=== PATIENT | female | born 1935 ===

== ENCOUNTER 2016-03-03 15:24 | Inpatient (IN) | payer MEDICARE, OTHER, MEDICAID ==
[~2016-03-03] VITALS: Ht 137.2 cm; Wt 73.1 kg
[~2016-03-03 15:24] MED LIST: ALEN35TA31 PO; AMLO10TA3 PO; ATOR80TA PO; CIPR-231 PO; FURO-128 PO; INSU100I18 SUBQ; INSU100V7 SUBQ; LEVO200T6 PO; LISI-567 PO; LORA10CA PO; OMEP20CA11 PO; ROPI3TAB PO; SULF1TAB7 PO
[2016-03-03 15:32] VITALS: BP 119/61; PULSE 68; RESP 18; O2SAT 97
--- NOTE | 2016-03-03 17:20 | DRSVH ---
PROCEDURE: X-RAY CHEST ONE VIEW, PORTABLE ([id number]) INDICATIONS: chf TECHNIQUE: One view of the chest was acquired. COMPARISON: [facility], CR, XR CHEST 2VW, 02/22/2015, 8:25. FINDINGS: Surgical changes and devices: None. Lungs and pleura: No pleural effusions or pneumothorax. Lungs are clear. Lung volumes are very low . There is scattered atelectasis Mediastinum: Mediastinal contours appear normal. Heart size is normal. Bones and chest wall: No suspicious bony lesions. Overlying soft tissues appear unremarkable. IMPRESSION: Low lung volumes with scattered atelectasis. No acute disease Dictated by: Francisco Wiggins M.D. on 03/03/2016 at 17:18 Approved by: Francisco Wiggins M.D. on 03/03/2016 at 17:18
[2016-03-03 17:30] LABS: EOSINOPHILS % (AUTO) 1.3 % (0-5); Mean Corpuscular Hemoglobin 26.9 pg (27.0-35.0); Mean Corpuscular Volume 81.1 fL (81-100); NEUTROPHILS % (AUTO) 71.3 % (40-74); Platelet Count 453 bil/L (150-400)
--- NOTE | 2016-03-03 18:00 | ED.REPORT ---
HPI-General Illness Date of Service Mar 03, 2016 ED Provider: Dr. Ki Vasquez MD A 80 year old female with history of insulin-dependent diabetes mellitus, hypertension and hypothyroidism presents to the ED via EMS with generalized weakness onset unknown. [place] denies any abdominal pain, headache or any other pains. Patient denies any previous strokes. Patient is a poor historian. Nursing Notes Stated Complaint: WEAKNESS Chief Complaint: General Complaint Nursing Notes Reviewed: Yes Allergies: Coded Allergies: Penicillins (Verified Allergy, Unknown, 03/03/16) Scheduled Alendronate (Alendronate) 35 Mg Tablet 70 MG PO WEEKLY Amlodipine (Amlodipine) 10 Mg Tablet 10 MG PO DAILY Atorvastatin (Lipitor) 80 Mg Tablet 80 MG PO DAILY Ciprofloxacin (Cipro) 500 Mg Tablet 500 MG PO BID Furosemide (Lasix) 40 Mg Tablet 40 MG PO [id number] Insulin Glargine (Lantus U100 Insulin Vial) 100 Unit/Ml Vial 40 UNIT SUBQ MORNING Insulin Lispro (HumaLOG U100 Insulin Pen) 100 Unit/1 Ml Insuln.pen Unknown Dose SUBQ ACHS Blood Sugar Lispro Correction <151 0 units 151-175 1 unit 176-200 2 units 201-225 3 units 226-250 4 units 251-275 5 units 276-300 6 units 301-325 7 units 326-350 8 units 351-375 9 units 376-400 10 units >400 12 units Check blood sugars before meals and at bedtime. Use correction factor only before meals. Levothyroxine (Levothyroxine) 200 Mcg Tablet 200 MCG PO DAILY Lisinopril (Lisinopril) 20 Mg Tablet 20 MG PO DAILY Loratadine (Claritin) 10 Mg Capsule 10 MG PO DAILY Omeprazole (Omeprazole) 20 Mg Capsule.dr 20 MG PO DAILY Ropinirole (Ropinirole) 3 Mg Tablet 6 MG PO BID Sulfamethoxazole/Trimeth 800-160 mg (Bactrim DS) 1 Each Tablet 1 TABLET PO BID General Time Seen by MD: 18:00 Chief Complaint Weakness Hx Obtained From: Patient Unable to Obtain Hx: Patient condition (Limited History ) Arrived By: Ambulance Sudden in Onset?: No Onset Occurred: Onset unknown Symptom Duration: Duration unknown Location: No: Abdomen, Head Associated with: Reports: Weakness, Denies: Abdominal pain, Headache Pertinent Negative: Pt denies other symptoms Recent Healthcare: No recent doctor visit, No recent hospitalization Past Medical History Past Medical History Insulin-dependent diabetes mellitus Hypertension Hypothyroidism Hyperlipidemia Osteoporosis Lower extremity edema GERD Reports: Diabetes mellitus, Hyperlipidemia, Hypertension, Denies: Stroke, Transient ischemic attack Past Surgical History Total hysterectomy Cholecystectomy Bilateral cataract Smoking History Former Smoker Social History Alcohol Use: Denies alcohol use Drug Use: Denies drug use Other Social History: Local resident Ambulatory Status Walker Review of Systems Unable to Obtain ROS Patient condition (ROS Limited ) Full Review of Systems Cardiovascular: Denies: Chest pain GI: Denies: Abdominal pain Neurologic: Reports: Weakness, Denies: Headache Complete sys rev & neg: except as marked. Physical Exam Vital Signs Vital Signs Date Time Temp Pulse Resp B/P Pulse Ox O2 Delivery O2 Flow Rate FiO2 03/03/16 18:15 64 18 109/51 95 Room Air 03/03/16 15:32 36.3 68 18 119/61 97 Room Air Initial VS: Reviewed Skin: Warm, Dry, No cyanosis Psychiatric: Mood/affect normal, Behavior normal, Normal thought content General/Constitutional: Awake Alertness: Positive: Responds to verb stimuli Head / Eyes: Atraumatic, Normocephalic HEAD/EYES: Right eye opens greater than left Respiratory / Chest: Atraumatic, Breath sounds = bilat RESPIRATORY: Decreased breath sounds bilaterally Cardiovascular: Heart rate NL, Regular rhythm, Heart sounds NL CARDIO: Non-pitting edema in in both feet Abdomen: Atraumatic, Soft, Non-tender Upper Extremities Upper Extremity / MS: Atraumatic, Vascular intact UPPER EXTREMITIES: No lateralizing deficits Equivalent strength in all four extremities; generally weak Lower Extremity / Pelvis / MS: Atraumatic, Vascular intact LOWER EXTREMITIES: No lateralizing deficits Equivalent strength in all four extremities; generally weak Neurologic: Oriented X3, Reflexes equal bilat NERUO: Patient is oriented to place but is unsure why she was brought here Able to follow prompts and answer questions Interpretation & Diagnostics Lab Results Interpretation Result Diagram: 03/03/16 1720 03/03/16 1720 Test 03/03/16 17:20 03/03/16 19:35 03/03/16 20:00 White Blood Count 6.0th/mm3 (3.8-10.1) Red Blood Count 3.60mil/mm3 (3.90-5.20) Hemoglobin 9.7g/dL (12.0-15.6) Hematocrit 29.2% (35.0-46.0) Mean Corpuscular Volume 81.1fL (81-100) Mean Corpuscular Hemoglobin 26.9pg (27.0-35.0) Mean Corpuscular Hemoglobin Concent 33.2% (32.0-37.0) Red Cell Distribution Width 14.4% (12.3-15.4) Platelet Count 453bil/L (150-400) Neutrophils (%) (Auto) 71.3% (40-74) Lymphocytes (%) (Auto) 21.2% (14-46) Monocytes (%) (Auto) 5.0% (4-12) Eosinophils (%) (Auto) 1.3% (0-5) Basophils (%) (Auto) 1.0% (0-3) Sodium Level 133mEq/L (134-144) Potassium Level 4.4mEq/L (3.5-5.2) Chloride Level 97mEq/L (97-108) Carbon Dioxide Level 21mmol/L (18-29) Blood Urea Nitrogen 45mg/dL (8-27) Creatinine 2.21mg/dL (0.57-1.00) Estimat Glomerular Filtration Rate 31mL/min (>59) Glucose Level 49mg/dL (60-99) Calcium Level 8.2mg/dL (8.5-10.1) Total Bilirubin 0.3mg/dL (0.0-1.2) Aspartate Amino Transf (AST/SGOT) 190U/L (0-50) Alanine Aminotransferase (ALT/SGPT) 204U/L (0-32) Alkaline Phosphatase 123U/L (25-165) Pro-B-Type Natriuretic Peptide 264.2pg/mL (0-738) Total Protein 6.4g/dL (6.4-8.4) Albumin 3.1g/dL (3.4-5.0) Thyroid Stimulating Hormone (TSH) 154.600uIU/mL (0.450-4.500) Free Thyroxine < 0.10ng/dL (0.82-1.77) Hold [place] Top Tube Received (Received) Urine Color Straw (YELLOW) Urine Appearance Cloudy (CLEAR,HAZY) Urine pH 5.5 (5.0-8.0) Urine Specific [place] 1.020 (1.003-1.035) Urine Protein 100mg/dL (NEG,TRACE) Urine Glucose (UA) Negativemg/dL (NEGATIVE) Urine Ketones Negativemg/dL (NEGATIVE) Urine Occult Blood Trace (NEGATIVE) Urine Nitrite Negative (NEGATIVE) Urine Bilirubin Negative (NEGATIVE) Urine Urobilinogen Normalmg/dL (NORMAL) Urine Leukocyte Esterase Moderate (NEGATIVE) Urine RBC 0-2/hpf (0-2) Urine WBC >50/hpf (0-5) Urine Epithelial Cells Moderate/hpf (NONE-MOD) Urine Crystals Amorphous urates (NONE Urine Bacteria Few/hpf (NONE-FEW) Urine Hyaline Casts None/lpf (NONE) Urine Granular Casts None seen (NONE SEEN) Urine Waxy Casts None seen (NONE SEEN) Urine Red Blood Cell Casts None seen (NONE SEEN) Urine White Blood Cell Casts None seen (NONE SEEN) Urine Mucus None seen (None Seen) Urine Trichomonas None seen (NONE SEEN) Urine Yeast None (NONE SEEN) Urinalysis Comment None Urine Culture Reflexed Indicated Lab Results Interpretation: INFLUENZA: Negative X-Ray Chest Interpretation Chest Xray Interpretation: IMPRESSION: Low lung volumes with scattered atelectasis. No acute disease Dictated by: Francisco Wiggins M.D. on 03/03/2016 at 17:18 Interpretation / Wet Read by: Interpret - Radiologist CT Head Interpretation IMPRESSION: No acute intracranial process. Dictated by: Francisco Wiggins M.D. on 03/03/2016 at 18:55 Study: Head CT no contrast Interpretation / Wet Read by: Interpret - ED physician Re-Eval/Medical Decision Med Decision/Clinical Course 80-year-old female with multiple medical comorbidities presents with a gradual onset decreased mentation. She is found to be somnolent but arousable. She is grossly weak without lateralizing deficits. She does have nonpitting edema about the face and limbs. She has a relative bradycardia and she is relatively hypotensive. Beyond that should very benign physical examination. No evidence of infection found on physical exam. Laboratory work was highly concerning for myxedema coma. I say this because she is hypoglycemic, hyponatremic and she has a markedly elevated TSH with a very low T4. She also has acute renal insufficiency. Her troponin is also elevated however her ST segments appeared to be isoelectric without evidence of an NV on her EKG. We began immediate fluid resuscitation. IV dextrose was infused A random cortisol and free T4 level were drawn. IV hydrocortisone was administered. 200 g of levothyroxine was administered. After the above therapeutic she looked better. She was definitely more alert. Her blood sugar stabilized. Her vitals were stable. I do not feel that she will need to be intubated and she is protecting her airway well and she seems to be oxygenating and ventilating well. I consulted with the on-call international trade compliance manager at the [facility]. His name escapes me at this time. He agrees with the plan. He recommends IV hydrocortisone every 8 hours and to initiate the levothyroxin as described above. He recommends that she starts her oral levothyroxin in the morning. Due to the high morbidity and mortality associated with myxedema coma we will admit her to the intensive care unit. Case discussed with our hospitalist was accepted her for admission. Time of Eval: 19:43 Patient Status: Condition improved Re-Evaluation/Progress Note: Patient is rechecked. She is informed of her lab results and diagnoses. All of the patient's questions are addressed. She understands and agrees with the treatment plan to admit. Consultation #1: Referral / Consult Name: Daniel Díaz MD Consulted With: Hospitalist Call Returned at: 22:42 House Registry Rn: Will see patient, Agrees with eval, Agrees with plan, Accepts admit Consultation #2: Call Returned at: 20:37 House Registry Rn: Agrees with eval, Agrees with plan Note: Endocrinology [facility] Recommends Levothyroxine. Counseled Regarding: Diagnosis, Lab results, Need for admission Discharge & Departure Primary Impression: Myxedema Additional Impressions: Renal insufficiency Hypoglycemia associated with diabetes ARF (acute renal failure) Acute renal failure type: unspecified Qualified Code: N17.9 - Acute kidney failure, unspecified Disposition: ADMITTED TO HOSPITAL Discharge Condition All VS Reviewed: Yes Condition: Stable Referrals: Praveena Saini MD (PCP) Crit Care Except Billable Proc Time Spent: 75-104 minutes Services Performed: Patient management by me, Time spent at bedside, Reviewing test results, Reviewing imaging, Discussing patient care, Documentation in record, Time with fam/surrogate Scribe Attestation Portions of this note were transcribed by Kevin Herrera. I, Dr. Vasquez personally performed the history, physical exam and medical decision-making; I reviewed and confirmed the accuracy of the information in the transcribed note. Signed by: Darrell Luo 03/03/16 2255. copies to: Praveena Saini MD, Todd P DO Mar 03, 2016 18:00 KEVIN HERRERA Mar 03, 2016 18:11
[2016-03-03 18:09] LABS: TROPONIN T 0.104 ug/L (0.0-0.011)
[2016-03-03 18:15] VITALS: BP 109/51; PULSE 64; RESP 18; O2SAT 95
[2016-03-03] MEDS ORDERED: Dextrose 5% 0.9% NaCl 1,000 ML IV SCH (18:40)
--- NOTE | 2016-03-03 19:00 | DRSVH ---
PROCEDURE: CT BRAIN WITHOUT CONTRAST ([id number]) INDICATIONS: confused, left facial droop TECHNIQUE: Noncontrast 4.5 mm thick angled axial sections acquired from the foramen magnum to the vertex, with c oronal reformats. COMPARISON: [facility], CT, BRAIN W/O CONTRAST, 01/21/2013, 17:31. FINDINGS: Image quality: Excellent. CSF spaces: Basal cisterns are patent. No extra-axial fluid collections. The ventricles are symmet sheri in size and shape. Brain: No intracranial bleeds or masses. There is cerebral volume loss for age, with resultant vent ricular and sulcal prominence. There are periventricular and deep white matter chronic small vessel ischemic changes. There is intracranial internal carotid artery atherosclerosis. Skull and face: Calvarium and visualized facial bones appear intact, without suspicious lesions. Sinuses: Visualized sinuses and mastoids are clear. IMPRESSION: No acute intracranial process. Dictated by: Francisco Wiggins M.D. on 03/03/2016 at 18:55 Approved by: Francisco Wiggins M.D. on 03/03/2016 at 18:58
[2016-03-03] MEDS ORDERED: Hydrocortisone 50 mg/mL 2 mL Inj IVPUSH ONE (19:45)
[2016-03-03 20:16] LABS: APPEARANCE,URINE CLOUDY (CLEAR,HAZY); COLOR,URINE STRAW (YELLOW); OCCULT BLOOD,URINE TRACE (NEGATIVE); PH,URINE 5.5 (5.0-8.0); UROBILINOGEN,URINE NORMAL (NORMAL)
[2016-03-03] MEDS ORDERED: Levothyroxine 100 mCg/5 mL Inj IV SCH (20:30)
[2016-03-03] MEDS ORDERED: SODIUM CHLORIDE 0.9% IV ONE (21:00)
[2016-03-03] MEDS ORDERED: LEVOTHYROXINE IV ONE (21:00)
[2016-03-03] MEDS ORDERED: Ondansetron 2 mg/mL 2 mL Inj IVPUSH PRN (21:15)
[2016-03-03] MEDS ORDERED: Alum-Mag Hydrox-Simeth 30 mL Suspension PO PRN (21:15)
[2016-03-03] MEDS ORDERED: Polyethylene Glycol (PEG) 17 Gm Powder PO PRN (21:15)
[2016-03-03 21:41] VITALS: BP 145/71; PULSE 70; RESP 19; O2SAT 100
[2016-03-03 21:42] VITALS: BP 145/71; PULSE 70; RESP 20; O2SAT 99
[2016-03-03 22:45] VITALS: BP 135/68; PULSE 70; RESP 20; O2SAT 100
[2016-03-03] MEDS ORDERED: Glucose 40% Oral Gel 15 Gm Tube PO PRN (22:55)
[2016-03-03] MEDS: Dextrose 5% 0.9% NaCl 1,000 ML IV SCH (23:00)
--- NOTE | 2016-03-03 23:20 | PCM.HPMED ---
Subjective Date of Service Mar 03, 2016 Primary Provider: Admitting Physician: Daniel Díaz MD Primary Care Physician: Praveena Saini MD Attending Physician: Daniel Díaz MD Chief Complaint: Increased generalized weakness History of Present Illness: Patient is a 80 year old female with a history of hypothyroidism, DM2, HTN, HLP , and GERD. She presented to [facility] on 03/03/16 via EMS. She reports increased weakness/fatigue beyond her baseline. She feels it got worse suddenly but cannot pinpoint exactly when it got worse. It was bad enough that she felt she could not get up or move. She states that she had a mild sore throat, headache , nausea with dry heaves, and decreased appetite. She also felt cold but she reports always feeling cold. She has noticed increased swelling all over her body over the last week or so and she believes that has led to weight gain. The areas most swollen in her opinion are her hands and legs. In the ED the patient was afebrile with a heart rate of 68, respiratory rate 18 , blood pressure 119/61, and O2 saturation of 97% on room air. Labs were remarkable for Hgb 9, sodium 133, creatinine 2.21, glucose 49, troponin 0.104, and TSH 154.6. Dr. Vasquez talked to endocrinology at . They recommended hydrocortisone 100 mg Q8 and IV levothyroxine 200 mcg tonight. Patient to be admitted to CCU for close monitoring. Review of Systems: A comprehensive review of systems was conducted with the patient and found to be negative except as above in the history of present illness. Allergies Coded Allergies: Penicillins (Verified Allergy, Unknown, 03/03/16) Home Medications Unable to verify with patient currently as she reports uncertainty about her med list: Alendronate 70 mg PO weekly Amlodipine 10 Mg daily Atorvastatin 80 Mg daily Ciprofloxacin 500 Mg BID Furosemide 40 Mg AM and 1400 Lantus 40 UNIT QAM Humalog SQ ACHS: Blood Sugar Lispro Correction <151 0 units 151-175 1 unit 176 -200 2 units 201-225 3 units 226-250 4 units 251-275 5 units 276-300 6 units 301-325 7 units 326-350 8 units 351-375 9 units 376-400 10 units > 400 12 units Check blood sugars before meals and at bedtime. Use correction factor only before meals. Levothyroxine 200 Mcg daily Lisinopril 20 Mg daily Loratadine 10 Mg daily Omeprazole 20 Mg daily Ropinirole 6 Mg BID Sulfamethoxazole/Trimeth 800-160 mg (Bactrim DS) 1 tablet BID PMH Hypothyroidism Type 2 Diabetes mellitus Hypertension Hyperlipidemia Osteoporosis GERD Environmental/seasonal allergies Surgical History Total hysterectomy Cholecystectomy Bilateral cataract extraction Family History No known family history of thyroid problems No known family history of diabetes Social History Hx Alcohol Use: No Hx Substance Use: No Hx Tobacco Use: Yes Smoking Status: Former Smoker (quit in her 20s) Living Arrangement: Other (Has neurology epilepsy physician, Cora) Exam Vital Signs Vital Sign - Last Date Time Temp Pulse Resp B/P Pulse Ox O2 Delivery O2 Flow Rate FiO2 03/03/16 18:15 64 18 109/51 95 Room Air 03/03/16 15:32 36.3 Exam Alert and oriented x3, no acute distress, appears exhausted Head atraumatic, normocephalic PERRLA (constricted, about 3 mm in size), EOMI, sclera anicteric Mucus membranes moist, no oral thrush observed No cervical lymphadenopathy, neck supple, nontender No JVD noted Cardiac tones regular rate and rhythm with no murmur appreciated Lungs clear to auscultation bilaterally with adequate respiratory effort No abdominal tenderness, non-distended, normoactive bowel tones, soft Abraham absent Radial pulses normal and equivalent bilaterally, dorsalis pedis pulses difficult to appreciate bilaterally No cyanosis, clubbing; edema in the lower extremities up to the thigh, feels doughy; hands also appear edematous No ulcerations/open wounds Cranial nerves appear to be fully intact, normal speech, patient can move upper and lower limbs grossly Lab and Diagnostics Result Diagram: 03/03/16 1720 03/03/16 1720 X-Rays, CTs and MRIs Chest x-ray: IMPRESSION: Low lung volumes with scattered atelectasis. No acute disease Dictated by: Francisco Wiggins M.D. on 03/03/2016 at 17:18 CT head: IMPRESSION: No acute intracranial process. Dictated by: Francisco Wiggins M.D. on 03/03/2016 at 18:55 12-lead ECG Rate 67 QTc 436 Sinus rhythm, low voltage, no acute ischemic changes Assessment & Plan Patient is a 80 year old female with a history of hypothyroidism, DM2, HTN, HLP , and GERD. She presented to [facility] on 03/03/16 with increased weakness. Found to have TSH 154.6. Given hydrocortisone and levothyroxine IV in the ED. Admitted for close monitoring and management of myxedema. 1. Myxedema, acute, present on admission. - TSH 154.6, T4 <0.10. - Hydrocortisone 100 mg given in ED. Plan to continue 100 mg IV Q8. - Levothyroxine 200 mcg given IV in the ED. Patient's home dose is reportedly 200 mcg, uncertain about compliance at this time. Will defer to day team to start PO dose in AM after speaking with endocrine. - Endocrinology at contact this evening for recommendations. In AM please contact [facility] endocrinology for further recommendations. 2. Hypoglycemia, acute, present on admission. - Secondary to myxedema. - D5 NS given in ED with improvement of blood glucose level. - Will continue D5 NS at 100 ml/hr x 1 bag. Re-evaluate need for this tomorrow AM. - Holding home insulin regimen as below in #5. 3. Elevated transaminases, acute, present on admission. - Possibly secondary to statin use. Could be secondary to myxedema. - Will hold home dose atorvastatin at this time. - Continue to monitor CMP. 4. Hypertension, chronic. - Patient appeared more hypotensive initially. - Will hold home antihypertensives tonight. Defer to day team about re-starting : lisinopril 20 mg daily, furosemide 40 mg QAM and 1400, and amlodipine 10 mg daily. 5. Diabetes mellitus, type 2, presume uncontrolled. - Last A1c found was 02/21/15 - 10.5. - Will repeat A1c. - Patient hypoglycemic at time of admission. Will hold home Lantus 40 units QAM at this time. - Medium dose correction scale to be available at this time. Will likely need to be adjusted up over course of admission. - Home humalog dosing ACHS: Correction <151 0 units, 151-175 1 unit, 176-200 2 units, 201-225 3 units, 226-250 4 units, 251-275 5 units, 276-300 6 units , 301-325 7 units, 326-350 8 units, 351-375 9 units, 376-400 10 units, > 400 12 units. Check blood sugars before meals and at bedtime. Use correction factor only before meals. - Diabetic diet ordered with 45 g carbs per meal. 6. Hyperlipidemia, chronic, presume stable. - Holding atorvastatin 80 mg daily as above in #3. 7. GERD, chronic, presume stable. - Continue PPI during admission. Replace omeprazole 20 mg daily with protonix 40 mg daily. 8. Osteoporosis, chronic, presume stable. - Patient takes alendronate 70 mg weekly. Will not plan to give this during admission unless it becomes prolonged. 9. Environmental/seasonal allergies, chronic, presume stable. - Loratidine 10 mg available daily PRN. 10. Medication reconciliation; - Patient could not confirm all medications and doses at the time of this H&P. - Please verify these tomorrow AM either with the patient or call her pharmacy. - Of special notice should be ropinirole 6 mg BID. Could not locate diagnosis of Parkinsons disease or RLS so uncertain about the reason for this medication and patient cannot say. - Antiemetic available PRN. - Bowel regimen available PRN. - Antacid available PRN. - Tylenol available PRN mild pain, fever. Patient admitted under inpatient status with expected length of stay greater than 2 midnights for severity of present symptoms, complexities of treatment plan and risk for adverse events. PCP Dr. Nix at [facility] GI Prophylaxis: Proton Pump Inhibitor VTE Prophylaxis: Sub-Q Heparin (Unfractionated), SCDs Resuscitation Status: CPR: Attempt Resuscitation Time spent 50 minutes critical care time Attending Statement The patient was seen and examined together with Dr. Walters on 03/03 and I agree with the history, exam and plan as outlined in the note above. Kirsten Walters DO Mar 03, 2016 21:41 Daniel Díaz MD Mar 03, 2016 23:38
[2016-03-04] VITALS (7 sets, daily range): BP systolic 113–156; BP diastolic 56–74; PULSE 64–86; RESP 15–20; O2SAT 95–100
[2016-03-04] MEDS: Hydrocortisone 50 mg/mL 2 mL Inj IVPUSH SCH ×3 (02:11→16:44)
[2016-03-04] MEDS: Heparin 5,000 Unit/mL Inj SUBQ SCH ×3 (02:11→16:44)
--- NOTE | 2016-03-04 04:08 | NUR ---
Admit note Vs as noted. Admitted to CCU 2016 from er at 2220. PT weak but alert and oriented. Transferred from [facility] to bed with maximum assist. Sats on room air high 90s. Denies pain or discomforts. Tele sinus rhythm with hr 60s. IVF D5NS at 100ml/h. Taking liquids without difficulties. Blood glucose 100,150 and 166.
[2016-03-04] MEDS: Dextrose 5% 0.9% NaCl 1,000 ML IV SCH (05:03)
[2016-03-04 06:00] LABS: BASOPHILS % (AUTO) 0.2 % (0-3); EOSINOPHILS % (AUTO) 0 % (0-5); MONOCYTES % (AUTO) 1.9 % (4-12); Mean Corpuscular Hemoglobin 26.6 pg (27.0-35.0); Mean Corpuscular Volume 81.1 fL (81-100); NEUTROPHILS % (AUTO) 78.9 % (40-74); Platelet Count 395 bil/L (150-400)
[2016-03-04 06:35] LABS: Magnesium 1.8 mg/dL (1.6-2.6); Phosphorus 4.9 mg/dL (2.5-4.9)
[2016-03-04 06:52] LABS: TROPONIN T 0.061 ug/L (0.0-0.011)
[2016-03-04] MEDS: Pantoprazole 40 mg ER24 Tablet PO SCH (07:47)
[2016-03-04] MEDS: Insulin LISPRO 300 Unit/3 mL Inj SUBQ SCH ×5 (07:50→22:00)
[2016-03-04] MEDS ORDERED: Influenza (Adult) Vaccine 0.5 mL Syringe IM ONE (08:30)
--- NOTE | 2016-03-04 12:51 | PCM.PNMED ---
Subjective Date of Service Mar 04, 2016 Subjective Patient somnolent without complaints of chest pain, dyspnea, nausea vomiting Exam Vital Signs Vital Sign - Last Date Time Temp Pulse Resp B/P Pulse Ox O2 Delivery O2 Flow Rate FiO2 03/04/16 08:00 36.4 75 17 131/61 98 Room Air Intake and Output 03/03/16 03/03/16 03/04/16 Cumulative From/Thru 15:00 23:00 07:00 03/03/16 15:32 - 03/04/16 06:23 Intake Total 1240 ml 1240 ml Output Total 0 ml 0 ml Balance 1240 ml 1240 ml Intake Oral 240 ml 240 ml IV Total 1000 ml 1000 ml Output Urine Total 0 ml 0 ml Exam Gen.-Somnolent female wakes up oriented 2 perhaps, no apparent distress. Eyes- open conjunctiva clear, pupils equal nonicteric, periorbital edema Mouth- oral mucosa moist, no exudate ENT- ears normal, nose normal Neck- supple/trach midline CVS- RRR no murmur or gallop, 1-2+ pedal edema Lungs CTA, breath sounds shallow GI- NABS/NT soft, nontender Musc- moving 4 no obvious deformity Neuro- cranial nerves II through XII intact to gross examination, nonfocal Skin- warm and dry, no rashes/lesions/wounds noted Psych- pleasant and appropriate, drowsy Lab and Diagnostics Result Diagram: 03/04/16 0535 03/04/16 0535 X-Rays, CTs and MRIs Chest x-ray: IMPRESSION: Low lung volumes with scattered atelectasis. No acute disease Dictated by: Francisco Wiggins M.D. on 03/03/2016 at 17:18 CT head: IMPRESSION: No acute intracranial process. Dictated by: Francisco Wiggins M.D. on 03/03/2016 at 18:55 12-lead ECG Rate 67 QTc 436 Sinus rhythm, low voltage, no acute ischemic changes Assessment & Plan Patient is a 80 year old female with a history of hypothyroidism, DM2, HTN, HLP , and GERD. She presented to [facility] on 03/03/16 with increased weakness. Found to have TSH 154.6. Given hydrocortisone and levothyroxine IV in the ED. Admitted for close monitoring and management of myxedema. 1. Myxedema, acute, present on admission.- TSH 154.6, T4 <0.10. Thank you Dr. Newberry endocrine consult - Hydrocortisone 100 mg given in ED. Plan to continue 100 mg IV Q8. Discontinue cortisol was normal 03/04 - Levothyroxine 200 mcg given IV in the ED. Patient's home dose is reportedly 200 mcg, uncertain about compliance at this time. Changing patient to home dose 150 g daily twice a day. Expected time course to recovery is to be measured in weeks given her undetectable T4. 2. Hypoglycemia, acute, present on admission. - Secondary to myxedema. This is resolved blood sugar has steadily elevated we will discontinue D5 - D5 NS given in ED with improvement of blood glucose level. - Holding home insulin regimen as below in #5. 3. Elevated transaminases, acute, present on admission. - Possibly secondary to statin use. Could be secondary to myxedema. - Will hold home dose atorvastatin at this time. - Continue to monitor CMP. 4. Hypertension, chronic. - Patient appeared more hypotensive initially. - Will hold home antihypertensives tonight. Defer to day team about re-starting : lisinopril 20 mg daily, furosemide 40 mg QAM and 1400, and amlodipine 10 mg daily. 5. Diabetes mellitus, type 2, presume uncontrolled. - Last A1c found was 02/21/15 - 10.5. - Will repeat A1c. - Patient hypoglycemic at time of admission. Will hold home Lantus 40 units QAM at this time. Low-dose sliding scale stopping hydrocortisone and D5 water will not continue to monitor blood sugars 6. Hyperlipidemia, chronic, presume stable. - Holding atorvastatin 80 mg daily as above in #3. 7. GERD, chronic, presume stable. - Continue PPI during admission. Replace omeprazole 20 mg daily with protonix 40 mg daily. 8. Osteoporosis, chronic, presume stable. - Patient takes alendronate 70 mg weekly. Will not plan to give this during admission unless it becomes prolonged. 9. Environmental/seasonal allergies, chronic, presume stable.- Loratidine 10 mg available daily PRN. Medically complex patient at high risk for complications will change his regimen including stopping either cortisone, starting an insulin sliding scale and Levoxyl 150 mics twice a day. Follow-up labs in a.m. begin to mobilize patient for potential discharge in the next few days GI Prophylaxis: Proton Pump Inhibitor VTE Prophylaxis: Sub-Q Heparin (Unfractionated), SCDs Resuscitation Status: CPR: Attempt Resuscitation Mateo Fleming MD Mar 04, 2016 12:51 of Parkinsons disease or RLS so uncertain about the reason for this medication and patient cannot say. - Antiemetic available PRN. - Bowel regimen available PRN. - Antacid available PRN. - Tylenol available PRN mild pain, fever. Patient admitted under inpatient status with expected length of stay greater than 2 midnights for severity of present symptoms, complexities of treatment plan and risk for adverse events. PCP Dr. Nix at [facility] GI Prophylaxis: Proton Pump Inhibitor VTE Prophylaxis: Sub-Q Heparin (Unfractionated), SCDs Resuscitation Status: CPR: Attempt Resuscitation Mateo Fleming MD Mar 04, 2016 12:51
--- NOTE | 2016-03-04 13:25 | NUR ---
Social Work: Initial Assessment D: Per EMR review, pt is a 80 year old female admitted for myxedema, altered mental status, renal insufficiency. Pt is Medicare with [employer] supplement. PCP is Praveena Saini MD. NOK/DPOA is Shanda Peres, niece, and Joseph Avitia, sister/Td MOLINA, . Pt has completed advanced directives- PROFESSOR OF COUNSELING requested these from family. Readmit score is not entered at this time. PROFESSOR OF COUNSELING met with pt and sister at bedside to discuss initial assessment. Sw role explained. Pt lives at home in [facility] with her niece and nephew. Pt uses a walker and cane at baseline and relies on others for meal prep, medications and some mobility OOB. Pt is currently open with Noemi PLATT for RN/PT. Pt has no stairs to enter her single story home. Pt's sister believes that the pt will likely require additional care prior to return home. PROFESSOR OF COUNSELING reviewed different discharge options including skilled rehab, assisted living, respite stay etc. At this time, pt's needs are not clearly identified and will need to be assessed as her clinical course unfolds. Family is in agreement with this. A: Pt who previously lived at home with her niece. P: Evolving; PROFESSOR OF COUNSELING to continue to follow pt's care and clinical course and assess for discharge needs; IDALIA Hood Addendum: 03/04/16 at 1334 by SHANE SANCHES SS Amended: Links added.
--- NOTE | 2016-03-04 13:55 | DRSVH ---
[facility] [address] [place] [address] Echocardiogram Report Name: CLAY RO te: 03/04/2016 Height: 54 in Hospital Exam Location: [facility] Weight: 164 lb Gender: Female BSA: 1.6 m2 : 1935 Age: 80 yrs BP: 122/69 mmHg Reason For Study: ELEVATED TROPONIN, ABN EKG Ordering Physician: HOSPITALIST [facility] Performed By: Favio Kirby Referring Physician: Diane BANGURA Interpretation Summary The left ventricle is normal in size. Left ventricular wall thickness is mildly increased. The ejection fraction is estimated to be 60-65%. There are no focal wall motion abnormalities. The right ventricle is normal in size and function. Pulmonary artery pressures cannot be estimated because of the lack of a measurable TR jet velocity. The left atrium is mildly dilated. Right atrial size is normal. There is no significant valvular heart disease. The ascending aorta is mild-moderately enlarged. There is a small pericardial effusion noted. There are no echocardiographic indications of cardiac tamponade. Compared to the prior echo report on 02/14/2014, there is no significant change. Procedure: A two-dimensional transthoracic echocardiogram with color flow and Doppler was performed. The study quality was technically difficult. Comparison is made with the echocardiogram of 02/14/14. The patient was in normal sinus rhythm during the exam. Left Ventricle: The left ventricle is normal in size. Left ventricular wall thickness is mildly increased. The ejection fraction is estimated to be 60- 65%. There are no focal wall motion abnormalities. There is left ventricular diastolic dysfunction. Right Ventricle: The right ventricle is normal in size and function. Atria: The left atrium is mildly dilated. Right atrial size is normal. The interatrial septum is intact with no evidence for an atrial septal defect. Mitral Valve: There is mild mitral annular calcification. There is no mitral regurgitation noted. Aortic Valve: The aortic valve is trileaflet. The aortic valve is mildly calcified. Leaflet mobility is minimally reduced. There is no aortic valve stenosis. No aortic regurgitation is present. Tricuspid Valve: The tricuspid valve is normal in structure and function. No tricuspid regurgitation. Pulmonary artery pressures cannot be estimated because of the lack of a measurable TR jet velocity. Pulmonic Valve: The pulmonic valve is not well visualized. There is trace pulmonic regurgitation. There is no significant valvular heart disease. Great Vessels: The aortic root is normal size. The ascending aorta is mild- moderately enlarged. The aortic arch is mildly enlarged. The pulmonary artery is normal size. The IVC is of normal diameter and collapses greater than 50% with a sniff. This suggests a low right atrial pressure of 3 mm Hg. Pericardium/ Pleura There is a small pericardial effusion noted. There are no echocardiographic indications of cardiac tamponade. There is no pleural effusion. MMode/2D Measurements & Calculations LVIDd: 4.1 cm LA dimension: 4.0 cm RA long axis LVOT diam: 2.2 cm LVIDs: 2.5 cm AoV Opening FS: 39.2 % LA A2 area: 19.0 cm RA area EPSS: 0.47 cm LA A4 area: 25.4 cm Ao root diam IVSd: 1.3 cm LA length (vol) : 13.0 cm LVPWd: 1.2 cm RA vol Aortic Jxn: 2.8 cm LA vol: 59.0 ml : 31.8 ml asc Aorta Diam LA vol index RA : 20.0 mm2 Ao Arch Diam (Prox Trans): 3.2 cm IVC diam: 1.8 cm LV lozano. diameter/BSA LV sys. diameter/BSA (cm/m^2): 2.6 (cm/m^2): 1.6 Doppler Measurements & Calculations Ao V2 max MV E max bridger MV E/A: 0.88 PA V2 max : 171.8 cm/sec : 86.4 cm/sec Med Peak E' Bridger : 86.5 cm/sec Ao max P.8 mmHg MV A max bridger PA mean PG Ao mean P.8 mmHg : 98.1 cm/sec E/E' med: 18.6 LVOT Max Bridger Pulm A Revs Dur PA Accel Time : 99.5 cm/sec : 0.13 sec MV A dur AMISH(I,D): 2.4 cm : 0.13 sec sev ratio: 0.65 MV dec time: 0.24 secAo V2 mean LV V1 max PG PA V2 mean : 124.8 cm/sec : 62.8 cm/sec Ao V2 VTI: 36.9 cm LV V1 VTI PA pr(Accel) AMISH(V,D): 2.1 cm2 : 23.9 cm : 21.6 mmHg AMISH indexed to BSA Pulm A Revs Dur - MV A (cm^2/m^2): 1.5 Dur: -0.01 msec Reading Physician:RENETTA
[2016-03-04] MEDS ORDERED: FERR324T2 PO (14:34)
[2016-03-04] MEDS ORDERED: FUR20 PO ×2 (14:34)
[2016-03-04] MEDS ORDERED: LISI40TA PO (14:40)
[2016-03-04] MEDS ORDERED: CHOL10008 PO (14:40)
[2016-03-04] MEDS ORDERED: LEVO150T5 PO (14:40)
[2016-03-04] MEDS ORDERED: DONE5TAB30 PO (14:40)
[2016-03-04] MEDS ORDERED: LORA10CA PO (14:40)
[2016-03-04] MEDS ORDERED: INSU100V7 SUBQ (14:49)
--- NOTE | 2016-03-04 14:53 | PCM.PNMED ---
Subjective Date of Service Mar 04, 2016 Subjective 2cnd note for day, can't delete. Pls disregard Exam Vital Signs Vital Sign - Last Date Time Temp Pulse Resp B/P Pulse Ox O2 Delivery O2 Flow Rate FiO2 03/04/16 12:00 36.0 77 18 125/56 95 Room Air Intake and Output 03/03/16 03/03/16 03/04/16 Cumulative From/Thru 15:00 23:00 07:00 03/03/16 15:32 - 03/04/16 06:23 Intake Total 1240 ml 1240 ml Output Total 0 ml 0 ml Balance 1240 ml 1240 ml Intake Oral 240 ml 240 ml IV Total 1000 ml 1000 ml Output Urine Total 0 ml 0 ml Lab and Diagnostics Result Diagram: 03/04/16 0535 03/04/16 0535 X-Rays, CTs and MRIs Chest x-ray: IMPRESSION: Low lung volumes with scattered atelectasis. No acute disease Dictated by: Francisco Wiggins M.D. on 03/03/2016 at 17:18 CT head: IMPRESSION: No acute intracranial process. Dictated by: Francisco Wiggins M.D. on 03/03/2016 at 18:55 12-lead ECG Rate 67 QTc 436 Sinus rhythm, low voltage, no acute ischemic changes Assessment & Plan 2cnd note for day, can't delete. Pls disregard GI Prophylaxis: Proton Pump Inhibitor VTE Prophylaxis: Sub-Q Heparin (Unfractionated), SCDs Resuscitation Status: CPR: Attempt Resuscitation Mateo Fleming MD Mar 04, 2016 14:53 200 mcg, uncertain about compliance at this time. Will defer to day team to start PO dose in AM after speaking with endocrine. - Endocrinology at contact this evening for recommendations. In AM please contact [facility] endocrinology for further recommendations. 2. Hypoglycemia, acute, present on admission. - Secondary to myxedema. - D5 NS given in ED with improvement of blood glucose level. - Will continue D5 NS at 100 ml/hr x 1 bag. Re-evaluate need for this tomorrow AM. - Holding home insulin regimen as below in #5. 3. Elevated transaminases, acute, present on admission. - Possibly secondary to statin use. Could be secondary to myxedema. - Will hold home dose atorvastatin at this time. - Continue to monitor CMP. 4. Hypertension, chronic. - Patient appeared more hypotensive initially. - Will hold home antihypertensives tonight. Defer to day team about re-starting : lisinopril 20 mg daily, furosemide 40 mg QAM and 1400, and amlodipine 10 mg daily. 5. Diabetes mellitus, type 2, presume uncontrolled. - Last A1c found was 02/21/15 - 10.5. - Will repeat A1c. - Patient hypoglycemic at time of admission. Will hold home Lantus 40 units QAM at this time. - Medium dose correction scale to be available at this time. Will likely need to be adjusted up over course of admission. - Home humalog dosing ACHS: Correction <151 0 units, 151-175 1 unit, 176-200 2 units, 201-225 3 units, 226-250 4 units, 251-275 5 units, 276-300 6 units , 301-325 7 units, 326-350 8 units, 351-375 9 units, 376-400 10 units, > 400 12 units. Check blood sugars before meals and at bedtime. Use correction factor only before meals. - Diabetic diet ordered with 45 g carbs per meal. 6. Hyperlipidemia, chronic, presume stable. - Holding atorvastatin 80 mg daily as above in #3. 7. GERD, chronic, presume stable. - Continue PPI during admission. Replace omeprazole 20 mg daily with protonix 40 mg daily. 8. Osteoporosis, chronic, presume stable. - Patient takes alendronate 70 mg weekly. Will not plan to give this during admission unless it becomes prolonged. 9. Environmental/seasonal allergies, chronic, presume stable. - Loratidine 10 mg available daily PRN. 10. Medication reconciliation; - Patient could not confirm all medications and doses at the time of this H&P. - Please verify these tomorrow AM either with the patient or call her pharmacy. - Of special notice should be ropinirole 6 mg BID. Could not locate diagnosis of Parkinsons disease or RLS so uncertain about the reason for this medication and patient cannot say. - Antiemetic available PRN. - Bowel regimen available PRN. - Antacid available PRN. - Tylenol available PRN mild pain, fever. Patient admitted under inpatient status with expected length of stay greater than 2 midnights for severity of present symptoms, complexities of treatment plan and risk for adverse events. PCP Dr. Nix at [facility] GI Prophylaxis: Proton Pump Inhibitor VTE Prophylaxis: Sub-Q Heparin (Unfractionated), SCDs Resuscitation Status: CPR: Attempt Resuscitation Mateo Fleming MD Mar 04, 2016 14:53
--- NOTE | 2016-03-04 15:10 | PCM.CHPMED ---
Subjective Date of Service: Mar 04, 2016 Primary Physician: Admitting Physician: Daniel Díaz MD Primary Care Physician: Praveena Saini MD Attending Physician: Daniel Díaz MD Chief Complaint: Chief Complaint: Asked by Dr. Fleming to see this 80-year-old woman regarding the chief complaint of weakness, fatigue and hypothyroidism History of Present Illness: The patient has baseline dementia. She lives in a private home with the assistance of grandchildren and nephew. She is ordinarily alert and able to ambulate, but does not recall facts or initiate activities independently. The patient is unable to provide history or ROS. Family at bedside report that she has had 3 days of severe weakness and fatigue, resulting her taking to bed. Details are vague but there are also complaints of worsened back pain, feeling cold, increased pedal edema, reduced food intake for 3 days, nausea and headache. These symptoms are primarily reported in the 3 days prior to admission. There have been no exacerbating or palliating factors. Her reduced energy and mental status have been present episodically before but are usually self-limited. Family states that this is much worse episode than usual. She presented to the emergency department with weakness fatigue and reduced mental status. She was found to have essentially undetectable free T4 with TSH of 154.6. Additional findings on presentation include hypoglycemia with blood glucose 38-49. Admitting body temperature was 36.3, heart rate was 68, blood pressure 119/61. The patient has a long-standing history of hypothyroidism with thyroid hormone replacement. She is cared for at [facility]. He takes her medicines daily when they are dispensed by family members from a prepackaged multi-pill blister pack. The nephew who is usually responsible for medications indicates that she has taken meds regularly recently. He endorses there have been episodes and he left this duty to his cousins for several days or week, but feels that her overall medication compliance has been good. Her dose of thyroid hormone is not known to have changed recently. Family does not know of her recent thyroid blood test results. Review of Systems: The patient was unable to comply with ROS. PMH Past Medical History #. Hypothyroidism - medication list reports 200 g per day. List at home indicates 150 g per day. #. Type II diabetes mellitus and Lantus 40 units every morning, Humalog correctional; poorly controlled hemoglobin A1c recently 10.5% #. Hypertension and lisinopril, amlodipine #. Pedal edema on chronic Lasix #. GERD on omeprazole #. Osteoporosis on weekly alendronate. #. Obesity class III Hx Any Other Health Problems?: YesHx Diabetes: YesBedside Blood Glucose: 205 Home Medications As per medication list. Reportedly amlodipine, lisinopril, atorvastatin, furosemide, omeprazole, loratadine, ciprofloxacin, TMP/SMX, alendronate. Thyroid dose noted above. Allergies: Coded Allergies: Penicillins (Verified Allergy, Unknown, 03/03/16) Family History Family History Positive for hypothyroidism. Social History Hx Alcohol Use: NoHx Substance Use: NoHx Tobacco Use: Yes Smoking Status: Former Smoker (quit in her 20s) Living Arrangement: with Family (as noted in history of present illness) Other (Has experimental display builder, Cora) Exam Vital Signs Vital Sign - Last Date Time Temp Pulse Resp B/P Pulse Ox O2 Delivery O2 Flow Rate FiO2 03/04/16 12:00 36.0 77 18 125/56 95 Room Air Intake and Output 03/03/16 03/03/16 03/04/16 Cumulative From/Thru 15:00 23:00 07:00 03/03/16 15:32 - 03/04/16 06:23 Intake Total 1240 ml 1240 ml Output Total 0 ml 0 ml Balance 1240 ml 1240 ml Intake Oral 240 ml 240 ml IV Total 1000 ml 1000 ml Output Urine Total 0 ml 0 ml General: Other (sleepy but arouses and open eyes to voice. Minimalist response to question with little content. A&O 1. Denies pain) Head: Facial Expression & Appearance (Marked periorbital edema broad feces. ) Mouth: Other (tongue thick with overall congested soft tissues.) Neck: Supple, Other (unable to sit up for proper exam no apparent goiter with suboptimal exam.) Chest & Lungs: Auscultation (clear) Cardiovascular: Normal S1, Normal S2, No Murmurs/Rubs/Gallops Pulses: Dorsalis Pedis (normal 2+) Abdomen: Non-tender, Non-distended, Normoactive bowel tones Musculoskeletal: Other (short extremities no acute inflammation or swelling.) Extremities: Other Neurological: Other (4 compliance with exam. Cranial nerves appear symmetric. Reflexes diffusely absent. Unable to test relaxation phase.) Lab and Diagnostics Labs Free T4 less than 0.1; TSH 154.6 Random cortisol 25.9 UA was significant pyuria but few bacteria. Troponin T 0.08, 0.06 . Result Diagram: 03/04/1635 03/04/1635 Assessment & Plan Assessment 80-year-old woman with history of chronic hypothyroidism presents with progressive weakness and encephalopathy and found to be severely hypothyroid. She has acute on chronic encephalopathy. Confounding factors include elevated serum creatinine, elevated serum troponins, hypoglycemia. Her last body temperature as been 36.0, her lowest heart rate is 64. Hypoglycemia may be attributable to insulin therapy and poor by mouth intake, possibly exacerbated by myxedema. Her encephalopathy may improve somewhat with treatment of concomitant renal failure, hypoglycemia, possible UTI and rehydration. Thyroid hormone replacement will be gradual and I have counseled the family to expect 2- 3 weeks before her energy level is back to baseline. She has a history of hypothyroidism, but no adrenal disease. Concomitant treatment of myxedema with glucocorticoids is primarily indicated for new onset hypothyroidism where polyglandular autoimmune endocrinopathy is a diagnostic possibility. Her presentation shows no signs of hyperkalemia, acidosis or hypotension. Random cortisol level is normal. The pace of replacement of thyroid hormone in myxedema is a balance of cardiovascular risk versus the urgency of recovery. In this case, the patient is not experiencing cardiorespiratory failure, myxedematous effusions, ileus, hypothermia or severe coma. For this reason aggressive supplementation is not indicated. She has long-standing diabetes, abnormal serum troponin values, and advanced age, which raise some concern for cardiac risks of aggressive thyroid hormone replacement. I recommend minimalist loading schedule of doubling her daily dose for 3 days then resumption of her usual thyroid hormone replacement. I would not recommend the use of T3 supplementation. Her bowels appear to be working hence she can take oral thyroid hormone. Her undetectable free T4 indicates that she has not taken thyroid hormone replacement in several weeks. Differential diagnosis is failure take medications, medication error, or drug interaction. The family history affirms regular medication administration. According to family, the blister packs list levothyroxine 150 g per day. It would be desirable to have our pharmacist check one of the blister packs, in case they were labeled inappropriately. Any other information confirming medication administration would be helpful. If she is indeed taking medication regularly then interaction leading to reduce Synthroid absorption is possible. Her prescription medication list does not list suspicious drugs. Use of [id number] agents should be reviewed, particularly for divalent cationic medication such as calcium carbonate, iron supplements, antacids, multivitamins etc. Dosing should be reviewed with the family and I recommend that Synthroid be taken out of the blister pack and administered separately several hours away from food and other medications if possible. Recommendations: #1. Levothyroxine 200 mg twice a day orally 3 days, then resume her usual dose of 200 (150 if this is confirmed) per day. #2. Discontinue hydrocortisone without taper #3. Try to confirm that thyroxine is in her daily blister pack of pills at home. Confirm current dose. Check that there are no interfering medications. Separate thyroid hormone dosing from any other medications or food to the maximum extent possible. #4. There is no value in thyroid hormone tests until 4-6 weeks after the current treatment. This should be attended to in the discharge plan. Thank you for this interesting consult. I can be reached for questions at [phone]. Problems: GI Prophylaxis: Proton Pump Inhibitor VTE Prophylaxis: Sub-Q Heparin (Unfractionated), SCDs Resuscitation Status: CPR: Attempt Resuscitation Time spent 80 minutes Dean Newberry MD Mar 04, 2016 13:49
--- NOTE | 2016-03-04 17:05 | NUR ---
Transfer to [facility] Pt transferred to [facility] in stable condition. Alert and oriented to self, baseline alzheimers dementia. Vital signs stable on RA, pt using bedpan for voiding. Gave 2 tabs of tylenol for moderate back pain. TELE off per MD order. Caregiver at bedside. Report given to Cooper Lima RN.
--- NOTE | 2016-03-04 17:26 | NUR ---
RECEIVED FROM [facility] Patient received from [facility] via a hospital bed. Transferred with assist. Patient is alert only to person. 2 saline locks intact and flushes without any problems. Patient denies pain/nausea/SOB at this time. Oriented to room and call light. [place] alarm is on.
[2016-03-05] MEDS: Heparin 5,000 Unit/mL Inj SUBQ SCH ×3 (00:44→17:13)
--- NOTE | 2016-03-05 02:08 | NUR ---
Activity/[place] alarm Patient alert, and has been following commands, and responding appropriately to questions this evening. Patient denies any pain, or nausea at this time. Patient did not alert staff of needing to go to the bathroom this evening; however, [place] alarm was on, and staff was able to get into room before patient was completely out of bed. Patient was then transferred with FWW to [facility], and was able to void. Patient has been reoriented to call light, and is currently in bed watching TV. [place] alarm is on. Will continue to monitor, and continue Q 1 hour checks.
[2016-03-05 04:39] VITALS: BP 136/70; PULSE 81; RESP 18; O2SAT 99
[2016-03-05 06:09] LABS: BASOPHILS % (AUTO) 0.1 % (0-3); EOSINOPHILS % (AUTO) 0 % (0-5); MONOCYTES % (AUTO) 3.9 % (4-12); Mean Corpuscular Hemoglobin 26.7 pg (27.0-35.0); Mean Corpuscular Volume 82.7 fL (81-100); NEUTROPHILS % (AUTO) 87.1 % (40-74); Platelet Count 424 bil/L (150-400)
[2016-03-05] MEDS: Pantoprazole 40 mg ER24 Tablet PO SCH (08:20)
[2016-03-05] MEDS: Insulin LISPRO 300 Unit/3 mL Inj SUBQ SCH ×4 (08:20→22:00)
[2016-03-05 14:55] VITALS: BP 156/82; PULSE 79; RESP 18; O2SAT 98
--- NOTE | 2016-03-05 15:52 | NUR ---
Activity/[place] Pt has been up and oob to [facility] with staff. Walked down the hallway with PT. Pt is impulsive when getting oob. [place] alarm on and educated pt about getting oob by herself. Q1 hour rounding continues. Pt has had no c/o pain. Care continues.
--- NOTE | 2016-03-05 16:05 | DRSVH ---
PROCEDURE: US ABDOMEN INDICATIONS: abnormal LFTs TECHNIQUE: Real-time scanning was performed of the abdominal and retroperitoneal organs, with image documentatio n. COMPARISON: [facility], CT, CT ABD PELVIS W CON, 12/01/2014, 0:21. FINDINGS: Liver length: 13.25 cm CHD: 3.60 mm CBD: 5.20 mm Spleen length: 10.60 cm Right kidney length: 11.11 cm Left kidney length: 11.70 cm Aorta(Proximal): 2.17 cm Liver: Liver is diffusely increased in echogenicity. No focal hepatic abnormalities identified. No rmal hepatic size. Gallbladder: Cholecystectomy. Biliary ducts: Intrahepatic bile ducts are non-dilated. Extrahepatic bile duct caliber is normal. Normal is 6-7 mm or less in diameter, or 10 mm or less post-cholecystectomy. Pancreas: Not well-seen. Spleen: Spleen is normal in size and homogeneous in echotexture. Kidneys: Kidneys are normal in size and echotexture. No hydronephrosis or nephrolithiasis. No paty d masses. Aorta: Visualized aorta is normal in caliber at less than 3 cm. Iliacs: Not well-seen. IVC: Intrahepatic inferior vena cava is patent. Miscellaneous: No free abdominal fluid. IMPRESSION: Increased hepatic echogenicity noted likely related to fatty infiltration of the liver b ut other sources of hepatocellular disease cannot be excluded. Recommend clinical correlation. Dictated by: Meet PEREZ Interpreted: Malorie Mejia MD on 03/05/2016 at 16:03 Transcribed by: JUAN ALBERTO on 03/05/2016 at 16:04 Approved by: Malorie Mejia MD, PhD on 03/05/2016 at 16:48
--- NOTE | 2016-03-05 18:10 | PCM.PNMED ---
Subjective Date of Service Mar 05, 2016 Subjective denies any new issues/complaints Exam Vital Signs Vital Sign - Last Date Time Temp Pulse Resp B/P Pulse Ox O2 Delivery O2 Flow Rate FiO2 03/05/16 14:55 36.5 79 18 156/82 98 Room Air Intake and Output 03/04/16 03/04/16 03/05/16 Cumulative From/Thru 15:00 23:00 07:00 03/03/16 15:32 - 03/05/16 06:16 Intake Total 400 ml 200 ml 1840 ml Output Total 0 ml Balance 400 ml 200 ml 1840 ml Intake Oral 400 ml 200 ml 840 ml IV Total 1000 ml Output Urine Total 0 ml # Voids 1 1 General: Alert, Cooperative, No Acute Distress Eyes: Scleral Anicteric Mouth: Mucous Membr Moist/[place] Neck: Supple Chest & Lungs: Chest Wall Normal, Clear to auscultation & percussion Cardiovascular: Regular Rate/Rhythm Abdomen: Non-tender, Non-distended, Normoactive bowel tones, Soft Extremities: No cyanosis/clubbing/edma bilat Neurological: Grossly Neurologically Intact, Normal Speech IVs and Medications Medications Reviewed: Medications were reviewed in detail Lab and Diagnostics Result Diagram: 03/05/1652203/05/16 0523 X-Rays, CTs and MRIs Chest x-ray: IMPRESSION: Low lung volumes with scattered atelectasis. No acute disease Dictated by: Francisco Wiggins M.D. on 03/03/2016 at 17:18 CT head: IMPRESSION: No acute intracranial process. Dictated by: Francisco Wiggins M.D. on 03/03/2016 at 18:55 12-lead ECG Rate 67 QTc 436 Sinus rhythm, low voltage, no acute ischemic changes Assessment & Plan Patient is a 80 year old female with a history of hypothyroidism, DM2, HTN, HLP , and GERD. She presented to [facility] on 03/03/16 with increased weakness. Found to have TSH 154.6. Given hydrocortisone and levothyroxine IV in the ED. Admitted for close monitoring and management of myxedema. 1. Myxedema, acute, present on admission.- TSH 154.6, T4 <0.10. Thank you Dr. Newberry endocrine consult - Hydrocortisone 100 mg given in ED. Discontinue cortisol was normal 03/04 - Levothyroxine 200 mcg given IV in the ED. - discussed with Dr. Newberry (endocrinology) on 03/05/16 - c/w 150 g daily twice a day. - Expected time course to recovery is to be measured in weeks given her undetectable T4. 2. CAYDEN, poa - ? pre-renal. - c/w gentle IVF - f/u BMP - check renal U/S 3. Elevated transaminases, acute, present on admission. - Possibly secondary to statin use. - less likely secondary to myxedema. - hold home dose atorvastatin at this time. - Continue to monitor CMP. - check viral hepatitis panel - check RUQ abd U/S 4. Hypertension, chronic. - Patient appeared more hypotensive initially. - continue to hold BP meds and resume slowly 5. Diabetes mellitus, type 2, presume poorly controlled - HgA1C 8 - hold home Lantus - c/w ISS - Hypoglycemia, acute, present on admission. ? Secondary to myxedema. resolved blood sugar has steadily elevated 6. Hyperlipidemia, chronic, presume stable. - Holding atorvastatin 80 mg daily as above in #3. 7. GERD, chronic, presume stable. - Continue PPI during admission. Replace omeprazole 20 mg daily with protonix 40 mg daily. 8. Osteoporosis, chronic, presume stable. - Patient takes alendronate 70 mg weekly. Will not plan to give this during admission unless it becomes prolonged. 9. Environmental/seasonal allergies, chronic, presume stable. - Loratidine 10 mg available daily PRN. 10. Elevated Trop without reported chest pain - Echo unremarkable - likely demand ischemia and amplified by underlying CAYDEN - f/u Dispo: 2-3 days pending improved renal function and LFTs GI Prophylaxis: Proton Pump Inhibitor VTE Prophylaxis: Sub-Q Heparin (Unfractionated), SCDs VTE Mechanical Devices: Intermittant Pneumatic CD Resuscitation Status: CPR: Attempt Resuscitation Time spent 40 min Ramirez Jacome Mar 05, 2016 18:10
[2016-03-05 20:20] VITALS: BP 152/69; PULSE 69; RESP 22; O2SAT 97
[2016-03-06] MEDS: Heparin 5,000 Unit/mL Inj SUBQ SCH ×3 (00:53→15:52)
--- NOTE | 2016-03-06 01:08 | NUR ---
Passive behavior Patient was very passive when asked assessment questions. She did not make eye contact. Patient was asked if she understood questions and she answered yes. Patient knew she was in the hospital but did not know why. VSS. Call light within reach.
[2016-03-06 01:26] LABS: Hepatitis A Antibody IgM Negative (Negative); Hepatitis B Core Antibody IgM Negative (Negative)
[2016-03-06 04:30] VITALS: BP 161/83; PULSE 75; RESP 20; O2SAT 93
[2016-03-06 05:15] VITALS: BP 161/83; PULSE 75; RESP 20; O2SAT 93
[2016-03-06] MEDS: Insulin LISPRO 300 Unit/3 mL Inj SUBQ SCH ×4 (07:55→22:00)
[2016-03-06] MEDS: Pantoprazole 40 mg ER24 Tablet PO SCH (08:01)
[2016-03-06 08:04] LABS: Mean Corpuscular Hemoglobin 26.3 pg (27.0-35.0); Mean Corpuscular Volume 81.7 fL (81-100)
[2016-03-06 08:53] LABS: INR 0.98 ratio
[2016-03-06 13:27] VITALS: BP 160/73; PULSE 72; RESP 20; O2SAT 97
--- NOTE | 2016-03-06 16:13 | PCM.PNMED ---
Subjective Date of Service Mar 06, 2016 Subjective denies any new issues/complaints Exam Vital Signs Vital Sign - Last Date Time Temp Pulse Resp B/P Pulse Ox O2 Delivery O2 Flow Rate FiO2 03/06/16 13:27 36.4 72 20 160/73 97 Room Air Intake and Output 03/05/16 03/05/16 03/06/16 Cumulative From/Thru 15:00 23:00 07:00 03/03/16 15:32 - 03/06/16 05:24 Intake Total 866 ml 640 ml 3346 ml Output Total 1850 ml 200 ml 2050 ml Balance -984 ml 440 ml 1296 ml Intake Oral 866 ml 640 ml 2346 ml IV Total 0 ml 1000 ml Output Urine Total 1850 ml 200 ml 2050 ml # Voids 4 5 # Bowel Movements 2 6 8 Exam General: Alert, Cooperative, No Acute Distress Eyes: Scleral Anicteric Mouth: Mucous Membr Moist/[place] Neck: Supple Chest & Lungs: Chest Wall Normal, Clear to auscultation bilat Cardiovascular: Regular Rate/Rhythm Abdomen: Non-tender, Non-distended, Normoactive bowel tones, Soft Extremities: No cyanosis/clubbing/edema bilat Neurological: Grossly Neurologically Intact, Normal Speech IVs and Medications Medications Reviewed: Medications were reviewed in detail Lab and Diagnostics Result Diagram: 03/06/16 0745 03/06/16 0745 X-Rays, CTs and MRIs Chest x-ray: IMPRESSION: Low lung volumes with scattered atelectasis. No acute disease Dictated by: Francisco Wiggins M.D. on 03/03/2016 at 17:18 CT head: IMPRESSION: No acute intracranial process. Dictated by: Francisco Wiggins M.D. on 03/03/2016 at 18:55 12-lead ECG Rate 67 QTc 436 Sinus rhythm, low voltage, no acute ischemic changes Assessment & Plan Patient is a 80 year old female with a history of hypothyroidism, DM2, HTN, HLP , and GERD. She presented to [facility] on 03/03/16 with increased weakness. Found to have TSH 154.6. Given hydrocortisone and levothyroxine IV in the ED. Admitted for close monitoring and management of myxedema. 1. Myxedema, acute, present on admission.- TSH 154.6, T4 <0.10. Thank you Dr. Newberry endocrine consult - Hydrocortisone 100 mg given in ED. Discontinue cortisol was normal 03/04 - Levothyroxine 200 mcg given IV in the ED. - discussed with Dr. Newberry (endocrinology) on 03/05/16 - c/w 150 g daily twice a day. - Expected time course to recovery is to be measured in weeks given her undetectable T4. 2. CAYDEN, poa. improving - ? pre-renal. - c/w gentle IVF - f/u BMP - check renal U/S 3. Elevated transaminases, acute, present on admission. - Possibly secondary to statin use. - less likely secondary to myxedema. - hold home dose atorvastatin at this time. - Continue to monitor CMP. - viral hepatitis panel negative - RUQ abd U/S 03/05: "Increased hepatic echogenicity noted likely related to fatty infiltration of the liver but other sources of hepatocellular disease cannot be excluded" 4. Hypertension, chronic. - Patient appeared more hypotensive initially. - Resume BP meds slowly 5. Diabetes mellitus, type 2, presume poorly controlled - HgA1C 8 - hold home Lantus - c/w ISS - Hypoglycemia, acute, present on admission. ? Secondary to myxedema. resolved blood sugar has steadily elevated 6. Hyperlipidemia, chronic, presume stable. - Holding atorvastatin 80 mg daily as above in #3. 7. GERD, chronic, presume stable. - Continue PPI during admission. Replace omeprazole 20 mg daily with protonix 40 mg daily. 8. Osteoporosis, chronic, presume stable. - Patient takes alendronate 70 mg weekly. Will not plan to give this during admission unless it becomes prolonged. 9. Environmental/seasonal allergies, chronic, presume stable. - Loratidine 10 mg available daily PRN. 10. Elevated Trop without reported chest pain - Echo unremarkable - likely demand ischemia and amplified by underlying CAYDEN - f/u Dispo: 2-3 days pending improved renal function and LFTs GI Prophylaxis: Proton Pump Inhibitor VTE Prophylaxis: Sub-Q Heparin (Unfractionated), SCDs VTE Mechanical Devices: Intermittant Pneumatic CD Resuscitation Status: CPR: Attempt Resuscitation Ramirez Jacome Mar 06, 2016 16:13
--- NOTE | 2016-03-06 16:27 | NUR ---
Home medication Pt family brought in pt home medication. Medication is in med list under discontinued medications. Pt takes Ropinirole 6 mg PO BID for restless legs. Pharmacy stocks this medication so medication was given back to family to take home. MD notified.
--- NOTE | 2016-03-06 16:31 | NUR ---
Pain Pt family state the pt was having back pain. Pt has had no c/o pain for nursing staff. Asked the pt and she stated she was having back pain but "she didn't want to bother anyone." Told the pt that she wasn't bothering anyone and to let the staff know if she is having any discomfort. Gave pt Tylenol PO for pain. Will continue to monitor. Care continues.
[2016-03-06 20:30] VITALS: BP 149/84; PULSE 72; RESP 18; O2SAT 97
[2016-03-07] MEDS: Heparin 5,000 Unit/mL Inj SUBQ SCH ×3 (00:16→17:36)
--- NOTE | 2016-03-07 03:56 | NUR ---
Restless legs Patient complained of restless leg discomfort at beginning of shift, rating it a 7/10. Patient assisted to sit in chair, but found no relief. 650mg Tylenol PO was given, and upon reassessment patient states that she was able to receive some relief. Patient is currently sleeping and appears comfortable. Will continue to monitor, and preform Q 1 hour checks.
[2016-03-07 04:30] VITALS: BP 157/73; PULSE 74; RESP 16; O2SAT 97
[2016-03-07] MEDS: Pantoprazole 20 mg ER24 Tablet PO SCH (06:51)
[2016-03-07] MEDS: Insulin LISPRO 300 Unit/3 mL Inj SUBQ SCH ×4 (08:00→22:00)
[2016-03-07 12:46] VITALS: BP 150/68; PULSE 77; RESP 18; O2SAT 94
[2016-03-07 13:38] VITALS: PULSE 76
--- NOTE | 2016-03-07 15:36 | PCM.PNMED ---
Subjective Date of Service Mar 07, 2016 Subjective denies any new issues/complaints Exam Vital Signs Vital Sign - Last Date Time Temp Pulse Resp B/P Pulse Ox O2 Delivery O2 Flow Rate FiO2 03/07/16 13:38 76 Room Air 03/07/16 12:46 36.5 18 150/68 94 Intake and Output 03/06/16 03/06/16 03/07/16 Cumulative From/Thru 15:00 23:00 07:00 03/03/16 15:32 - 03/07/16 06:48 Intake Total 704 ml 1206 ml 5256 ml Output Total 450 ml 2500 ml Balance 704 ml 756 ml 2756 ml Intake Oral 704 ml 300 ml 3350 ml IV Total 0 ml 906 ml 1906 ml Output Urine Total 450 ml 2500 ml # Voids 1 2 8 # Bowel Movements 1 9 Exam General: Alert, Cooperative, No Acute Distress Eyes: Scleral Anicteric Mouth: Mucous Membr Moist/[place] Neck: Supple Chest & Lungs: Chest Wall Normal, Clear to auscultation bilat Cardiovascular: Regular Rate/Rhythm Abdomen: Non-tender, Non-distended, Normoactive bowel tones, Soft Extremities: No cyanosis/clubbing/edema bilat Neurological: Grossly Neurologically Intact, Normal Speech IVs and Medications Medications Reviewed: Medications were reviewed in detail Lab and Diagnostics Result Diagram: 03/06/16 0745 03/07/16 0628 X-Rays, CTs and MRIs Chest x-ray: IMPRESSION: Low lung volumes with scattered atelectasis. No acute disease Dictated by: Francisco Wiggins M.D. on 03/03/2016 at 17:18 CT head: IMPRESSION: No acute intracranial process. Dictated by: Francisco Wigigns M.D. on 03/03/2016 at 18:55 12-lead ECG Rate 67 QTc 436 Sinus rhythm, low voltage, no acute ischemic changes Assessment & Plan 80 year old female with a history of hypothyroidism, DM2, HTN, HLP, and GERD. She presented to [facility] on 03/03/16 with increased weakness. Found to have TSH 154.6. Given hydrocortisone and levothyroxine IV in the ED. Admitted for close monitoring and management of myxedema. 1. Myxedema, acute, present on admission.- TSH 154.6, T4 <0.10. Thank you Dr. Newberry endocrine consult - Hydrocortisone 100 mg given in ED. Discontinue cortisol was normal 03/04 - Levothyroxine 200 mcg given IV in the ED. - discussed with Dr. Newberry (endocrinology) on 03/05/16 - c/w 150 g daily twice a day. - Expected time course to recovery is to be measured in weeks given her undetectable T4. 2. CAYDEN, poa. improving - ? pre-renal. - c/w gentle IVF - f/u BMP 3. Elevated transaminases, acute, present on admission. - Possibly secondary to statin use. - less likely secondary to myxedema. - hold home dose atorvastatin at this time. - Continue to monitor CMP. - viral hepatitis panel negative - RUQ abd U/S 03/05: "Increased hepatic echogenicity noted likely related to fatty infiltration of the liver but other sources of hepatocellular disease cannot be excluded" 4. Hypertension, chronic. - Patient appeared more hypotensive initially. - Resume BP meds slowly 5. Diabetes mellitus, type 2, presume poorly controlled - HgA1C 8 - hold home Lantus - c/w ISS - Hypoglycemia, acute, present on admission. ? Secondary to myxedema. resolved blood sugar has steadily elevated 6. Hyperlipidemia, chronic, presume stable. - Holding atorvastatin 80 mg daily as above in #3. 7. GERD, chronic, presume stable. - Continue PPI during admission. Replace omeprazole 20 mg daily with protonix 40 mg daily. 8. Osteoporosis, chronic, presume stable. - Patient takes alendronate 70 mg weekly. Will not plan to give this during admission unless it becomes prolonged. 9. Environmental/seasonal allergies, chronic, presume stable. - Loratidine 10 mg available daily PRN. 10. Elevated Trop without reported chest pain - Echo unremarkable - likely demand ischemia and amplified by underlying CAYDEN - f/u Dispo: 1-2 days pending improved renal function and LFTs. PCP f/u already setup for this coming GI Prophylaxis: Proton Pump Inhibitor VTE Prophylaxis: Sub-Q Heparin (Unfractionated), SCDs VTE Mechanical Devices: Intermittant Pneumatic CD Resuscitation Status: CPR: Attempt Resuscitation Ramirez Jacome Mar 07, 2016 15:36
--- NOTE | 2016-03-07 18:45 | NUR ---
Activity Pt had no c/o pain during shift, did complain about restless legs once and MD ordered med, but then pt declined to take it. Pt up with PT and to BR only. Tolerated all meals and agreeable to all care. Was sleepy this afternoon and took a long nap.
[2016-03-07 20:21] VITALS: BP 172/73; PULSE 78; RESP 20; O2SAT 97
[2016-03-08] MEDS: Heparin 5,000 Unit/mL Inj SUBQ SCH ×3 (00:41→16:58)
--- NOTE | 2016-03-08 03:14 | NUR ---
Activity Patient alert this evening, and jovial. Responded appropriately to all questions and commands. Complained of some back pain, but when offered some Tylenol patient refused. Patient has denied any restless leg discomfort this evening. Patient is up to the bathroom with FWW, 1 person assist, and seemed to tolerate activity well. Stool was used this evening to assist patient back into bed because the bed does not go low enough for the patient to easily get back into bed due to her height. Patient has been compliant to care this shift. IV in left forearm is patent and infusing 1/2 NS @ 85. Patient is currently sleeping and appears comfortable. Will continue to monitor, and continue Q 1 hour checks.
--- NOTE | 2016-03-08 05:40 | NUR ---
Lower Arm Edema Both lower arms and hands are becoming increasingly edematous. R > L. Skin is taught. Patient denies any pain, but says that her right arm feels very tight and heavy. States that she is able to feel sensation in both hands and arms. Patient denies SOB. MD notified, and assessed patient. MD sates to decrease fluids to 45 cc/hr, and to continue to monitor. Will pass on to day shift. Will continue to monitor.
[2016-03-08 05:53] VITALS: BP 161/82; PULSE 90; RESP 18; O2SAT 98
[2016-03-08] MEDS: Pantoprazole 20 mg ER24 Tablet PO SCH (05:58)
[2016-03-08] MEDS: Insulin LISPRO 300 Unit/3 mL Inj SUBQ SCH ×4 (07:31→20:49)
--- NOTE | 2016-03-08 09:49 | NUR ---
Social Work: BRITTANEY BRITTANEY signed
[2016-03-08 13:45] VITALS: BP 162/76; PULSE 77; RESP 18; O2SAT 97
[2016-03-08] MEDS: Sodium Chloride LOK Flush 10 mL Syringe IVFLUSH SCH (16:58)
--- NOTE | 2016-03-08 18:18 | PCM.PNMED ---
Subjective Date of Service Mar 08, 2016 Subjective denies any new issues/complaints Exam Vital Signs Vital Sign - Last Date Time Temp Pulse Resp B/P Pulse Ox O2 Delivery O2 Flow Rate FiO2 03/08/16 13:45 36.6 77 18 162/76 97 Room Air Intake and Output 03/07/16 03/07/16 03/08/16 Cumulative From/Thru 15:00 23:00 07:00 03/03/16 15:32 - 03/08/16 05:53 Intake Total 1275 ml 1554 ml 8085 ml Output Total 400 ml 1600 ml 4500 ml Balance 875 ml -46 ml 3585 ml Intake Oral 436 ml 650 ml 4436 ml IV Total 839 ml 904 ml 3649 ml Output Urine Total 400 ml 1600 ml 4500 ml # Voids 8 # Bowel Movements 1 1 11 Exam General: Alert, Cooperative, No Acute Distress Eyes: Scleral Anicteric Mouth: Mucous Membr Moist/[place] Neck: Supple Chest & Lungs: Chest Wall Normal, Clear to auscultation bilat Cardiovascular: Regular Rate/Rhythm Abdomen: Non-tender, Non-distended, Normoactive bowel tones, Soft Extremities: No cyanosis/clubbing. diffuse 1+ edema noted in UE and LE bilat Neurological: Grossly Neurologically Intact, Normal Speech IVs and Medications Medications Reviewed: Medications were reviewed in detail Lab and Diagnostics Result Diagram: 03/06/16 0745 03/08/16 0553 X-Rays, CTs and MRIs Chest x-ray: IMPRESSION: Low lung volumes with scattered atelectasis. No acute disease Dictated by: Francisco Wiggins M.D. on 03/03/2016 at 17:18 CT head: IMPRESSION: No acute intracranial process. Dictated by: Francisco Wiggins M.D. on 03/03/2016 at 18:55 12-lead ECG Rate 67 QTc 436 Sinus rhythm, low voltage, no acute ischemic changes Assessment & Plan 80 year old female with a history of hypothyroidism, DM2, HTN, HLP, and GERD. She presented to [facility] on 03/03/16 with increased weakness. Found to have TSH 154.6. Given hydrocortisone and levothyroxine IV in the ED. Admitted for close monitoring and management of myxedema. 1. Myxedema, acute, present on admission.- TSH 154.6, T4 <0.10. Thank you Dr. Newberry endocrine consult - Hydrocortisone 100 mg given in ED. Discontinue cortisol was normal 03/04 - Levothyroxine 200 mcg given IV in the ED. - discussed with Dr. Newberry (endocrinology) on 03/05/16 - c/w 150 g daily twice a day. - Expected time course to recovery is to be measured in weeks given her undetectable T4. 2. CAYDEN, poa. - ? pre-renal. - improving with gentle IVF but developing diffuse edema - hold IVF given edema - nephrology consulted today. will f/u w/ recs regarding fluid management - f/u BMP 3. Elevated transaminases, acute, present on admission. improving - Possibly secondary to statin use. - less likely secondary to myxedema. - hold home dose atorvastatin at this time. - Continue to monitor CMP. - viral hepatitis panel negative - RUQ abd U/S 03/05: "Increased hepatic echogenicity noted likely related to fatty infiltration of the liver but other sources of hepatocellular disease cannot be excluded" 4. Hypertension, chronic. - Patient appeared more hypotensive initially. - Resume home BP meds when CAYDEN resolve - started on PO Hydralazine on 03/07 5. Diabetes mellitus, type 2, presume poorly controlled - HgA1C 8 - hold home Lantus - c/w ISS - Hypoglycemia, acute, present on admission. ? Secondary to myxedema. resolved blood sugar has steadily elevated 6. Hyperlipidemia, chronic, presume stable. - Holding atorvastatin 80 mg daily as above in #3. 7. GERD, chronic, presume stable. - Continue PPI during admission. Replace omeprazole 20 mg daily with protonix 40 mg daily. 8. Osteoporosis, chronic, presume stable. - Patient takes alendronate 70 mg weekly. Will not plan to give this during admission unless it becomes prolonged. 9. Environmental/seasonal allergies, chronic, presume stable. - Loratidine 10 mg available daily PRN. 10. Elevated Trop without reported chest pain - Echo unremarkable - likely demand ischemia and amplified by underlying CAYDEN - f/u Dispo: 1-2 days pending improved renal function and LFTs. PCP f/u already setup for this coming GI Prophylaxis: Proton Pump Inhibitor VTE Prophylaxis: Sub-Q Heparin (Unfractionated), SCDs VTE Mechanical Devices: Intermittant Pneumatic CD Resuscitation Status: CPR: Attempt Resuscitation Time spent 35 min Ramirez Jacome Mar 08, 2016 18:18
--- NOTE | 2016-03-08 19:10 | NUR ---
Fluid balance- Patient denies shortness of breath. Upper and lower extremities are edematous. Patient had diarrhea stool mixed with urine x 2. IV fluids stopped per order. Patient has been alert and appropriate.
[2016-03-08 20:30] VITALS: BP 179/78; PULSE 80; RESP 20; O2SAT 95
[2016-03-08] MEDS: Furosemide 10 mg/mL 10 mL Inj IVPUSH SCH (20:45)
--- NOTE | 2016-03-08 22:13 | CONS ---
[address] [address] CONSULTATION REPORT PATIENT: CLAY RO V : 1935 MR#: [id number] ADMIT: 03/03/2016 JOB ID: [id number] DATE OF SERVICE: HISTORY: The patient is a 80-year-old woman who was admitted to [facility] for profound hypothyroidism and myxedema coma. At the time of her admission, her BUN and creatinine were elevated at 45 and 2.2 respectively. Since that time, she has been treated with thyroid replacement and has had improvement in her BUN and creatinine, which today was down to 40 and 1.64 respectively. Renal consultation is being sought for further evaluation and management of her diffuse pitting edema. As noted above, she was admitted for profound hypothyroidism and myxedema coma. At time of admission, her TSH was 154. She was treated with both intravenous Synthroid and hydrocortisone. Hydrocortisone was subsequently discontinued and she began to have some clinical improvement. She has also had a considerable amount of IV fluid, and reviewing her I's and O's for the last several days she has had considerably more in as compared out. However, today, she has had a bit more urine output than prior to this. The patient is an extremely poor historian and denies a history of any prior renal problems. She does have a history of both diabetic and hypertensive disease, which no doubt have some renal involvement. Prior to admission, she had been taking ibuprofen on a daily basis for some time and there was a questionable history of use of Bactrim which had been prescribed prior to admission. These two medications have been discontinued. During her evaluation, she also had an echocardiogram done which revealed a normal ejection fraction, left atrial enlargement and evidence of diastolic dysfunction. In addition, at time of admission, her liver function studies were elevated, but these have since improved. Her only other remarkable lab on admission was some urine protein on her urinalysis. As noted above, the patient is extremely poor historian and I am unable to get any additional information. PAST MEDICAL HISTORY: Is significant for: 1. Profound hypothyroidism. 2. Medication noncompliance. 3. Insulin-requiring diabetes mellitus with possible diabetic nephropathy. 4. Hypertension with hypertensive heart disease and hypertensive nephrosclerosis. 5. GERD, which has been treated with omeprazole. 6. Osteoporosis which been treated with bisphosphonates. PAST SURGICAL HISTORY: Unknown. ALLERGIES: She is allergic to PENICILLIN. SOCIAL HISTORY: There is a remote history of tobacco use and she denies any alcohol or substance abuse. She lives with family. MEDICATIONS: At time of my evaluation include hydralazine, ReQuip, Norvasc, Claritin, Protonix, Aricept, insulin, loratadine, and IV fluids. PHYSICAL EXAMINATION: Revealed a morbidly obese 80-year-old female who was awake and alert and able to answer simple questions. Her vital signs were 162/76 with a pulse rate of 77. HEENT examination is remarkable for some periorbital edema and pale sclerae. Neck is supple without adenopathy, thyromegaly. I was unable to assess jugular venous distention because of her obesity. Examination of her lungs show diminished breath sounds bilaterally and otherwise were clear. Heart was regular rhythmical but heart sounds were distant. Abdomen was distended and some diminished bowel sounds were noted. There was tympany to percussion, but no tenderness, rebound, guarding, masses, or hepatosplenomegaly. Extremities showed some mild anasarca. There was no evidence of any half and half nails or edema. Skin turgor was good. There is no evidence of any rashes. IMPRESSION: 1. Acute kidney injury which appears to be multifactorial, but secondary to nonsteroidal anti-inflammatories, Bactrim and lisinopril. I also believe that she was probably volume contracted at time of admission. 2. Hypertension with hypertensive heart disease and hypertensive nephrosclerosis. 3. 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 4. Diastolic dysfunction. 5. Metabolic acidosis with possible type IV renal tubular acidosis. RECOMMENDATION: I would like to discontinue amlodipine and check protein creatinine ratio. I would also like to start 80 mg of Lasix IV twice a day and start labetalol 100 mg twice a day and discontinue her fluids. We need to closely follow her intake and output, and her lab. Once again, I would like to thank you for allowing me to participate in the care of this pleasant patient. I will be following her closely with you.
[2016-03-09] MEDS: Sodium Chloride LOK Flush 10 mL Syringe IVFLUSH SCH ×3 (01:02→17:37)
[2016-03-09] MEDS: Heparin 5,000 Unit/mL Inj SUBQ SCH ×3 (01:07→17:37)
--- NOTE | 2016-03-09 05:28 | NUR ---
activity/diarrhea pt has been walking to the bathroom with 1 PA and FWW. she has used her call light appropriately but once did not wait for assistance and walk to the bathroom on her own. therefore bed alarm is on. pt has had multiple episodes of large amounts of diarrhea this shift. denies any abdominal pain or discomfort. care continues.
[2016-03-09 06:02] VITALS: BP 167/78; PULSE 68; RESP 18; O2SAT 95
[2016-03-09] MEDS: Pantoprazole 20 mg ER24 Tablet PO SCH (06:39)
[2016-03-09 07:33] LABS: Mean Corpuscular Hemoglobin 27.3 pg (27.0-35.0); Mean Corpuscular Volume 84.5 fL (81-100)
[2016-03-09] MEDS: Insulin LISPRO 300 Unit/3 mL Inj SUBQ SCH ×4 (08:00→21:45)
[2016-03-09] MEDS: Furosemide 10 mg/mL 10 mL Inj IVPUSH SCH ×2 (09:11→21:25)
[2016-03-09 12:49] VITALS: BP 151/76; PULSE 66; RESP 18; O2SAT 95
--- NOTE | 2016-03-09 13:07 | PCM.PNMED ---
Subjective Date of Service Mar 09, 2016 Subjective Patient currently in bed eating lunch. She has no current complaints. I do question her who she lives this and she lives with her nephew. Exam Vital Signs Vital Sign - Last Date Time Temp Pulse Resp B/P Pulse Ox O2 Delivery O2 Flow Rate FiO2 03/09/16 12:49 36.7 66 18 151/76 95 Room Air Intake and Output 03/08/16 03/08/16 03/09/16 Cumulative From/Thru 15:00 23:00 07:00 03/03/16 15:32 - 03/09/16 06:02 Intake Total 1818 ml 825 ml 09239 ml Output Total 950 ml 800 ml 6250 ml Balance 868 ml 25 ml 4478 ml Intake Oral 1340 ml 825 ml 6601 ml IV Total 478 ml 4127 ml Output Urine Total 950 ml 800 ml 6250 ml # Voids 4 12 # Bowel Movements 2 4 17 Exam Head: Normocephalic atraumatic Chest: Clear to auscultation Cor: Regular rate and rhythm S1-S2 Abdomen: Soft nontender bowel sounds present Extremities 1+ bilateral lower extremity edema Neuro: Alert and oriented 3, motor strength intact bilaterally Lab and Diagnostics Laboratory Tests 72 Hours Test 03/07/16 06:28 03/08/16 05:53 03/09/16 07:27 Sodium Level 135mEq/L (134-144) 136mEq/L (134-144) 134mEq/L (134-144) Potassium Level 5.1mEq/L (3.5-5.2) 5.1mEq/L (3.5-5.2) 4.9mEq/L (3.5-5.2) Chloride Level 102mEq/L (97-108) 103mEq/L (97-108) 101mEq/L (97-108) Carbon Dioxide Level 21mmol/L (18-29) 19mmol/L (18-29) 20mmol/L (18-29) Blood Urea Nitrogen 40mg/dL (8-27) 40mg/dL (8-27) 39mg/dL (8-27) Creatinine 1.72mg/dL (0.57-1.00) 1.64mg/dL (0.57-1.00) 1.56mg/dL (0.57-1.00) Estimat Glomerular Filtration Rate 41mL/min (>59) 43mL/min (>59) 46mL/min (>59) Glucose Level 129mg/dL (60-99) 162mg/dL (60-99) 220mg/dL (60-99) Calcium Level 7.1mg/dL (8.5-10.1) 7.4mg/dL (8.5-10.1) 7.8mg/dL (8.5-10.1) Total Bilirubin 0.2mg/dL (0.0-1.2) 0.2mg/dL (0.0-1.2) Aspartate Amino Transf (AST/SGOT) 161U/L (0-50) 71U/L (0-50) Alanine Aminotransferase (ALT/SGPT) 158U/L (0-32) 112U/L (0-32) Alkaline Phosphatase 99U/L (25-165) 98U/L (25-165) Total Protein 5.3g/dL (6.4-8.4) 5.5g/dL (6.4-8.4) Albumin 2.6g/dL (3.4-5.0) 2.7g/dL (3.4-5.0) White Blood Count 6.7th/mm3 (3.8-10.1) Red Blood Count 2.97mil/mm3 (3.90-5.20) Hemoglobin 8.1g/dL (12.0-15.6) Hematocrit 25.1% (35.0-46.0) Mean Corpuscular Volume 84.5fL (81-100) Mean Corpuscular Hemoglobin 27.3pg (27.0-35.0) Mean Corpuscular Hemoglobin Concent 32.3% (32.0-37.0) Red Cell Distribution Width 14.9% (12.3-15.4) Platelet Count 343bil/L (150-400) Result Diagram: 03/09/1672603/09/16726 X-Rays, CTs and MRIs Chest x-ray: IMPRESSION: Low lung volumes with scattered atelectasis. No acute disease Dictated by: Francisco Wiggins M.D. on 03/03/2016 at 17:18 CT head: IMPRESSION: No acute intracranial process. Dictated by: Francisco Wiggins M.D. on 03/03/2016 at 18:55 12-lead ECG Rate 67 QTc 436 Sinus rhythm, low voltage, no acute ischemic changes Assessment & Plan 80 year old female with a history of hypothyroidism, DM2, HTN, HLP, and GERD. She presented to [facility] on 03/03/16 with increased weakness. Found to have TSH 154.6. Given hydrocortisone and levothyroxine IV in the ED. Admitted for close monitoring and management of myxedema. 1. Myxedema, acute, present on admission.- TSH 154.6, T4 <0.10. Thank you Dr. Newberry endocrine consult - Hydrocortisone 100 mg given in ED. Discontinue cortisol was normal 03/04 - Levothyroxine 200 mcg given IV in the ED. - discussed with Dr. Newberry (endocrinology) on 03/05/16 - c/w 150 g daily twice a day. - Expected time course to recovery is to be measured in weeks given her undetectable T4. 2. CAYDEN, poa. - ? pre-renal. - improving with gentle IVF but developing diffuse edema - hold IVF given edema - nephrology consulted yesterday. will f/u w/ recs regarding fluid management - f/u BMP -Currently on IV Lasix 80 mg twice a day 3. Elevated transaminases, acute, present on admission. improving - Possibly secondary to statin use. - less likely secondary to myxedema. - hold home dose atorvastatin at this time. - Continue to monitor CMP. - viral hepatitis panel negative - RUQ abd U/S 03/05: "Increased hepatic echogenicity noted likely related to fatty infiltration of the liver but other sources of hepatocellular disease cannot be excluded" 4. Hypertension, chronic. - Patient appeared more hypotensive initially. - Resume home BP meds when CAYDEN resolve - started on PO Hydralazine on 03/07 5. Diabetes mellitus, type 2, presume poorly controlled - HgA1C 8 - hold home Lantus - c/w ISS - Hypoglycemia, acute, present on admission. ? Secondary to myxedema. resolved blood sugar has steadily elevated 6. Hyperlipidemia, chronic, presume stable. - Holding atorvastatin 80 mg daily as above in #3. 7. GERD, chronic, presume stable. - Continue PPI during admission. Replace omeprazole 20 mg daily with protonix 40 mg daily. 8. Osteoporosis, chronic, presume stable. - Patient takes alendronate 70 mg weekly. Will not plan to give this during admission unless it becomes prolonged. 9. Environmental/seasonal allergies, chronic, presume stable. - Loratidine 10 mg available daily PRN. 10. Elevated Trop without reported chest pain - Echo unremarkable - likely demand ischemia and amplified by underlying CAYDEN - f/u Dispo: 1-2 days pending improved renal function and LFTs. PCP f/u already setup for this coming GI Prophylaxis: Proton Pump Inhibitor VTE Prophylaxis: Sub-Q Heparin (Unfractionated), SCDs VTE Mechanical Devices: Intermittant Pneumatic CD Resuscitation Status: CPR: Attempt Resuscitation Time spent 30 minutes Stephanie Hassan MD Mar 09, 2016 13:07
--- NOTE | 2016-03-09 14:20 | NUR ---
EDEMA/VOIDING/GI P-Patient has bilateral edema in hands and feet. Report of diarrhea overnight. I-Patient given 80mg Lasix IVP this am. Monitor I/O's. E-Patient voided 700ml urine so far today, state edema going down in hand, denies diarrhea. Addendum: 03/09/16 at 1847 by TONE CROWLEY RN LABS- Hbg 8, Hct 27, Cr. 1.56, BUN 40 NEURO-Friendly dementia, LOC 2/3 CVS- BP 150'S/90'S bilat edema hands and feet PLUM-RA - BMX1, Patient denies diarrhea GI- 1035 voided this shift Lasix PAIN- denies IV-S/L PLAN- 1-2 days diurese Tx, monitor kidney function, d/c Noemi?
--- NOTE | 2016-03-09 14:24 | NUR ---
Social Work Continued Discharge Planning: SW met with patient at bedside to discuss discharge plan. Patient states plan as home with family and caregiver who to provide support and care. Patient requested that contact to caregiver be made. SW contacted caregiver Cora [phone] who states that plan as home with family and 24hr care and assistance to be offered. Sw discussed therapy recommendations for [facility] PT. Patient caregiver states that services initiated previously with [facility]. Choice to use [facility] again. [facility] choice list declined. Access provided and face to face given to HHC rep Justin. Patient has a walker for use at home. No other anticaipted discharge needs identified at this time. SW to follow. PLAN: Home with caregiver and family. HHC via [facility] (access provided and F2F given). SW to follow as further needs arise. Estrella FRIEDMAN
--- NOTE | 2016-03-09 15:38 | PCM.PNMED ---
Subjective Date of Service Mar 09, 2016 Subjective Nephrology progress note: Attending Dr. Thomas Preethi Fine is a 80-year-old female with a past medical history significant for hypothyroidism, diabetes mellitus type II, hypertension, hyperlipidemia, and GERD who presented to [facility] on 03/03/2016 with increased weakness and was found to have a TSH of 154 and was diagnosed with myxedema.Given hydrocortisone and levothyroxine IV in the ED. Admitted for close monitoring and management of myxedema. Hospital day #7. Overnight: The patient had multiple episodes of diarrhea without abdominal pain. Otherwise there were no acute events. The patient is resting in bed comfortably and in no acute distress. The patient is a poor historian and quite frequently reports she does not remember. She denies headache, chest pain, shortness of breath, abdominal pain, nausea, vomiting, fever, chills, dysuria, diarrhea or constipation. She is voiding and eliminating without difficulty. She is in bed most of the day. . Exam Vital Signs Vital Sign - Last Date Time Temp Pulse Resp B/P Pulse Ox O2 Delivery O2 Flow Rate FiO2 03/09/16 12:49 36.7 66 18 151/76 95 Room Air Intake and Output 03/08/16 03/08/16 03/09/16 Cumulative From/Thru 15:00 23:00 07:00 03/03/16 15:32 - 03/09/16 06:02 Intake Total 1818 ml 825 ml 79750 ml Output Total 950 ml 800 ml 6250 ml Balance 868 ml 25 ml 4478 ml Intake Oral 1340 ml 825 ml 6601 ml IV Total 478 ml 4127 ml Output Urine Total 950 ml 800 ml 6250 ml # Voids 4 12 # Bowel Movements 2 4 17 Exam General: Elderly female lying in bed and in no acute distress, well-developed, well-nourished, appropriately interactive. HEENT: Normocephalic, atraumatic. External ears without defect. Pupils equal, round, and reactive to light. Periorbital edema. Anicteric sclerae, moist conjunctivae, and no lid lag. Oropharynx free of erythema and cobble stoning with moist mucosa. Neck: Supple with full range of motion. JVD. No bruits. No lymphadenopathy or thyromegaly. Cardiovascular: Regular rate and rhythm without murmurs, rubs, or gallops appreciated Pulmonary: Clear to auscultation bilaterally with no crackles, wheezes, or rhonchi. Normal respiratory effort with no use of accessory muscles. Abdomen: Soft, nontender, mildly distended, bowel sounds present. No hepatosplenomegaly or masses appreciated. Extremities: Anasarca, improving. Skin: Normal temperature, turgor, and texture; no rash, ulcers, or subcutaneous nodules appreciated. Neurological: Cranial nerves grossly intact. . IVs and Medications Medications Reviewed: Medications were reviewed in detail Lab and Diagnostics Result Diagram: 03/09/1672603/09/16726 Microbiology Blood culture showed no growth after 5 days. Influenza screen negative. Urine culture shows mixed urogenital karen. MRSA screen negative. . X-Rays, CTs and MRIs X-RAY CHEST ONE VIEW, PORTABLE IMPRESSION: Low lung volumes with scattered atelectasis. No acute disease Dictated by: Francisco Wiggins M.D. on 03/03/2016 at 17:18 Approved by: Francisco Wiggins M.D. on 03/03/2016 at 17:18 CT BRAIN WITHOUT CONTRAST IMPRESSION: No acute intracranial process. Dictated by: Francisco Wiggins M.D. on 03/03/2016 at 18:55 Approved by: Francisco Wiggins M.D. on 03/03/2016 at 18:58 US ABDOMEN IMPRESSION: Increased hepatic echogenicity noted likely related to fatty infiltration of the liver but other sources of hepatocellular disease cannot be excluded. Recommend clinical correlation. Dictated by: Meet Ybarra [facility] Interpreted: Malorie Mejia MD on 03/05/2016 at 16:03 Transcribed by: JUAN ALBERTO on 03/05/2016 at 16:04 Approved by: Malorie Mejia MD, PhD on 03/05/2016 at 16:48 . 12-lead ECG EKG: Sinus rhythm, heart rate 67, QTc 436, low voltage, no acute ischemic changes. . Cardiac Echo Impressions Echocardiogram Interpretation Summary: The left ventricle is normal in size. Left ventricular wall thickness is mildly increased. The ejection fraction is estimated to be 60-65%. There are no focal wall motion abnormalities. The right ventricle is normal in size and function. Pulmonary artery pressures cannot be estimated because of the lack of a measurable TR jet velocity. The left atrium is mildly dilated. Right atrial size is normal. There is no significant valvular heart disease. The ascending aorta is mild-moderately enlarged. There is a small pericardial effusion noted. There are no echocardiographic indications of cardiac tamponade. Compared to the prior echo report on 02/14/2014, there is no significant change. Reading Physician:PM . Assessment & Plan Preethi Fine is a 80-year-old female with a past medical history significant for hypothyroidism, diabetes mellitus type II, hypertension, hyperlipidemia, and GERD who presented to [facility] on 03/03/2016 with increased weakness and was found to have a TSH of 154 and was diagnosed with myxedema.Given hydrocortisone and levothyroxine IV in the ED. Admitted for close monitoring and management of myxedema. Hospital day #7. Impression: 1. Acute kidney injury, multifactorial and secondary to NSAID's, possible Bactrim, lisinopril and hypovolemia. 2. Hypertension with hypertensive heart disease and hypertensivenephrosclerosis. 3. 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 4. Diastolic dysfunction. 5. Metabolic acidosis with possible type IV renal tubular acidosis. Recommendations: - Increase labetalol from 100 mg twice a day to 200 mg 3 times a day. - Restart lisinopril at a lower dose of 5 mg twice a day now that renal function is close to baseline. - Discontinued hydralazine 10 mg 3 times a day. - Continue Lasix 80 mg IV twice a day. - Urine protein creatinine ratio - Closely follow intake and output, as well as, renal function daily. Baseline creatinine 0.94 and 06/2015. . GI Prophylaxis: Proton Pump Inhibitor VTE Prophylaxis: Sub-Q Heparin (Unfractionated), SCDs VTE Mechanical Devices: Intermittant Pneumatic CD Resuscitation Status: CPR: Attempt Resuscitation Attending Statement Patient was seen and examined along with the internal medicine resident we have certainly discussed the patient's case and her therapeutic plan which is detailed above and which I agree with. Lynnette Gardner DO Mar 09, 2016 15:38 Bean Thomas DO Mar 09, 2016 17:18
[2016-03-09 20:33] VITALS: BP 146/69; PULSE 73; RESP 22; O2SAT 94
[2016-03-10] MEDS: Sodium Chloride LOK Flush 10 mL Syringe IVFLUSH SCH ×4 (01:33→21:02)
[2016-03-10] MEDS: Heparin 5,000 Unit/mL Inj SUBQ SCH ×3 (01:33→16:55)
[2016-03-10 01:44] VITALS: BP 130/67; PULSE 64; RESP 20; O2SAT 95
--- NOTE | 2016-03-10 02:35 | NUR ---
Activity Patient ambulating to BR with FWW and assistance. No complaints of pain. She is alert and oriented to self only. She understands she is in the hospital but does not know the name of the hospital or why she is here. Patient is pleasant but does mumble and does not make eye contact. VSS. Call light within reach. Patient resting comfortably.
[2016-03-10] MEDS: Pantoprazole 20 mg ER24 Tablet PO SCH (06:43)
[2016-03-10 07:40] LABS: Unsaturated Iron Binding 219.5 ug/dL
[2016-03-10] MEDS: Insulin LISPRO 300 Unit/3 mL Inj SUBQ SCH ×4 (08:00→22:00)
--- NOTE | 2016-03-10 08:17 | PCM.PNMED ---
Subjective Date of Service Mar 10, 2016 Subjective Patient and that has no current complaints. Was sleeping. Exam Vital Signs Vital Sign - Last Date Time Temp Pulse Resp B/P Pulse Ox O2 Delivery O2 Flow Rate FiO2 03/10/16 01:44 36.6 64 20 130/67 95 Room Air Intake and Output 03/09/16 03/09/16 03/10/16 Cumulative From/Thru 15:00 23:00 07:00 03/03/16 15:32 - 03/10/16 06:36 Intake Total 640 ml 320 ml 42178 ml Output Total 1025 ml 1000 ml 8275 ml Balance -385 ml -680 ml 3413 ml Intake Oral 640 ml 320 ml 7561 ml IV Total 4127 ml Output Urine Total 1025 ml 1000 ml 8275 ml # Voids 2 14 # Bowel Movements 0 3 20 Exam Constitutional: Elderly woman in no acute distress Head: Normocephalic atraumatic Chest: Clear to auscultation Cor: Regular rate and rhythm S1-S2 Abdomen: Soft nontender bowel sounds present Extremities exam: Trace to 1+ bilateral pedal edema Lab and Diagnostics Laboratory Tests 72 Hours Test 03/08/16 05:53 03/09/16 07:27 03/10/16 06:15 Sodium Level 136mEq/L (134-144) 134mEq/L (134-144) 137mEq/L (134-144) Potassium Level 5.1mEq/L (3.5-5.2) 4.9mEq/L (3.5-5.2) 5.0mEq/L (3.5-5.2) Chloride Level 103mEq/L (97-108) 101mEq/L (97-108) 102mEq/L (97-108) Carbon Dioxide Level 19mmol/L (18-29) 20mmol/L (18-29) 22mmol/L (18-29) Blood Urea Nitrogen 40mg/dL (8-27) 39mg/dL (8-27) 38mg/dL (8-27) Creatinine 1.64mg/dL (0.57-1.00) 1.56mg/dL (0.57-1.00) 1.70mg/dL (0.57-1.00) Estimat Glomerular Filtration Rate 43mL/min (>59) 46mL/min (>59) 42mL/min (>59) Glucose Level 162mg/dL (60-99) 220mg/dL (60-99) 181mg/dL (60-99) Calcium Level 7.4mg/dL (8.5-10.1) 7.8mg/dL (8.5-10.1) 7.9mg/dL (8.5-10.1) Total Bilirubin 0.2mg/dL (0.0-1.2) 0.2mg/dL (0.0-1.2) Aspartate Amino Transf (AST/SGOT) 71U/L (0-50) 39U/L (0-50) Alanine Aminotransferase (ALT/SGPT) 112U/L (0-32) 73U/L (0-32) Alkaline Phosphatase 98U/L (25-165) 96U/L (25-165) Total Protein 5.5g/dL (6.4-8.4) 5.0g/dL (6.4-8.4) Albumin 2.7g/dL (3.4-5.0) 2.7g/dL (3.4-5.0) White Blood Count 6.7th/mm3 (3.8-10.1) Red Blood Count 2.97mil/mm3 (3.90-5.20) Hemoglobin 8.1g/dL (12.0-15.6) Hematocrit 25.1% (35.0-46.0) Mean Corpuscular Volume 84.5fL (81-100) Mean Corpuscular Hemoglobin 27.3pg (27.0-35.0) Mean Corpuscular Hemoglobin Concent 32.3% (32.0-37.0) Red Cell Distribution Width 14.9% (12.3-15.4) Platelet Count 343bil/L (150-400) Iron Level 50ug/dL (35-150) Total Iron Binding Capacity 270ug/dL (250-450) Percent Iron Saturation 19%sat (15-50) Unsaturated Iron Binding 219.5ug/dL Result Diagram: 03/09/16 0727 03/10/16 0615 Microbiology Blood culture showed no growth after 5 days. Influenza screen negative. Urine culture shows mixed urogenital karen. MRSA screen negative. . X-Rays, CTs and MRIs X-RAY CHEST ONE VIEW, PORTABLE IMPRESSION: Low lung volumes with scattered atelectasis. No acute disease Dictated by: Francisco Wiggins M.D. on 03/03/2016 at 17:18 Approved by: Francisco Wiggins M.D. on 03/03/2016 at 17:18 CT BRAIN WITHOUT CONTRAST IMPRESSION: No acute intracranial process. Dictated by: Francisco Wiggins M.D. on 03/03/2016 at 18:55 Approved by: Francisco Wiggins M.D. on 03/03/2016 at 18:58 US ABDOMEN IMPRESSION: Increased hepatic echogenicity noted likely related to fatty infiltration of the liver but other sources of hepatocellular disease cannot be excluded. Recommend clinical correlation. Dictated by: Meet Ybarra [facility] Interpreted: Malorie Mejia MD on 03/05/2016 at 16:03 Transcribed by: JUAN ALBERTO on 03/05/2016 at 16:04 Approved by: Malorie Mejia MD, PhD on 03/05/2016 at 16:48 . 12-lead ECG EKG: Sinus rhythm, heart rate 67, QTc 436, low voltage, no acute ischemic changes. . Cardiac Echo Impressions Echocardiogram Interpretation Summary: The left ventricle is normal in size. Left ventricular wall thickness is mildly increased. The ejection fraction is estimated to be 60-65%. There are no focal wall motion abnormalities. The right ventricle is normal in size and function. Pulmonary artery pressures cannot be estimated because of the lack of a measurable TR jet velocity. The left atrium is mildly dilated. Right atrial size is normal. There is no significant valvular heart disease. The ascending aorta is mild-moderately enlarged. There is a small pericardial effusion noted. There are no echocardiographic indications of cardiac tamponade. Compared to the prior echo report on 02/14/2014, there is no significant change. Reading Physician:PM . Assessment & Plan Preethi Fine is a 80-year-old female with a past medical history significant for hypothyroidism, diabetes mellitus type II, hypertension, hyperlipidemia, and GERD who presented to [facility] on 03/03/2016 with increased weakness and was found to have a TSH of 154 and was diagnosed with myxedema.Given hydrocortisone and levothyroxine IV in the ED. Admitted for close monitoring and management of myxedema. Hospital day #7. Impression: 1. Acute kidney injury, multifactorial and secondary to NSAID's, possible Bactrim, lisinopril and hypovolemia. 2. Hypertension with hypertensive heart disease and hypertensivenephrosclerosis. 3. 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 4. Diastolic dysfunction. 5. Metabolic acidosis with possible type IV renal tubular acidosis. Recommendations: - Increase labetalol from 100 mg twice a day to 200 mg 3 times a day. - Restart lisinopril at a lower dose of 5 mg twice a day now that renal function is close to baseline. - Discontinued hydralazine 10 mg 3 times a day. - Continue Lasix 80 mg IV twice a day. - Urine protein creatinine ratio - Closely follow intake and output, as well as, renal function daily. Baseline creatinine 0.94 and 06/2015. 80 year old female with a history of hypothyroidism, DM2, HTN, HLP, and GERD. She presented to [facility] on 03/03/16 with increased weakness. Found to have TSH 154.6. Given hydrocortisone and levothyroxine IV in the ED. Admitted for close monitoring and management of myxedema. 1. Myxedema, acute, present on admission.- TSH 154.6, T4 <0.10. Thank you Dr. Newberry endocrine consult - Hydrocortisone 100 mg given in ED. Discontinue cortisol was normal 03/04 - Levothyroxine 200 mcg given IV in the ED. - discussed with Dr. Newberry (endocrinology) on 03/05/16 - c/w 150 g daily twice a day. - Expected time course to recovery is to be measured in weeks given her undetectable T4. -Initiate physical therapy consultation 2. CAYDEN, poa. - ? pre-renal. - improving with gentle IVF but developing diffuse edema - hold IVF given edema - nephrology consulted yesterday. will f/u w/ recs regarding fluid management - f/u BMP -Currently on IV Lasix 80 mg twice a day 3. Elevated transaminases, acute, present on admission. improving - Possibly secondary to statin use. - less likely secondary to myxedema. - hold home dose atorvastatin at this time. - Continue to monitor CMP. - viral hepatitis panel negative - RUQ abd U/S 03/05: "Increased hepatic echogenicity noted likely related to fatty infiltration of the liver but other sources of hepatocellular disease cannot be excluded" 4. Hypertension, chronic. - Patient appeared more hypotensive initially. - Resume home BP meds when CAYDEN resolve - started on PO Hydralazine on 03/07 5. Diabetes mellitus, type 2, presume poorly controlled - HgA1C 8 - hold home Lantus - c/w ISS - Hypoglycemia, acute, present on admission. ? Secondary to myxedema. resolved blood sugar has steadily elevated 6. Hyperlipidemia, chronic, presume stable. - Holding atorvastatin 80 mg daily as above in #3. 7. GERD, chronic, presume stable. - Continue PPI during admission. Replace omeprazole 20 mg daily with protonix 40 mg daily. 8. Osteoporosis, chronic, presume stable. - Patient takes alendronate 70 mg weekly. Will not plan to give this during admission unless it becomes prolonged. 9. Environmental/seasonal allergies, chronic, presume stable. - Loratidine 10 mg available daily PRN. 10. Elevated Trop without reported chest pain - Echo unremarkable - likely demand ischemia and amplified by underlying CAYDEN - f/u 11. Anemia, present on admission Iron studies are normal but await vitamin B12 folate levels Most likely secondary to renal dysfunction . GI Prophylaxis: Proton Pump Inhibitor VTE Prophylaxis: Sub-Q Heparin (Unfractionated), SCDs VTE Mechanical Devices: Intermittant Pneumatic CD Resuscitation Status: CPR: Attempt Resuscitation Time spent 30 minutes Stephanie Hassan MD Mar 10, 2016 08:16
[2016-03-10 08:30] VITALS: BP 163/67; PULSE 66; RESP 16; O2SAT 96
[2016-03-10] MEDS: Furosemide 10 mg/mL 10 mL Inj IVPUSH SCH ×2 (09:25→21:02)
--- NOTE | 2016-03-10 11:24 | PCM.PNMED ---
Subjective Date of Service Mar 10, 2016 Subjective Nephrology progress note: Attending Dr. Thomas Preethi Fine is a 80-year-old female with a past medical history significant for hypothyroidism, diabetes mellitus type II, hypertension, hyperlipidemia, and GERD who presented to [facility] on 03/03/2016 with increased weakness and was found to have a TSH of 154 and was diagnosed with myxedema.Given hydrocortisone and levothyroxine IV in the ED. Admitted for close monitoring and management of myxedema. Hospital day #8. Overnight: The patient continues to have multiple episodes of diarrhea without abdominal pain. Otherwise there were no acute events. The patient is resting in bed comfortably and in no acute distress. The patient is a poor historian and quite frequently reports she does not remember. She denies headache, chest pain, shortness of breath, abdominal pain, nausea, vomiting, fever, chills, dysuria, diarrhea or constipation. She is voiding and eliminating without difficulty. She is in bed most of the day but ambulates with a FWW. . Exam Vital Signs Vital Sign - Last Date Time Temp Pulse Resp B/P Pulse Ox O2 Delivery O2 Flow Rate FiO2 03/10/16 08:30 36.4 66 16 163/67 96 Room Air Intake and Output 03/09/16 03/09/16 03/10/16 Cumulative From/Thru 15:00 23:00 07:00 03/03/16 15:32 - 03/10/16 06:36 Intake Total 640 ml 320 ml 56095 ml Output Total 1025 ml 1000 ml 8275 ml Balance -385 ml -680 ml 3413 ml Intake Oral 640 ml 320 ml 7561 ml IV Total 4127 ml Output Urine Total 1025 ml 1000 ml 8275 ml # Voids 2 14 # Bowel Movements 0 3 20 Exam General: Elderly female lying in bed and in no acute distress, well-developed, well-nourished, appropriately interactive. HEENT: Normocephalic, atraumatic. External ears without defect. Pupils equal, round, and reactive to light. Periorbital edema. Anicteric sclerae, moist conjunctivae, and no lid lag. Oropharynx free of erythema and cobble stoning with moist mucosa. Neck: Supple with full range of motion. JVD. No bruits. No lymphadenopathy or thyromegaly. Cardiovascular: Regular rate and rhythm without murmurs, rubs, or gallops appreciated Pulmonary: Clear to auscultation bilaterally with no crackles, wheezes, or rhonchi. Normal respiratory effort with no use of accessory muscles. Abdomen: Soft, nontender, mildly distended, bowel sounds present. No hepatosplenomegaly or masses appreciated. Extremities: Anasarca, significant improvement in all extremities but right extremity. Skin: Normal temperature, turgor, and texture; no rash, ulcers, or subcutaneous nodules appreciated. Neurological: Cranial nerves grossly intact. . IVs and Medications Medications Reviewed: Medications were reviewed in detail Lab and Diagnostics Item Value Date Time Iron Level 50 ug/dL 03/10/1615 Total Iron Binding Capacity 270 ug/dL 03/10/16 0615 Percent Iron Saturation 19 %sat 03/10/16 0615 Unsaturated Iron Binding 219.5 ug/dL 03/10/16 06 Item Value Date Time Calcium Level 7.9 mg/dL L 03/10/16 0615 Total Bilirubin 0.2 mg/dL 03/10/1615 Aspartate Amino Transf (AST/SGOT) 39 U/L 03/10/16 0615 Alanine Aminotransferase (ALT/SGPT) 73 U/L H 03/10/16 0615 Alkaline Phosphatase 96 U/L 03/10/16 0615 Total Protein 5.0 g/dL L 03/10/16 0615 Albumin 2.7 g/dL L 03/10/16 0615 Result Diagram: 03/09/1672603/10/16 06 Microbiology Blood culture showed no growth after 5 days. Influenza screen negative. Urine culture shows mixed urogenital karen. MRSA screen negative. . X-Rays, CTs and MRIs X-RAY CHEST ONE VIEW, PORTABLE IMPRESSION: Low lung volumes with scattered atelectasis. No acute disease Dictated by: Francisco Wiggins M.D. on 03/03/2016 at 17:18 Approved by: Francisco Wiggins M.D. on 03/03/2016 at 17:18 CT BRAIN WITHOUT CONTRAST IMPRESSION: No acute intracranial process. Dictated by: Francisco Wiggins M.D. on 03/03/2016 at 18:55 Approved by: Francisco Wiggins M.D. on 03/03/2016 at 18:58 US ABDOMEN IMPRESSION: Increased hepatic echogenicity noted likely related to fatty infiltration of the liver but other sources of hepatocellular disease cannot be excluded. Recommend clinical correlation. Dictated by: Meet Ybarra [facility] Interpreted: Malorie Mejia MD on 03/05/2016 at 16:03 Transcribed by: JUAN ALBERTO on 03/05/2016 at 16:04 Approved by: Malorie Mejia MD, PhD on 03/05/2016 at 16:48 . 12-lead ECG EKG: Sinus rhythm, heart rate 67, QTc 436, low voltage, no acute ischemic changes. . Cardiac Echo Impressions Echocardiogram Interpretation Summary: The left ventricle is normal in size. Left ventricular wall thickness is mildly increased. The ejection fraction is estimated to be 60-65%. There are no focal wall motion abnormalities. The right ventricle is normal in size and function. Pulmonary artery pressures cannot be estimated because of the lack of a measurable TR jet velocity. The left atrium is mildly dilated. Right atrial size is normal. There is no significant valvular heart disease. The ascending aorta is mild-moderately enlarged. There is a small pericardial effusion noted. There are no echocardiographic indications of cardiac tamponade. Compared to the prior echo report on 02/14/2014, there is no significant change. Reading Physician:PM . Assessment & Plan Preethi Fine is a 80-year-old female with a past medical history significant for hypothyroidism, diabetes mellitus type II, hypertension, hyperlipidemia, and GERD who presented to [facility] on 03/03/2016 with increased weakness and was found to have a TSH of 154 and was diagnosed with myxedema.Given hydrocortisone and levothyroxine IV in the ED. Admitted for close monitoring and management of myxedema. Hospital day #8. Impression: 1. Acute kidney injury, multifactorial and secondary to NSAID's, possible Bactrim, lisinopril and hypovolemia. 2. Hypertension with hypertensive heart disease and hypertensivenephrosclerosis. 3. 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 4. Diastolic dysfunction. 5. Metabolic acidosis with possible type IV renal tubular acidosis. 6. Normocytic anemia. Recommendations: - Iron panel shows slightly decreased saturation. Will give Venofer 100 mg IV x 1 and Aranesp 60 mcg IM to treat anemia. - B12 and folate pending. - Urine protein/creatinine ratio pending. - Started IV thiamine today for possible thiamine deficiency. - Continue labetalol 200 mg 3 times a day. - Continue lisinopril 5 mg twice a day. - Continue Lasix 80 mg IV twice a day. - Closely follow intake and output, as well as, renal function daily. Baseline creatinine 0.94 and 06/2015. . GI Prophylaxis: Proton Pump Inhibitor VTE Prophylaxis: Sub-Q Heparin (Unfractionated), SCDs VTE Mechanical Devices: Intermittant Pneumatic CD Resuscitation Status: CPR: Attempt Resuscitation Attending Statement Nephrology attending: Patient was seen and examined along with the internal medicine resident. We have thoroughly discussed the case and the findings are detailed in her note above. I agree with findings and our therapeutic plan. Lynnette Gardner DO Mar 10, 2016 11:24 Bean Thomas DO Mar 10, 2016 15:55
--- NOTE | 2016-03-10 12:16 | DRSVH ---
PROCEDURE: US VENOUS ARM DUPLEX UNILATERAL, RIGHT INDICATIONS: poss dvt TECHNIQUE: Real-time imaging, as well as color and pulse Doppler interrogation, was performed of the known right upper extremity deep veins from the inferior neck to the antecubital fossa. COMPARISON: None. FINDINGS: The internal jugular vein, visualized portions of the subclavian vein, axillary, and brach ial veins are free of intraluminal thrombus. Where physically possible, the veins are normally compr essible. Color and pulse Doppler demonstrate normal intraluminal flow, with expected phasicity and p ulsatility. Additional scanning of the cephalic and basilic veins of the superficial system demonstr ate normal compressibility, without thrombus. IMPRESSION: No right upper extremity venous thrombosis. Dictated by: Meet Ybarra [facility] Interpreted: Johan Perales MD on 03/10/2016 at 12:15 Transcribed by: RICK on 03/10/2016 at 12:16 Approved by: Johan Perales M.D. on 03/10/2016 at 15:29
[2016-03-10 12:35] VITALS: BP 146/76; PULSE 63; RESP 18; O2SAT 92
[2016-03-10] MEDS: Thiamine Inj 100 MG in Dextrose 5% 50 ML IV SCH (13:00)
[2016-03-10 14:56] VITALS: BP 150/76; PULSE 74; RESP 20; O2SAT 94
--- NOTE | 2016-03-10 16:15 | NUR ---
Breathing w/Accessory Muscles It looks as if the Pt. is breathing with accessory muscles. Pt. does not complain of SOB.
[2016-03-10 16:48] VITALS: BP 145/75; PULSE 63; RESP 16; O2SAT 94
--- NOTE | 2016-03-10 17:07 | NUR ---
Heparin Subcut 5000 units double checked by Armen Golden RN and Diane Lynn RN.
[2016-03-10 19:43] VITALS: BP 135/64; PULSE 65; RESP 18; O2SAT 94
[2016-03-11] MEDS: Heparin 5,000 Unit/mL Inj SUBQ SCH ×3 (01:33→16:28)
[2016-03-11 05:16] VITALS: BP 138/71; PULSE 62; RESP 17; O2SAT 95
--- NOTE | 2016-03-11 05:20 | NUR ---
Edema Pt presents with pitting edema bilateral upper extremeties and bilateral lower estremeties. Denies SOB, lung sounds decreased and squeaks intermittent. Runny diarrhea this shift, involuntary of stool. IV saline lock. Care continues
[2016-03-11] MEDS: Insulin LISPRO 300 Unit/3 mL Inj SUBQ SCH ×4 (08:00→22:00)
[2016-03-11] MEDS: Pantoprazole 20 mg ER24 Tablet PO SCH (08:38)
[2016-03-11] MEDS: Furosemide 10 mg/mL 10 mL Inj IVPUSH SCH (08:39)
[2016-03-11] MEDS: Sodium Chloride LOK Flush 10 mL Syringe IVFLUSH SCH ×3 (08:40→21:13)
[2016-03-11 08:48] VITALS: BP 172/73; PULSE 69; RESP 14; O2SAT 94
[2016-03-11] MEDS ORDERED: 0.9% Sodium Chloride 250 ML ONE (09:37)
[2016-03-11] MEDS: Thiamine Inj 100 MG in Dextrose 5% 50 ML IV SCH (09:47)
[2016-03-11] MEDS ORDERED: Iron Sucrose Inj 100 MG in 0.9% Sodium Chloride 100 ML IV ONE (11:00)
[2016-03-11] MEDS ORDERED: Darbepoetin Alfa 60 mCg/0.3 mL Inj IV ONE (11:00)
--- NOTE | 2016-03-11 11:03 | PCM.PNMED ---
Subjective Date of Service Mar 11, 2016 Subjective Nephrology progress note: Attending Dr. Thomas Preethi Fine is a 80-year-old female with a past medical history significant for hypothyroidism, diabetes mellitus type II, hypertension, hyperlipidemia, and GERD who presented to [facility] [place] on 03/03/2016 with increased weakness and was found to have a TSH of 154 and was diagnosed with myxedema.Given hydrocortisone and levothyroxine IV in the ED. Admitted for close monitoring and management of myxedema. Hospital day #9. Overnight: There were no acute events. The patient is resting in bed comfortably and in no acute distress. The patient is a poor historian and quite frequently reports she does not remember. She reports she is eager to go home. She denies headache, chest pain, shortness of breath, abdominal pain, nausea, vomiting, fever, chills, dysuria, diarrhea or constipation. She is voiding without difficulty. She continues to have many loose bowel movements daily. She is in bed most of the day but ambulates with a FWW. . Exam Vital Signs Vital Sign - Last Date Time Temp Pulse Resp B/P Pulse Ox O2 Delivery O2 Flow Rate FiO2 03/11/16 08:48 36.3 69 14 172/73 94 Room Air Intake and Output 03/10/16 03/10/16 03/11/16 Cumulative From/Thru 15:00 23:00 07:00 03/03/16 15:32 - 03/11/16 05:14 Intake Total 1200 ml 350 ml 53686 ml Output Total 600 ml 750 ml 9625 ml Balance 600 ml -400 ml 3613 ml Intake Oral 1200 ml 350 ml 9111 ml IV Total 4127 ml Output Urine Total 600 ml 8875 ml Urine/Stool Mix 750 ml 750 ml # Voids 1 15 # Bowel Movements 2 2 24 Exam General: Elderly female lying in bed and in no acute distress, well-developed, well-nourished, appropriately interactive. HEENT: Normocephalic, atraumatic. External ears without defect. Pupils equal, round, and reactive to light. Periorbital edema. Anicteric sclerae, moist conjunctivae, and no lid lag. Oropharynx free of erythema and cobble stoning with moist mucosa. Neck: Supple with full range of motion. JVD. No bruits. No lymphadenopathy or thyromegaly. Cardiovascular: Regular rate and rhythm without murmurs, rubs, or gallops appreciated Pulmonary: Clear to auscultation bilaterally with no crackles, wheezes, or rhonchi. Normal respiratory effort with no use of accessory muscles. Abdomen: Soft, nontender, mildly distended, bowel sounds present. No hepatosplenomegaly or masses appreciated. Extremities: Anasarca, significant improvement L>R. Skin: Normal temperature, turgor, and texture; no rash, ulcers, or subcutaneous nodules appreciated. Neurological: Cranial nerves grossly intact. . IVs and Medications Medications Reviewed: Medications were reviewed in detail Lab and Diagnostics Item Value Date Time Calcium Level 7.9 mg/dL L 03/11/16 0706 Total Bilirubin 0.2 mg/dL 03/11/16 0706 Aspartate Amino Transf (AST/SGOT) 33 U/L 03/11/16 0706 Alanine Aminotransferase (ALT/SGPT) 62 U/L H 03/11/16 0706 Alkaline Phosphatase 94 U/L 03/11/16 0706 Total Protein 5.5 g/dL L 03/11/16 0706 Albumin 2.7 g/dL L 03/11/16 0706 Vitamin B12 Level 593 pg/mL 03/10/16 0615 Folate 7.2 ng/mL 03/10/16 0615 Result Diagram: 03/09/16 0703/11/16 0706 Microbiology Blood culture showed no growth after 5 days. Influenza screen negative. Urine culture shows mixed urogenital karen. MRSA screen negative. . X-Rays, CTs and MRIs X-RAY CHEST ONE VIEW, PORTABLE IMPRESSION: Low lung volumes with scattered atelectasis. No acute disease Dictated by: Francisco Wiggins M.D. on 03/03/2016 at 17:18 Approved by: Francisco Wiggins M.D. on 03/03/2016 at 17:18 CT BRAIN WITHOUT CONTRAST IMPRESSION: No acute intracranial process. Dictated by: Francisco Wiggins M.D. on 03/03/2016 at 18:55 Approved by: Francisco Wiggins M.D. on 03/03/2016 at 18:58 US ABDOMEN IMPRESSION: Increased hepatic echogenicity noted likely related to fatty infiltration of the liver but other sources of hepatocellular disease cannot be excluded. Recommend clinical correlation. Dictated by: Meet PEREZ Interpreted: Malorie Mejia MD on 03/05/2016 at 16:03 Transcribed by: JUAN ALBERTO on 03/05/2016 at 16:04 Approved by: Malorie Mejia MD, PhD on 03/05/2016 at 16:48 . 12-lead ECG EKG: Sinus rhythm, heart rate 67, QTc 436, low voltage, no acute ischemic changes. . Cardiac Echo Impressions Echocardiogram Interpretation Summary: The left ventricle is normal in size. Left ventricular wall thickness is mildly increased. The ejection fraction is estimated to be 60-65%. There are no focal wall motion abnormalities. The right ventricle is normal in size and function. Pulmonary artery pressures cannot be estimated because of the lack of a measurable TR jet velocity. The left atrium is mildly dilated. Right atrial size is normal. There is no significant valvular heart disease. The ascending aorta is mild-moderately enlarged. There is a small pericardial effusion noted. There are no echocardiographic indications of cardiac tamponade. Compared to the prior echo report on 02/14/2014, there is no significant change. Reading Physician:PM . Assessment & Plan Preethi Fine is a 80-year-old female with a past medical history significant for hypothyroidism, diabetes mellitus type II, hypertension, hyperlipidemia, and GERD who presented to [facility] on 03/03/2016 with increased weakness and was found to have a TSH of 154 and was diagnosed with myxedema.Given hydrocortisone and levothyroxine IV in the ED. Admitted for close monitoring and management of myxedema. Hospital day #8. Impression: 1. Acute kidney injury, multifactorial and secondary to NSAID's, possible Bactrim, lisinopril and hypovolemia. 2. Hypertension with hypertensive heart disease and hypertensivenephrosclerosis. 3. 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 4. Diastolic dysfunction. 5. Metabolic acidosis with possible type IV renal tubular acidosis. 6. Normocytic anemia. Recommendations: - Ordered upper extremity venous Doppler ultrasound to assess asymmetric edema which ruled out DVT. - Iron panel shows slightly decreased saturation. Will give Venofer 100 mg IV x 1 and Aranesp 60 mcg IM to treat anemia today. - B12 and folate within normal limits. - Urine protein/creatinine ratio pending. - Continue thiamine 100 mg IV for possible thiamine deficiency. - Switch labetalol 200 mg 3 times a day to 300 mg twice a day. - Continue lisinopril 5 mg twice a day. - Hold today Lasix 80 mg IV twice a day. - Closely follow intake and output, as well as, renal function daily. Baseline creatinine 0.94 and 06/2015. . GI Prophylaxis: Proton Pump Inhibitor VTE Prophylaxis: Sub-Q Heparin (Unfractionated), SCDs VTE Mechanical Devices: Intermittant Pneumatic CD Resuscitation Status: CPR: Attempt Resuscitation Attending Statement Nephrology attending: The patient was seen and examined along with the internal medicine resident. We have thoroughly discussed the case and I agree with the findings in the above note. Lynnette Gardner DO Mar 11, 2016 11:03 Bean Thomas DO Mar 11, 2016 15:56
--- NOTE | 2016-03-11 11:30 | NUR ---
NUTRITION ASSESSMENT: ASSESS: Pt is a 80yo F admitted for myxedema. Nephrology is following for CAYDEN and pitting edema. Pt is receiving Lasix. She is on a Heart healthy/ Consistent carb diet with good PO at 75-100%. PMHX: T2DM, hypothyroid, HTN, HLD, GERD LABS: Reviewed. Bun 38, Security Advisor 1.60, Glu 125, Ca 7.9, ALT 62, Alb 2.7 MEDS: Reviewed. lasix GI: Diarrhea, BMx5 2 SKIN: Black 22, pitting edema CURRENT WTS: 76.3kg, BMI 40.6kg/m2, admit wt 74.2kg, IBW: 31.8kg, adj bw 42.9kg DIET: HH/CC, PO 75-100% EST. NEEDS: BMI, CAYDEN Kcals: 1530-1680kcal/day (20-22kcal/kg) Pro: 40-50g/day (1.2-1.5g/kg IBW) NUTRITION DIAGNOSIS: 1.) No nutrition diagnosis at this time NUTRITION INTERVENTION: 1.) Continue current diet at this time MONITOR / EVAL: PO, wt, GI, labs, POC, nutrition status. Will continue to monitor per low nutrition risk guidelines
--- NOTE | 2016-03-11 14:00 | NUR ---
Social Work Continued Discharge Planning: Plan remains as home with HHC and family and caregiver support who to assist at home. Patient caregiver Cora, states she to provide 24hr care and assistance. Patient has a walker for use at home. Referral sent to [facility] who is following. PT recommendations still reflect [facility] upon discharge. No other anticipated discharge needs identified at this time. SW to follow. PLAN: Home with caregiver and family. HHC via [facility] (access provided and F2F given). SW to follow as further needs arise. Estrella FRIEDMAN
[2016-03-11 14:40] VITALS: BP 155/62; PULSE 71; RESP 14; O2SAT 93
--- NOTE | 2016-03-11 14:54 | PCM.PNMED ---
Subjective Date of Service Mar 11, 2016 Subjective Patient has no current complaints. Denies any chest pain or shortness of breath. Exam Vital Signs Vital Sign - Last Date Time Temp Pulse Resp B/P Pulse Ox O2 Delivery O2 Flow Rate FiO2 03/11/16 14:45 Room Air 03/11/16 14:40 36.7 71 14 155/62 93 Intake and Output 03/10/16 03/10/16 03/11/16 Cumulative From/Thru 15:00 23:00 07:00 03/03/16 15:32 - 03/11/16 05:14 Intake Total 1200 ml 350 ml 22833 ml Output Total 600 ml 750 ml 9625 ml Balance 600 ml -400 ml 3613 ml Intake Oral 1200 ml 350 ml 9111 ml IV Total 4127 ml Output Urine Total 600 ml 8875 ml Urine/Stool Mix 750 ml 750 ml # Voids 1 15 # Bowel Movements 2 2 24 Exam Constitutional: Elderly woman in no acute distress Head: Normocephalic atraumatic Chest: Clear to auscultation Cor: Regular rate and rhythm S1-S2 without murmur Abdomen: Soft nontender bowel sounds present Extremities: Trace to 1+ pedal edema bilaterally Lab and Diagnostics Result Diagram: 03/09/16 0727 03/11/16 0706 Microbiology Blood culture showed no growth after 5 days. Influenza screen negative. Urine culture shows mixed urogenital karen. MRSA screen negative. . X-Rays, CTs and MRIs X-RAY CHEST ONE VIEW, PORTABLE IMPRESSION: Low lung volumes with scattered atelectasis. No acute disease Dictated by: Francisco Wiggins M.D. on 03/03/2016 at 17:18 Approved by: Francisco Wiggins M.D. on 03/03/2016 at 17:18 CT BRAIN WITHOUT CONTRAST IMPRESSION: No acute intracranial process. Dictated by: Francisco Wiggins M.D. on 03/03/2016 at 18:55 Approved by: Francisco Wiggins M.D. on 03/03/2016 at 18:58 US ABDOMEN IMPRESSION: Increased hepatic echogenicity noted likely related to fatty infiltration of the liver but other sources of hepatocellular disease cannot be excluded. Recommend clinical correlation. Dictated by: Meet PEREZ Interpreted: Malorie Mejia MD on 03/05/2016 at 16:03 Transcribed by: JUAN ALBERTO on 03/05/2016 at 16:04 Approved by: Malorie Mejia MD, PhD on 03/05/2016 at 16:48 . 12-lead ECG EKG: Sinus rhythm, heart rate 67, QTc 436, low voltage, no acute ischemic changes. . Cardiac Echo Impressions Echocardiogram Interpretation Summary: The left ventricle is normal in size. Left ventricular wall thickness is mildly increased. The ejection fraction is estimated to be 60-65%. There are no focal wall motion abnormalities. The right ventricle is normal in size and function. Pulmonary artery pressures cannot be estimated because of the lack of a measurable TR jet velocity. The left atrium is mildly dilated. Right atrial size is normal. There is no significant valvular heart disease. The ascending aorta is mild-moderately enlarged. There is a small pericardial effusion noted. There are no echocardiographic indications of cardiac tamponade. Compared to the prior echo report on 02/14/2014, there is no significant change. Reading Physician:PM . Assessment & Plan Preethi Fine is a 80-year-old female with a past medical history significant for hypothyroidism, diabetes mellitus type II, hypertension, hyperlipidemia, and GERD who presented to [facility] on 03/03/2016 with increased weakness and was found to have a TSH of 154 and was diagnosed with myxedema.Given hydrocortisone and levothyroxine IV in the ED. Admitted for close monitoring and management of myxedema. Hospital day #8. 1.. Myxedema, acute, present on admission.- TSH 154.6, T4 <0.10. Thank you Dr. Newberry endocrine consult - Hydrocortisone 100 mg given in ED. Discontinue cortisol was normal 03/04 - Levothyroxine 200 mcg given IV in the ED. - discussed with Dr. Newberry (endocrinology) on 03/05/16 - c/w 150 g daily twice a day. - Expected time course to recovery is to be measured in weeks given her undetectable T4. -Initiate physical therapy consultation 2. CAYDEN, poa. - ? pre-renal. - improving with gentle IVF but developing diffuse edema - hold IVF given edema - nephrology consulted yesterday. will f/u w/ recs regarding fluid management - f/u BMP -Currently on IV Lasix 80 mg twice a day 3. Elevated transaminases, acute, present on admission. improving - Possibly secondary to statin use. - less likely secondary to myxedema. - hold home dose atorvastatin at this time. - Continue to monitor CMP. - viral hepatitis panel negative - RUQ abd U/S 03/05: "Increased hepatic echogenicity noted likely related to fatty infiltration of the liver but other sources of hepatocellular disease cannot be excluded" 4. Hypertension, chronic. - Patient appeared more hypotensive initially. - Resume home BP meds when CAYDEN resolve - started on PO Hydralazine on 03/07 5. Diabetes mellitus, type 2, presume poorly controlled - HgA1C 8 - hold home Lantus - c/w ISS - Hypoglycemia, acute, present on admission. ? Secondary to myxedema. resolved blood sugar has steadily elevated 6. Hyperlipidemia, chronic, presume stable. - Holding atorvastatin 80 mg daily as above in #3. 7. GERD, chronic, presume stable. - Continue PPI during admission. Replace omeprazole 20 mg daily with protonix 40 mg daily. 8. Osteoporosis, chronic, presume stable. - Patient takes alendronate 70 mg weekly. Will not plan to give this during admission unless it becomes prolonged. 9. Environmental/seasonal allergies, chronic, presume stable. - Loratidine 10 mg available daily PRN. 10. Elevated Trop without reported chest pain - Echo unremarkable - likely demand ischemia and amplified by underlying CAYDEN - f/u 11. Anemia, present on admission Iron studies are normal but folate and vitamin B12 were normal. Per nephrology to get IV Venofer and IM Aranesp. . GI Prophylaxis: Proton Pump Inhibitor VTE Prophylaxis: Sub-Q Heparin (Unfractionated), SCDs VTE Mechanical Devices: Intermittant Pneumatic CD Resuscitation Status: CPR: Attempt Resuscitation Time spent 30 minutes Stephanie Hassan MD Mar 11, 2016 14:54
--- NOTE | 2016-03-11 16:18 | NUR ---
Activity Patient tolerating activity to bathroom well, with front wheel walker. No reports of nausea or episodes of vomiting. Patient had 2 episodes of loose stool today. C-Diff sample is ordered and to be sent when available next. Denies pain. Patient has call light and bed in low position with Kayley alarm on. Addendum: 03/11/16 at 1740 by ROSINA CROWELL RN I CONCUR WITH THE ABOVE CHARTING.
[2016-03-11] MEDS ORDERED: Darbepoetin Alfa 60 mCg/0.3 mL Inj SUBQ ONE (16:20)
[2016-03-11 20:39] VITALS: BP 169/71; PULSE 74; RESP 16; O2SAT 95
[2016-03-12] MEDS: Heparin 5,000 Unit/mL Inj SUBQ SCH ×3 (01:33→17:00)
[2016-03-12 04:45] VITALS: BP 170/77; PULSE 68; RESP 16; O2SAT 93
--- NOTE | 2016-03-12 05:00 | NUR ---
Activity No BM this shift-Lab called and will run stool sample sent 03/11. No complaints of pain, N/V, SOB, or cardiac distress. Pitting edema remains in hands bilaterally and trace on legs and feet. Pt ambulates to restroom with walker. Saline lock patent. Care continues
[2016-03-12] MEDS: Pantoprazole 20 mg ER24 Tablet PO SCH (06:13)
[2016-03-12] MEDS: Insulin LISPRO 300 Unit/3 mL Inj SUBQ SCH ×4 (08:00→21:18)
[2016-03-12] MEDS: Sodium Chloride LOK Flush 10 mL Syringe IVFLUSH SCH ×2 (08:11→17:00)
[2016-03-12 08:13] VITALS: BP 173/66; PULSE 68; RESP 16; O2SAT 93
--- NOTE | 2016-03-12 09:14 | NUR ---
SISI: Verbal consent
[2016-03-12] MEDS ORDERED: 0.9% Sodium Chloride 250 ML ONE (09:39)
[2016-03-12] MEDS: Thiamine Inj 100 MG in Dextrose 5% 50 ML IV SCH (09:44)
[2016-03-12 11:26] VITALS: BP 162/68; PULSE 64; RESP 17; O2SAT 95
--- NOTE | 2016-03-12 11:44 | PCM.PNMED ---
Subjective Date of Service Mar 12, 2016 Subjective Nephrology progress note: Attending Dr. Thomas Preethi Fine is a 80-year-old female with a past medical history significant for hypothyroidism, diabetes mellitus type II, hypertension, hyperlipidemia, and GERD who presented to [facility] on 03/03/2016 with increased weakness and was found to have a TSH of 154 and was diagnosed with myxedema.Given hydrocortisone and levothyroxine IV in the ED. Admitted for close monitoring and management of myxedema. Hospital day #10. Overnight: There were no acute events. The patient is resting in bed comfortably and in no acute distress. The patient is a poor historian and quite frequently reports she does not remember. She has no complaints overall. She denies headache, chest pain, shortness of breath, abdominal pain, nausea, vomiting, fever, chills, dysuria, diarrhea or constipation. She is voiding without difficulty. She continues to have many loose bowel movements daily. She is in bed most of the day but ambulates with a FWW. . Exam Vital Signs Vital Sign - Last Date Time Temp Pulse Resp B/P Pulse Ox O2 Delivery O2 Flow Rate FiO2 03/12/16 11:26 64 17 162/68 95 Room Air 03/12/16 08:13 36.6 Intake and Output 03/11/16 03/11/16 03/12/16 Cumulative From/Thru 15:00 23:00 07:00 03/03/16 15:32 - 03/12/16 06:09 Intake Total 300 ml 100 ml 62659 ml Output Total 1800 ml 1300 ml 75316 ml Balance -1500 ml -1200 ml 913 ml Intake Oral 300 ml 100 ml 9511 ml IV Total 4127 ml Output Urine Total 1800 ml 1300 ml 38390 ml Urine/Stool Mix 750 ml # Voids 15 # Bowel Movements 2 26 Exam General: Elderly female lying in bed and in no acute distress, well-developed, well-nourished, appropriately interactive. HEENT: Normocephalic, atraumatic. External ears without defect. Pupils equal, round, and reactive to light. Periorbital edema. Anicteric sclerae, moist conjunctivae, and no lid lag. Oropharynx free of erythema and cobble stoning with moist mucosa. Neck: Supple with full range of motion. JVD. No bruits. No lymphadenopathy or thyromegaly. Cardiovascular: Regular rate and rhythm without murmurs, rubs, or gallops appreciated Pulmonary: Clear to auscultation bilaterally with no crackles, wheezes, or rhonchi. Normal respiratory effort with no use of accessory muscles. Abdomen: Soft, nontender, mildly distended, bowel sounds present. No hepatosplenomegaly or masses appreciated. Extremities: Anasarca, significant improvement L>R. Skin: Normal temperature, turgor, and texture; no rash, ulcers, or subcutaneous nodules appreciated. Neurological: Cranial nerves grossly intact. . IVs and Medications Medications Reviewed: Medications were reviewed in detail Lab and Diagnostics Item Value Date Time Calcium Level 7.8 mg/dL L 03/12/16 0605 Total Bilirubin 0.3 mg/dL 03/12/16 06 Aspartate Amino Transf (AST/SGOT) 24 U/L 03/12/16 06 Alanine Aminotransferase (ALT/SGPT) 49 U/L H 03/12/16 06 Alkaline Phosphatase 93 U/L 03/12/16 06 Total Protein 4.9 g/dL L 03/12/16 0605 Albumin 2.7 g/dL L 03/12/16 06 Result Diagram: 03/09/1672603/12/16 06 Microbiology Blood culture showed no growth after 5 days. Influenza screen negative. Urine culture shows mixed urogenital karen. MRSA screen negative. . X-Rays, CTs and MRIs X-RAY CHEST ONE VIEW, PORTABLE IMPRESSION: Low lung volumes with scattered atelectasis. No acute disease Dictated by: Francisco Wiggins M.D. on 03/03/2016 at 17:18 Approved by: Francisco Wiggins M.D. on 03/03/2016 at 17:18 CT BRAIN WITHOUT CONTRAST IMPRESSION: No acute intracranial process. Dictated by: Francisco Wiggins M.D. on 03/03/2016 at 18:55 Approved by: Francisco Wiggins M.D. on 03/03/2016 at 18:58 US ABDOMEN IMPRESSION: Increased hepatic echogenicity noted likely related to fatty infiltration of the liver but other sources of hepatocellular disease cannot be excluded. Recommend clinical correlation. Dictated by: Meet PEREZ Interpreted: Malorie Mejia MD on 03/05/2016 at 16:03 Transcribed by: JUAN ALBERTO on 03/05/2016 at 16:04 Approved by: Malorie Mejia MD, PhD on 03/05/2016 at 16:48 . 12-lead ECG EKG: Sinus rhythm, heart rate 67, QTc 436, low voltage, no acute ischemic changes. . Cardiac Echo Impressions Echocardiogram Interpretation Summary: The left ventricle is normal in size. Left ventricular wall thickness is mildly increased. The ejection fraction is estimated to be 60-65%. There are no focal wall motion abnormalities. The right ventricle is normal in size and function. Pulmonary artery pressures cannot be estimated because of the lack of a measurable TR jet velocity. The left atrium is mildly dilated. Right atrial size is normal. There is no significant valvular heart disease. The ascending aorta is mild-moderately enlarged. There is a small pericardial effusion noted. There are no echocardiographic indications of cardiac tamponade. Compared to the prior echo report on 02/14/2014, there is no significant change. Reading Physician:PM . Assessment & Plan Preethi Fine is a 80-year-old female with a past medical history significant for hypothyroidism, diabetes mellitus type II, hypertension, hyperlipidemia, and GERD who presented to [facility] on 03/03/2016 with increased weakness and was found to have a TSH of 154 and was diagnosed with myxedema.Given hydrocortisone and levothyroxine IV in the ED. Admitted for close monitoring and management of myxedema. Hospital day #10. Impression: 1. Acute kidney injury, multifactorial and secondary to NSAID's, possible Bactrim, lisinopril and hypovolemia. 2. Hypertension with hypertensive heart disease and hypertensive nephrosclerosis. 3. 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 4. Diastolic dysfunction. 5. Metabolic acidosis with possible type IV renal tubular acidosis. 6. Normocytic anemia. Recommendations: - Urine protein/creatinine ratio not obtained. - Continue thiamine 100 mg IV for possible thiamine deficiency. - Continue labetalol 300 mg twice a day. - Increased lisinopril from 5 mg twice a day to 10 mg twice daily and added chlorthalidone 25 mg daily for hypertension and edema. - Closely follow intake and output, as well as, renal function daily. Baseline creatinine 0.94 and 06/2015. . GI Prophylaxis: Proton Pump Inhibitor VTE Prophylaxis: Sub-Q Heparin (Unfractionated), SCDs VTE Mechanical Devices: Intermittant Pneumatic CD Resuscitation Status: CPR: Attempt Resuscitation Lynnette Gardner DO Mar 12, 2016 11:44
--- NOTE | 2016-03-12 14:33 | PCM.PNMED ---
Subjective Date of Service Mar 12, 2016 Subjective Patient resting in bed currently. She has been working with physical therapy and her multidisciplinary Rounds is safe to discharge to home. Skin occur when medically stable. Exam Vital Signs Vital Sign - Last Date Time Temp Pulse Resp B/P Pulse Ox O2 Delivery O2 Flow Rate FiO2 03/12/16 11:26 64 17 162/68 95 Room Air 03/12/16 08:13 36.6 Intake and Output 03/11/16 03/11/16 03/12/16 Cumulative From/Thru 15:00 23:00 07:00 03/03/16 15:32 - 03/12/16 06:09 Intake Total 300 ml 100 ml 08709 ml Output Total 1800 ml 1300 ml 22905 ml Balance -1500 ml -1200 ml 913 ml Intake Oral 300 ml 100 ml 9511 ml IV Total 4127 ml Output Urine Total 1800 ml 1300 ml 79853 ml Urine/Stool Mix 750 ml # Voids 15 # Bowel Movements 2 26 Exam Constitutional: Elderly woman in no acute distress Head: Normocephalic atraumatic Chest: Clear to auscultation Cor: Regular rate and rhythm S1-S2 Abdomen: Soft nontender bowel sounds present Sternum the exam improving bilateral pedal edema trace at this point. Lab and Diagnostics Result Diagram: 03/09/16 0727 03/12/16 0605 Microbiology Blood culture showed no growth after 5 days. Influenza screen negative. Urine culture shows mixed urogenital karen. MRSA screen negative. . X-Rays, CTs and MRIs X-RAY CHEST ONE VIEW, PORTABLE IMPRESSION: Low lung volumes with scattered atelectasis. No acute disease Dictated by: Francisco Wiggins M.D. on 03/03/2016 at 17:18 Approved by: Francisco Wiggins M.D. on 03/03/2016 at 17:18 CT BRAIN WITHOUT CONTRAST IMPRESSION: No acute intracranial process. Dictated by: Francisco Wiggins M.D. on 03/03/2016 at 18:55 Approved by: Francisco Wiggins M.D. on 03/03/2016 at 18:58 US ABDOMEN IMPRESSION: Increased hepatic echogenicity noted likely related to fatty infiltration of the liver but other sources of hepatocellular disease cannot be excluded. Recommend clinical correlation. Dictated by: Meet PEREZ Interpreted: Malorie Mejia MD on 03/05/2016 at 16:03 Transcribed by: JUAN ALBERTO on 03/05/2016 at 16:04 Approved by: Malorie Mejia MD, PhD on 03/05/2016 at 16:48 . 12-lead ECG EKG: Sinus rhythm, heart rate 67, QTc 436, low voltage, no acute ischemic changes. . Cardiac Echo Impressions Echocardiogram Interpretation Summary: The left ventricle is normal in size. Left ventricular wall thickness is mildly increased. The ejection fraction is estimated to be 60-65%. There are no focal wall motion abnormalities. The right ventricle is normal in size and function. Pulmonary artery pressures cannot be estimated because of the lack of a measurable TR jet velocity. The left atrium is mildly dilated. Right atrial size is normal. There is no significant valvular heart disease. The ascending aorta is mild-moderately enlarged. There is a small pericardial effusion noted. There are no echocardiographic indications of cardiac tamponade. Compared to the prior echo report on 02/14/2014, there is no significant change. Reading Physician:PM . Assessment & Plan Preethi Fine is a 80-year-old female with a past medical history significant for hypothyroidism, diabetes mellitus type II, hypertension, hyperlipidemia, and GERD who presented to [facility] on 03/03/2016 with increased weakness and was found to have a TSH of 154 and was diagnosed with myxedema.Given hydrocortisone and levothyroxine IV in the ED. Admitted for close monitoring and management of myxedema. Hospital day #10. 1.. Myxedema, acute, present on admission.- TSH 154.6, T4 <0.10. Thank you Dr. Newberry endocrine consult - Hydrocortisone 100 mg given in ED. Discontinue cortisol was normal 03/04 - Levothyroxine 200 mcg given IV in the ED. - discussed with Dr. Newberry (endocrinology) on 03/05/16 - c/w 150 g daily twice a day. - Expected time course to recovery is to be measured in weeks given her undetectable T4. -Initiate physical therapy consultation 2. CAYDEN, poa. - ? pre-renal. - improving with gentle IVF but developing diffuse edema - hold IVF given edema - nephrology consulted yesterday. will f/u w/ recs regarding fluid management - f/u BMP -Currently on IV Lasix 80 mg twice a day - per Nephrology today: Impression: 1. Acute kidney injury, multifactorial and secondary to NSAID's, possible Bactrim, lisinopril and hypovolemia. 2. Hypertension with hypertensive heart disease and hypertensive nephrosclerosis. 3. 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 4. Diastolic dysfunction. 5. Metabolic acidosis with possible type IV renal tubular acidosis. 6. Normocytic anemia. Recommendations: - Urine protein/creatinine ratio not obtained. - Continue thiamine 100 mg IV for possible thiamine deficiency. - Continue labetalol 300 mg twice a day. - Increased lisinopril from 5 mg twice a day to 10 mg twice daily and added chlorthalidone 25 mg daily for hypertension and edema. - Closely follow intake and output, as well as, renal function daily. Baseline creatinine 0.94 and 06/2015. . 3. Elevated transaminases, acute, present on admission. improving - Possibly secondary to statin use. - less likely secondary to myxedema. - hold home dose atorvastatin at this time. - Continue to monitor CMP. - viral hepatitis panel negative - RUQ abd U/S 03/05: "Increased hepatic echogenicity noted likely related to fatty infiltration of the liver but other sources of hepatocellular disease cannot be excluded" 4. Hypertension, chronic. - Patient appeared more hypotensive initially. - Resume home BP meds when CAYDEN resolve - started on PO Hydralazine on 03/07 5. Diabetes mellitus, type 2, presume poorly controlled - HgA1C 8 - hold home Lantus - c/w ISS - Hypoglycemia, acute, present on admission. ? Secondary to myxedema. resolved blood sugar has steadily elevated 6. Hyperlipidemia, chronic, presume stable. - Holding atorvastatin 80 mg daily as above in #3. 7. GERD, chronic, presume stable. - Continue PPI during admission. Replace omeprazole 20 mg daily with protonix 40 mg daily. 8. Osteoporosis, chronic, presume stable. - Patient takes alendronate 70 mg weekly. Will not plan to give this during admission unless it becomes prolonged. 9. Environmental/seasonal allergies, chronic, presume stable. - Loratidine 10 mg available daily PRN. 10. Elevated Trop without reported chest pain - Echo unremarkable - likely demand ischemia and amplified by underlying CAYDEN - f/u 11. Anemia, present on admission Iron studies are normal but folate and vitamin B12 were normal. Per nephrology to get IV Venofer and IM Aranesp. . GI Prophylaxis: Proton Pump Inhibitor VTE Prophylaxis: Sub-Q Heparin (Unfractionated), SCDs VTE Mechanical Devices: Intermittant Pneumatic CD Resuscitation Status: CPR: Attempt Resuscitation Time spent 30 minutes Stephanie Hassan MD Mar 12, 2016 14:33
--- NOTE | 2016-03-12 18:12 | NUR ---
ACTIVITY Patient denies pain. Tolerating liquids PO and her diet well. Denies nausea. No emesis noted. Denies SOB. Patient has been able to ambulate with SBA and the FWW. Tolerated activity well. Sat in the chair for a couple of hours. Patient is incontinent at times. Unable to obtain a urine sample at this time.
[2016-03-12 21:12] VITALS: BP 160/74; PULSE 71; RESP 18; O2SAT 94
[2016-03-13] MEDS: Sodium Chloride LOK Flush 10 mL Syringe IVFLUSH SCH ×3 (01:14→16:04)
[2016-03-13] MEDS: Heparin 5,000 Unit/mL Inj SUBQ SCH ×3 (01:14→16:59)
[2016-03-13 04:47] VITALS: BP 176/75; PULSE 69; RESP 18; O2SAT 95
[2016-03-13] MEDS: Pantoprazole 20 mg ER24 Tablet PO SCH (06:32)
--- NOTE | 2016-03-13 06:54 | NUR ---
Mentation Pt A&O x2 she is forgetful. She is able to articulate her needs. She uses call light for assistance appropriately. Up to BSC x 2. She appeared weak but steady gait. No overt complications noted.
[2016-03-13] MEDS: Insulin LISPRO 300 Unit/3 mL Inj SUBQ SCH ×4 (08:00→22:00)
--- NOTE | 2016-03-13 09:07 | PCM.PNMED ---
Subjective Date of Service Mar 13, 2016 Subjective Nephrology progress note: Attending Dr. Thomas Preethi Fine is a 80-year-old female with a past medical history significant for hypothyroidism, diabetes mellitus type II, hypertension, hyperlipidemia, and GERD who presented to [facility] on 03/03/2016 with increased weakness and was found to have a TSH of 154 and was diagnosed with myxedema.Given hydrocortisone and levothyroxine IV in the ED. Admitted for close monitoring and management of myxedema. Hospital day #11. Overnight: There were no acute events. The patient is resting in bed comfortably and in no acute distress. The patient is a poor historian and quite frequently reports she does not remember. She has no complaints overall. She denies headache, chest pain, shortness of breath, abdominal pain, nausea, vomiting, fever, chills, dysuria, diarrhea or constipation. She is voiding without difficulty. She continues to have many loose bowel movements daily. She is in bed most of the day but ambulates with a FWW. . Exam Vital Signs Vital Sign - Last Date Time Temp Pulse Resp B/P Pulse Ox O2 Delivery O2 Flow Rate FiO2 03/13/16 04:47 36.6 69 18 176/75 95 Room Air Intake and Output 03/12/16 03/12/16 03/13/16 Cumulative From/Thru 15:00 23:00 07:00 03/03/16 15:32 - 03/13/16 05:15 Intake Total 718 ml 49758 ml Output Total 300 ml 21831 ml Balance 418 ml 1331 ml Intake Oral 718 ml 55871 ml IV Total 4127 ml Output Urine Total 300 ml 79036 ml Urine/Stool Mix 750 ml # Voids 15 # Bowel Movements 1 27 Exam General: Elderly female lying in bed and in no acute distress, well-developed, well-nourished, appropriately interactive. HEENT: Normocephalic, atraumatic. External ears without defect. Pupils equal, round, and reactive to light. Periorbital edema. Anicteric sclerae, moist conjunctivae, and no lid lag. Oropharynx free of erythema and cobble stoning with moist mucosa. Neck: Supple with full range of motion. JVD. No bruits. No lymphadenopathy or thyromegaly. Cardiovascular: Regular rate and rhythm without murmurs, rubs, or gallops appreciated Pulmonary: Clear to auscultation bilaterally with no crackles, wheezes, or rhonchi. Normal respiratory effort with no use of accessory muscles. Abdomen: Soft, nontender, mildly distended, bowel sounds present. No hepatosplenomegaly or masses appreciated. Extremities: Anasarca, resolving L>R. Skin: Normal temperature, turgor, and texture; no rash, ulcers, or subcutaneous nodules appreciated. Neurological: Cranial nerves grossly intact. . IVs and Medications Medications Reviewed: Medications were reviewed in detail Lab and Diagnostics Item Value Date Time Calcium Level 7.6 mg/dL L 03/13/16 06 Total Bilirubin 0.3 mg/dL 03/13/16 06 Aspartate Amino Transf (AST/SGOT) 19 U/L 03/13/16 06 Alanine Aminotransferase (ALT/SGPT) 39 U/L H 03/13/16 06 Alkaline Phosphatase 97 U/L 03/13/16 06 Total Protein 5.0 g/dL L 03/13/16 06 Albumin 2.7 g/dL L 03/13/16 06 Result Diagram: 03/09/1672603/13/16 06 Microbiology Blood culture showed no growth after 5 days. Influenza screen negative. Urine culture shows mixed urogenital karen. MRSA screen negative. . X-Rays, CTs and MRIs X-RAY CHEST ONE VIEW, PORTABLE IMPRESSION: Low lung volumes with scattered atelectasis. No acute disease Dictated by: Francisco Wiggins M.D. on 03/03/2016 at 17:18 Approved by: Francisco Wiggins M.D. on 03/03/2016 at 17:18 CT BRAIN WITHOUT CONTRAST IMPRESSION: No acute intracranial process. Dictated by: Francisco Wiggins M.D. on 03/03/2016 at 18:55 Approved by: Francisco Wiggins M.D. on 03/03/2016 at 18:58 US ABDOMEN IMPRESSION: Increased hepatic echogenicity noted likely related to fatty infiltration of the liver but other sources of hepatocellular disease cannot be excluded. Recommend clinical correlation. Dictated by: Meet Ybarra Shyann Interpreted: Malorie Mejia MD on 03/05/2016 at 16:03 Transcribed by: JUAN ALBERTO on 03/05/2016 at 16:04 Approved by: Malorie Mejia MD, PhD on 03/05/2016 at 16:48 . 12-lead ECG EKG: Sinus rhythm, heart rate 67, QTc 436, low voltage, no acute ischemic changes. . Cardiac Echo Impressions Echocardiogram Interpretation Summary: The left ventricle is normal in size. Left ventricular wall thickness is mildly increased. The ejection fraction is estimated to be 60-65%. There are no focal wall motion abnormalities. The right ventricle is normal in size and function. Pulmonary artery pressures cannot be estimated because of the lack of a measurable TR jet velocity. The left atrium is mildly dilated. Right atrial size is normal. There is no significant valvular heart disease. The ascending aorta is mild-moderately enlarged. There is a small pericardial effusion noted. There are no echocardiographic indications of cardiac tamponade. Compared to the prior echo report on 02/14/2014, there is no significant change. Reading Physician:PM . Assessment & Plan Preethi Fine is a 80-year-old female with a past medical history significant for hypothyroidism, diabetes mellitus type II, hypertension, hyperlipidemia, and GERD who presented to [facility] on 03/03/2016 with increased weakness and was found to have a TSH of 154 and was diagnosed with myxedema.Given hydrocortisone and levothyroxine IV in the ED. Admitted for close monitoring and management of myxedema. Hospital day #11. Impression: 1. Acute kidney injury, multifactorial and secondary to NSAID's, possible Bactrim, lisinopril and hypovolemia. 2. Hypertension with hypertensive heart disease and hypertensive nephrosclerosis. 3. 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 4. Diastolic dysfunction. 5. Metabolic acidosis with possible type IV renal tubular acidosis. 6. Normocytic anemia. 7. 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 Recommendations: - Ordered CBC which shows profound anemia with hemoglobin 7.0. We will plan to transfuse 1 unit PRBCs. - Urine protein/creatinine ratio 2.95 indicative of proteinuria likely secondary to diabetic nephropathy. Would recommend adding a basal insulin per primary team. - Continue thiamine 100 mg IV for possible thiamine deficiency. - Continue labetalol 300 mg twice a day. - Increased lisinopril from 10 mg twice a day to 20 mg twice daily for ongoing hypertension. If continues to be persistently hypertensive with recommend adding a maintenance loop diuretic. - Continue chlorthalidone 25 mg daily for hypertension and edema. - Closely follow intake and output, as well as, renal function daily. Baseline creatinine 0.94 and 06/2015. . GI Prophylaxis: Proton Pump Inhibitor VTE Prophylaxis: Sub-Q Heparin (Unfractionated), SCDs VTE Mechanical Devices: Intermittant Pneumatic CD Resuscitation Status: CPR: Attempt Resuscitation Attending Statement Nephrology attending: The patient was seen and examined along with the internal medicine resident we have thoroughly discussed the patient's findings and plan. I am concerned about the elevated protein level which most likely is diabetic nephropathy however I would am concerned about other possible etiologies. Lynnette Gardner DO Mar 13, 2016 09:07 Bean Thomas DO Mar 13, 2016 12:18
[2016-03-13 09:15] LABS: BASOPHILS % (AUTO) 0.9 % (0-3); EOSINOPHILS % (AUTO) 4.3 % (0-5); MONOCYTES % (AUTO) 10.9 % (4-12); Mean Corpuscular Volume 86.1 fL (81-100); NEUTROPHILS % (AUTO) 58.9 % (40-74); Platelet Count 331 bil/L (150-400)
[2016-03-13 09:37] VITALS: BP 173/72; PULSE 69; RESP 19; O2SAT 93
[2016-03-13] MEDS: Thiamine Inj 100 MG in Dextrose 5% 50 ML IV SCH (10:07)
--- NOTE | 2016-03-13 10:21 | PCM.PNMED ---
Subjective Date of Service Mar 13, 2016 Subjective - No acute events over night. - Pt seen and examined this morning. Denies any new complaints. Exam Vital Signs Vital Sign - Last Date Time Temp Pulse Resp B/P Pulse Ox O2 Delivery O2 Flow Rate FiO2 03/13/16 09:37 36.7 69 19 173/72 93 Room Air Intake and Output 03/12/16 03/12/16 03/13/16 Cumulative From/Thru 15:00 23:00 07:00 03/03/16 15:32 - 03/13/16 05:15 Intake Total 718 ml 66679 ml Output Total 300 ml 89299 ml Balance 418 ml 1331 ml Intake Oral 718 ml 81281 ml IV Total 4127 ml Output Urine Total 300 ml 25666 ml Urine/Stool Mix 750 ml # Voids 15 # Bowel Movements 03 05 Exam Constitutional: Elderly woman in no acute distress Head: Normocephalic atraumatic Chest: Clear to auscultation, Normal respiratory effort, Cor: Regular rate and rhythm S1-S2, No murmur, Abdomen: Soft nontender bowel sounds present Extremities: +ve bilatreal pedal edema IVs and Medications Medications Reviewed: Medications were reviewed in detail Lab and Diagnostics Result Diagram: 03/13/16 0603 03/13/16 0603 Microbiology Blood culture showed no growth after 5 days. Influenza screen negative. Urine culture shows mixed urogenital karen. MRSA screen negative. . X-Rays, CTs and MRIs X-RAY CHEST ONE VIEW, PORTABLE IMPRESSION: Low lung volumes with scattered atelectasis. No acute disease Dictated by: Francisco Wiggins M.D. on 03/03/2016 at 17:18 Approved by: Francisco Wiggins M.D. on 03/03/2016 at 17:18 CT BRAIN WITHOUT CONTRAST IMPRESSION: No acute intracranial process. Dictated by: Francisco Wiggins M.D. on 03/03/2016 at 18:55 Approved by: Francisco Wiggins M.D. on 03/03/2016 at 18:58 US ABDOMEN IMPRESSION: Increased hepatic echogenicity noted likely related to fatty infiltration of the liver but other sources of hepatocellular disease cannot be excluded. Recommend clinical correlation. Dictated by: Meet PEREZ Interpreted: Malorie Mejia MD on 03/05/2016 at 16:03 Transcribed by: JUAN ALBERTO on 03/05/2016 at 16:04 Approved by: Malorie Mejia MD, PhD on 03/05/2016 at 16:48 . 12-lead ECG EKG: Sinus rhythm, heart rate 67, QTc 436, low voltage, no acute ischemic changes. . Cardiac Echo Impressions Echocardiogram Interpretation Summary: The left ventricle is normal in size. Left ventricular wall thickness is mildly increased. The ejection fraction is estimated to be 60-65%. There are no focal wall motion abnormalities. The right ventricle is normal in size and function. Pulmonary artery pressures cannot be estimated because of the lack of a measurable TR jet velocity. The left atrium is mildly dilated. Right atrial size is normal. There is no significant valvular heart disease. The ascending aorta is mild-moderately enlarged. There is a small pericardial effusion noted. There are no echocardiographic indications of cardiac tamponade. Compared to the prior echo report on 02/14/2014, there is no significant change. Reading Physician:PM . Assessment & Plan Preethi Fine is a 80-year-old female with a past medical history significant for hypothyroidism, diabetes mellitus type II, hypertension, hyperlipidemia, and GERD who presented to [facility] on 03/03/2016 with increased weakness and was found to have a TSH of 154 and was diagnosed with myxedema.Given hydrocortisone and levothyroxine IV in the ED. Admitted for close monitoring and management of myxedema. Hospital day #11. 1.. Myxedema, acute, present on admission.- TSH 154.6, T4 <0.10. Thank you Dr. Newberry endocrine consult - Hydrocortisone 100 mg given in ED. Discontinue cortisol was normal 03/04 - Levothyroxine 200 mcg given IV in the ED. - Appreciate Dr. Newberry (endocrinology) recommendations. - c/w Synthroid 150 g daily twice a day. - Expected time course to recovery is to be measured in weeks given her undetectable T4. - Physical therapy consultation 2. CAYDEN, poa. - ? pre-renal. - improving with gentle IVF but developing diffuse edema - hold IVF given edema - nephrology consulted. will f/u w/ recs regarding fluid management - f/u BMP - Currently on IV Lasix 80 mg twice a day - Appreciate nephrology evaluation. 3. Elevated transaminases, acute, present on admission. improving - Possibly secondary to statin use. - less likely secondary to myxedema. - hold home dose atorvastatin at this time. - Continue to monitor CMP. - viral hepatitis panel negative - RUQ abd U/S 03/05: "Increased hepatic echogenicity noted likely related to fatty infiltration of the liver but other sources of hepatocellular disease cannot be excluded" 4. Hypertension, chronic. - Patient appeared more hypotensive initially. - Resume home BP meds when CAYDEN resolve - started on PO Hydralazine on 03/07 5. Diabetes mellitus, type 2, presume poorly controlled - HgA1C 8 - hold home Lantus - c/w ISS - Hypoglycemia, acute, present on admission. ? Secondary to myxedema. resolved blood sugar has steadily elevated 6. Hyperlipidemia, chronic, presume stable. - Holding atorvastatin 80 mg daily as above in #3. 7. GERD, chronic, presume stable. - Continue PPI during admission. Replace omeprazole 20 mg daily with protonix 40 mg daily. 8. Osteoporosis, chronic, presume stable. - Patient takes alendronate 70 mg weekly. Will not plan to give this during admission unless it becomes prolonged. 9. Environmental/seasonal allergies, chronic, presume stable. - Loratidine 10 mg available daily PRN. 10. Elevated Trop without reported chest pain - Echo unremarkable - likely demand ischemia and amplified by underlying CAYDEN - f/u 11. Anemia, present on admission Iron studies are normal but folate and vitamin B12 were normal. Per nephrology to get IV Venofer and IM Aranesp. GI Prophylaxis: Proton Pump Inhibitor VTE Prophylaxis: Sub-Q Heparin (Unfractionated), SCDs VTE Mechanical Devices: Intermittant Pneumatic CD Resuscitation Status: CPR: Attempt Resuscitation Bladimir Girard MD Mar 13, 2016 10:19
[2016-03-13] MEDS: 0.9% Sodium Chloride 250 ML IV SCH (11:41)
[2016-03-13 16:38] VITALS: BP 168/73; PULSE 69; RESP 16; O2SAT 93
--- NOTE | 2016-03-13 18:16 | NUR ---
Activity Pt up to chair once during shift and to BR multiple times, declined to walk in hallways. Pt had 3 episodes of loose, mucous stools and was incontinent twice. C. diff culture done previously was negative. Pt alert to self and place only. Pleasant and follows all commands, but forgetful. Was able to use call light when needed. Kayley alarm in place. No c/o pain. Right hand still having edema. 1 unit PRBC ordered, but type and cross had to be sent to blood bank because of antibodies in blood, so infusion is delayed. is aware.
[2016-03-13 20:15] VITALS: BP 171/77; PULSE 72; RESP 17; O2SAT 93
[2016-03-14] VITALS (13 sets, daily range): BP systolic 164–211; BP diastolic 62–93; PULSE 64–70; RESP 15–17; O2SAT 94–95
[2016-03-14] MEDS: Heparin 5,000 Unit/mL Inj SUBQ SCH ×3 (00:59→17:30)
[2016-03-14] MEDS: Sodium Chloride LOK Flush 10 mL Syringe IVFLUSH SCH ×3 (01:00→16:30)
[2016-03-14] MEDS: Pantoprazole 20 mg ER24 Tablet PO SCH (06:03)
[2016-03-14 06:22] LABS: EOSINOPHILS % (AUTO) 3.8 % (0-5); MONOCYTES % (AUTO) 11.4 % (4-12); Mean Corpuscular Hemoglobin 27.3 pg (27.0-35.0); Mean Corpuscular Volume 86.9 fL (81-100); NEUTROPHILS % (AUTO) 63.1 % (40-74); Platelet Count 338 bil/L (150-400)
[2016-03-14] MEDS: 0.9% Sodium Chloride 250 ML IV SCH ×2 (07:38→16:42)
[2016-03-14] MEDS: Insulin LISPRO 300 Unit/3 mL Inj SUBQ SCH ×4 (08:00→22:00)
--- NOTE | 2016-03-14 08:04 | NUR ---
Loose stool Patient has had 3 loose stools this shift. Patient attempts to make to bathroom, but often is incontinent. Patient ambulates to bathroom well and is standby assist with FWW. Patient was able to sleep much of the night.
--- NOTE | 2016-03-14 09:25 | NUR ---
SISI signed Marizol Cooper
--- NOTE | 2016-03-14 10:32 | PCM.PNMED ---
Subjective Date of Service Mar 14, 2016 Subjective - Pt seen and examined this morning. - Hb decreased to 6.7 this morning. Receiving 1 units of PRBC Exam Vital Signs Vital Sign - Last Date Time Temp Pulse Resp B/P Pulse Ox O2 Delivery O2 Flow Rate FiO2 03/14/16 09:02 36.5 67 17 181/75 03/14/16 05:05 95 Room Air Intake and Output 03/13/16 03/13/16 03/14/16 Cumulative From/Thru 15:00 23:00 07:00 03/03/16 15:32 - 03/14/16 05:05 Intake Total 221 ml 800 ml 650 ml 42006 ml Output Total 600 ml 400 ml 500 ml 31735 ml Balance -379 ml 400 ml 150 ml 1502 ml Intake Oral 150 ml 736 ml 650 ml 48757 ml IV Total 71 ml 64 ml 4262 ml Output Urine Total 600 ml 500 ml 77140 ml Urine/Stool Mix 400 ml 1150 ml # Voids 15 # Bowel Movements 1 3 1 32 Exam Constitutional: Elderly woman in no acute distress Head: Normocephalic atraumatic Chest: Clear to auscultation, Normal respiratory effort, Cor: Regular rate and rhythm S1-S2, No murmur, Abdomen: Soft nontender bowel sounds present Extremities: +ve bilatreal pedal edema IVs and Medications Medications Reviewed: Medications were reviewed in detail Lab and Diagnostics Result Diagram: 03/14/16 0550 03/14/16 0550 Microbiology Blood culture showed no growth after 5 days. Influenza screen negative. Urine culture shows mixed urogenital karen. MRSA screen negative. . X-Rays, CTs and MRIs X-RAY CHEST ONE VIEW, PORTABLE IMPRESSION: Low lung volumes with scattered atelectasis. No acute disease Dictated by: Francisco Wiggins M.D. on 03/03/2016 at 17:18 Approved by: Francisco Wiggins M.D. on 03/03/2016 at 17:18 CT BRAIN WITHOUT CONTRAST IMPRESSION: No acute intracranial process. Dictated by: Francisco Wiggins M.D. on 03/03/2016 at 18:55 Approved by: Francisco Wiggins M.D. on 03/03/2016 at 18:58 US ABDOMEN IMPRESSION: Increased hepatic echogenicity noted likely related to fatty infiltration of the liver but other sources of hepatocellular disease cannot be excluded. Recommend clinical correlation. Dictated by: Meet Ybarra [facility] Interpreted: Malorie Mejia MD on 03/05/2016 at 16:03 Transcribed by: JUAN ALBERTO on 03/05/2016 at 16:04 Approved by: Malorie Mejia MD, PhD on 03/05/2016 at 16:48 . 12-lead ECG EKG: Sinus rhythm, heart rate 67, QTc 436, low voltage, no acute ischemic changes. . Cardiac Echo Impressions Echocardiogram Interpretation Summary: The left ventricle is normal in size. Left ventricular wall thickness is mildly increased. The ejection fraction is estimated to be 60-65%. There are no focal wall motion abnormalities. The right ventricle is normal in size and function. Pulmonary artery pressures cannot be estimated because of the lack of a measurable TR jet velocity. The left atrium is mildly dilated. Right atrial size is normal. There is no significant valvular heart disease. The ascending aorta is mild-moderately enlarged. There is a small pericardial effusion noted. There are no echocardiographic indications of cardiac tamponade. Compared to the prior echo report on 02/14/2014, there is no significant change. Reading Physician:PM . Assessment & Plan Preethi Fine is a 80-year-old female with a past medical history significant for hypothyroidism, diabetes mellitus type II, hypertension, hyperlipidemia, and GERD who presented to [facility] on 03/03/2016 with increased weakness and was found to have a TSH of 154 and was diagnosed with myxedema.Given hydrocortisone and levothyroxine IV in the ED. Admitted for close monitoring and management of myxedema. Hospital day #11. Anemia - Hb decreaed to 6.7 this morning. - Will transfuse 1 PRBC - Iron studies are normal but folate and vitamin B12 were normal. - Per nephrology to get IV Venofer and IM Aranesp. Myxedema, acute, present on admission.- TSH 154.6, T4 <0.10. Thank you Dr. Newberry endocrine consult - Hydrocortisone 100 mg given in ED. Discontinue cortisol was normal 03/04 - Levothyroxine 200 mcg given IV in the ED. - Appreciate Dr. Newberry (endocrinology) recommendations. - c/w Synthroid 150 g daily twice a day. - Expected time course to recovery is to be measured in weeks given her undetectable T4. - Physical therapy consultation CAYDEN, poa. - ? pre-renal. - improving with gentle IVF but developing diffuse edema - hold IVF given edema - nephrology consulted. will f/u w/ recs regarding fluid management - f/u BMP - Currently on IV Lasix 80 mg twice a day - Appreciate nephrology evaluation. Elevated transaminases, acute, present on admission. improving - Possibly secondary to statin use. - less likely secondary to myxedema. - hold home dose atorvastatin at this time. - Continue to monitor CMP. - viral hepatitis panel negative - RUQ abd U/S 03/05: "Increased hepatic echogenicity noted likely related to fatty infiltration of the liver but other sources of hepatocellular disease cannot be excluded" Hypertension, chronic. - Patient appeared more hypotensive initially. - Resume home BP meds when CAYDEN resolve - started on PO Hydralazine on 03/07 Diabetes mellitus, type 2, presume poorly controlled - HgA1C 8 - hold home Lantus - c/w ISS - Hypoglycemia, acute, present on admission. ? Secondary to myxedema. resolved blood sugar has steadily elevated Hyperlipidemia, chronic, presume stable. - Holding atorvastatin 80 mg daily as above in #3. ERD, chronic, presume stable. - Continue PPI during admission. Replace omeprazole 20 mg daily with protonix 40 mg daily. Osteoporosis, chronic, presume stable. - Patient takes alendronate 70 mg weekly. Will not plan to give this during admission unless it becomes prolonged. Environmental/seasonal allergies, chronic, presume stable. - Loratidine 10 mg available daily PRN. Elevated Trop without reported chest pain - Echo unremarkable - likely demand ischemia and amplified by underlying CAYDEN - f/u GI Prophylaxis: Proton Pump Inhibitor VTE Prophylaxis: Sub-Q Heparin (Unfractionated), SCDs VTE Mechanical Devices: Intermittant Pneumatic CD Resuscitation Status: CPR: Attempt Resuscitation Bladimir Girard MD Mar 14, 2016 10:32
[2016-03-14] MEDS: Thiamine Inj 100 MG in Dextrose 5% 50 ML IV SCH (10:47)
--- NOTE | 2016-03-14 12:48 | PCM.PNMED ---
Subjective Date of Service Mar 14, 2016 Subjective The patient's main concern for the last several days has been increasing blood pressures in spite of up titration of medication. The patient is unable to give any complaints to her dementia. Her intake and output for yesterday were approximately 1010 and 1000 out. Her renal function remained stable however her hemoglobin once again has dropped to 6.7. Exam Vital Signs Vital Sign - Last Date Time Temp Pulse Resp B/P Pulse Ox O2 Delivery O2 Flow Rate FiO2 03/14/16 10:39 36.6 68 17 194/78 03/14/16 05:05 95 Room Air Intake and Output 03/13/16 03/13/16 03/14/16 Cumulative From/Thru 15:00 23:00 07:00 03/03/16 15:32 - 03/14/16 05:05 Intake Total 221 ml 800 ml 650 ml 80422 ml Output Total 600 ml 400 ml 500 ml 37492 ml Balance -379 ml 400 ml 150 ml 1502 ml Intake Oral 150 ml 736 ml 650 ml 20007 ml IV Total 71 ml 64 ml 4262 ml Output Urine Total 600 ml 500 ml 08204 ml Urine/Stool Mix 400 ml 1150 ml # Voids 15 # Bowel Movements 1 3 1 32 Exam Neck is supple without adenopathy, thyromegaly, or venous distention. Lungs were clear to auscultation. Heart is regular and rhythmical with a 2/6 systolic ejection murmur and an S4. Abdomen is soft out any tenderness with rebound guarding masses or hepatosplenomegaly. Extremities show some mild generalized edema. Lab and Diagnostics Result Diagram: 03/14/16 0550 03/14/16 0550 Microbiology Blood culture showed no growth after 5 days. Influenza screen negative. Urine culture shows mixed urogenital karen. MRSA screen negative. . X-Rays, CTs and MRIs X-RAY CHEST ONE VIEW, PORTABLE IMPRESSION: Low lung volumes with scattered atelectasis. No acute disease Dictated by: Francisco Wiggins M.D. on 03/03/2016 at 17:18 Approved by: Francisco Wiggins M.D. on 03/03/2016 at 17:18 CT BRAIN WITHOUT CONTRAST IMPRESSION: No acute intracranial process. Dictated by: Francisco Wiggins M.D. on 03/03/2016 at 18:55 Approved by: Francisco Wiggins M.D. on 03/03/2016 at 18:58 US ABDOMEN IMPRESSION: Increased hepatic echogenicity noted likely related to fatty infiltration of the liver but other sources of hepatocellular disease cannot be excluded. Recommend clinical correlation. Dictated by: Meet Ybarra [facility] Interpreted: Malorie Mejia MD on 03/05/2016 at 16:03 Transcribed by: JUAN ALBERTO on 03/05/2016 at 16:04 Approved by: Malorie Mejia MD, PhD on 03/05/2016 at 16:48 . 12-lead ECG EKG: Sinus rhythm, heart rate 67, QTc 436, low voltage, no acute ischemic changes. . Cardiac Echo Impressions Echocardiogram Interpretation Summary: The left ventricle is normal in size. Left ventricular wall thickness is mildly increased. The ejection fraction is estimated to be 60-65%. There are no focal wall motion abnormalities. The right ventricle is normal in size and function. Pulmonary artery pressures cannot be estimated because of the lack of a measurable TR jet velocity. The left atrium is mildly dilated. Right atrial size is normal. There is no significant valvular heart disease. The ascending aorta is mild-moderately enlarged. There is a small pericardial effusion noted. There are no echocardiographic indications of cardiac tamponade. Compared to the prior echo report on 02/14/2014, there is no significant change. Reading Physician:PM . Assessment & Plan Impression #1 acute kidney injury which is resolving #2 acute on chronic anemia despite KASSIE's I would strongly be suspicious blood loss 3 hypertension with hypertensive heart disease and hypertensive nephrosclerosis Recommendations #1 I agree with giving her unit of blood work to her second unit and then follow this with him 40 mg of Lasix. I would also strongly recommended GI consult for acute blood loss #3 from going to start her on oral torsemide and spironolactone in an attempt to get her blood pressure under better control. GI Prophylaxis: Proton Pump Inhibitor VTE Prophylaxis: Sub-Q Heparin (Unfractionated), SCDs VTE Mechanical Devices: Intermittant Pneumatic CD Resuscitation Status: CPR: Attempt Resuscitation Bean Thomas DO Mar 14, 2016 12:48
[2016-03-14] MEDS ORDERED: Furosemide 10 mg/mL 4 mL Inj IVPUSH ONE ×3 (12:50→21:25)
[2016-03-14] MEDS ORDERED: Furosemide 10 mg/mL 2 mL Inj IVPUSH ONE (13:00)
--- NOTE | 2016-03-14 14:18 | NUR ---
Social Work: Continued d/c planning Data: Pt is on day 11 of hospitalization. EMR reviewed. PT recommending home with HH as of 03/11/16. CLAIM BENEFIT SPECIALIST will continue to follow. Assessment: Pt who is independent at baseline. Plan: Pt will d/c home via POV when medically stable with [facility] and / care from family. CLAIM BENEFIT SPECIALIST will continue to follow. IDALIA Olmstead
--- NOTE | 2016-03-14 14:44 | NUR ---
order clarification spoke with dr ny regarding blood transfusion order as it was confusing. order is to transfuse another unit of prbc. explained to md that pt did receive 1 unit and it was special ordered blood that came from [place] and it took over 12 hours for the blood to arrive. Md aware of situation and stated that if the blood was already in house that we are to give the lasix in between the 1st and 2nd unit but it the blood was not in house then we are to not give the lasix. care conts
--- NOTE | 2016-03-14 18:37 | NUR ---
Blood 1U PRBC's administred at 0856. Blood verified with Marilyn Hanson RN. Vital signs taken prior to infusing, every 15 minutes x 2 and at end of infusion. VS stayed within normal range for pt. Pt had no complaints during infusion or s/s of reaction.
--- NOTE | 2016-03-14 18:56 | NUR ---
Activity Pt had no c/o pain during shift. Declined to increase activity and would not get OOB other than to use BR. Pt had 2 mucousy BM's this AM. Pt still alert to self and place only. Behavior appropriate all shift and used called light when needed.
--- NOTE | 2016-03-14 18:58 | NUR ---
Blood transfusion 2nd unit of PRBC's started at 1655. VS obtained prior to start and blood checked with Marilyn Hanson RN. VS checked q15min x2. Blood almost done transfusing and pt has no s/s of reaction. caustic cresylate shift superintendent RN double checked transfusion prior to shift start.
[2016-03-14] MEDS ORDERED: Furosemide 10 mg/mL 10 mL Inj IVPUSH ONE (21:25)
[2016-03-15] MEDS: Sodium Chloride LOK Flush 10 mL Syringe IVFLUSH SCH ×4 (01:19→23:36)
[2016-03-15] MEDS: Heparin 5,000 Unit/mL Inj SUBQ SCH ×3 (01:19→16:54)
[2016-03-15 01:27] VITALS: BP 169/86; PULSE 91; RESP 16; O2SAT 96
[2016-03-15 05:56] LABS: BASOPHILS % (AUTO) 0.8 % (0-3); EOSINOPHILS % (AUTO) 4.1 % (0-5); MONOCYTES % (AUTO) 10.9 % (4-12); Mean Corpuscular Hemoglobin 27.3 pg (27.0-35.0); Mean Corpuscular Volume 85.1 fL (81-100); NEUTROPHILS % (AUTO) 68.6 % (40-74); Platelet Count 339 bil/L (150-400)
[2016-03-15] MEDS: Pantoprazole 20 mg ER24 Tablet PO SCH (06:01)
--- NOTE | 2016-03-15 06:07 | NUR ---
Blood Second unit of PRBC finished at 1954. Vitals stable. Lasix 40mg then started after. Patient A&OX3. Room air. No signs of loose stool this shift. Patient drinking fluids regularly.
[2016-03-15] MEDS: Insulin LISPRO 300 Unit/3 mL Inj SUBQ SCH ×4 (08:00→20:43)
--- NOTE | 2016-03-15 12:26 | PCM.PNMED ---
Subjective Date of Service Mar 15, 2016 Subjective BP remains elevated, somewhat better. no acute issue. unable to provide any information. Exam Vital Signs Vital Sign - Last Date Time Temp Pulse Resp B/P Pulse Ox O2 Delivery O2 Flow Rate FiO2 03/15/16 01:27 36.8 91 16 169/86 96 Room Air Intake and Output 03/14/16 03/14/16 03/15/16 Cumulative From/Thru 15:00 23:00 07:00 03/03/16 15:32 - 03/15/16 06:54 Intake Total 549 ml 952 ml 200 ml 23424 ml Output Total 1200 ml 24104 ml Balance 549 ml 952 ml -1000 ml 2003 ml Intake Oral 200 ml 95278 ml IV Total 549 ml 727 ml 5538 ml Packed Cells 225 ml 225 ml Output Urine Total 1200 ml 93481 ml Urine/Stool Mix 1150 ml # Voids 15 # Bowel Movements 1 33 Exam GA: chronically-ill looking lady, in no acute distress. HEENT: puffy eyelids, atraumatic, mild pallor, no jaundice,no JVD, no lymphadenopathy. Chest: Clear to auscultation, Normal respiratory effort. Cor: Regular rate and rhythm S1/S2, No murmur. Abdomen: Soft, NT, ND, no HSM, active BS. Extremities: +1 edema. Lab and Diagnostics Result Diagram: 03/15/16 0503/15/16 05 Microbiology Blood culture showed no growth after 5 days. Influenza screen negative. Urine culture shows mixed urogenital karen. MRSA screen negative. . X-Rays, CTs and MRIs X-RAY CHEST ONE VIEW, PORTABLE IMPRESSION: Low lung volumes with scattered atelectasis. No acute disease Dictated by: Francisco Wiggins M.D. on 03/03/2016 at 17:18 Approved by: Francisco Wiggins M.D. on 03/03/2016 at 17:18 CT BRAIN WITHOUT CONTRAST IMPRESSION: No acute intracranial process. Dictated by: Francisco Wiggins M.D. on 03/03/2016 at 18:55 Approved by: Francisco Wiggins M.D. on 03/03/2016 at 18:58 US ABDOMEN IMPRESSION: Increased hepatic echogenicity noted likely related to fatty infiltration of the liver but other sources of hepatocellular disease cannot be excluded. Recommend clinical correlation. Dictated by: Meet PEREZ Interpreted: Malorie Meija MD on 03/05/2016 at 16:03 Transcribed by: JUAN ALBERTO on 03/05/2016 at 16:04 Approved by: Malorie Mejia MD, PhD on 03/05/2016 at 16:48 . 12-lead ECG EKG: Sinus rhythm, heart rate 67, QTc 436, low voltage, no acute ischemic changes. . Cardiac Echo Impressions Echocardiogram Interpretation Summary: The left ventricle is normal in size. Left ventricular wall thickness is mildly increased. The ejection fraction is estimated to be 60-65%. There are no focal wall motion abnormalities. The right ventricle is normal in size and function. Pulmonary artery pressures cannot be estimated because of the lack of a measurable TR jet velocity. The left atrium is mildly dilated. Right atrial size is normal. There is no significant valvular heart disease. The ascending aorta is mild-moderately enlarged. There is a small pericardial effusion noted. There are no echocardiographic indications of cardiac tamponade. Compared to the prior echo report on 02/14/2014, there is no significant change. Reading Physician:PM . Assessment & Plan 1. CAYDEN secondary to ATN, resolving. 2. HTN with hypertensive nephrosclerosis. - uncontrolled - currently taking: torsemide, aldactone, chlorthalidone, lisinopril and labetalol. 3. Myxedema. 4. anemia s/p PRBC transfusion. 5. Type-2 DM. Plan: will increase labetalol to 300 mg Q 8 hr, continue the rest of the BP meds. will monitor closely. GI Prophylaxis: Proton Pump Inhibitor VTE Prophylaxis: Sub-Q Heparin (Unfractionated), SCDs VTE Mechanical Devices: Intermittant Pneumatic CD Resuscitation Status: CPR: Attempt Resuscitation Cheryl Pond MD Mar 15, 2016 12:26
[2016-03-15 13:29] VITALS: BP 197/82; PULSE 65; RESP 17; O2SAT 95
--- NOTE | 2016-03-15 15:50 | NUR ---
Social Work Continued Discharge Planning: SW conducted discharge plan update. Plan remains as home with family support and care and HHC services via [facility]. [facility] is on standby for arrangements at discharge. Per report in rounds GI consult pending. Sw to follow. PLAN: Home with family support and care and HHC via [facility], pending clinical course Estrella FRIEDMAN
--- NOTE | 2016-03-15 17:22 | PCM.PNMED ---
Subjective Date of Service Mar 15, 2016 Subjective Once to go home. No complaints of chest pain or dyspnea, no nausea no vomiting. Exam Vital Signs Vital Sign - Last Date Time Temp Pulse Resp B/P Pulse Ox O2 Delivery O2 Flow Rate FiO2 03/15/16 13:29 36.8 65 17 197/82 95 Room Air Intake and Output 03/14/16 03/14/16 03/15/16 Cumulative From/Thru 15:00 23:00 07:00 03/03/16 15:32 - 03/15/16 06:54 Intake Total 549 ml 952 ml 200 ml 89313 ml Output Total 1200 ml 33842 ml Balance 549 ml 952 ml -1000 ml 2003 ml Intake Oral 200 ml 94280 ml IV Total 549 ml 727 ml 5538 ml Packed Cells 225 ml 225 ml Output Urine Total 1200 ml 44161 ml Urine/Stool Mix 1150 ml # Voids 15 # Bowel Movements 1 33 Exam Gen.- A+ O 2-3 seems easily confused but easily redirected as well no apparent distress. Obese female Eyes- open conjunctiva clear, pupils equal nonicteric ENT- ears normal, nose normal Neck- supple/trach midline CVS- normal rate, generalized edema Lungs- regular and unlabored GI-generous pannus Musc- moving 4 no obvious deformity Neuro- cranial nerves II through XII intact to gross examination, nonfocal Skin- warm and dry, no rashes/lesions/wounds noted Psych- pleasant and appropriate, Lab and Diagnostics Result Diagram: 03/15/16 1249 03/15/16 0527 Microbiology Blood culture showed no growth after 5 days. Influenza screen negative. Urine culture shows mixed urogenital karen. MRSA screen negative. . X-Rays, CTs and MRIs X-RAY CHEST ONE VIEW, PORTABLE IMPRESSION: Low lung volumes with scattered atelectasis. No acute disease Dictated by: Francisco Wiggins M.D. on 03/03/2016 at 17:18 Approved by: Francisco Wiggins M.D. on 03/03/2016 at 17:18 CT BRAIN WITHOUT CONTRAST IMPRESSION: No acute intracranial process. Dictated by: Francisco Wiggins M.D. on 03/03/2016 at 18:55 Approved by: Francisco Wiggins M.D. on 03/03/2016 at 18:58 US ABDOMEN IMPRESSION: Increased hepatic echogenicity noted likely related to fatty infiltration of the liver but other sources of hepatocellular disease cannot be excluded. Recommend clinical correlation. Dictated by: Meet Ybarra [facility] Interpreted: Malorie Mejia MD on 03/05/2016 at 16:03 Transcribed by: JUAN ALBERTO on 03/05/2016 at 16:04 Approved by: Malorie Mejia MD, PhD on 03/05/2016 at 16:48 . 12-lead ECG EKG: Sinus rhythm, heart rate 67, QTc 436, low voltage, no acute ischemic changes. . Cardiac Echo Impressions Echocardiogram Interpretation Summary: The left ventricle is normal in size. Left ventricular wall thickness is mildly increased. The ejection fraction is estimated to be 60-65%. There are no focal wall motion abnormalities. The right ventricle is normal in size and function. Pulmonary artery pressures cannot be estimated because of the lack of a measurable TR jet velocity. The left atrium is mildly dilated. Right atrial size is normal. There is no significant valvular heart disease. The ascending aorta is mild-moderately enlarged. There is a small pericardial effusion noted. There are no echocardiographic indications of cardiac tamponade. Compared to the prior echo report on 02/14/2014, there is no significant change. Reading Physician:PM . Assessment & Plan 80-year-old female admitted 03/03 with increased weakness and was found to have a TSH of 154 and was diagnosed with myxedema.Given hydrocortisone and levothyroxine IV in t Hypertension, chronic. BP 169/86-211/93 - on torsemide 20mg QD, chlorthalidone 25 mg QD, lisinopril 20mg bid, labetalol 300mg q8. -Adding amlodipine 5 mg daily and hydralazine 25 mg Q4prn 03/15 Anemia- ? Acute blood loss? Or labs/draw error Hemoccult stools holding off on GI consultation as yet. - Hg 6.7 2/5, 9.9 2 s/p 1U?!? - s/p 1U PRBC 5 - Iron, folate, B12 WNL 03/10, repeating 03/16 and Hemocculting stools 03/16. Myxedema, acute, present on admission.- TSH 154.6, T4 <0.10. Thank you Dr. Newberry endocrine consult 03/04, check free t4 03/16 in am transition to levoxyl 220mcg QD - Hydrocortisone 100 mg given in ED. Discontinue cortisol was normal 03/04 - Levothyroxine 200 mcg given IV in the ED. 03/04 - c/w Synthroid 150 g daily twice a day. -03/15 checking free t4 03/16 - Expected time course to recovery is to be measured in weeks given her undetectable T4. 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 Elevated transaminases, acute, present on admission. resolved 03/14 - 03/11? statin use. - hold home dose atorvastatin at this time. - Continue to monitor CMP. - viral hepatitis panel negative 03/05 - RUQ abd U/S 03/05: "Increased hepatic echogenicity noted likely related to fatty infiltration of the liver but other sources of hepatocellular disease cannot be excluded" Diabetes mellitus, type 2, presume poorly controlled. BS [id number] 03/14-03/15 - HgA1C 7.7 03/03 - hold home Lantus - c/w ISS - Hypoglycemia, acute, present on admission. ? Secondary to myxedema. resolved blood sugar has steadily elevated Hyperlipidemia, chronic, presume stable. - Held atorvastatin 80 mg daily 03/11 transaminitis from going to resume this 03/15. GERD, chronic, presume stable. - Continue PPI during admission. Replace omeprazole 20 mg daily with protonix 40 mg daily. Osteoporosis, chronic, presume stable. - Patient takes alendronate 70 mg weekly. Will not plan to give this during admission unless it becomes prolonged. Environmental/seasonal allergies, chronic, presume stable. - Loratidine 10 mg available daily PRN. Elevated Trop without reported chest pain - Echo unremarkable 03/04 - likely demand ischemia and amplified by underlying CAYDEN Prophylaxis- DVT SCD/heparin, GI patient on PPI Disposition- patient is full code from home Medically complex patient and seen beginning of hospitalization but may be going home 03/16. GI Prophylaxis: Proton Pump Inhibitor VTE Prophylaxis: Sub-Q Heparin (Unfractionated), SCDs VTE Mechanical Devices: Intermittant Pneumatic CD Resuscitation Status: CPR: Attempt Resuscitation Mateo Fleming MD Mar 15, 2016 17:22
--- NOTE | 2016-03-15 18:39 | NUR ---
GI Patient has had 5 loose stools during shift. Stool is mucus like with pieces of undigested food, BM comes on quickly and patient has been incontinent of all stools. Guaiac sent down to lab. notified. Denies abdominal cramping or nausea. Poor appetite.
[2016-03-15 20:37] VITALS: BP 179/85; PULSE 72; RESP 17; O2SAT 96
[2016-03-16 05:19] VITALS: BP 172/65; PULSE 66; RESP 16; O2SAT 92
[2016-03-16] MEDS: Pantoprazole 20 mg ER24 Tablet PO SCH (05:57)
--- NOTE | 2016-03-16 06:22 | NUR ---
Shift Note assumed pt care at 0230, pt alert/forgetful redirectable, able make needs known, rogelio alarm on for safety, noted IV saline locked, call light in reach.
[2016-03-16 06:35] LABS: BASOPHILS % (AUTO) 0.6 % (0-3); EOSINOPHILS % (AUTO) 4.1 % (0-5); MONOCYTES % (AUTO) 10.7 % (4-12); Mean Corpuscular Hemoglobin 27.8 pg (27.0-35.0); Mean Corpuscular Volume 86.3 fL (81-100); NEUTROPHILS % (AUTO) 68.5 % (40-74); Platelet Count 318 bil/L (150-400)
[2016-03-16 07:46] LABS: Phosphorus 3.8 mg/dL (2.5-4.9); Unsaturated Iron Binding 247.5 ug/dL
[2016-03-16] MEDS: Insulin LISPRO 300 Unit/3 mL Inj SUBQ SCH ×4 (07:50→22:00)
[2016-03-16] MEDS: Heparin 5,000 Unit/mL Inj SUBQ SCH ×3 (08:54→18:06)
[2016-03-16] MEDS: Sodium Chloride LOK Flush 10 mL Syringe IVFLUSH SCH ×2 (08:54→16:30)
[2016-03-16] MEDS: 0.9% Sodium Chloride 250 ML IV SCH (11:25)
--- NOTE | 2016-03-16 11:28 | PCM.PNMED ---
Subjective Date of Service Mar 16, 2016 Subjective BP is persistently elevated. She does not report any new complaints today. Exam Vital Signs Vital Sign - Last Date Time Temp Pulse Resp B/P Pulse Ox O2 Delivery O2 Flow Rate FiO2 03/16/16 05:19 36.9 66 16 172/65 92 Room Air Intake and Output 03/15/16 03/15/16 03/16/16 Cumulative From/Thru 15:00 23:00 07:00 03/03/16 15:32 - 03/16/16 06:44 Intake Total 570 ml 586 ml 87152 ml Output Total 1100 ml 600 ml 57145 ml Balance -530 ml -14 ml 1459 ml Intake Oral 570 ml 586 ml 29461 ml IV Total 5538 ml Packed Cells 225 ml Output Urine Total 200 ml 600 ml 60703 ml Urine/Stool Mix 900 ml 2050 ml # Voids 15 # Bowel Movements 5 1 39 Exam GA: chronically-ill looking lady, in no acute distress. HEENT: puffy eyelids, atraumatic, mild pallor, no jaundice,no JVD, no lymphadenopathy. Chest: Clear to auscultation, Normal respiratory effort. Cor: Regular rate and rhythm S1/S2, No murmur. Abdomen: Soft, NT, ND, no HSM, active BS. Extremities: +1 edema. Lab and Diagnostics Result Diagram: 03/16/16 0600 03/16/16 0600 Microbiology Blood culture showed no growth after 5 days. Influenza screen negative. Urine culture shows mixed urogenital karen. MRSA screen negative. . X-Rays, CTs and MRIs X-RAY CHEST ONE VIEW, PORTABLE IMPRESSION: Low lung volumes with scattered atelectasis. No acute disease Dictated by: Francisco Wiggins M.D. on 03/03/2016 at 17:18 Approved by: Francisco Wiggins M.D. on 03/03/2016 at 17:18 CT BRAIN WITHOUT CONTRAST IMPRESSION: No acute intracranial process. Dictated by: Francisco Wiggins M.D. on 03/03/2016 at 18:55 Approved by: Francisco Wiggins M.D. on 03/03/2016 at 18:58 US ABDOMEN IMPRESSION: Increased hepatic echogenicity noted likely related to fatty infiltration of the liver but other sources of hepatocellular disease cannot be excluded. Recommend clinical correlation. Dictated by: Meet Choffel RRA Interpreted: Malorie Mejia MD on 03/05/2016 at 16:03 Transcribed by: JUAN ALBERTO on 03/05/2016 at 16:04 Approved by: Malorie Mejia MD, PhD on 03/05/2016 at 16:48 . 12-lead ECG EKG: Sinus rhythm, heart rate 67, QTc 436, low voltage, no acute ischemic changes. . Cardiac Echo Impressions Echocardiogram Interpretation Summary: The left ventricle is normal in size. Left ventricular wall thickness is mildly increased. The ejection fraction is estimated to be 60-65%. There are no focal wall motion abnormalities. The right ventricle is normal in size and function. Pulmonary artery pressures cannot be estimated because of the lack of a measurable TR jet velocity. The left atrium is mildly dilated. Right atrial size is normal. There is no significant valvular heart disease. The ascending aorta is mild-moderately enlarged. There is a small pericardial effusion noted. There are no echocardiographic indications of cardiac tamponade. Compared to the prior echo report on 02/14/2014, there is no significant change. Reading Physician:PM . Assessment & Plan 1. CAYDEN secondary to ATN, relatively stable. 2. HTN with hypertensive nephrosclerosis. - uncontrolled 3. Hypothyroidism/Myxedema. 4. anemia s/p PRBC transfusion. 5. Type-2 DM. Plan: continue labetalol to 300 mg Q 8 hr, lisinopril 20 mg BID, chlorthalidone 25 mg daily, torsemide 20 mg daily, aldactone 25 mg BID. will increase norvasc to 10 mg daily. check orthostatic BP. check PVR. will monitor closely. GI Prophylaxis: Proton Pump Inhibitor VTE Prophylaxis: Sub-Q Heparin (Unfractionated), SCDs VTE Mechanical Devices: Intermittant Pneumatic CD Resuscitation Status: CPR: Attempt Resuscitation Cheryl Pond MD Mar 16, 2016 11:28
[2016-03-16 14:06] VITALS: BP 189/72; PULSE 63; RESP 16; O2SAT 93
--- NOTE | 2016-03-16 14:18 | PCM.PNMED ---
Subjective Date of Service Mar 16, 2016 Subjective No new complaints of chest pain, dyspnea, nausea and vomiting patient still inquiring when she can go home. Exam Vital Signs Vital Sign - Last Date Time Temp Pulse Resp B/P Pulse Ox O2 Delivery O2 Flow Rate FiO2 03/16/16 05:19 36.9 66 16 172/65 92 Room Air Intake and Output 03/15/16 03/15/16 03/16/16 Cumulative From/Thru 15:00 23:00 07:00 03/03/16 15:32 - 03/16/16 06:44 Intake Total 570 ml 586 ml 97527 ml Output Total 1100 ml 600 ml 25601 ml Balance -530 ml -14 ml 1459 ml Intake Oral 570 ml 586 ml 87710 ml IV Total 5538 ml Packed Cells 225 ml Output Urine Total 200 ml 600 ml 56165 ml Urine/Stool Mix 900 ml 2050 ml # Voids 15 # Bowel Movements 5 1 39 Exam Gen.- A+ O 2-3 seems easily confused but easily redirected as well no apparent distress. Obese female Eyes- open conjunctiva clear, pupils equal nonicteric ENT- ears normal, nose normal Neck- supple/trach midline CVS- normal rate, generalized edema Lungs- regular and unlabored GI-generous pannus Musc- moving 4 no obvious deformity Neuro- cranial nerves II through XII intact to gross examination, nonfocal Skin- warm and dry, no rashes/lesions/wounds noted Psych- pleasant and appropriate, Lab and Diagnostics Result Diagram: 03/16/16 0600 03/16/16 0600 Microbiology Blood culture showed no growth after 5 days. Influenza screen negative. Urine culture shows mixed urogenital karen. MRSA screen negative. . X-Rays, CTs and MRIs X-RAY CHEST ONE VIEW, PORTABLE IMPRESSION: Low lung volumes with scattered atelectasis. No acute disease Dictated by: Francisco Wiggins M.D. on 03/03/2016 at 17:18 Approved by: Francisco Wiggins M.D. on 03/03/2016 at 17:18 CT BRAIN WITHOUT CONTRAST IMPRESSION: No acute intracranial process. Dictated by: Francisco Wiggins M.D. on 03/03/2016 at 18:55 Approved by: Francisco Wiggins M.D. on 03/03/2016 at 18:58 US ABDOMEN IMPRESSION: Increased hepatic echogenicity noted likely related to fatty infiltration of the liver but other sources of hepatocellular disease cannot be excluded. Recommend clinical correlation. Dictated by: Meet Ybarra RRA Interpreted: Malorie Mejia MD on 03/05/2016 at 16:03 Transcribed by: JUAN ALBERTO on 03/05/2016 at 16:04 Approved by: Malorie Mejia MD, PhD on 03/05/2016 at 16:48 . 12-lead ECG EKG: Sinus rhythm, heart rate 67, QTc 436, low voltage, no acute ischemic changes. . Cardiac Echo Impressions Echocardiogram Interpretation Summary: The left ventricle is normal in size. Left ventricular wall thickness is mildly increased. The ejection fraction is estimated to be 60-65%. There are no focal wall motion abnormalities. The right ventricle is normal in size and function. Pulmonary artery pressures cannot be estimated because of the lack of a measurable TR jet velocity. The left atrium is mildly dilated. Right atrial size is normal. There is no significant valvular heart disease. The ascending aorta is mild-moderately enlarged. There is a small pericardial effusion noted. There are no echocardiographic indications of cardiac tamponade. Compared to the prior echo report on 02/14/2014, there is no significant change. Reading Physician:PM . Assessment & Plan 80-year-old female admitted 03/03 with increased weakness and was found to have a TSH of 154 and undetectable free T4. Patient has remained relatively stable I think we are reaching the end of his hospitalization. Free T4 is high normal. Hemoglobin is relatively stable though she is anemic. I would P her she no longer needs insulin to control her diabetes at least while she is here. During issue right now is better blood pressure control which also does not necessitate remaining in the hospital. If we can keep her in the 170s and 150s think we will discharge her home 03/17. Hypertension, chronic. BP 169/86-211/93 03/15, - on spironolactone torsemide 20mg QD, chlorthalidone 25 mg QD, lisinopril 20mg bid, labetalol 300mg q8. -increase amlodipine to 10 mg QD and hydralazine to 50mg Q4prn 03/15 Diabetes mellitus, type 2, presume poorly controlled. BS 144-183 03/14-03/15, 121-183 -03/16 last insulin 03/10 2Units. - HgA1C 7.7 03/03 - c/w ISS - Hypoglycemia, acute, present on admission. ? Secondary to myxedema. resolved blood sugar has steadily elevated Anemia- ? Acute blood loss? Or labs/draw error Hemoccult stools. It appears that outpatient GI workup will be sufficient 03/16 - Hg 6.7 03/14, 9.9 03/15 s/p 1U, 9.5 03/16 - s/p 1U PRBC 03/14 - Iron, folate, B12 WNL 03/10, repeating 03/16 and Hemocculting stools 03/16-, retic 1.4, iron low b12 pend 03/16 Elevated transaminases, acute, present on admission. resolved 03/14 ast/alt 03/16 - 03/11? statin use. - resume home atorvastatin 40mg qhs 03/15 - Continue to monitor CMP atleast q7d (03/23) - viral hepatitis panel negative 03/05 - RUQ abd U/S 03/05: "Increased hepatic echogenicity noted likely related to fatty infiltration of the liver but other sources of hepatocellular disease cannot be excluded" Myxedema, acute, present on admission.- TSH 154.6, T4 <0.10. Thank you Dr. Newberry endocrine consult 03/04, free t4 1.59 (high norm) 03/16, levoxyl 200mcg QD - - Hydrocortisone 100 mg given in ED. Discontinue cortisol was normal 03/04 - Levothyroxine 200 mcg given IV in the ED. 03/04, Synthroid 150 g daily twice a day. 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 Hyperlipidemia, chronic, presume stable.- Held atorvastatin 80 mg daily 03/11 transaminitis from going to resume this 03/15. GERD, chronic, presume stable.- Continue PPI during admission. Replace omeprazole 20 mg daily with protonix 40 mg daily. Osteoporosis, chronic, presume stable.- Patient takes alendronate 70 mg weekly. Will not plan to give this during admission unless it becomes prolonged. Environmental/seasonal allergies, chronic, presume stable. - Loratidine 10 mg available daily PRN. Elevated Trop without reported chest pain- no further action probably patient could benefit from stress Myoview in the outpatient setting. - Echo unremarkable 03/04 and unchanged from earlier - likely demand ischemia and amplified by underlying CAYDEN Prophylaxis- DVT SCD/heparin, GI patient on PPI Disposition- patient is full code from home GI Prophylaxis: Proton Pump Inhibitor VTE Prophylaxis: Sub-Q Heparin (Unfractionated), SCDs VTE Mechanical Devices: Intermittant Pneumatic CD Resuscitation Status: CPR: Attempt Resuscitation Mateo Fleming MD Mar 16, 2016 14:18
--- NOTE | 2016-03-16 16:55 | NUR ---
Communication (Cognitive) evaluation completed. Please go to "Notes" then click on "Assessments and Notes" (bottom left corner of screen). Then select appropriate discipline tab on top of screen.
--- NOTE | 2016-03-16 19:28 | NUR ---
activity Up in chair most of day, walk 1 assist to bathroom, had a loose stool this shift. no complaints of pain or nausea.
[2016-03-16 20:18] VITALS: BP 182/67; PULSE 61; RESP 16; O2SAT 90
[2016-03-17] MEDS: Sodium Chloride LOK Flush 10 mL Syringe IVFLUSH SCH ×3 (02:19→18:01)
[2016-03-17] MEDS: Heparin 5,000 Unit/mL Inj SUBQ SCH ×3 (02:19→18:01)
--- NOTE | 2016-03-17 04:03 | NUR ---
Activity A&O, able to make needs known. Ambulated to bathroom, SBA with FWW. Large loose stool, guaiac obtained and sent to lab. Patient denies pain, nausea, and any discomfort at this time. [place] bed alarm on for safety.
[2016-03-17 04:08] LABS: Vitamin D, 25-Hydroxy 18.2 ng/mL (30.0-100.0)
[2016-03-17 04:59] VITALS: BP 168/74; PULSE 64; RESP 18; O2SAT 94
[2016-03-17] MEDS: Pantoprazole 20 mg ER24 Tablet PO SCH (06:15)
[2016-03-17 07:52] LABS: BASOPHILS % (AUTO) 0.4 % (0-3); EOSINOPHILS % (AUTO) 4.5 % (0-5); MONOCYTES % (AUTO) 11.7 % (4-12); Mean Corpuscular Hemoglobin 27.8 pg (27.0-35.0); Mean Corpuscular Volume 86.3 fL (81-100); NEUTROPHILS % (AUTO) 71.1 % (40-74); Platelet Count 310 bil/L (150-400)
[2016-03-17] MEDS: Insulin LISPRO 300 Unit/3 mL Inj SUBQ SCH ×4 (08:00→22:00)
[2016-03-17 08:06] LABS: Magnesium 1.5 mg/dL (1.6-2.6)
[2016-03-17] MEDS ORDERED: Magnesium Sulf 4 Gm/100 mL H2O 4 GM in IV Premix 1 EACH IV ONE (09:05)
--- NOTE | 2016-03-17 09:13 | PCM.DIMED ---
Discharge Instructions Date of Service Mar 17, 2016 Dates of Hospitalization Mar 03, 2016 at 20:54 Discharge Diagnosis Discharge Diagnosis Hypothyroidism/myxedema, hypertension, anemia Diet Heart Healthy, Diabetic Activity No restrictions Call your provider Shortness of breath, Chest pain, Other (decreased mentation and persistent fatigue) Patient Instructions Patient will need routine follow-up with primary care provider, a referral to a retort fireman to workup anemia. And probably follow-up with the kidney doctor about the kidneys and the blood pressure. Follow-up plan Patient's going home, should have home health nurse, physical therapy, occupational therapy, and a home safety evaluation Follow-up with PCP in: Other (Praveena Saini call for appointment as soon as possible) Attending's Statement Patient still has many issues outstanding. Blood pressure control, following for iron deficiency anemia and probably needing GI workup, and verify resolution of the found hypothyroidism that was if not myxedema coma very near. Mateo Fleming MD Mar 17, 2016 09:13
[2016-03-17 09:19] VITALS: BP 171/71; PULSE 64; RESP 18; O2SAT 95
[2016-03-17] MEDS ORDERED: ROPI1TAB2 PO (09:22)
[2016-03-17] MEDS ORDERED: LON25 PO (09:22)
[2016-03-17] MEDS ORDERED: LABE100T4 PO (09:22)
[2016-03-17] MEDS ORDERED: FERR-83 PO (09:22)
[2016-03-17] MEDS ORDERED: LEVO100T6 PO (09:22)
[2016-03-17] MEDS ORDERED: SENN-133 PO (09:22)
[2016-03-17] MEDS ORDERED: HYG25 PO (09:22)
[2016-03-17] MEDS ORDERED: POLY17PO6 PO (09:22)
[2016-03-17] MEDS ORDERED: HYDR-3940 PO (09:22)
[2016-03-17] MEDS ORDERED: SPIR25TA PO (09:22)
[2016-03-17] MEDS ORDERED: ATOR80TA PO (09:22)
[2016-03-17] MEDS ORDERED: OMEP20CA11 PO (09:22)
[2016-03-17] MEDS ORDERED: Thiamine PO ×2 (09:22→09:25)
[2016-03-17] MEDS ORDERED: MAGN400T23 PO (09:22)
--- NOTE | 2016-03-17 09:25 | PCM.DC.MED ---
Discharge Summary Date of Service Mar 17, 2016 Dates of Hospitalization Date of Hospital Admission Mar 03, 2016 at 20:54 Date of Discharge: Mar 18, 2016 Providers: Admitting Physician: Daniel Díaz MD Primary Care Physician: Praveena Saini MD Attending Physician: Daniel Díaz MD Diagnosis at Time of Discharge Diagnosis at Time of Discharge Hypothyroidism/myxedema, hypertension, anemia Consultations Nephrology thank you Jose Miguel Newberry Procedures XRay, CTs & MRIs X-RAY CHEST ONE VIEW, PORTABLE IMPRESSION: Low lung volumes with scattered atelectasis. No acute disease Dictated by: Francisco Wiggins M.D. on 03/03/2016 at 17:18 Approved by: Francisco Wiggins M.D. on 03/03/2016 at 17:18 CT BRAIN WITHOUT CONTRAST IMPRESSION: No acute intracranial process. Dictated by: Francisco Wiggins M.D. on 03/03/2016 at 18:55 Approved by: Francisco Wiggins M.D. on 03/03/2016 at 18:58 US ABDOMEN IMPRESSION: Increased hepatic echogenicity noted likely related to fatty infiltration of the liver but other sources of hepatocellular disease cannot be excluded. Recommend clinical correlation. Dictated by: Meet Ybarra [facility] Interpreted: Malorie Mejia MD on 03/05/2016 at 16:03 Transcribed by: JUAN ALBERTO on 03/05/2016 at 16:04 Approved by: Malorie Mejia MD, PhD on 03/05/2016 at 16:48 . ECG 12 Lead EKG: Sinus rhythm, heart rate 67, QTc 436, low voltage, no acute ischemic changes. . Cardiac Echo Impression Echocardiogram Interpretation Summary: The left ventricle is normal in size. Left ventricular wall thickness is mildly increased. The ejection fraction is estimated to be 60-65%. There are no focal wall motion abnormalities. The right ventricle is normal in size and function. Pulmonary artery pressures cannot be estimated because of the lack of a measurable TR jet velocity. The left atrium is mildly dilated. Right atrial size is normal. There is no significant valvular heart disease. The ascending aorta is mild-moderately enlarged. There is a small pericardial effusion noted. There are no echocardiographic indications of cardiac tamponade. Compared to the prior echo report on 02/14/2014, there is no significant change. Reading Physician:PM . Brief History The patient has baseline dementia. She lives in a private home with the assistance of grandchildren and nephew. She is ordinarily alert and able to ambulate, but does not recall facts or initiate activities independently. The patient is unable to provide history or ROS. Family at bedside report that she has had 3 days of severe weakness and fatigue, resulting her taking to bed. Details are vague but there are also complaints of worsened back pain, feeling cold, increased pedal edema, reduced food intake for 3 days, nausea and headache. These symptoms are primarily reported in the 3 days prior to admission. There have been no exacerbating or palliating factors. Her reduced energy and mental status have been present episodically before but are usually self-limited. Family states that this is much worse episode than usual. She presented to the emergency department with weakness fatigue and reduced mental status. She was found to have essentially undetectable free T4 with TSH of 154.6. Additional findings on presentation include hypoglycemia with blood glucose 38-49. Admitting body temperature was 36.3, heart rate was 68, blood pressure 119/61. The patient has a long-standing history of hypothyroidism with thyroid hormone replacement. She is cared for at [facility]. He takes her medicines daily when they are dispensed by family members from a prepackaged multi-pill blister pack. The nephew who is usually responsible for medications indicates that she has taken meds regularly recently. He endorses there have been episodes and he left this duty to his cousins for several days or week, but feels that her overall medication compliance has been good. Her dose of thyroid hormone is not known to have changed recently. Family does not know of her recent thyroid blood test results. Hospital Course 80-year-old female admitted 03/03 with increased weakness and was found to have a TSH of 154 and undetectable free T4. Patient has remained relatively stable I think we are reaching the end of his hospitalization. Free T4 is high normal. Hemoglobin is relatively stable relatively stable though she is anemic. She no longer needs insulin to control her diabetes at least while she is here. During issue right now is better blood pressure control which also does not necessitate remaining in the hospital. 2/8 minoxidil added SBP now 116-125. Observing overnight to verify that further modifications in blood pressure management are not warranted as now blood pressure may be getting too low. Check blood pressure, hemoglobin, K, Mag , Cr in am if all stable/improved patient ready for discharge. I think I already completed all of her medication prescriptions other than perhaps magnesium. Hypertension, chronic. BP 169/86-211/93 /, 116/55 p64- 171/71 p 64 03/17 spironolactone torsemide 20mg QD, chlorthalidone 25 mg QD, lisinopril 20mg bid, labetalol 300mg q8 03/12-. Amlodipine 10mg QD, Hydralazine to 50mg Q4prn 03/16-, minoxidil 2.5mg 03/17-, Diabetes mellitus, type 2, presume poorly controlled. BS 144-183 03/14-03/15, 121-183 -03/16 last insulin 03/10 2Units. - HgA1C 7.7 03/03 - c/w ISS - Hypoglycemia, acute, present on admission. ? Secondary to myxedema. resolved blood sugar has steadily elevated Anemia- ? Acute blood loss? Or labs/draw error Hemoccult stools. It appears that outpatient GI workup will be sufficient 03/16 - Hg 6.7 03/14, 9.9 03/15 s/p 1U, 9.5 03/16 - s/p 1U PRBC 03/14 - Iron, folate, B12 WNL 03/10, repeating 03/16 and Hemocculting stools 03/16-, retic 1.4, iron low b12 pend 03/16 Elevated transaminases, acute, present on admission. resolved 03/14 ast/alt 03/16 - 03/11? statin use. - resume home atorvastatin 40mg qhs 03/15 - Continue to monitor CMP atleast q7d (03/23) - viral hepatitis panel negative 03/05 - RUQ abd U/S 03/05: "Increased hepatic echogenicity noted likely related to fatty infiltration of the liver but other sources of hepatocellular disease cannot be excluded" Myxedema, acute, present on admission.- TSH 154.6, T4 <0.10. Thank you Dr. Nweberry endocrine consult 03/04, free t4 1.59 (high norm) 03/16, levoxyl 200mcg QD - - Hydrocortisone 100 mg given in ED. Discontinue cortisol was normal 03/04 - Levothyroxine 200 mcg given IV in the ED. 03/04, Synthroid 150 g daily twice a day. 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 Hyperlipidemia, chronic, presume stable.- Held atorvastatin 80 mg daily 03/11 transaminitis from going to resume this 03/15. GERD, chronic, presume stable.- Continue PPI during admission. Replace omeprazole 20 mg daily with protonix 40 mg daily. Osteoporosis, chronic, presume stable.- Patient takes alendronate 70 mg weekly. Will not plan to give this during admission unless it becomes prolonged. Environmental/seasonal allergies, chronic, presume stable. - Loratidine 10 mg available daily PRN. Elevated Trop without reported chest pain- no further action probably patient could benefit from stress Myoview in the outpatient setting. - Echo unremarkable 03/04 and unchanged from earlier - likely demand ischemia and amplified by underlying CAYDEN Prophylaxis- DVT SCD/heparin, GI patient on PPI Disposition- patient is full code from home Exam Vital Signs (Last) Date Time Temp Pulse Resp B/P Pulse Ox O2 Delivery O2 Flow Rate FiO2 03/17/16 09:19 36.8 64 18 171/71 95 Room Air Exam Gen.- A+ O 2-3 seems easily confused but easily redirected as well no apparent distress. Obese female lying in bed Eyes- open conjunctiva clear, pupils equal nonicteric ENT- ears normal, nose normal Neck- supple/trach midline CVS- normal rate, generalized edema that is resolving Lungs- regular and unlabored GI-generous pannus Musc- moving 4 no obvious deformity Neuro- cranial nerves II through XII intact to gross examination, nonfocal Skin- warm and dry, no rashes/lesions/wounds noted Psych- pleasant and appropriate, Test 03/03/16 17:20 03/03/16 19:35 03/03/16 20:00 03/04/16 05:35 Pro-B-Type Natriuretic Peptide 264.2pg/mL (0-738) Thyroid Stimulating Hormone (TSH) 154.600uIU/mL (0.450-4.500) Hold Moreno Top Tube Received (Received) Urine Color Straw (YELLOW) Urine Appearance Cloudy (CLEAR,HAZY) Urine pH 5.5 (5.0-8.0) Urine Specific [place] 1.020 (1.003-1.035) Urine Protein 100mg/dL (NEG,TRACE) Urine Glucose (UA) Negativemg/dL (NEGATIVE) Urine Ketones Negativemg/dL (NEGATIVE) Urine Occult Blood Trace (NEGATIVE) Urine Nitrite Negative (NEGATIVE) Urine Bilirubin Negative (NEGATIVE) Urine Urobilinogen Normalmg/dL (NORMAL) Urine Leukocyte Esterase Moderate (NEGATIVE) Urine RBC 0-2/hpf (0-2) Urine WBC >50/hpf (0-5) Urine Epithelial Cells Moderate/hpf (NONE-MOD) Urine Crystals Amorphous urates (NONE Urine Bacteria Few/hpf (NONE-FEW) Urine Hyaline Casts None/lpf (NONE) Urine Granular Casts None seen (NONE SEEN) Urine Waxy Casts None seen (NONE SEEN) Urine Red Blood Cell Casts None seen (NONE SEEN) Urine White Blood Cell Casts None seen (NONE SEEN) Urine Mucus None seen (None Seen) Urine Trichomonas None seen (NONE SEEN) Urine Yeast None (NONE SEEN) Urinalysis Comment None Urine Culture Reflexed Indicated Cortisol 25.9ug/dL (.) Hemoglobin A1c 8.0% (4.8-5.6) Troponin T 0.061ug/L (0.0-0.011) Test 03/05/16 05:23 03/06/16 07:45 03/10/16 06:15 03/12/16 19:10 Hepatitis A IgM Antibody Negative (Negative) Hepatitis B Surface Antigen Negative (Negative) Hepatitis B Core IgM Antibody Negative (Negative) Hepatitis C Antibody <0.1s/co ratio (0.0-0.9) Hepatitis C Comment Comment (.) Prothrombin Time 10.5sec (8.1-12.5) Prothromb Time International Ratio 0.98ratio Activated Partial Thromboplast Time 40.2sec (22.8-33.0) Folate 7.2ng/mL (>3.0) Urine Random Creatinine 88mg/dL (15-278) Urine Random Total Protein 260mg/dL (0-15) Urine Protein/Creatinine Ratio 2.95 Test 03/13/16 05:15 03/16/16 06:00 03/17/16 06:23 Hold Urine Received (Received) Reticulocyte Count,Calculated 1.4% (0.6-2.6) Phosphorus Level 3.8mg/dL (2.5-4.9) Iron Level 29ug/dL (35-150) Total Iron Binding Capacity 277ug/dL (250-450) Percent Iron Saturation 10%sat (15-50) Unsaturated Iron Binding 247.5ug/dL Total Bilirubin 0.5mg/dL (0.0-1.2) Aspartate Amino Transf (AST/SGOT) 13U/L (0-50) Alanine Aminotransferase (ALT/SGPT) 20U/L (0-32) Alkaline Phosphatase 106U/L (25-165) Total Protein 5.1g/dL (6.4-8.4) Albumin 2.9g/dL (3.4-5.0) Vitamin B12 Level 477pg/mL (211-946) Vitamin D 25-Hydroxy 18.2ng/mL (30.0-100.0) Free Thyroxine 1.59ng/dL (0.82-1.77) White Blood Count 6.9th/mm3 (3.8-10.1) Red Blood Count 3.35mil/mm3 (3.90-5.20) Hemoglobin 9.3g/dL (12.0-15.6) Hematocrit 28.9% (35.0-46.0) Mean Corpuscular Volume 86.3fL (81-100) Mean Corpuscular Hemoglobin 27.8pg (27.0-35.0) Mean Corpuscular Hemoglobin Concent 32.2% (32.0-37.0) Red Cell Distribution Width 15.0% (12.3-15.4) Platelet Count 310bil/L (150-400) Neutrophils (%) (Auto) 71.1% (40-74) Lymphocytes (%) (Auto) 12.0% (14-46) Monocytes (%) (Auto) 11.7% (4-12) Eosinophils (%) (Auto) 4.5% (0-5) Basophils (%) (Auto) 0.4% (0-3) Sodium Level 135mEq/L (134-144) Potassium Level 4.3mEq/L (3.5-5.2) Chloride Level 97mEq/L (97-108) Carbon Dioxide Level 25mmol/L (18-29) Blood Urea Nitrogen 22mg/dL (8-27) Creatinine 1.46mg/dL (0.57-1.00) Estimat Glomerular Filtration Rate 50mL/min (>59) Glucose Level 155mg/dL (60-99) Calcium Level 7.6mg/dL (8.5-10.1) Magnesium Level 1.5mg/dL (1.6-2.6) Microbiology Results Blood culture showed no growth after 5 days. Influenza screen negative. Urine culture shows mixed urogenital karen. MRSA screen negative. . Discharge Medications Discharge Medications ([Thiamine]) 100 MG TABLET 100 MG PO DAILY Prescribed by: MARTINA FLEMING MD Alendronate (Alendronate) 35 Mg Tablet 70 MG PO WEEKLY (Reported) Amlodipine (Amlodipine) 10 Mg Tablet 10 MG PO DAILY (Reported) Atorvastatin (Lipitor) 80 Mg Tablet 40 MG PO DAILY Prescribed by: MARTINA FLEMING MD Chlorthalidone (Chlorthalidone) 25 Mg Tablet 25 MG PO DAILY Prescribed by: MARTINA FLEMING MD Cholecalciferol (Vitamin D3) (Vitamin D3) 1,000 Unit Tab.chew 1,000 UNIT PO DAILY (Reported) Donepezil (Donepezil) 5 Mg Tablet 5 MG PO HS (Reported) Ferrous Sulfate (Ferrous Sulfate) 325 Mg Tablet 325 MG PO DAILY Prescribed by: MARTINA FLEMING MD Labetalol (Labetalol) 100 Mg Tablet 300 MG PO Q8H Prescribed by: MARTINA FLEMING MD Levothyroxine (Levothyroxine) 100 Mcg Tablet 200 MCG PO DAILY Prescribed by: MARTINA FLEMING MD Lisinopril (Lisinopril) 40 Mg Tablet 40 MG PO DAILY (Reported) Loratadine (Claritin) 10 Mg Capsule 10 MG PO DAILY (Reported) Magnesium Oxide (Mag-Oxide) 400 Mg Tablet 400 MG PO BID Prescribed by: MARTINA FLEMING MD Minoxidil (Minoxidil) 2.5 Mg Tablet 2.5 MG PO DAILY Prescribed by: MARTINA FLEMING MD Omeprazole (Omeprazole) 20 Mg Capsule.dr 40 MG PO DAILY Prescribed by: MARTINA FLEMING MD Spironolactone (Aldactone) 25 Mg Tablet 25 MG PO BID Prescribed by: MARTINA FLEMING MD As needed Hydralazine (Hydralazine) 50 Mg Tablet 50 MG PO Q4H PRN PRN For HYPERtension Prescribed by: MARTINA FLEMING MD Polyethylene Glycol 3350 (Miralax) 17 Gm Powd.pack 17 GM PO DAILY PRN PRN For Constipation Prescribed by: MARTINA FLEMING MD Ropinirole (Requip) 1 Mg Tablet 3 MG PO BID PRN PRN restless leg Prescribed by: MARTINA FLEMING MD Sennosides (Senna) 8.6 Mg Tablet 17.2 MG PO BID PRN PRN For Constipation Prescribed by: MARTINA FLEMING MD Followup Plan Disposition: Going home with home health Follow-up plan Patient's going home, should have home health nurse, physical therapy, occupational therapy, and a home safety evaluation Discharge Diet: Heart Healthy, Diabetic Discharge Activity: No restrictions Patient Instructions Patient will need routine follow-up with primary care provider, a referral to a process control operator to workup anemia. And probably follow-up with the kidney doctor about the kidneys and the blood pressure. Follow-up with PCP in: Other (Praveena Saini call for appointment as soon as possible) Time spent Greater than 30 minutes Attending Statement Please forward this to Dr Praveena Saini her PCP. Patient really needs to have home health, PT/OT as she is probably more SNF level care and a home safety eval. She is cognitively severely impaired and unless her family is really always they are helping her she is at risk. Martina Fleming MD Mar 17, 2016 09:25
[2016-03-17] MEDS: 0.9% Sodium Chloride 250 ML IV SCH (11:25)
[2016-03-17 12:27] VITALS: BP_SYST 116; BP_SYST 129; BP_DIAS 55; BP_DIAS 63; PULSE 64; PULSE 67; RESP 18; O2SAT 90; O2SAT 93
[2016-03-17 12:28] VITALS: BP 121/63; PULSE 66; RESP 18; O2SAT 93
--- NOTE | 2016-03-17 13:54 | PCM.PNMED ---
Subjective Date of Service Mar 17, 2016 Subjective Patient has usual without complaints of chest pain, dyspnea, nausea or vomiting. Her blood pressure with the addition of minoxidil has dropped at least 40-60 points. We are going to observe her overnight just to verify it does not drop too far and we have not overmedicated her given the aggressive blood pressure regimen she is on now. Exam Vital Signs Vital Sign - Last Date Time Temp Pulse Resp B/P Pulse Ox O2 Delivery O2 Flow Rate FiO2 03/17/16 12:28 66 18 121/63 93 Room Air 03/17/16 09:19 36.8 Intake and Output 03/16/16 03/16/16 03/17/16 Cumulative From/Thru 15:00 23:00 07:00 03/03/16 15:32 - 03/17/16 05:01 Intake Total 860 ml 10521 ml Output Total 950 ml 04349 ml Balance -90 ml 1369 ml Intake Oral 860 ml 61121 ml IV Total 5538 ml Packed Cells 225 ml Output Urine Total 950 ml 60408 ml Urine/Stool Mix 2050 ml # Voids 1 16 # Bowel Movements 1 40 Exam Gen.- A+ O 2-3 seems easily confused but easily redirected as well no apparent distress. Obese female lying in bed Eyes- open conjunctiva clear, pupils equal nonicteric ENT- ears normal, nose normal Neck- supple/trach midline CVS- normal rate, generalized edema that is resolving Lungs- regular and unlabored GI-generous pannus Musc- moving 4 no obvious deformity Neuro- cranial nerves II through XII intact to gross examination, nonfocal Skin- warm and dry, no rashes/lesions/wounds noted Psych- pleasant and appropriate, Lab and Diagnostics Result Diagram: 03/17/16 0623 03/17/1623 Microbiology Blood culture showed no growth after 5 days. Influenza screen negative. Urine culture shows mixed urogenital karen. MRSA screen negative. . X-Rays, CTs and MRIs X-RAY CHEST ONE VIEW, PORTABLE IMPRESSION: Low lung volumes with scattered atelectasis. No acute disease Dictated by: Francisco Wiggins M.D. on 03/03/2016 at 17:18 Approved by: Francisco Wiggins M.D. on 03/03/2016 at 17:18 CT BRAIN WITHOUT CONTRAST IMPRESSION: No acute intracranial process. Dictated by: Francisco Wiggins M.D. on 03/03/2016 at 18:55 Approved by: Francisco Wiggins M.D. on 03/03/2016 at 18:58 US ABDOMEN IMPRESSION: Increased hepatic echogenicity noted likely related to fatty infiltration of the liver but other sources of hepatocellular disease cannot be excluded. Recommend clinical correlation. Dictated by: Meet Ybarra [facility] Interpreted: Malorie Mejia MD on 03/05/2016 at 16:03 Transcribed by: JUAN ALBERTO on 03/05/2016 at 16:04 Approved by: Malorie Mejia MD, PhD on 03/05/2016 at 16:48 . 12-lead ECG EKG: Sinus rhythm, heart rate 67, QTc 436, low voltage, no acute ischemic changes. . Cardiac Echo Impressions Echocardiogram Interpretation Summary: The left ventricle is normal in size. Left ventricular wall thickness is mildly increased. The ejection fraction is estimated to be 60-65%. There are no focal wall motion abnormalities. The right ventricle is normal in size and function. Pulmonary artery pressures cannot be estimated because of the lack of a measurable TR jet velocity. The left atrium is mildly dilated. Right atrial size is normal. There is no significant valvular heart disease. The ascending aorta is mild-moderately enlarged. There is a small pericardial effusion noted. There are no echocardiographic indications of cardiac tamponade. Compared to the prior echo report on 02/14/2014, there is no significant change. Reading Physician:PM . Assessment & Plan 80-year-old female admitted 03/03 with increased weakness and was found to have a TSH of 154 and undetectable free T4. Patient has remained relatively stable I think we are reaching the end of his hospitalization. Free T4 is high normal. Hemoglobin is relatively stable though she is anemic. She no longer needs insulin to control her diabetes at least while she is here. During issue right now is better blood pressure control which also does not necessitate remaining in the hospital. 2/8 minoxidil added SBP now 116-125. Observing overnight to verify that further modifications in blood pressure management are not warranted as now blood pressure may be getting too low. Check blood pressure, hemoglobin, K, Mag , Cr in am if all stable/improved patient ready for discharge. I think I already completed all of her medication prescriptions other than perhaps magnesium. Hypertension, chronic. BP 169/86-211/93 03/15, 116/55 p64- 171/71 p 64 03/17 spironolactone torsemide 20mg QD, chlorthalidone 25 mg QD, lisinopril 20mg bid, labetalol 300mg q8 03/12-. Amlodipine 10mg QD, Hydralazine to 50mg Q4prn 03/16-, minoxidil 2.5mg 03/17-, Hypomagnesemia- Mg 1.5 03/17 replace and follow up 03/18. Diabetes mellitus, type 2, presume poorly controlled. BS 144-183 03/14-03/15, 121-183 -03/16 last insulin 03/10 2Units. - HgA1C 7.7 03/03, - c/w ISS - Hypoglycemia, acute, present on admission. ? Secondary to myxedema. resolved blood sugar has steadily elevated Anemia- ? Acute blood loss? Or labs/draw error Hemoccult stools. It appears that outpatient GI workup will be sufficient 03/16 - Hg 6.7 03/14, 9.9 03/15 s/p 1U, 9.5 03/16, 9.3 03/17 - s/p 1U PRBC 03/14 - Iron, folate, B12 WNL 03/10, repeating 03/16 and Hemocculting stools 03/16-, retic 1.4, iron low b12 pend 03/16 Elevated transaminases, acute, present on admission. resolved 03/14 ast/alt 03/16 - 03/11? statin use. - resume home atorvastatin 40mg qhs 03/15 - Continue to monitor CMP atleast q7d (03/23) - viral hepatitis panel negative 03/05 - RUQ abd U/S 03/05: "Increased hepatic echogenicity noted likely related to fatty infiltration of the liver but other sources of hepatocellular disease cannot be excluded" Myxedema, acute, present on admission.- TSH 154.6, T4 <0.10. Thank you Dr. Newberry endocrine consult 03/04, free t4 1.59 (high norm) 03/16, levoxyl 200mcg QD - - Hydrocortisone 100 mg given in ED. Discontinue cortisol was normal 03/04 - Levothyroxine 200 mcg given IV in the ED. 03/04, Synthroid 150 g daily twice a day. 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 Hyperlipidemia, chronic, presume stable.- Held atorvastatin 80 mg daily 03/11 transaminitis from going to resume this 03/15. GERD, chronic, presume stable.- Continue PPI during admission. Replace omeprazole 20 mg daily with protonix 40 mg daily. Osteoporosis, chronic, presume stable.- Patient takes alendronate 70 mg weekly. Will not plan to give this during admission unless it becomes prolonged. Environmental/seasonal allergies, chronic, presume stable. - Loratidine 10 mg available daily PRN. Elevated Trop without reported chest pain- no further action probably patient could benefit from stress Myoview in the outpatient setting. - Echo unremarkable 03/04 and unchanged from earlier - likely demand ischemia and amplified by underlying CAYDEN Prophylaxis- DVT SCD/heparin, GI patient on PPI Disposition- patient is full code from home GI Prophylaxis: Proton Pump Inhibitor VTE Prophylaxis: Sub-Q Heparin (Unfractionated), SCDs VTE Mechanical Devices: Intermittant Pneumatic CD Resuscitation Status: CPR: Attempt Resuscitation Mateo Fleming MD Mar 17, 2016 13:54
--- NOTE | 2016-03-17 16:04 | NUR ---
Social Work Readiness for Discharge: SW conducted discharge plan update. Plan remains as home with family support and care and HHC services via [facility]. [facility] is on standby for arrangements at discharge. Per report from MD, patient discharge held as a result to further BP monitoring. Sw to follow. PLAN: Home with family support and care and HHC via [facility], pending clinical course Estrella FRIEDMAN
--- NOTE | 2016-03-17 17:20 | NUR ---
BP/transfer of care Pt's BP this morning 168/74, given scheduled morning medications, BP them 171/71, new orders for minoxidil, given per orders in addition to prn hydralazine po (for SBP>160). Pt with orders to check orthostatic VS, documented as in computer, last BP 121/63. Pt denies pain this shift, A+Ox3, cooperative with care. Report to Grazyna MONTOYA at 1700 who will resume care of pt remainder of shift. Call light in reach. Frequent rounding. Care continunes.
[2016-03-17 18:06] VITALS: BP 136/62; PULSE 68; RESP 18
[2016-03-17 19:14] VITALS: BP 132/47; PULSE 71; RESP 16; O2SAT 93
[2016-03-18] MEDS: Heparin 5,000 Unit/mL Inj SUBQ SCH ×3 (01:08→16:37)
[2016-03-18 01:09] VITALS: BP 125/62; PULSE 69; RESP 18
[2016-03-18] MEDS: Sodium Chloride LOK Flush 10 mL Syringe IVFLUSH SCH ×3 (01:10→16:34)
[2016-03-18 04:24] VITALS: BP 129/57; PULSE 61; RESP 20; O2SAT 93
[2016-03-18 05:24] LABS: Mean Corpuscular Hemoglobin 27.4 pg (27.0-35.0); Mean Corpuscular Volume 86.3 fL (81-100)
--- NOTE | 2016-03-18 05:41 | NUR ---
BP monitoring BP at 1806: 132/62. At 1914: 132/47. At 0109: 125/62. At 0424: 129/57 Pt has no complaints of SOB, Chest pain, N/V and no loose stool this shift. AOx3 this shift, alert but not talkative. IV saline lock patent, room air, no tele. Care continues
[2016-03-18 05:42] LABS: Magnesium 2.5 mg/dL (1.6-2.6)
[2016-03-18] MEDS: Pantoprazole 20 mg ER24 Tablet PO SCH (06:35)
[2016-03-18] MEDS ORDERED: 0.9% Sodium Chloride 1,000 ML IV ONE (07:45)
[2016-03-18] MEDS: Insulin LISPRO 300 Unit/3 mL Inj SUBQ SCH ×4 (08:00→21:25)
--- NOTE | 2016-03-18 10:25 | NUR ---
NUTRITION FOLLOW-UP: ASSESS: Pt is a 80yo F admitted for myxedema. Nephrology is following for CAYDEN and pitting edema. She is on a Heart healthy/ Consistent carb diet. PO has decreased a bit over the last couple days and is ranging from bites-75%. No reported nausea or abdominal pain. Overall her wt has been stable. PMHX: T2DM, hypothyroid, HTN, HLD, GERD LABS: Reviewed. Interlocking Installer 2.05, Glu 164, Ca 7.7, Alb 2.9 MEDS: Reviewed. lasix GI: BMx4 03/17 SKIN: Black 21 CURRENT WTS: 74.3kg, BMI 39.5kg/m2, admit wt 74.2kg, IBW: 31.8kg DIET: HH/CC, PO bites-75% EST. NEEDS: BMI, CAYDEN Kcals: 1530-1680kcal/day (20-22kcal/kg) Pro: 40-50g/day (1.2-1.5g/kg IBW) NUTRITION DIAGNOSIS: 1.) Altered nutrition related lab values related uncontrolled DM as evidence by A1C of 8.0 NUTRITION INTERVENTION: 1.) Will add SF mighty shakes on L&D trays 2.) Provided DM diet education 03/05 MONITOR / EVAL: PO, wt, GI, labs, POC, nutrition status. Will continue to monitor per moderate nutrition risk guidelines
[2016-03-18] MEDS: 0.9% Sodium Chloride 250 ML IV SCH (11:25)
--- NOTE | 2016-03-18 12:12 | PCM.PNMED ---
Subjective Date of Service Mar 18, 2016 Subjective Minoxidil added yesterday. Her BP has been controlled overnight. No acute issue. Exam Vital Signs Vital Sign - Last Date Time Temp Pulse Resp B/P Pulse Ox O2 Delivery O2 Flow Rate FiO2 03/18/16 04:24 36.5 61 20 129/57 93 Room Air Intake and Output 03/17/16 03/17/16 03/18/16 Cumulative From/Thru 15:00 23:00 07:00 03/03/16 15:32 - 03/18/16 05:18 Intake Total 610 ml 760 ml 436 ml 68739 ml Output Total 900 ml 300 ml 200 ml 84465 ml Balance -290 ml 460 ml 236 ml 1775 ml Intake Oral 520 ml 760 ml 436 ml 51843 ml IV Total 90 ml 5628 ml Packed Cells 225 ml Output Urine Total 900 ml 300 ml 200 ml 73248 ml Urine/Stool Mix 2050 ml # Voids 2 2 1 21 # Bowel Movements 2 2 0 44 Exam GA: chronically-ill looking lady, in no acute distress. HEENT: puffy eyelids, atraumatic, mild pallor, no jaundice,no JVD, no lymphadenopathy. Chest: Clear to auscultation, Normal respiratory effort. Cor: Regular rate and rhythm S1/S2, No murmur. Abdomen: Soft, NT, ND, no HSM, active BS. Extremities: +1 edema. Lab and Diagnostics Result Diagram: 03/18/1644803/18/16448 Microbiology Blood culture showed no growth after 5 days. Influenza screen negative. Urine culture shows mixed urogenital karen. MRSA screen negative. . X-Rays, CTs and MRIs X-RAY CHEST ONE VIEW, PORTABLE IMPRESSION: Low lung volumes with scattered atelectasis. No acute disease Dictated by: Francisco Wiggins M.D. on 03/03/2016 at 17:18 Approved by: Francisco Wiggins M.D. on 03/03/2016 at 17:18 CT BRAIN WITHOUT CONTRAST IMPRESSION: No acute intracranial process. Dictated by: Francisco Wiggins M.D. on 03/03/2016 at 18:55 Approved by: Francisco Wiggins M.D. on 03/03/2016 at 18:58 US ABDOMEN IMPRESSION: Increased hepatic echogenicity noted likely related to fatty infiltration of the liver but other sources of hepatocellular disease cannot be excluded. Recommend clinical correlation. Dictated by: Meet Ybarra A Interpreted: Malorie Mejia MD on 03/05/2016 at 16:03 Transcribed by: JUAN ALBERTO on 03/05/2016 at 16:04 Approved by: Malorie Mejia MD, PhD on 03/05/2016 at 16:48 . 12-lead ECG EKG: Sinus rhythm, heart rate 67, QTc 436, low voltage, no acute ischemic changes. . Cardiac Echo Impressions Echocardiogram Interpretation Summary: The left ventricle is normal in size. Left ventricular wall thickness is mildly increased. The ejection fraction is estimated to be 60-65%. There are no focal wall motion abnormalities. The right ventricle is normal in size and function. Pulmonary artery pressures cannot be estimated because of the lack of a measurable TR jet velocity. The left atrium is mildly dilated. Right atrial size is normal. There is no significant valvular heart disease. The ascending aorta is mild-moderately enlarged. There is a small pericardial effusion noted. There are no echocardiographic indications of cardiac tamponade. Compared to the prior echo report on 02/14/2014, there is no significant change. Reading Physician:PM . Assessment & Plan 1. CAYDEN secondary to ATN. - Today serum creatinine worsened. - It is related to poor renal perfusion and poor renal autoregulation during hypotensive episode. 2. HTN with hypertensive nephrosclerosis. - now controlled with minoxidil. - current regimen: minoxidil, labetalol and norvasc. 3. Hypothyroidism/Myxedema. 4. anemia s/p PRBC transfusion. 5. Type-2 DM. Plan: maintain sBP ~ 140-150. agreed with primary team to d/c lisinopril, aldactone and chlorthalidone. observe for another 24 hr. NS fluid replacement. repeat BMP in am. hold BP meds if BP < 130/80. GI Prophylaxis: Proton Pump Inhibitor VTE Prophylaxis: Sub-Q Heparin (Unfractionated), SCDs VTE Mechanical Devices: Intermittant Pneumatic CD Resuscitation Status: CPR: Attempt Resuscitation Cheryl Pond MD Mar 18, 2016 12:12
[2016-03-18 13:53] VITALS: BP 144/64; PULSE 70; RESP 20; O2SAT 90
--- NOTE | 2016-03-18 14:44 | NUR ---
Labetalol Held Labetalol scheduled for 1430 withheld, diastolic blood pressure did not meet parameter of greater than 80. Blood pressure 144/64, parameter 130/80.
--- NOTE | 2016-03-18 15:18 | PCM.PNMED ---
Subjective Date of Service Mar 18, 2016 Subjective pt denied nausea or vomiting, difficulty breathing cough or phlegm Exam Vital Signs Vital Sign - Last Date Time Temp Pulse Resp B/P Pulse Ox O2 Delivery O2 Flow Rate FiO2 03/18/16 04:24 36.5 61 20 129/57 93 Room Air Intake and Output 03/17/16 03/17/16 03/18/16 Cumulative From/Thru 15:00 23:00 07:00 03/03/16 15:32 - 03/18/16 05:18 Intake Total 610 ml 760 ml 436 ml 05149 ml Output Total 900 ml 300 ml 200 ml 77757 ml Balance -290 ml 460 ml 236 ml 1775 ml Intake Oral 520 ml 760 ml 436 ml 69989 ml IV Total 90 ml 5628 ml Packed Cells 225 ml Output Urine Total 900 ml 300 ml 200 ml 18312 ml Urine/Stool Mix 2050 ml # Voids 2 2 1 21 # Bowel Movements 2 2 0 44 Exam NAD, comfortably laying down on the bed no JVD, MMM, no LAD RRR, nl s1, s2 no mrg CTAB, no w,c S,ND,NT,normoactive BS+ warm, no edema, pulses 2/2 IVs and Medications Medications Reviewed: Medications were reviewed in detail Lab and Diagnostics Result Diagram: 03/18/1644803/18/16448 Microbiology Blood culture showed no growth after 5 days. Influenza screen negative. Urine culture shows mixed urogenital karen. MRSA screen negative. . X-Rays, CTs and MRIs X-RAY CHEST ONE VIEW, PORTABLE IMPRESSION: Low lung volumes with scattered atelectasis. No acute disease Dictated by: Francisco Wiggins M.D. on 03/03/2016 at 17:18 Approved by: Francisco Wiggins M.D. on 03/03/2016 at 17:18 CT BRAIN WITHOUT CONTRAST IMPRESSION: No acute intracranial process. Dictated by: Francisco Wiggins M.D. on 03/03/2016 at 18:55 Approved by: Francisco Wiggins M.D. on 03/03/2016 at 18:58 US ABDOMEN IMPRESSION: Increased hepatic echogenicity noted likely related to fatty infiltration of the liver but other sources of hepatocellular disease cannot be excluded. Recommend clinical correlation. Dictated by: Meet PEREZ Interpreted: Malorie Mejia MD on 03/05/2016 at 16:03 Transcribed by: JUAN ALBERTO on 03/05/2016 at 16:04 Approved by: Malorie Mejia MD, PhD on 03/05/2016 at 16:48 . 12-lead ECG EKG: Sinus rhythm, heart rate 67, QTc 436, low voltage, no acute ischemic changes. . Cardiac Echo Impressions Echocardiogram Interpretation Summary: The left ventricle is normal in size. Left ventricular wall thickness is mildly increased. The ejection fraction is estimated to be 60-65%. There are no focal wall motion abnormalities. The right ventricle is normal in size and function. Pulmonary artery pressures cannot be estimated because of the lack of a measurable TR jet velocity. The left atrium is mildly dilated. Right atrial size is normal. There is no significant valvular heart disease. The ascending aorta is mild-moderately enlarged. There is a small pericardial effusion noted. There are no echocardiographic indications of cardiac tamponade. Compared to the prior echo report on 02/14/2014, there is no significant change. Reading Physician:PM . Assessment & Plan 80-year-old female admitted 03/03 with increased weakness and was found to have a TSH of 154 and undetectable free T4. Patient has remained relatively stable I think we are reaching the end of his hospitalization. Free T4 is high normal. Hemoglobin is relatively stable relatively stable though she is anemic. She no longer needs insulin to control her diabetes at least while she is here. During issue right now is better blood pressure control which also does not necessitate remaining in the hospital. acute, active #CAYDEN/CKD3-4.-ATN on hypertensive nephrosclerosis. -renal function worsened today, eGFR 50 to 34, baseline last 80-90, new baseline CKD3 -will [id number], hold aldactone, lisinopril today stable, resolved Hypertension, chronic. BP 169/86-211/93 2/6, 116/55 p64- 171/71 p 64 2/8 spironolactone torsemide 20mg QD, chlorthalidone 25 mg QD, lisinopril 20mg bid, labetalol 300mg q8 2-. Amlodipine 10mg QD, Hydralazine to 50mg Q4prn 03/16-, minoxidil 2.5mg 8-, Diabetes mellitus, type 2, presume poorly controlled. BS 144-183 03/14-03/15, 121-183 -03/16 last insulin 03/10 2Units. - HgA1C 7.7 03/03 - c/w ISS - Hypoglycemia, acute, present on admission. ? Secondary to myxedema. resolved blood sugar has steadily elevated Anemia- ? Acute blood loss? Or labs/draw error Hemoccult stools. It appears that outpatient GI workup will be sufficient 03/16 - Hg 6.7 03/14, 9.9 03/15 s/p 1U, 9.5 03/16 - s/p 1U PRBC 03/14 - Iron, folate, B12 WNL 03/10, repeating 03/16 and Hemocculting stools 03/16-, retic 1.4, iron low b12 pend 03/16 Elevated transaminases, acute, present on admission. resolved 03/14 ast/alt 03/16 - 03/11? statin use. - resume home atorvastatin 40mg qhs 03/15 - Continue to monitor CMP atleast q7d (03/23) - viral hepatitis panel negative 03/05 - RUQ abd U/S 03/05: "Increased hepatic echogenicity noted likely related to fatty infiltration of the liver but other sources of hepatocellular disease cannot be excluded" Myxedema, acute, present on admission.- TSH 154.6, T4 <0.10. Thank you Dr. Newberry endocrine consult 03/04, free t4 1.59 (high norm) 03/16, levoxyl 200mcg QD - - Hydrocortisone 100 mg given in ED. Discontinue cortisol was normal 03/04 - Levothyroxine 200 mcg given IV in the ED. 03/04, Synthroid 150 g daily twice a day. -03/15 , free t4 1.59 (high norm) 03/16 Hyperlipidemia, chronic, presume stable.- Held atorvastatin 80 mg daily 03/11 transaminitis from going to resume this 03/15. GERD, chronic, presume stable.- Continue PPI during admission. Replace omeprazole 20 mg daily with protonix 40 mg daily. Osteoporosis, chronic, presume stable.- Patient takes alendronate 70 mg weekly. Will not plan to give this during admission unless it becomes prolonged. Environmental/seasonal allergies, chronic, presume stable. - Loratidine 10 mg available daily PRN. Elevated Trop without reported chest pain- no further action probably patient could benefit from stress Myoview in the outpatient setting. - Echo unremarkable 03/04 and unchanged from earlier - likely demand ischemia and amplified by underlying CAYDEN Prophylaxis- DVT SCD/heparin, GI patient on PPI Disposition- patient is full code from home GI Prophylaxis: Proton Pump Inhibitor VTE Prophylaxis: Sub-Q Heparin (Unfractionated), SCDs VTE Mechanical Devices: Intermittant Pneumatic CD Resuscitation Status: CPR: Attempt Resuscitation Time spent 35 minutes Ally Beard MD Mar 18, 2016 12:13
[2016-03-18 15:47] VITALS: BP 125/63; PULSE 72; RESP 15; O2SAT 93
[2016-03-18 19:31] VITALS: BP 122/59; PULSE 62; RESP 18; O2SAT 94
[2016-03-19] MEDS: Heparin 5,000 Unit/mL Inj SUBQ SCH ×3 (00:43→17:00)
[2016-03-19] MEDS: Sodium Chloride LOK Flush 10 mL Syringe IVFLUSH SCH ×3 (00:43→17:00)
--- NOTE | 2016-03-19 04:32 | NUR ---
Bladder Scan 74ml.
--- NOTE | 2016-03-19 04:36 | NUR ---
Noneventful Night Pt alert,mild confusion, oriented to place,self, forgetful, calm,cooperative. Denies any pain/N/V/fever/chills. SOB with activities. BP122/59, Labetalol hold at HS (parameter: hold if SBP<130/80), recent BP 141/61. Fine crackles at bilateral posterior LL, left>right. HR 60s, regular. Mild generalized nonpitting edema at face, thighs, arms, 1+ pitting edema at bilateral LEs. Void large amount of urine in toilet per [employer] report, bladder scan PVR 74ml, BMx1, soft brown. Sleeping comfortably most of night.
[2016-03-19 04:37] VITALS: BP 141/61; PULSE 70; RESP 18; O2SAT 93
[2016-03-19 05:27] LABS: BASOPHILS % (AUTO) 0.4 % (0-3); EOSINOPHILS % (AUTO) 4.7 % (0-5); MONOCYTES % (AUTO) 10.5 % (4-12); Mean Corpuscular Volume 87.3 fL (81-100); NEUTROPHILS % (AUTO) 69.5 % (40-74); Platelet Count 346 bil/L (150-400)
[2016-03-19] MEDS: Pantoprazole 20 mg ER24 Tablet PO SCH (05:42)
[2016-03-19 05:50] LABS: Magnesium 2.5 mg/dL (1.6-2.6); Phosphorus 4.4 mg/dL (2.5-4.9)
[2016-03-19] MEDS: Insulin LISPRO 300 Unit/3 mL Inj SUBQ SCH ×4 (08:00→21:25)
[2016-03-19 08:20] VITALS: BP 150/70; PULSE 70; RESP 18; O2SAT 91
--- NOTE | 2016-03-19 09:10 | PCM.PNMED ---
Subjective Date of Service Mar 19, 2016 Subjective Patient denied any symptoms Denies back pain or urinary complaints renal function got worse today, UOP q12h increased 200 to 700 overnight ordered urine lytes, renal US Exam Vital Signs Vital Sign - Last Date Time Temp Pulse Resp B/P Pulse Ox O2 Delivery O2 Flow Rate FiO2 03/19/16 08:20 36.5 70 18 150/70 91 Room Air Intake and Output 03/18/16 03/18/16 03/19/16 Cumulative From/Thru 15:00 23:00 07:00 03/03/16 15:32 - 03/19/16 05:34 Intake Total 760 ml 800 ml 94829 ml Output Total 700 ml 31918 ml Balance 60 ml 800 ml 2635 ml Intake Oral 760 ml 800 ml 41008 ml IV Total 5628 ml Packed Cells 225 ml Output Urine Total 700 ml 63013 ml Urine/Stool Mix 2050 ml # Voids 1 22 # Bowel Movements 1 1 46 Exam NAD, comfortably laying down on the bed no JVD, MMM, no LAD RRR, nl s1, s2 no mrg CTAB, no w,c S,ND,NT,normoactive BS+ warm, no edema, pulses 2/2 IVs and Medications Medications Reviewed: Medications were reviewed in detail Lab and Diagnostics Result Diagram: 03/19/16 0502 03/19/16 0502 Microbiology Blood culture showed no growth after 5 days. Influenza screen negative. Urine culture shows mixed urogenital karen. MRSA screen negative. . X-Rays, CTs and MRIs X-RAY CHEST ONE VIEW, PORTABLE IMPRESSION: Low lung volumes with scattered atelectasis. No acute disease Dictated by: Francisco Wiggins M.D. on 03/03/2016 at 17:18 Approved by: Francisco Wiggins M.D. on 03/03/2016 at 17:18 CT BRAIN WITHOUT CONTRAST IMPRESSION: No acute intracranial process. Dictated by: Francisco Wiggins M.D. on 03/03/2016 at 18:55 Approved by: Francisco Wiggins M.D. on 03/03/2016 at 18:58 US ABDOMEN IMPRESSION: Increased hepatic echogenicity noted likely related to fatty infiltration of the liver but other sources of hepatocellular disease cannot be excluded. Recommend clinical correlation. Dictated by: Meet PEREZ Interpreted: Malorie Mejia MD on 03/05/2016 at 16:03 Transcribed by: JUAN ALBERTO on 03/05/2016 at 16:04 Approved by: Malorie Mejia MD, PhD on 03/05/2016 at 16:48 . 12-lead ECG EKG: Sinus rhythm, heart rate 67, QTc 436, low voltage, no acute ischemic changes. . Cardiac Echo Impressions Echocardiogram Interpretation Summary: The left ventricle is normal in size. Left ventricular wall thickness is mildly increased. The ejection fraction is estimated to be 60-65%. There are no focal wall motion abnormalities. The right ventricle is normal in size and function. Pulmonary artery pressures cannot be estimated because of the lack of a measurable TR jet velocity. The left atrium is mildly dilated. Right atrial size is normal. There is no significant valvular heart disease. The ascending aorta is mild-moderately enlarged. There is a small pericardial effusion noted. There are no echocardiographic indications of cardiac tamponade. Compared to the prior echo report on 02/14/2014, there is no significant change. Reading Physician:PM . Assessment & Plan 80-year-old female admitted 03/03 with increased weakness and was found to have a TSH of 154 and undetectable free T4. Patient has remained relatively stable I think we are reaching the end of his hospitalization. Free T4 is high normal. Hemoglobin is relatively stable relatively stable though she is anemic. She no longer needs insulin to control her diabetes at least while she is here. During issue right now is better blood pressure control which also does not necessitate remaining in the hospital. acute, active #CAYDEN/CKD3-4.-ATN on hypertensive nephrosclerosis., s/p [id number] 03/18, Cr further decreased, baseline eGFR last 80-90 -appreciate renal input, possibly urine spine for urinary cast -held aldactone, lisinopril, HCTZ 03/18 -awaits renal US to see hydro, obstruction, FU urine lytes, -adjust meds renally stable, resolved Hypertension, chronic. BP 169/86-211/93 2/6, 116/55 p64- 171/71 p 64 28 spironolactone torsemide 20mg QD, chlorthalidone 25 mg QD, lisinopril 20mg bid, labetalol 300mg q8 03/12-. Amlodipine 10mg QD, Hydralazine to 50mg Q4prn 03/16-, minoxidil 2.5mg 03/17-, Diabetes mellitus, type 2, presume poorly controlled. BS 144-183 03/14-03/15, 121-183 -03/16 last insulin 03/10 2Units. - HgA1C 7.7 03/03 - c/w ISS - Hypoglycemia, acute, present on admission. ? Secondary to myxedema. resolved blood sugar has steadily elevated Anemia- ? Acute blood loss? Or labs/draw error Hemoccult stools. It appears that outpatient GI workup will be sufficient 03/16 - Hg 6.7 03/14, 9.9 03/15 s/p 1U, 9.5 03/16 - s/p 1U PRBC 03/14 - Iron, folate, B12 WNL 03/10, repeating 03/16 and Hemocculting stools 03/16-, retic 1.4, iron low b12 pend 03/16 Elevated transaminases, acute, present on admission. resolved 03/14 ast/alt 03/16 - 03/11? statin use. - resume home atorvastatin 40mg qhs 03/15 - Continue to monitor CMP atleast q7d (03/23) - viral hepatitis panel negative 03/05 - RUQ abd U/S 03/05: "Increased hepatic echogenicity noted likely related to fatty infiltration of the liver but other sources of hepatocellular disease cannot be excluded" Myxedema, acute, present on admission.- TSH 154.6, T4 <0.10. Thank you Dr. Newberry endocrine consult 03/04, free t4 1.59 (high norm) 03/16, levoxyl 200mcg QD - - Hydrocortisone 100 mg given in ED. Discontinue cortisol was normal 03/04 - Levothyroxine 200 mcg given IV in the ED. 03/04, Synthroid 150 g daily twice a day. -03/15 , free t4 1.59 (high norm) 03/16 Hyperlipidemia, chronic, presume stable.- Held atorvastatin 80 mg daily 03/11 transaminitis from going to resume this 03/15. GERD, chronic, presume stable.- Continue PPI during admission. Replace omeprazole 20 mg daily with protonix 40 mg daily. Osteoporosis, chronic, presume stable.- Patient takes alendronate 70 mg weekly. Will not plan to give this during admission unless it becomes prolonged. Environmental/seasonal allergies, chronic, presume stable. - Loratidine 10 mg available daily PRN. Elevated Trop without reported chest pain- no further action probably patient could benefit from stress Myoview in the outpatient setting. - Echo unremarkable 03/04 and unchanged from earlier - likely demand ischemia and amplified by underlying CAYDEN Prophylaxis- DVT SCD/heparin, GI patient on PPI Disposition- patient is full code from home dispo delayed due to worsening renal function GI Prophylaxis: Proton Pump Inhibitor VTE Prophylaxis: Sub-Q Heparin (Unfractionated), SCDs VTE Mechanical Devices: Intermittant Pneumatic CD Resuscitation Status: CPR: Attempt Resuscitation Time spent 35 minutes Ally Beard MD Mar 19, 2016 09:10
[2016-03-19] MEDS: 0.9% Sodium Chloride 250 ML IV SCH (11:25)
--- NOTE | 2016-03-19 11:31 | PCM.PNMED ---
Subjective Date of Service Mar 19, 2016 Subjective worsening kidney function today. sBP ~ 140-150 She has no new complaints. PVR 75 ml last night. Exam Vital Signs Vital Sign - Last Date Time Temp Pulse Resp B/P Pulse Ox O2 Delivery O2 Flow Rate FiO2 03/19/16 08:20 36.5 70 18 150/70 91 Room Air Intake and Output 03/18/16 03/18/16 03/19/16 Cumulative From/Thru 15:00 23:00 07:00 03/03/16 15:32 - 03/19/16 05:34 Intake Total 760 ml 800 ml 15907 ml Output Total 700 ml 57987 ml Balance 60 ml 800 ml 2635 ml Intake Oral 760 ml 800 ml 33245 ml IV Total 5628 ml Packed Cells 225 ml Output Urine Total 700 ml 28148 ml Urine/Stool Mix 2050 ml # Voids 1 22 # Bowel Movements 1 1 46 Exam GA: chronically-ill looking lady, in no acute distress. HEENT: puffy eyelids, atraumatic, mild pallor, no jaundice,no JVD, no lymphadenopathy. Chest: Clear to auscultation, Normal respiratory effort. Cor: Regular rate and rhythm S1/S2, No murmur. Abdomen: Soft, NT, ND, no HSM, active BS. Extremities: +1 edema. Lab and Diagnostics Result Diagram: 03/19/16 0502 03/19/16 0502 Microbiology Blood culture showed no growth after 5 days. Influenza screen negative. Urine culture shows mixed urogenital karen. MRSA screen negative. . X-Rays, CTs and MRIs X-RAY CHEST ONE VIEW, PORTABLE IMPRESSION: Low lung volumes with scattered atelectasis. No acute disease Dictated by: Francisco Wiggins M.D. on 03/03/2016 at 17:18 Approved by: Francisco Wiggins M.D. on 03/03/2016 at 17:18 CT BRAIN WITHOUT CONTRAST IMPRESSION: No acute intracranial process. Dictated by: Francisco Wiggins M.D. on 03/03/2016 at 18:55 Approved by: Francisco Wiggins M.D. on 03/03/2016 at 18:58 US ABDOMEN IMPRESSION: Increased hepatic echogenicity noted likely related to fatty infiltration of the liver but other sources of hepatocellular disease cannot be excluded. Recommend clinical correlation. Dictated by: Meet Choffel RRA Interpreted: Malorie Mejia MD on 03/05/2016 at 16:03 Transcribed by: JUAN ALBERTO on 03/05/2016 at 16:04 Approved by: Malorie Mejia MD, PhD on 03/05/2016 at 16:48 . 12-lead ECG EKG: Sinus rhythm, heart rate 67, QTc 436, low voltage, no acute ischemic changes. . Cardiac Echo Impressions Echocardiogram Interpretation Summary: The left ventricle is normal in size. Left ventricular wall thickness is mildly increased. The ejection fraction is estimated to be 60-65%. There are no focal wall motion abnormalities. The right ventricle is normal in size and function. Pulmonary artery pressures cannot be estimated because of the lack of a measurable TR jet velocity. The left atrium is mildly dilated. Right atrial size is normal. There is no significant valvular heart disease. The ascending aorta is mild-moderately enlarged. There is a small pericardial effusion noted. There are no echocardiographic indications of cardiac tamponade. Compared to the prior echo report on 02/14/2014, there is no significant change. Reading Physician:PM . Assessment & Plan 1. CAYDEN on CKD-3. - ischemic ATN. - It is related to poor renal perfusion and poor renal autoregulation during hypotensive episodes. - previous Abd US 03/05: Kidneys are normal in size and echotexture. No hydronephrosis or nephrolithiasis. No solid masses. 2. HTN with hypertensive nephrosclerosis. - now controlled with minoxidil. - current regimen: minoxidil, labetalol and norvasc. 3. Hypothyroidism/Myxedema. 4. anemia s/p PRBC transfusion. 5. Type-2 DM. Plan: repeat UA, PVR. maintain sBP ~ 140-150. spread out BP meds administration, not to be given at the same time. observe for another 24 hr. repeat BMP in am. hold BP meds if BP < 130/80. GI Prophylaxis: Proton Pump Inhibitor VTE Prophylaxis: Sub-Q Heparin (Unfractionated), SCDs VTE Mechanical Devices: Intermittant Pneumatic CD Resuscitation Status: CPR: Attempt Resuscitation Cheryl Pond MD Mar 19, 2016 11:31
--- NOTE | 2016-03-19 13:50 | DRSVH ---
PROCEDURE: US RENAL SONOGRAM INDICATIONS: worsening CAYDEN TECHNIQUE: Real-time scanning was performed of the kidneys and bladder, with image documentation. COMPARISON: None. FINDINGS: Kidneys: Kidneys are normal in size. Right kidney measures 10.4 cm long; left kidney measures 10.9 cm long. Right renal cortical thickness is 1.4 cm; left renal cortical thickness is 1.4 cm. Renal c ortical echotexture is normal. No hydronephrosis or nephrolithiasis. No suspicious solid mass lesio ns. Bladder: The patient had voided just prior to examination, and therefore accurate assessment of the bladder for mass or calculus is not possible Miscellaneous: No free pelvic fluid. IMPRESSION: No hydronephrosis or nephrolithiasis. Normal appearance of the renal echotexture. Bladd er empty at time of scanning but avoiding just before the examination. Therefore, urinary retention is not present. Dictated by: Kunal Valladares M.D. on 03/19/2016 at 13:46 Approved by: Kunal Valladares M.D. on 03/19/2016 at 13:47
[2016-03-19 15:05] VITALS: BP 120/70; PULSE 66; RESP 18; O2SAT 91
[2016-03-19 15:06] VITALS: BP 121/68; PULSE 72; RESP 18; O2SAT 94
[2016-03-19 15:08] VITALS: BP 120/62; PULSE 69; RESP 19; O2SAT 93
--- NOTE | 2016-03-19 18:29 | NUR ---
Ambulation SBA FWW to bathroom with steady gait. Worked with PT and walked out to nurse station and [facility]. Pt sleeps most of day but awakens to touch. Care continues
[2016-03-19 20:45] VITALS: BP 132/62; PULSE 72; RESP 18; O2SAT 92
[2016-03-20] MEDS: Sodium Chloride LOK Flush 10 mL Syringe IVFLUSH SCH ×3 (01:07→11:53)
[2016-03-20] MEDS: Heparin 5,000 Unit/mL Inj SUBQ SCH ×3 (01:07→17:26)
--- NOTE | 2016-03-20 02:49 | NUR ---
Activity Patient denies need to void. A&O to self, able to make needs known at this time. Diet changed to soft diet per patient's request. Denies CP, SOB, Abdominal discomfort, and, Nausea. Bed in low position, call light within reach, Kayley alarm enabled, and intentional rounding.
[2016-03-20 05:30] VITALS: BP 133/71; PULSE 64; RESP 16; O2SAT 92
[2016-03-20] MEDS: Pantoprazole 20 mg ER24 Tablet PO SCH (06:42)
[2016-03-20 07:02] LABS: BASOPHILS % (AUTO) 0.4 % (0-3); EOSINOPHILS % (AUTO) 4.4 % (0-5); Mean Corpuscular Hemoglobin 27.8 pg (27.0-35.0); Mean Corpuscular Volume 87.7 fL (81-100); NEUTROPHILS % (AUTO) 70.1 % (40-74); Platelet Count 362 bil/L (150-400)
[2016-03-20 07:09] LABS: Magnesium 2.5 mg/dL (1.6-2.6)
[2016-03-20] MEDS: Insulin LISPRO 300 Unit/3 mL Inj SUBQ SCH ×4 (08:00→23:39)
[2016-03-20 08:15] VITALS: BP 132/60
[2016-03-20] MEDS: 0.9% Sodium Chloride 250 ML IV SCH (11:25)
--- NOTE | 2016-03-20 11:30 | NUR ---
Bladder scan as ordered Pt is mostly incontinent of bowels. Bladder scanned at 45ml. Per pt she has no urge to void at this time. U/A Ordered by MD; unable to collect as pt is incontinent of bowel and voids along with loose stools at same time which mix together. Most of time pt is incontinent of bowel in brief. Care continues.
--- NOTE | 2016-03-20 11:41 | NUR ---
SISI signed. [employer]
[2016-03-20 11:49] VITALS: BP 149/67; PULSE 65
--- NOTE | 2016-03-20 12:10 | PCM.PNMED ---
Subjective Date of Service Mar 20, 2016 Subjective No overnight event Patient is oliguric 12hr 200-150cc overnight denied abdominal pain, back pain, nausea, vomiting Exam Vital Signs Vital Sign - Last Date Time Temp Pulse Resp B/P Pulse Ox O2 Delivery O2 Flow Rate FiO2 03/20/16 11:49 65 149/67 03/20/16 05:30 36.7 16 92 Room Air Intake and Output 03/19/16 03/19/16 03/20/16 Cumulative From/Thru 15:00 23:00 07:00 03/03/16 15:32 - 03/19/16 20:00 Intake Total 436 ml 85881 ml Output Total 200 ml 93312 ml Balance 236 ml 2871 ml Intake Oral 436 ml 73642 ml IV Total 5628 ml Packed Cells 225 ml Output Urine Total 200 ml 65372 ml Urine/Stool Mix 2050 ml # Voids 22 # Bowel Movements 2 48 Exam NAD, comfortably laying down on the bed no JVD, MMM, no LAD RRR, nl s1, s2 no mrg CTAB, no w,c S,ND,NT,normoactive BS+ warm, no edema, pulses 2/2 IVs and Medications Medications Reviewed: Medications were reviewed in detail Lab and Diagnostics Result Diagram: 03/20/16 0624 03/20/16 0624 Microbiology Blood culture showed no growth after 5 days. Influenza screen negative. Urine culture shows mixed urogenital karen. MRSA screen negative. . X-Rays, CTs and MRIs X-RAY CHEST ONE VIEW, PORTABLE IMPRESSION: Low lung volumes with scattered atelectasis. No acute disease Dictated by: Francisco Wiggins M.D. on 03/03/2016 at 17:18 Approved by: Francisco Wiggins M.D. on 03/03/2016 at 17:18 CT BRAIN WITHOUT CONTRAST IMPRESSION: No acute intracranial process. Dictated by: Francisco Wiggins M.D. on 03/03/2016 at 18:55 Approved by: Francisco Wiggins M.D. on 03/03/2016 at 18:58 US ABDOMEN IMPRESSION: Increased hepatic echogenicity noted likely related to fatty infiltration of the liver but other sources of hepatocellular disease cannot be excluded. Recommend clinical correlation. Dictated by: Meet PEREZ Interpreted: Malorie Mejia MD on 03/05/2016 at 16:03 Transcribed by: JUAN ALBERTO on 03/05/2016 at 16:04 Approved by: Malorie Mejia MD, PhD on 03/05/2016 at 16:48 . 12-lead ECG EKG: Sinus rhythm, heart rate 67, QTc 436, low voltage, no acute ischemic changes. . Cardiac Echo Impressions Echocardiogram Interpretation Summary: The left ventricle is normal in size. Left ventricular wall thickness is mildly increased. The ejection fraction is estimated to be 60-65%. There are no focal wall motion abnormalities. The right ventricle is normal in size and function. Pulmonary artery pressures cannot be estimated because of the lack of a measurable TR jet velocity. The left atrium is mildly dilated. Right atrial size is normal. There is no significant valvular heart disease. The ascending aorta is mild-moderately enlarged. There is a small pericardial effusion noted. There are no echocardiographic indications of cardiac tamponade. Compared to the prior echo report on 02/14/2014, there is no significant change. Reading Physician:PM . Assessment & Plan 80-year-old female admitted 03/03 with increased weakness and was found to have a TSH of 154 and undetectable free T4. Patient has remained relatively stable I think we are reaching the end of his hospitalization. Free T4 is high normal. Hemoglobin is relatively stable relatively stable though she is anemic. She no longer needs insulin to control her diabetes at least while she is here. During issue right now is better blood pressure control which also does not necessitate remaining in the hospital. 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 -appreciate renal input, -held aldactone, lisinopril, HCTZ 03/18 -repeat renal US unremarakble, -adjust meds renally stable, resolved Hypertension, chronic. BP 169/86-211/93 2/6, 116/55 p64- 171/71 p 64 8 spironolactone torsemide 20mg QD, chlorthalidone 25 mg QD, lisinopril 20mg bid, labetalol 300mg q8 03/12-. Amlodipine 10mg QD, Hydralazine to 50mg Q4prn 03/16-, minoxidil 2.5mg 03/17-, Diabetes mellitus, type 2, presume poorly controlled. BS 144-183 03/14-03/15, 121-183 -03/16 last insulin 03/10 2Units. - HgA1C 7.7 03/03 - c/w ISS - Hypoglycemia, acute, present on admission. ? Secondary to myxedema. resolved blood sugar has steadily elevated Anemia- ? Acute blood loss? Or labs/draw error Hemoccult stools. It appears that outpatient GI workup will be sufficient 03/16 - Hg 6.7 03/14, 9.9 03/15 s/p 1U, 9.5 03/16 - s/p 1U PRBC 03/14 - Iron, folate, B12 WNL 03/10, repeating 03/16 and Hemocculting stools 03/16-, retic 1.4, iron low b12 pend 03/16 Elevated transaminases, acute, present on admission. resolved 03/14 ast/alt 03/16 - 03/11? statin use. - resume home atorvastatin 40mg qhs 03/15 - Continue to monitor CMP atleast q7d (03/23) - viral hepatitis panel negative 03/05 - RUQ abd U/S 03/05: "Increased hepatic echogenicity noted likely related to fatty infiltration of the liver but other sources of hepatocellular disease cannot be excluded" Myxedema, acute, present on admission.- TSH 154.6, T4 <0.10. Thank you Dr. Newberyr endocrine consult 03/04, free t4 1.59 (high norm) 03/16, levoxyl 200mcg QD - - Hydrocortisone 100 mg given in ED. Discontinue cortisol was normal 03/04 - Levothyroxine 200 mcg given IV in the ED. 03/04, Synthroid 150 g daily twice a day. -03/15 , free t4 1.59 (high norm) 03/16 Hyperlipidemia, chronic, presume stable.- Held atorvastatin 80 mg daily 03/11 transaminitis from going to resume this 03/15. GERD, chronic, presume stable.- Continue PPI during admission. Replace omeprazole 20 mg daily with protonix 40 mg daily. Osteoporosis, chronic, presume stable.- Patient takes alendronate 70 mg weekly. Will not plan to give this during admission unless it becomes prolonged. Environmental/seasonal allergies, chronic, presume stable. - Loratidine 10 mg available daily PRN. Elevated Trop without reported chest pain- no further action probably patient could benefit from stress Myoview in the outpatient setting. - Echo unremarkable 03/04 and unchanged from earlier - likely demand ischemia and amplified by underlying CAYDEN Prophylaxis- DVT SCD/heparin, GI patient on PPI Disposition- patient is full code from home dispo delayed due to worsening renal function, will consider d/c once renal function starts to improve. GI Prophylaxis: Proton Pump Inhibitor VTE Prophylaxis: Sub-Q Heparin (Unfractionated), SCDs VTE Mechanical Devices: Intermittant Pneumatic CD Resuscitation Status: CPR: Attempt Resuscitation Time spent 35 minutes Ally Beard MD Mar 20, 2016 12:10
--- NOTE | 2016-03-20 12:39 | PCM.PNMED ---
Subjective Date of Service Mar 20, 2016 Subjective Kidney function continues to declined. UA ordered, results pending. stable BP. She has no dizziness, chest pain or SOB. She has good UOP. Exam Vital Signs Vital Sign - Last Date Time Temp Pulse Resp B/P Pulse Ox O2 Delivery O2 Flow Rate FiO2 03/20/16 11:49 65 149/67 03/20/16 05:30 36.7 16 92 Room Air Intake and Output 03/19/16 03/19/16 03/20/16 Cumulative From/Thru 15:00 23:00 07:00 03/03/16 15:32 - 03/19/16 20:00 Intake Total 436 ml 21278 ml Output Total 200 ml 02143 ml Balance 236 ml 2871 ml Intake Oral 436 ml 85568 ml IV Total 5628 ml Packed Cells 225 ml Output Urine Total 200 ml 60109 ml Urine/Stool Mix 2050 ml # Voids 22 # Bowel Movements 2 48 Exam GA: chronically-ill looking lady, in no acute distress. HEENT: puffy eyelids, atraumatic, mild pallor, no jaundice,no JVD, no lymphadenopathy. Chest: Clear to auscultation, Normal respiratory effort. Cor: Regular rate and rhythm S1/S2, No murmur. Abdomen: Soft, NT, ND, no HSM, active BS. Extremities: +1 edema. Lab and Diagnostics Result Diagram: 03/20/1624 03/20/16 06 Microbiology Blood culture showed no growth after 5 days. Influenza screen negative. Urine culture shows mixed urogenital karen. MRSA screen negative. . X-Rays, CTs and MRIs X-RAY CHEST ONE VIEW, PORTABLE IMPRESSION: Low lung volumes with scattered atelectasis. No acute disease Dictated by: Francisco Wiggins M.D. on 03/03/2016 at 17:18 Approved by: Francisco Wiggins M.D. on 03/03/2016 at 17:18 CT BRAIN WITHOUT CONTRAST IMPRESSION: No acute intracranial process. Dictated by: Francisco Wiggins M.D. on 03/03/2016 at 18:55 Approved by: Francisco Wiggins M.D. on 03/03/2016 at 18:58 US ABDOMEN IMPRESSION: Increased hepatic echogenicity noted likely related to fatty infiltration of the liver but other sources of hepatocellular disease cannot be excluded. Recommend clinical correlation. Dictated by: Meet Ybarra RRA Interpreted: Malorie Mejia MD on 03/05/2016 at 16:03 Transcribed by: JUAN ALBERTO on 03/05/2016 at 16:04 Approved by: Malorie Mejia MD, PhD on 03/05/2016 at 16:48 . 12-lead ECG EKG: Sinus rhythm, heart rate 67, QTc 436, low voltage, no acute ischemic changes. . Cardiac Echo Impressions Echocardiogram Interpretation Summary: The left ventricle is normal in size. Left ventricular wall thickness is mildly increased. The ejection fraction is estimated to be 60-65%. There are no focal wall motion abnormalities. The right ventricle is normal in size and function. Pulmonary artery pressures cannot be estimated because of the lack of a measurable TR jet velocity. The left atrium is mildly dilated. Right atrial size is normal. There is no significant valvular heart disease. The ascending aorta is mild-moderately enlarged. There is a small pericardial effusion noted. There are no echocardiographic indications of cardiac tamponade. Compared to the prior echo report on 02/14/2014, there is no significant change. Reading Physician:PM . Assessment & Plan 1. CAYDEN on CKD-3. - worsening kidney function. - ischemic ATN. - It is related to poor renal perfusion and poor renal autoregulation during hypotensive episodes. - previous Abd US 03/05: Kidneys are normal in size and echotexture. No hydronephrosis or nephrolithiasis. No solid masses. - Renal US: Kidneys are normal in size. Right kidney measures 10.4 cm long; left kidney measures 10.9 cm long. Right renal cortical thickness is 1.4 cm; left renal cortical thickness is 1.4 cm. Renal cortical echotexture is normal. No hydronephrosis or nephrolithiasis. No suspicious solid mass lesions. Bladder: The patient had voided just prior to examination, and therefore accurate assessment of the bladder for mass or calculus is not possible. 2. HTN with hypertensive nephrosclerosis. 3. Hypothyroidism/Myxedema. 4. anemia s/p PRBC transfusion. 5. Type-2 DM. Plan: repeat UA, urine eos. maintain sBP ~ 140-150. spread out BP meds administration, not to be given at the same time. continue labetalol and norvasc. hold minoxidil. repeat BMP in am. hold BP meds if BP < 130/80. GI Prophylaxis: Proton Pump Inhibitor VTE Prophylaxis: Sub-Q Heparin (Unfractionated), SCDs VTE Mechanical Devices: Intermittant Pneumatic CD Resuscitation Status: CPR: Attempt Resuscitation Cheryl oPnd MD Mar 20, 2016 12:39
--- NOTE | 2016-03-20 12:43 | NUR ---
Social Work: Readiness for Discharge Data: EMR reviewed. Patient is on day 17 of hospitalization for myxedema and altered mental status per H&P. Pt may be medically stable in 1-2 days. SW spoke with patient at bedside to further discuss discharge planning, SW role explained. PT continues to recommend home with home health. Pt has 24/ assist from family. Upon discharge, Pt will return home with [facility]- RN and PT with family to transport POV. SW will continue to follow. Assessment: Pt who would benefit from - RN and PT. Plan: Pt to discharge home with family when medically stable via POV. Referral made to [facility] for RN and PT. SW will continue to follow. IDALIA Peterson
[2016-03-20 14:02] VITALS: BP 150/56; PULSE 75; RESP 16; O2SAT 93
[2016-03-20 20:28] VITALS: BP 156/78; PULSE 71; RESP 16; O2SAT 95
[2016-03-21] MEDS: Heparin 5,000 Unit/mL Inj SUBQ SCH ×3 (00:22→17:18)
[2016-03-21] MEDS: Sodium Chloride LOK Flush 10 mL Syringe IVFLUSH SCH ×3 (00:23→17:18)
--- NOTE | 2016-03-21 02:56 | NUR ---
Activity Patient ambulates to toilet with FWW, experiencing continued loose stools. Denial of chest pain, SOB, and abdominal discomfort. HS blood glucose 137 not requiring insulin coverage this shift. Patient utilizes step stool at bedside for transferring to bed. A&O, able to make needs known, answers questions appropriately at this time.
[2016-03-21 05:40] VITALS: BP 159/72; PULSE 72; RESP 16; O2SAT 96
[2016-03-21] MEDS: Pantoprazole 20 mg ER24 Tablet PO SCH (05:49)
[2016-03-21 06:30] LABS: BASOPHILS % (AUTO) 0.4 % (0-3); MONOCYTES % (AUTO) 9.8 % (4-12); Mean Corpuscular Hemoglobin 27.9 pg (27.0-35.0); Mean Corpuscular Volume 86.4 fL (81-100); NEUTROPHILS % (AUTO) 67.2 % (40-74); Platelet Count 282 bil/L (150-400)
[2016-03-21 06:47] LABS: Magnesium 2.6 mg/dL (1.6-2.6); Phosphorus 4.7 mg/dL (2.5-4.9)
[2016-03-21] MEDS: Insulin LISPRO 300 Unit/3 mL Inj SUBQ SCH ×4 (08:00→21:08)
[2016-03-21 08:20] VITALS: BP 165/72; PULSE 70; RESP 18; O2SAT 93
--- NOTE | 2016-03-21 11:53 | PCM.PNMED ---
Subjective Date of Service Mar 21, 2016 Subjective Patient denied any abdominal pain, back pain, nausea, eating well with good appetite Exam Vital Signs Vital Sign - Last Date Time Temp Pulse Resp B/P Pulse Ox O2 Delivery O2 Flow Rate FiO2 03/21/16 08:20 70 18 165/72 93 Room Air 03/21/16 05:40 36.4 Intake and Output 03/20/16 03/20/16 03/21/16 Cumulative From/Thru 15:00 23:00 07:00 03/03/16 15:32 - 03/21/16 06:00 Intake Total 450 ml 478 ml 27218 ml Output Total 150 ml 1 ml 45681 ml Balance 300 ml 477 ml 3648 ml Intake Oral 450 ml 478 ml 16989 ml IV Total 5628 ml Packed Cells 225 ml Output Urine Total 150 ml 52251 ml Urine/Stool Mix 1 ml 2051 ml # Voids 22 # Bowel Movements 1 49 Exam NAD, comfortably laying down on the bed no JVD, MMM, no LAD RRR, nl s1, s2 no mrg CTAB, no w,c S,ND,NT,normoactive BS+ warm, no edema, pulses 2/2 IVs and Medications Medications Reviewed: Medications were reviewed in detail Lab and Diagnostics Result Diagram: 03/21/16 0603/21/16 06 Microbiology Blood culture showed no growth after 5 days. Influenza screen negative. Urine culture shows mixed urogenital karen. MRSA screen negative. . X-Rays, CTs and MRIs X-RAY CHEST ONE VIEW, PORTABLE IMPRESSION: Low lung volumes with scattered atelectasis. No acute disease Dictated by: Francisco Wiggins M.D. on 03/03/2016 at 17:18 Approved by: Francisco Wiggins M.D. on 03/03/2016 at 17:18 CT BRAIN WITHOUT CONTRAST IMPRESSION: No acute intracranial process. Dictated by: Francisco Wiggins M.D. on 03/03/2016 at 18:55 Approved by: Francisco Wiggisn M.D. on 03/03/2016 at 18:58 US ABDOMEN IMPRESSION: Increased hepatic echogenicity noted likely related to fatty infiltration of the liver but other sources of hepatocellular disease cannot be excluded. Recommend clinical correlation. Dictated by: Meet PEREZ Interpreted: Malorie Mejia MD on 03/05/2016 at 16:03 Transcribed by: JUAN ALBERTO on 03/05/2016 at 16:04 Approved by: Malorie Mejia MD, PhD on 03/05/2016 at 16:48 . 12-lead ECG EKG: Sinus rhythm, heart rate 67, QTc 436, low voltage, no acute ischemic changes. . Cardiac Echo Impressions Echocardiogram Interpretation Summary: The left ventricle is normal in size. Left ventricular wall thickness is mildly increased. The ejection fraction is estimated to be 60-65%. There are no focal wall motion abnormalities. The right ventricle is normal in size and function. Pulmonary artery pressures cannot be estimated because of the lack of a measurable TR jet velocity. The left atrium is mildly dilated. Right atrial size is normal. There is no significant valvular heart disease. The ascending aorta is mild-moderately enlarged. There is a small pericardial effusion noted. There are no echocardiographic indications of cardiac tamponade. Compared to the prior echo report on 02/14/2014, there is no significant change. Reading Physician:PM . Assessment & Plan 80-year-old female admitted 03/03 with increased weakness and was found to have a TSH of 154 and undetectable free T4. Patient has remained relatively stable I think we are reaching the end of his hospitalization. Free T4 is high normal. Hemoglobin is relatively stable relatively stable though she is anemic. She no longer needs insulin to control her diabetes at least while she is here. During issue right now is better blood pressure control which also does not necessitate remaining in the hospital. 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 likely due to ATN , s/p [id number] 03/18, baseline eGFR last 80-90 , Cr further decreased, oligouric then Cr, UOP started to improve on 03/21 on the recovery of ATN -appreciate renal input, -held aldactone, lisinopril, HCTZ 03/18, minoxidil stopped 03/20 -repeat renal US unremarakble, -adjust meds renally -expect to be further improved in 2-3days. #Hypertension, target <140/90 given CKD, [id number] since many BP helds, currently amlodipin 10mg at noon, labetalol 300 q12h, appreciate renal recs on bp regimen. stable, resolved Diabetes mellitus, type 2, presume poorly controlled. BS 144-183 /-03/15, 121-183 -03/16 last insulin 03/10 2Units. - HgA1C 7.7 03/03 - c/w ISS - Hypoglycemia, acute, present on admission. ? Secondary to myxedema. resolved blood sugar has steadily elevated Anemia- ? Acute blood loss? Or labs/draw error Hemoccult stools. It appears that outpatient GI workup will be sufficient 03/16 - Hg 6.7 03/14, 9.9 03/15 s/p 1U, 9.5 03/16 - s/p 1U PRBC 03/14 - Iron, folate, B12 WNL 03/10, repeating 03/16 and Hemocculting stools 03/16-, retic 1.4, iron low b12 pend 03/16 Elevated transaminases, acute, present on admission. resolved 03/14 ast/alt 03/16 - 03/11? statin use. - resume home atorvastatin 40mg qhs 03/15 - Continue to monitor CMP atleast q7d (03/23) - viral hepatitis panel negative 03/05 - RUQ abd U/S 03/05: "Increased hepatic echogenicity noted likely related to fatty infiltration of the liver but other sources of hepatocellular disease cannot be excluded" Myxedema, acute, present on admission.- TSH 154.6, T4 <0.10. Thank you Dr. Newberry endocrine consult 03/04, free t4 1.59 (high norm) 03/16, levoxyl 200mcg QD - - Hydrocortisone 100 mg given in ED. Discontinue cortisol was normal 03/04 - Levothyroxine 200 mcg given IV in the ED. 03/04, Synthroid 150 g daily twice a day. -03/15 , free t4 1.59 (high norm) 03/16 Hyperlipidemia, chronic, presume stable.- Held atorvastatin 80 mg daily 03/11 transaminitis from going to resume this 03/15. GERD, chronic, presume stable.- Continue PPI during admission. Replace omeprazole 20 mg daily with protonix 40 mg daily. Osteoporosis, chronic, presume stable.- Patient takes alendronate 70 mg weekly. Will not plan to give this during admission unless it becomes prolonged. Environmental/seasonal allergies, chronic, presume stable. - Loratidine 10 mg available daily PRN. Elevated Trop without reported chest pain- no further action probably patient could benefit from stress Myoview in the outpatient setting. - Echo unremarkable 03/04 and unchanged from earlier - likely demand ischemia and amplified by underlying CAYDEN Prophylaxis- DVT SCD/heparin, GI patient on PPI Disposition- patient is full code dispo delayed due to worsening renal function, will consider d/c once renal function is more stable, likely takes at least 2more days, follow up with renal. DISPO plan HOME WITH HOME HEALTH GI Prophylaxis: Proton Pump Inhibitor VTE Prophylaxis: Sub-Q Heparin (Unfractionated), SCDs VTE Mechanical Devices: Intermittant Pneumatic CD Resuscitation Status: CPR: Attempt Resuscitation Time spent 35min Ally Beard MD Mar 21, 2016 11:53 Ally Beard MD Mar 21, 2016 11:53
[2016-03-21] MEDS: 0.9% Sodium Chloride 250 ML IV SCH (12:16)
[2016-03-21 12:18] VITALS: BP 154/66; PULSE 65
[2016-03-21 14:08] VITALS: BP 149/71; PULSE 69; RESP 16; O2SAT 93
--- NOTE | 2016-03-21 14:57 | PCM.PNMED ---
Subjective Date of Service Mar 21, 2016 Subjective sBP ~150, improving serum cr. no acute issue. Exam Vital Signs Vital Sign - Last Date Time Temp Pulse Resp B/P Pulse Ox O2 Delivery O2 Flow Rate FiO2 03/21/16 14:08 36.5 69 16 149/71 93 Room Air Intake and Output 03/20/16 03/20/16 03/21/16 Cumulative From/Thru 15:00 23:00 07:00 03/03/16 15:32 - 03/21/16 06:00 Intake Total 450 ml 478 ml 01132 ml Output Total 150 ml 1 ml 86113 ml Balance 300 ml 477 ml 3648 ml Intake Oral 450 ml 478 ml 54921 ml IV Total 5628 ml Packed Cells 225 ml Output Urine Total 150 ml 76482 ml Urine/Stool Mix 1 ml 2051 ml # Voids 22 # Bowel Movements 1 49 Exam GA: chronically-ill looking lady, in no acute distress. HEENT: puffy eyelids, atraumatic, mild pallor, no jaundice,no JVD, no lymphadenopathy. Chest: Clear to auscultation, Normal respiratory effort. Cor: Regular rate and rhythm S1/S2, No murmur. Abdomen: Soft, NT, ND, no HSM, active BS. Extremities: +1 edema. Lab and Diagnostics Result Diagram: 03/21/16 0606 03/21/16 06 Microbiology Blood culture showed no growth after 5 days. Influenza screen negative. Urine culture shows mixed urogenital karen. MRSA screen negative. . X-Rays, CTs and MRIs X-RAY CHEST ONE VIEW, PORTABLE IMPRESSION: Low lung volumes with scattered atelectasis. No acute disease Dictated by: Francisco Wiggins M.D. on 03/03/2016 at 17:18 Approved by: Francisco Wiggins M.D. on 03/03/2016 at 17:18 CT BRAIN WITHOUT CONTRAST IMPRESSION: No acute intracranial process. Dictated by: Francisco Wiggins M.D. on 03/03/2016 at 18:55 Approved by: Francisco Wiggins M.D. on 03/03/2016 at 18:58 US ABDOMEN IMPRESSION: Increased hepatic echogenicity noted likely related to fatty infiltration of the liver but other sources of hepatocellular disease cannot be excluded. Recommend clinical correlation. Dictated by: Meet PEREZ Interpreted: Malorie Mejia MD on 03/05/2016 at 16:03 Transcribed by: JUAN ALBERTO on 03/05/2016 at 16:04 Approved by: Malorie Mejia MD, PhD on 03/05/2016 at 16:48 . 12-lead ECG EKG: Sinus rhythm, heart rate 67, QTc 436, low voltage, no acute ischemic changes. . Cardiac Echo Impressions Echocardiogram Interpretation Summary: The left ventricle is normal in size. Left ventricular wall thickness is mildly increased. The ejection fraction is estimated to be 60-65%. There are no focal wall motion abnormalities. The right ventricle is normal in size and function. Pulmonary artery pressures cannot be estimated because of the lack of a measurable TR jet velocity. The left atrium is mildly dilated. Right atrial size is normal. There is no significant valvular heart disease. The ascending aorta is mild-moderately enlarged. There is a small pericardial effusion noted. There are no echocardiographic indications of cardiac tamponade. Compared to the prior echo report on 02/14/2014, there is no significant change. Reading Physician:PM . Assessment & Plan 1. CAYDEN on CKD-3. - serum creatinine trended down. - Ischemic ATN. - It is related to poor renal perfusion and poor renal autoregulation during hypotensive episodes. - previous Abd US 03/05: Kidneys are normal in size and echotexture. No hydronephrosis or nephrolithiasis. No solid masses. - Renal US: Kidneys are normal in size. Right kidney measures 10.4 cm long; left kidney measures 10.9 cm long. Right renal cortical thickness is 1.4 cm; left renal cortical thickness is 1.4 cm. Renal cortical echotexture is normal. No hydronephrosis or nephrolithiasis. No suspicious solid mass lesions. Bladder: The patient had voided just prior to examination, and therefore accurate assessment of the bladder for mass or calculus is not possible. 2. HTN with hypertensive nephrosclerosis. 3. Hypothyroidism/Myxedema. 4. anemia s/p PRBC transfusion. 5. Type-2 DM. Plan: maintain sBP ~ 140-150. spread out BP meds administration, not to be given at the same time. continue labetalol 300 mg BID and norvasc 10 mg daily. hold minoxidil. repeat BMP in am. hold BP meds if BP < 130/80. GI Prophylaxis: Proton Pump Inhibitor VTE Prophylaxis: Sub-Q Heparin (Unfractionated), SCDs VTE Mechanical Devices: Intermittant Pneumatic CD Resuscitation Status: CPR: Attempt Resuscitation Cheryl Pond MD Mar 21, 2016 14:57
--- NOTE | 2016-03-21 17:32 | NUR ---
Anxiety / restless legs / Med education It was noted that the pt seems to be very anxious about everything that is going on. MD did go in and speak with pt which seemed to help some. Pt sits in bed and is constantly moving his legs, shaking his legs, etc. He said that he typically sleeps fine at home but would like a [facility] tonight to help keep his pain tolerable in order to get some quality sleep. Medication information sheet given to pt by MD for presumptive Eliquis medication in which pt will be on after discharge. Care continues Addendum: 03/21/16 at 1735 by DENNIS PANIAGUA RN WRONG PATIENT NOTE!!
--- NOTE | 2016-03-21 17:36 | NUR ---
BMs / Ambulation Pt continues to have 2-3 loose gelatinous BMs each shift. Baseline incontinence continues but pt is able to get to toilet at times. Unable to collect urine sample as pt is unable to control bowels while voiding. Pt SBA/1 assist FWW with short shuffling gait. Stood at toils side for a good 5 minutes today while getting cleaned up. Seems to have increased strength today when compared to yesterday. Care continues
--- NOTE | 2016-03-21 17:42 | NUR ---
BP Spoke with Renal MD. She stated that it is OK for pts BP to be slightly high. Stated that she would like it to be around 150/60s but not any higher than Systolic of 200s. Care continues
[2016-03-21 20:39] VITALS: BP 147/68; PULSE 73; RESP 18; O2SAT 92
[2016-03-21 23:02] VITALS: BP 161/74; PULSE 72
[2016-03-22] VITALS (9 sets, daily range): BP systolic 95–161; BP diastolic 40–74; PULSE 63–92; RESP 16–19; O2SAT 90–96
[2016-03-22] MEDS: Sodium Chloride LOK Flush 10 mL Syringe IVFLUSH SCH ×3 (00:50→16:30)
[2016-03-22] MEDS: Heparin 5,000 Unit/mL Inj SUBQ SCH ×3 (00:50→18:14)
--- NOTE | 2016-03-22 05:42 | NUR ---
Activity pt ambulated to the restroom with 1 person assist with FWW. Continue having loose stool, but times 1 only. pt spent most of the shift resting quietly without compliments. Bed is locked and in low position, call light within reach. will continue to monitor.
[2016-03-22] MEDS: Pantoprazole 20 mg ER24 Tablet PO SCH (06:32)
[2016-03-22 06:47] LABS: Magnesium 2.6 mg/dL (1.6-2.6); Phosphorus 5.1 mg/dL (2.5-4.9)
[2016-03-22 06:51] LABS: BASOPHILS % (AUTO) 0.4 % (0-3); EOSINOPHILS % (AUTO) 4.2 % (0-5); MONOCYTES % (AUTO) 11.5 % (4-12); Mean Corpuscular Hemoglobin 27.6 pg (27.0-35.0); Mean Corpuscular Volume 86.9 fL (81-100); Platelet Count 387 bil/L (150-400)
[2016-03-22] MEDS: Insulin LISPRO 300 Unit/3 mL Inj SUBQ SCH ×4 (08:00→22:00)
--- NOTE | 2016-03-22 09:15 | NUR ---
[facility] Signed
[2016-03-22] MEDS: 0.9% Sodium Chloride 250 ML IV SCH (11:35)
--- NOTE | 2016-03-22 17:29 | PCM.PNMED ---
Subjective Date of Service Mar 22, 2016 Subjective No new complaints, creatinine continues to trend up. low blood pressure noted this morning. Held blood pressure medications Exam Vital Signs Vital Sign - Last Date Time Temp Pulse Resp B/P Pulse Ox O2 Delivery O2 Flow Rate FiO2 03/22/16 12:02 64 153/74 03/22/16 10:51 18 90 Room Air 03/22/16 10:50 36.3 Intake and Output 03/21/16 03/21/16 03/22/16 Cumulative From/Thru 15:00 23:00 07:00 03/03/16 15:32 - 03/22/16 07:00 Intake Total 400 ml 678 ml 30070 ml Output Total 600 ml 400 ml 46128 ml Balance -200 ml 278 ml 3726 ml Intake Oral 400 ml 678 ml 33320 ml IV Total 5628 ml Packed Cells 225 ml Output Urine Total 600 ml 34106 ml Urine/Stool Mix 400 ml 2451 ml # Voids 22 # Bowel Movements 2 51 Exam NAD, comfortably laying down on the bed no JVD, MMM, no LAD RRR, nl s1, s2 no mrg CTAB, no w,c S,ND,NT,normoactive BS+ warm, no edema, pulses 2/2 IVs and Medications Medications Reviewed: Medications were reviewed in detail Lab and Diagnostics Result Diagram: 03/22/1652103/22/16521 Microbiology Blood culture showed no growth after 5 days. Influenza screen negative. Urine culture shows mixed urogenital karen. MRSA screen negative. . X-Rays, CTs and MRIs X-RAY CHEST ONE VIEW, PORTABLE IMPRESSION: Low lung volumes with scattered atelectasis. No acute disease Dictated by: Francisco Wiggins M.D. on 03/03/2016 at 17:18 Approved by: Francisco Wiggins M.D. on 03/03/2016 at 17:18 CT BRAIN WITHOUT CONTRAST IMPRESSION: No acute intracranial process. Dictated by: Francisco Wiggins M.D. on 03/03/2016 at 18:55 Approved by: Francisco Wiggins M.D. on 03/03/2016 at 18:58 US ABDOMEN IMPRESSION: Increased hepatic echogenicity noted likely related to fatty infiltration of the liver but other sources of hepatocellular disease cannot be excluded. Recommend clinical correlation. Dictated by: Meet PEREZ Interpreted: Malorie Mejia MD on 03/05/2016 at 16:03 Transcribed by: JUAN ALBERTO on 03/05/2016 at 16:04 Approved by: Malorie Mejia MD, PhD on 03/05/2016 at 16:48 . 12-lead ECG EKG: Sinus rhythm, heart rate 67, QTc 436, low voltage, no acute ischemic changes. . Cardiac Echo Impressions Echocardiogram Interpretation Summary: The left ventricle is normal in size. Left ventricular wall thickness is mildly increased. The ejection fraction is estimated to be 60-65%. There are no focal wall motion abnormalities. The right ventricle is normal in size and function. Pulmonary artery pressures cannot be estimated because of the lack of a measurable TR jet velocity. The left atrium is mildly dilated. Right atrial size is normal. There is no significant valvular heart disease. The ascending aorta is mild-moderately enlarged. There is a small pericardial effusion noted. There are no echocardiographic indications of cardiac tamponade. Compared to the prior echo report on 02/14/2014, there is no significant change. Reading Physician:PM . Assessment & Plan 80-year-old female admitted 03/03 with increased weakness and was found to have a TSH of 154 and undetectable free T4. Patient has remained relatively stable I think we are reaching the end of his hospitalization. Free T4 is high normal. Hemoglobin is relatively stable relatively stable though she is anemic. She no longer needs insulin to control her diabetes at least while she is here. During issue right now is better blood pressure control which also does not necessitate remaining in the hospital. 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 likely due to ATN , s/p [id number] 03/18, baseline eGFR last 80-90 , Cr slightly worse today, oligouric then Cr, UOP started to improve on 03/21 on the recovery of ATN -appreciate renal input, -held aldactone, lisinopril, HCTZ 03/18, minoxidil stopped 03/20 -repeat renal US unremarakble, discussed with Dr. Thomas,. He recommends repeat ultrasound -adjust meds renally -expect to be further improved in 1-2 days. #Hypertension, target <140/90 given CKD, [id number] since many BP helds, currently amlodipin 10mg at noon, labetalol 300 q12h, appreciate renal recs on bp regimen. stable, resolved Diabetes mellitus, type 2, presume poorly controlled. BS 144-183 03/14-03/15, 121-183 -03/16 last insulin 03/10 2Units. - HgA1C 7.7 03/03 - c/w ISS - Hypoglycemia, acute, present on admission. ? Secondary to myxedema. resolved blood sugar has steadily elevated Anemia- ? Acute blood loss? Or labs/draw error Hemoccult stools. It appears that outpatient GI workup will be sufficient 03/16 - Hg 6.7 03/14, 9.9 03/15 s/p 1U, 9.5 03/16 - s/p 1U PRBC 03/14 - Iron, folate, B12 WNL 03/10, repeating 03/16 and Hemocculting stools 03/16-, retic 1.4, iron low b12 pend 03/16 Elevated transaminases, acute, present on admission. resolved 03/14 ast/alt 03/16 - 03/11? statin use. - resume home atorvastatin 40mg qhs 03/15 - Continue to monitor CMP atleast q7d (03/23) - viral hepatitis panel negative 03/05 - RUQ abd U/S 03/05: "Increased hepatic echogenicity noted likely related to fatty infiltration of the liver but other sources of hepatocellular disease cannot be excluded" Myxedema, acute, present on admission.- TSH 154.6, T4 <0.10. Thank you Dr. Newberry endocrine consult 03/04, free t4 1.59 (high norm) 03/16, levoxyl 200mcg QD - - Hydrocortisone 100 mg given in ED. Discontinue cortisol was normal 03/04 - Levothyroxine 200 mcg given IV in the ED. 03/04, Synthroid 150 g daily twice a day. -03/15 , free t4 1.59 (high norm) 03/16 Hyperlipidemia, chronic, presume stable.- Held atorvastatin 80 mg daily 03/11 transaminitis from going to resume this 03/15. GERD, chronic, presume stable.- Continue PPI during admission. Replace omeprazole 20 mg daily with protonix 40 mg daily. Osteoporosis, chronic, presume stable.- Patient takes alendronate 70 mg weekly. Will not plan to give this during admission unless it becomes prolonged. Environmental/seasonal allergies, chronic, presume stable. - Loratidine 10 mg available daily PRN. Elevated Trop without reported chest pain- no further action probably patient could benefit from stress Myoview in the outpatient setting. - Echo unremarkable 03/04 and unchanged from earlier - likely demand ischemia and amplified by underlying CAYDEN Prophylaxis- DVT SCD/heparin, GI patient on PPI Disposition- patient is full code dispo delayed due to worsening renal function, will consider d/c once renal function is more stable, follow up with renal. DISPO plan HOME WITH HOME HEALTH GI Prophylaxis: Proton Pump Inhibitor VTE Prophylaxis: Sub-Q Heparin (Unfractionated), SCDs VTE Mechanical Devices: Intermittant Pneumatic CD Resuscitation Status: CPR: Attempt Resuscitation Miguelangel Dahl MD Mar 22, 2016 17:29
--- NOTE | 2016-03-22 17:37 | PCM.PNMED ---
Subjective Date of Service Mar 22, 2016 Subjective Patient's had considerable fluctuations in her blood pressure with number of adjustments. She has developed some transient worsening of her renal function which is most likely due to the marked change in her blood pressures. 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 She is unable to give any meaningful history. Exam Vital Signs Vital Sign - Last Date Time Temp Pulse Resp B/P Pulse Ox O2 Delivery O2 Flow Rate FiO2 03/22/16 12:02 64 153/74 03/22/16 10:51 18 90 Room Air 03/22/16 10:50 36.3 Intake and Output 03/21/16 03/21/16 03/22/16 Cumulative From/Thru 15:00 23:00 07:00 03/03/16 15:32 - 03/22/16 07:00 Intake Total 400 ml 678 ml 87705 ml Output Total 600 ml 400 ml 53172 ml Balance -200 ml 278 ml 3726 ml Intake Oral 400 ml 678 ml 39111 ml IV Total 5628 ml Packed Cells 225 ml Output Urine Total 600 ml 15812 ml Urine/Stool Mix 400 ml 2451 ml # Voids 22 # Bowel Movements 2 51 Exam Sclerae pale neck is supple without adenopathy thyromegaly or jugular venous distention. Lungs are clear to auscultation though somewhat diminished. Heart was regular rhythm with a soft systolic murmur. Abdomen once again is markedly distended and somewhat firm. Her bowel sounds are diminished and there is intermittent tympani throughout her abdomen. I did not appreciate any fluid wave or shifting dullness however I cannot exclude ascites. Extremities showed some mild edema on her lower extremities. Lab and Diagnostics Result Diagram: 03/22/1622 03/22/1622 Microbiology Blood culture showed no growth after 5 days. Influenza screen negative. Urine culture shows mixed urogenital karen. MRSA screen negative. . X-Rays, CTs and MRIs X-RAY CHEST ONE VIEW, PORTABLE IMPRESSION: Low lung volumes with scattered atelectasis. No acute disease Dictated by: Francisco Wiggins M.D. on 03/03/2016 at 17:18 Approved by: Francisco Wiggins M.D. on 03/03/2016 at 17:18 CT BRAIN WITHOUT CONTRAST IMPRESSION: No acute intracranial process. Dictated by: Francisco Wiggins M.D. on 03/03/2016 at 18:55 Approved by: Francisco Wiggins M.D. on 03/03/2016 at 18:58 US ABDOMEN IMPRESSION: Increased hepatic echogenicity noted likely related to fatty infiltration of the liver but other sources of hepatocellular disease cannot be excluded. Recommend clinical correlation. Dictated by: Meet Ybarra RRA Interpreted: Malorie Mejia MD on 03/05/2016 at 16:03 Transcribed by: JUAN ALBERTO on 03/05/2016 at 16:04 Approved by: Malorie Mejia MD, PhD on 03/05/2016 at 16:48 . 12-lead ECG EKG: Sinus rhythm, heart rate 67, QTc 436, low voltage, no acute ischemic changes. . Cardiac Echo Impressions Echocardiogram Interpretation Summary: The left ventricle is normal in size. Left ventricular wall thickness is mildly increased. The ejection fraction is estimated to be 60-65%. There are no focal wall motion abnormalities. The right ventricle is normal in size and function. Pulmonary artery pressures cannot be estimated because of the lack of a measurable TR jet velocity. The left atrium is mildly dilated. Right atrial size is normal. There is no significant valvular heart disease. The ascending aorta is mild-moderately enlarged. There is a small pericardial effusion noted. There are no echocardiographic indications of cardiac tamponade. Compared to the prior echo report on 02/14/2014, there is no significant change. Reading Physician:PM . 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 GI Prophylaxis: Proton Pump Inhibitor VTE Prophylaxis: Sub-Q Heparin (Unfractionated), SCDs VTE Mechanical Devices: Intermittant Pneumatic CD Resuscitation Status: CPR: Attempt Resuscitation Bean Thomas DO Mar 22, 2016 17:37
--- NOTE | 2016-03-22 20:10 | DRSVH ---
PROCEDURE: US ABDOMEN ([id number]) INDICATIONS: abdominal distension and CAYDEN TECHNIQUE: Real-time scanning was performed of the abdominal and retroperitoneal organs, with image documentatio n. COMPARISON: None. FINDINGS: Liver: Liver is normal in size and homogeneous in echotexture. Main portal vein is patent with hepa topedal flow. Gallbladder: Surgically absent. Biliary ducts: Intrahepatic bile ducts are non-dilated. Extrahepatic bile duct caliber measures up to 6 mm. Normal is 6-7 mm or less in diameter, or 10 mm or less post-cholecystectomy. Pancreas: Not well-seen due to bowel gas. Spleen: Spleen is normal in size and homogeneous in echotexture. Kidneys: Right kidney measures 10.7 cm long; left kidney measures 11.8 cm long. No hydronephrosis. Aorta: Visualized aorta is normal in caliber at less than 3 cm. Iliacs: Proximal common iliac arteries are not well seen due to bowel gas. IVC: Intrahepatic inferior vena cava is patent. Miscellaneous: No free abdominal fluid. IMPRESSION: 1. No acute intra-abdominal sonographic abnormality. 2. No hydronephrosis. Dictated by: Hollis Dixon M.D. on 03/22/2016 at 20:06 Approved by: Hollis Dixon M.D. on 03/22/2016 at 20:08
[2016-03-23] MEDS: Heparin 5,000 Unit/mL Inj SUBQ SCH ×2 (01:16→08:28)
[2016-03-23] MEDS: Sodium Chloride LOK Flush 10 mL Syringe IVFLUSH SCH ×2 (01:16→08:26)
--- NOTE | 2016-03-23 03:51 | NUR ---
Activity Patient denies any needs. Ambulated to BR. Stools guaiac'd per [employer] RESOURCE [employer]GER. VSS. Call light within reach. Care continues.
[2016-03-23 05:43] VITALS: BP 124/78; PULSE 64; RESP 20; O2SAT 98
[2016-03-23 06:22] LABS: Mean Corpuscular Hemoglobin 26.9 pg (27.0-35.0); Mean Corpuscular Volume 86.6 fL (81-100)
[2016-03-23 06:25] LABS: Unsaturated Iron Binding 269.5 ug/dL
[2016-03-23] MEDS: Pantoprazole 20 mg ER24 Tablet PO SCH (06:53)
[2016-03-23] MEDS: Insulin LISPRO 300 Unit/3 mL Inj SUBQ SCH ×2 (08:00→12:00)
[2016-03-23] MEDS ORDERED: Darbepoetin Alfa 60 mCg/0.3 mL Inj SUBQ ONE (11:05)
[2016-03-23] MEDS ORDERED: Iron Sucrose Inj 200 MG in 0.9% Sodium Chloride 100 ML IV ONE (11:05)
[2016-03-23 12:21] VITALS: BP 172/75; PULSE 66; RESP 18; O2SAT 95
--- NOTE | 2016-03-23 13:41 | PCM.DIMED ---
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 #Hypertension, stable, resolved # Diabetes mellitus, type 2, # Anemia- of CKD requiring transfusion # Hyperlipidemia, chronic, presume stable.- # GERD, chronic, presume stable.- #Osteoporosis, chronic, presume stable.- # Environmental/seasonal allergies, chronic, presume stable. Medication Instructions Initial TSH 154 Diet Heart Healthy, Diabetic Activity No restrictions Call your provider Fever or Chills, Shortness of breath, Bleeding, Chest pain, Vomitting, Excessive diarrhea, Weakness (unilateral), Other (decreased mentation and persistent fatigue) Patient Instructions You were hospitalized due to myxedema/severe hypothyroidism. He were treated with IV Synthroid and hydrocortisone. Please continue levothyroxine by mouth. You also had anemia requiring transfusion. IV iron and venofer given. You need to follow with nephrology In 1 month. Patient will need routine follow-up with primary care provider, a referral to a braille coder to workup anemia. You need to follow up with PCP 1 week. He was metal base blocker in 4 weeks. Follow-up plan Patient's going home on Follow-up Provider: Praveena Saini MD Follow-up with PCP in: 1 week (Praveena Saini call for appointment as soon as possible) Provider: Bean Thomas DO Follow-up in: 4 weeks Miguelangel Dahl MD Mar 23, 2016 13:41
[2016-03-23] MEDS ORDERED: LABE300T PO (13:46)
[2016-03-23] MEDS ORDERED: ROPI1TAB2 PO (13:50)
[2016-03-23] MEDS ORDERED: MAGN400T4 PO (13:56)
[2016-03-23] MEDS ORDERED: LEVO200T6 PO (13:56)
--- NOTE | 2016-03-23 14:41 | PCM.PNMED ---
Subjective Date of Service Mar 23, 2016 Subjective Patient's blood pressure is a bit more appropriate. Her renal function also is improving. Patient is more alert and interactive today and is scheduled to be discharged. This morning her hemoglobin was 8.6, her transferrin saturation is 90%, sodium is 133, potassium 5.0, chloride 99, CO2 of 22, hematocrit 45 and 2.4 respectively. Her ultrasound of the abdomen just showed extensive bowel gas. There was no evidence of any ascites or obstruction. Exam Vital Signs Vital Sign - Last Date Time Temp Pulse Resp B/P Pulse Ox O2 Delivery O2 Flow Rate FiO2 03/23/16 12:21 36.5 66 18 172/75 95 Room Air Intake and Output 03/22/16 03/22/16 03/23/16 Cumulative From/Thru 15:00 23:00 07:00 03/03/16 15:32 - 03/23/16 06:16 Intake Total 200 ml 427 ml 568 ml 03675 ml Output Total 400 ml 200 ml 1095 ml 80024 ml Balance -200 ml 227 ml -527 ml 3226 ml Intake Oral 200 ml 360 ml 450 ml 25085 ml IV Total 67 ml 118 ml 5813 ml Packed Cells 225 ml Output Urine Total 400 ml 200 ml 1095 ml 03369 ml Urine/Stool Mix 2451 ml # Voids 5 27 # Bowel Movements 1 4 56 Exam HEENT examination is remarkable for pale sclera. Neck is supple without adenopathy, thyromegaly, or jugular veins distention. Lungs are clear to auscultation though somewhat diminished bilaterally. Heart was a soft systolic murmur. Abdomen soft without tenderness rebound guarding masses however her abdomen is distended. Extremities do not show any evidence of clubbing cyanosis and only trivial edema was noted. Lab and Diagnostics Result Diagram: 03/23/16 0530 03/23/16 0530 Microbiology Blood culture showed no growth after 5 days. Influenza screen negative. Urine culture shows mixed urogenital karen. MRSA screen negative. . X-Rays, CTs and MRIs X-RAY CHEST ONE VIEW, PORTABLE IMPRESSION: Low lung volumes with scattered atelectasis. No acute disease Dictated by: Francisco Wiggins M.D. on 03/03/2016 at 17:18 Approved by: Francisco Wiggins M.D. on 03/03/2016 at 17:18 CT BRAIN WITHOUT CONTRAST IMPRESSION: No acute intracranial process. Dictated by: Francisco Wiggins M.D. on 03/03/2016 at 18:55 Approved by: Francisco Wiggins M.D. on 03/03/2016 at 18:58 US ABDOMEN IMPRESSION: Increased hepatic echogenicity noted likely related to fatty infiltration of the liver but other sources of hepatocellular disease cannot be excluded. Recommend clinical correlation. Dictated by: Meet Ybarra RR Interpreted: Malorie Mejia MD on 03/05/2016 at 16:03 Transcribed by: JUAN ALBERTO on 03/05/2016 at 16:04 Approved by: Malorie Mejia MD, PhD on 03/05/2016 at 16:48 . 12-lead ECG EKG: Sinus rhythm, heart rate 67, QTc 436, low voltage, no acute ischemic changes. . Cardiac Echo Impressions Echocardiogram Interpretation Summary: The left ventricle is normal in size. Left ventricular wall thickness is mildly increased. The ejection fraction is estimated to be 60-65%. There are no focal wall motion abnormalities. The right ventricle is normal in size and function. Pulmonary artery pressures cannot be estimated because of the lack of a measurable TR jet velocity. The left atrium is mildly dilated. Right atrial size is normal. There is no significant valvular heart disease. The ascending aorta is mild-moderately enlarged. There is a small pericardial effusion noted. There are no echocardiographic indications of cardiac tamponade. Compared to the prior echo report on 02/14/2014, there is no significant change. Reading Physician:PM . 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 I would also like to see her in my office in approximately one month. GI Prophylaxis: Proton Pump Inhibitor VTE Prophylaxis: Sub-Q Heparin (Unfractionated), SCDs VTE Mechanical Devices: Intermittant Pneumatic CD Resuscitation Status: CPR: Attempt Resuscitation Bean Thomas DO Mar 23, 2016 14:41
--- NOTE | 2016-03-23 15:04 | PCM.DC.MED ---
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 #Hypertension, stable, resolved # Diabetes mellitus, type 2, # Anemia- of CKD requiring transfusion # Hyperlipidemia, chronic, presume stable.- # GERD, chronic, presume stable.- #Osteoporosis, chronic, presume stable.- # Environmental/seasonal allergies, chronic, presume stable. Consultations Nephrology thank you Jose Miguel Thomas and Alejandro Newberry Procedures XRay, CTs & MRIs X-RAY CHEST ONE VIEW, PORTABLE IMPRESSION: Low lung volumes with scattered atelectasis. No acute disease Dictated by: Francisco Wiggins M.D. on 03/03/2016 at 17:18 Approved by: Francisco Wiggins M.D. on 03/03/2016 at 17:18 CT BRAIN WITHOUT CONTRAST IMPRESSION: No acute intracranial process. Dictated by: Francisco Wiggins M.D. on 03/03/2016 at 18:55 Approved by: Francisco Wiggins M.D. on 03/03/2016 at 18:58 US ABDOMEN IMPRESSION: Increased hepatic echogenicity noted likely related to fatty infiltration of the liver but other sources of hepatocellular disease cannot be excluded. Recommend clinical correlation. Dictated by: Meet Ybarra RRA Interpreted: Malorie Mejia MD on 03/05/2016 at 16:03 Transcribed by: JUAN ALBERTO on 03/05/2016 at 16:04 Approved by: Malorie Mejia MD, PhD on 03/05/2016 at 16:48 . ECG 12 Lead EKG: Sinus rhythm, heart rate 67, QTc 436, low voltage, no acute ischemic changes. . Cardiac Echo Impression Echocardiogram Interpretation Summary: The left ventricle is normal in size. Left ventricular wall thickness is mildly increased. The ejection fraction is estimated to be 60-65%. There are no focal wall motion abnormalities. The right ventricle is normal in size and function. Pulmonary artery pressures cannot be estimated because of the lack of a measurable TR jet velocity. The left atrium is mildly dilated. Right atrial size is normal. There is no significant valvular heart disease. The ascending aorta is mild-moderately enlarged. There is a small pericardial effusion noted. There are no echocardiographic indications of cardiac tamponade. Compared to the prior echo report on 02/14/2014, there is no significant change. Reading Physician:PM . Brief History as per HPI performed by Dr Díaz on 03/03/16 The patient has baseline dementia. She lives in a private home with the assistance of grandchildren and nephew. She is ordinarily alert and able to ambulate, but does not recall facts or initiate activities independently. The patient is unable to provide history or ROS. Family at bedside report that she has had 3 days of severe weakness and fatigue, resulting her taking to bed. Details are vague but there are also complaints of worsened back pain, feeling cold, increased pedal edema, reduced food intake for 3 days, nausea and headache. These symptoms are primarily reported in the 3 days prior to admission. There have been no exacerbating or palliating factors. Her reduced energy and mental status have been present episodically before but are usually self-limited. Family states that this is much worse episode than usual. She presented to the emergency department with weakness fatigue and reduced mental status. She was found to have essentially undetectable free T4 with TSH of 154.6. Additional findings on presentation include hypoglycemia with blood glucose 38-49. Admitting body temperature was 36.3, heart rate was 68, blood pressure 119/61. The patient has a long-standing history of hypothyroidism with thyroid hormone replacement. She is cared for at [facility]. He takes her medicines daily when they are dispensed by family members from a prepackaged multi-pill blister pack. The nephew who is usually responsible for medications indicates that she has taken meds regularly recently. He endorses there have been episodes and he left this duty to his cousins for several days or week, but feels that her overall medication compliance has been good. Her dose of thyroid hormone is not known to have changed recently. Family does not know of her recent thyroid blood test results. Hospital Course 80-year-old female admitted 03/03 with increased weakness and was found to have a TSH of 154 and undetectable free T4. Patient has remained relatively stable I think we are reaching the end of his hospitalization. Free T4 is high normal. Hemoglobin is relatively stable relatively stable though she is anemic. She no longer needs insulin to control her diabetes at least while she is here. During issue right now is better blood pressure control which also does not necessitate remaining in the hospital. 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 likely due to ATN , s/p [id number] 03/18, baseline eGFR last 80-90 , Cr slightly worse today, oligouric then Cr, UOP started to improve on 03/21 on the recovery of ATN -appreciate renal input, -held aldactone, lisinopril, HCTZ 03/18, minoxidil stopped 03/20. will not resume upon discharge -repeat renal US unremarakble, -adjust meds renally -Creatinine has stabilized at 2.4 despite good blood pressure control. Seems this is her new baseline -Spoke with , he agrees discharging her and following outpatient. He will see her in the office in 3-4 weeks # Myxedema, acute, present on admission.- Initial TSH 154.6, T4 <0.10. Dr. Newberry endocrine consulted 03/04, free t4 1.59 (high norm) 03/16, levoxyl 200mcg QD 03/16- - Hydrocortisone 100 mg given initially - Levothyroxine 200 mcg given IV in the ED. 03/04, Synthroid 150 g daily twice a day. -03/15 , free t4 1.59 (high norm) 03/16 -We will discharge on levothyroxine 200 g daily #Hypertension, target <140/90 given CKD, [id number] since many BP helds, currently amlodipin 10mg at noon, labetalol 300 q12h, appreciate renal recs on bp regimen. # Anemia-requiring transfusion. Acute chronic - Hg 6.7 03/14, 9.9 2 s/p 1U, 9.5 03/16 - s/p 1U PRBC 03/14 - Iron, folate, B12 WNL 03/10, repeating 03/16 and Hemocculting stools 03/16-, retic 1.4, iron low b12 pend 03/16 -Received IV Venofer and Aranesp on 03/23/16 stable, resolved Diabetes mellitus, type 2, presume poorly controlled. BS 144-183 03/14-03/15, 121-183 -03/16 last insulin 03/10 2Units. - HgA1C 7.7 03/03 Stopped insulin. Close follow-up outpatient recommended Elevated transaminases, acute, present on admission. resolved 03/14 ast/alt 03/16 - 03/11 statin use. - resumed home atorvastatin 40mg qhs 03/15 - viral hepatitis panel negative 03/05 - RUQ abd U/S 03/05: "Increased hepatic echogenicity noted likely related to fatty infiltration of the liver but other sources of hepatocellular disease cannot be excluded" Hyperlipidemia, chronic, presume stable.- Held atorvastatin 80 mg daily 03/11 transaminitis from going to resumed at 40mg daily 03/15. GERD, chronic, presume stable.- Continue PPI during admission. Osteoporosis, chronic, presume stable.- Patient takes alendronate 70 mg weekly Environmental/seasonal allergies, chronic, presume stable. - Loratidine 10 mg available daily PRN. Disposition: Home with home health Condition ON discharge stable Follow-up with PCP in 1 week, Exam Vital Signs (Last) Date Time Temp Pulse Resp B/P Pulse Ox O2 Delivery O2 Flow Rate FiO2 03/23/16 12:21 36.5 66 18 172/75 95 Room Air Exam NAD, comfortably laying down on the bed no JVD, MMM, no LAD RRR, nl s1, s2 no mrg CTAB, no w,c S,ND,NT,normoactive BS+ warm, no edema, pulses 2/2 Test 03/03/16 17:20 03/03/16 19:35 03/03/16 20:00 03/04/16 05:35 Pro-B-Type Natriuretic Peptide 264.2pg/mL (0-738) Thyroid Stimulating Hormone (TSH) 154.600uIU/mL (0.450-4.500) Hold Moreno Top Tube Received (Received) Urine Color Straw (YELLOW) Urine Appearance Cloudy (CLEAR,HAZY) Urine pH 5.5 (5.0-8.0) Urine Specific [place] 1.020 (1.003-1.035) Urine Protein 100mg/dL (NEG,TRACE) Urine Glucose (UA) Negativemg/dL (NEGATIVE) Urine Ketones Negativemg/dL (NEGATIVE) Urine Occult Blood Trace (NEGATIVE) Urine Nitrite Negative (NEGATIVE) Urine Bilirubin Negative (NEGATIVE) Urine Urobilinogen Normalmg/dL (NORMAL) Urine Leukocyte Esterase Moderate (NEGATIVE) Urine RBC 0-2/hpf (0-2) Urine WBC >50/hpf (0-5) Urine Epithelial Cells Moderate/hpf (NONE-MOD) Urine Crystals Amorphous urates (NONE Urine Bacteria Few/hpf (NONE-FEW) Urine Hyaline Casts None/lpf (NONE) Urine Granular Casts None seen (NONE SEEN) Urine Waxy Casts None seen (NONE SEEN) Urine Red Blood Cell Casts None seen (NONE SEEN) Urine White Blood Cell Casts None seen (NONE SEEN) Urine Mucus None seen (None Seen) Urine Trichomonas None seen (NONE SEEN) Urine Yeast None (NONE SEEN) Urinalysis Comment None Urine Culture Reflexed Indicated Cortisol 25.9ug/dL (.) Hemoglobin A1c 8.0% (4.8-5.6) Troponin T 0.061ug/L (0.0-0.011) Test 03/05/16 05:23 03/06/16 07:45 03/10/16 06:15 03/12/16 19:10 Hepatitis A IgM Antibody Negative (Negative) Hepatitis B Surface Antigen Negative (Negative) Hepatitis B Core IgM Antibody Negative (Negative) Hepatitis C Antibody <0.1s/co ratio (0.0-0.9) Hepatitis C Comment Comment (.) Prothrombin Time 10.5sec (8.1-12.5) Prothromb Time International Ratio 0.98ratio Activated Partial Thromboplast Time 40.2sec (22.8-33.0) Folate 7.2ng/mL (>3.0) Urine Random Creatinine 88mg/dL (15-278) Urine Random Total Protein 260mg/dL (0-15) Urine Protein/Creatinine Ratio 2.95 Test 03/13/16 05:15 03/16/16 06:00 03/22/16 05:22 03/23/16 05:30 Hold Urine Received (Received) Reticulocyte Count,Calculated 1.4% (0.6-2.6) Vitamin B12 Level 477pg/mL (211-946) Vitamin D 25-Hydroxy 18.2ng/mL (30.0-100.0) Free Thyroxine 1.59ng/dL (0.82-1.77) Neutrophils (%) (Auto) 70.0% (40-74) Lymphocytes (%) (Auto) 13.6% (14-46) Monocytes (%) (Auto) 11.5% (4-12) Eosinophils (%) (Auto) 4.2% (0-5) Basophils (%) (Auto) 0.4% (0-3) Phosphorus Level 5.1mg/dL (2.5-4.9) Magnesium Level 2.6mg/dL (1.6-2.6) White Blood Count 6.6th/mm3 (3.8-10.1) Red Blood Count 3.20mil/mm3 (3.90-5.20) Hemoglobin 8.6g/dL (12.0-15.6) Hematocrit 27.7% (35.0-46.0) Mean Corpuscular Volume 86.6fL (81-100) Mean Corpuscular Hemoglobin 26.9pg (27.0-35.0) Mean Corpuscular Hemoglobin Concent 31.0% (32.0-37.0) Red Cell Distribution Width 14.3% (12.3-15.4) Platelet Count 414bil/L (150-400) Sodium Level 133mEq/L (134-144) Potassium Level 5.0mEq/L (3.5-5.2) Chloride Level 99mEq/L (97-108) Carbon Dioxide Level 22mmol/L (18-29) Blood Urea Nitrogen 45mg/dL (8-27) Creatinine 2.40mg/dL (0.57-1.00) Estimat Glomerular Filtration Rate 28mL/min (>59) Glucose Level 148mg/dL (60-99) Calcium Level 7.7mg/dL (8.5-10.1) Iron Level 27ug/dL (35-150) Total Iron Binding Capacity 297ug/dL (250-450) Percent Iron Saturation 9%sat (15-50) Unsaturated Iron Binding 269.5ug/dL Total Bilirubin 0.4mg/dL (0.0-1.2) Aspartate Amino Transf (AST/SGOT) 12U/L (0-50) Alanine Aminotransferase (ALT/SGPT) 12U/L (0-32) Alkaline Phosphatase 121U/L (25-165) Total Protein 5.3g/dL (6.4-8.4) Albumin 3.0g/dL (3.4-5.0) Microbiology Results Blood culture showed no growth after 5 days. Influenza screen negative. Urine culture shows mixed urogenital karen. MRSA screen negative. . Discharge Medications Discharge Medications ([Thiamine]) 100 MG TABLET 100 MG PO DAILY Prescribed by: MARTINA KLEIN MD Alendronate (Alendronate) 35 Mg Tablet 70 MG PO WEEKLY (Reported) Amlodipine (Amlodipine) 10 Mg Tablet 10 MG PO DAILY (Reported) Atorvastatin (Lipitor) 80 Mg Tablet 40 MG PO DAILY Prescribed by: MARTINA KLEIN MD Cholecalciferol (Vitamin D3) (Vitamin D3) 1,000 Unit Tab.chew 1,000 UNIT PO DAILY (Reported) Donepezil (Donepezil) 5 Mg Tablet 5 MG PO HS (Reported) Ferrous Sulfate (Ferrous Sulfate) 325 Mg Tablet 325 MG PO DAILY Prescribed by: MARTINA KLEIN MD Labetalol (Labetalol) 300 Mg Tablet 300 MG PO BID Prescribed by: RAMEZ STRONG MD Levothyroxine (Levothyroxine) 200 Mcg Tablet 200 MCG PO DAILY Prescribed by: RAMEZ STRONG MD Loratadine (Claritin) 10 Mg Capsule 10 MG PO DAILY (Reported) Magnesium Oxide (Magnesium Oxide) 400 Mg Tablet 400 MG PO DAILY Prescribed by: RAMEZ STRONG MD Omeprazole (Omeprazole) 20 Mg Capsule.dr 40 MG PO DAILY Prescribed by: MARTINA KLEIN MD Ropinirole (Requip) 1 Mg Tablet 1 MG PO HS Prescribed by: RAMEZ STRONG MD As needed Polyethylene Glycol 3350 (Miralax) 17 Gm Powd.pack 17 GM PO DAILY PRN PRN For Constipation Prescribed by: MARTINA KLEIN MD Sennosides (Senna) 8.6 Mg Tablet 17.2 MG PO BID PRN PRN For Constipation Prescribed by: MARTINA KLEIN MD Additional med instructions Initial TSH 154 Followup Plan Disposition: home with Follow-up plan Patient's going home on HH Discharge Diet: Heart Healthy, Diabetic Discharge Activity: No restrictions Patient Instructions You were hospitalized due to myxedema/severe hypothyroidism. He were treated with IV Synthroid and hydrocortisone. Please continue levothyroxine 200mcg daily by mouth. You also had anemia requiring transfusion. IV iron and venofer given. You need to follow with nephrology In 1 month. Patient will need routine follow-up with primary care provider, a referral to a wood dowel machine operator to workup anemia. You need to follow up with PCP 1 week. 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 Follow-up Provider: Praveena Saini MD Follow-up with PCP in: 1 week (Praveena Saini call for appointment as soon as possible) Provider: Bean Thomas DO Follow-up in: 4 weeks Time spent 40 minutes coordinating discharge copies to: Praveena Saini MD, Melaku MD Mar 23, 2016 15:03
--- NOTE | 2016-03-23 15:52 | NUR ---
Social Work-discharge: Data:EMR Reviewed. Pt is on day 20 of hospitalization for alerted mental status per H&P. Pt is medically stable to discharge home today. PT has cleared pt for home with services, pt ambulating 75 ft. SW met with pt and maria [place] at bedside, SW role explained. Shanda confirms that pt has 24/7 care at home. GONZÁLEZ explained that Noemi will be getting in contact with them to set up a time. GONZÁLEZ called Justin Julito [phone] and provided him with F2F and orders for RN,PT. All updated and agreeable to plan. Assessment:Pt who is independent at baseline. Plan:Pt to discharge home today via POV. Pt has 24/7 care at home. F2F and orders given to Noemi for RN and PT. All updated and agreeable to plan. IDALIA Gaming
--- NOTE | 2016-03-23 16:08 | NUR ---
Discharge Pt discharged to home with family; A&Ox3, SHELTON, VSS, IV dc'd intact, No tele, Hard copy scripts provided as well as faxed to pt preferred pharmacy. CareNotes and instructions provided on dc dx and new medications. Pt with all personal belongings. No questions/concerns left unanswered at dc. Wheelchair in room and pt instructed to call when ready to dc off unit. Addendum: 03/23/16 at 1616 by MADELAINE MURPHY RN Pt wheeled off unit to vehicle at 1616. All personal belongings with pt.
== END 2016-03-23 16:15 | disposition home health service (06) | DRG 80 ==
LOC: SED 15:24 → EDBD 15:24 → CCU 20:54 → PCC 03-04 15:08 → OSC 03-04 16:33
PROVIDERS: ADMIT Hospitalist; ATTEND Hospitalist
PROC: 30233N1 Transfusion of Nonautologous Red Blood Cells into Peripheral Vein, Percutaneous Approach (ICD-10-PCS; principal; 2016-03-14)
DX: E03.5 Myxedema coma (principal); N17.0 Acute kidney failure with tubular necrosis; Z68.41 Body mass index [BMI] 40.0-44.9, adult; E87.2 Acidosis; E66.01 Morbid (severe) obesity due to excess calories; E11.649 Type 2 diabetes mellitus with hypoglycemia without coma; Z79.4 Long term (current) use of insulin; Z87.891 Personal history of nicotine dependence; E78.5 Hyperlipidemia, unspecified; K21.9 Gastro-esophageal reflux disease without esophagitis; M81.0 Age-related osteoporosis without current pathological fracture; J30.2 Other seasonal allergic rhinitis; I13.10 Hypertensive heart and chronic kidney disease without heart failure, with stage 1 through stage 4 chronic kidney disease, or unspecified chronic kidney disease; E11.21 Type 2 diabetes mellitus with diabetic nephropathy; E11.65 Type 2 diabetes mellitus with hyperglycemia; F01.50 Vascular dementia, unspecified severity, without behavioral disturbance, psychotic disturbance, mood disturbance, and anxiety; N18.3 Chronic kidney disease, stage 3 (moderate); D63.1 Anemia in chronic kidney disease

== ENCOUNTER 2016-03-26 15:09 | Inpatient (IN) | payer MEDICARE, OTHER, MEDICAID ==
[~2016-03-26] VITALS: Ht 137.2 cm; Wt 58.8 kg
[~2016-03-26 15:09] MED LIST changes: +CHOL10008 PO; -CIPR-231 PO; +DONE5TAB30 PO; +FERR-83 PO; -FURO-128 PO; -INSU100I18 SUBQ; -INSU100V7 SUBQ; +LABE300T PO; -LISI-567 PO; +MAGN400T4 PO; +POLY17PO6 PO; +ROPI1TAB2 PO; -ROPI3TAB PO; +SENN-133 PO; -SULF1TAB7 PO; +Thiamine PO
[2016-03-26 15:18] VITALS: BP 94/38; PULSE 53; RESP 20; O2SAT 95
--- NOTE | 2016-03-26 15:25 | ED.REPORT ---
HPI-Dyspnea / Wheezing Date of Service Mar 26, 2016 ED Provider: Jorgito Ellis MD The patient is a 80 year old female with a hx of HTN, DM type 2, hyperlipidemia , hypothyroidism, and dementia who presents to the ED via EMS due to an episode of LOC. She is unable to provide hx or ROS. Pt is somnolent, does not open her eyes, and does not answer any questions. She is able to nod and shake her head and follow basic commands like lifting her arms and squeezing her hands. The pt' s friend relays that she was recently hospitalized from 03/03 - 03/23 for severe hypothyroidism and given levothyroxine 200 mcg daily. Since returning home from the hospital, the pt has been weak, incontinent and had diarrhea. This morning, she walked in the cold to her doctor's appointment to have her thyroid checked and the patient's friend reports that she, "overdid it." After walking back to her house from the doctor's office, she was severely short of breath and the pt' s niece helped her use her inhaler. Soon following, the pt had an episode of LOC , started foaming at the mouth and struggled to breath. Her friend called 911 and medics arrived shortly. She usually receives care at [facility]. Nursing Notes Stated Complaint: SHORT OF BREATH Chief Complaint: Respiratory Complaints Nursing Notes Reviewed: Yes ([employer] not reconciled) Allergies: Coded Allergies: Penicillins (Verified Allergy, Unknown, 03/26/16) Scheduled ([Thiamine]) 100 MG TABLET 100 MG PO DAILY Alendronate (Alendronate) 35 Mg Tablet 70 MG PO WEEKLY Amlodipine (Amlodipine) 10 Mg Tablet 10 MG PO DAILY Atorvastatin (Lipitor) 80 Mg Tablet 40 MG PO DAILY Cholecalciferol (Vitamin D3) (Vitamin D3) 1,000 Unit Tab.chew 1,000 UNIT PO DAILY Donepezil (Donepezil) 5 Mg Tablet 5 MG PO HS Ferrous Sulfate (Ferrous Sulfate) 325 Mg Tablet 325 MG PO DAILY Labetalol (Labetalol) 300 Mg Tablet 300 MG PO BID Levothyroxine (Levothyroxine) 200 Mcg Tablet 200 MCG PO DAILY Loratadine (Claritin) 10 Mg Capsule 10 MG PO DAILY Magnesium Oxide (Magnesium Oxide) 400 Mg Tablet 400 MG PO DAILY Omeprazole (Omeprazole) 20 Mg Capsule.dr 40 MG PO DAILY Ropinirole (Requip) 1 Mg Tablet 1 MG PO HS Scheduled PRN Polyethylene Glycol 3350 (Miralax) 17 Gm Powd.pack 17 GM PO DAILY PRN PRN For Constipation Sennosides (Senna) 8.6 Mg Tablet 17.2 MG PO BID PRN PRN For Constipation General Time Seen by MD: 15:23 Chief Complaint Shortness of breath Hx Obtained From: Other family... (patient's friend ), EMS Unable to Obtain Hx: Patient condition Arrived By: Ambulance Sudden in Onset?: Yes Onset Occurred: Just prior to arrival Symptom Duration: Since onset Severity: Current: No pain currently Recent Healthcare: Recent doctor visit, Recent hospitalization Similar Sx Previous: Yes Past Medical History Past Medical History Insulin-dependent diabetes mellitus Hypertension Hypothyroidism Hyperlipidemia Osteoporosis Lower extremity edema GERD Reports: Diabetes mellitus, Hyperlipidemia, Hypertension Past Surgical History Total hysterectomy Cholecystectomy Bilateral cataract Smoking History Former Smoker Social History Alcohol Use: Denies alcohol use Drug Use: Denies drug use Other Social History: Local resident Ambulatory Status Walker Review of Systems Unable to Obtain ROS Patient condition Physical Exam Initial Vital Signs Vital Signs (First) Date Time Temp Pulse Resp B/P Pulse Ox O2 Delivery O2 Flow Rate FiO2 03/26/16 15:18 36.3 53 20 94/38 95 Room Air 03/26/16 17:42 3 Initial VS: Reviewed, Vital signs abnormal ENT: Mucous membranes moist, Conjunctiva normal, No scleral icterus Abdomen / GI: Soft, Non-tender, No guarding, No rebound, No distention Back: No CVA tenderness Alertness: Positive: Somnolent Appearance / Presentation: Positive: Obese Eyes closed and does not open them Will nod yes and no and follow basic movement commands like squeezing hands and lifting arms Will not converse Neck: Atraumatic, Supple, No meningismus Respiratory / Chest: Atraumatic, Breath sounds NL, Breath sounds = bilat, No respiratory distress Heart Rate / Rhythm: Positive: Bradycardia (sinus) significant edema Head / Eyes: Normocephalic pinpoint pupils Interpretation & Diagnostics Interpretation & Diagnostics: BRAIN CT IMPRESSION: Posterior left temporal hypodensity, likely encephalomalacia or evolutionary changes from prior ischemia although technically age indeterminate (although appears unchanged since 03/03/16). If there is clinical concern for acute ischemia, further assessment with MRI could be performed. Elsewhere, no acute intracranial process. Dictated by: Francisco Wiggins M.D. on 03/26/2016 at 16:43 Approved by: Francisco Wiggins M.D. on 03/26/2016 at 16:54 Lab Results Interpretation Result Diagram: 03/28/16 0535 03/28/16 0535 Test 03/26/16 15:19 03/26/16 15:22 Hold Purple Top Tube Received (Received) Hold Blue Top Tube Received (Received) Hold Red Top Tube Received (Received) Hold [place] Top Tube Received (Received) Pro-B-Type Natriuretic Peptide 5571pg/mL (0-738) Thyroid Stimulating Hormone (TSH) 7.620uIU/mL (0.450-4.500) Free Thyroxine 2.34ng/dL (0.82-1.77) Lab Results Interpretation: CBC no leukocytosis, anemia stable CMP renal insufficiency, minor change not clinically significant increased from 2.6, mild hyperglycemia with no hypoglycemia Troponin remains marginally elevated, but lower than prior marginally elevated troponins and likely secondary to renal insufficiency, proBNP similarly elevated Lactic acid is normal TSH remains elevated, but free T4 is nondetectable - improved compared to recent values ECG Interpretation ECG Interpretation: sinus bradycardia Q waves in 3 AVF aside from a slower rate, no interval change from 03/03/16 Time: 15:28 Interpreted by: ED physician X-Ray Chest Interpretation Chest Xray Interpretation: IMPRESSION: Diffuse patchy consolidation throughout the right lung. Retrocardiac left basilar opacities. Findings could represent multifocal aspiration or pneumonia. Please correlate clinically. Low lung volumes with probable background bibasilar atelectasis Dictated by: Francisco Wiggins M.D. on 03/26/2016 at 16:50 Approved by: Francisco Wiggins M.D. on 03/26/2016 at 16:51 View: Portable Interpretation / Wet Read by: Interpret - Radiologist Re-Eval/Medical Decision Med Decision/Clinical Course This is a 80-year-old female brought with a complaint of shortness of breath and possibly change and altered mental status. The patient herself is unable provide any history. Patient was just recently discharged following a multi week hospitalization with profound hypo-thyroidism/myxedema. Report of brief hypoxia in the field, briefly the patient required bag valve ventilation by EMS for a minute, and then seemed to recover. When I go to see the patient, she is not demonstrating or complaining of any shortness of breath. She keeps her eyes closed and cannot really describe a history- asked that she is having no pain, described denies any shortness of breath, but appears very fatigued. She also has small pupils-but is breathing without any evidence of respiratory depression to think opiate toxicity. Patient is fatigued and has gross generalized weakness, but she moves her arms and legs and has no focal deficits. Family arrived, they provide the history. That since discharge the patient has not been doing well and that she has had profound generalized weakness, has been unable to get up or ambulate without severe assistance in general he is too weak to manage. She has also had some intermittent diarrhea. Some difficulties with her insulin and report is been some confusion in that before she went to the hospital she was on 50 units of insulin, now coming out she is on 10 units and so been trying to sort out matters-initially where she was hypoglycemic, although her glucose was over 200. They do report this still slightly altered mental status, and a complaint of shortness of breath-the patient had no point had chest pain. In here she has nonspecific findings. Given the initial report of altered mental status a head CT was obtained, this was negative for acute pathology. Chest x-ray revealed nothing acute. An blood work reveals ongoing hypo- thyroidism, but is improved, chronic renal sufficiency which is stable although just marginally worse-it does not explain the patient's presentation, and chronic anemia which is stable for the past few days. Patient remains globally weak. Family indicate that she is not safe for discharge to home and request re- admission, and given description of circumstances by family the past several days, the findings of EMS, and ongoing weakness here, readmission is warranted Source of Hx: Old records Re-Evaluation/Progress : Time of Eval: 18:15 Patient Status: Condition unchanged Re-Evaluation/Progress Note: Pt rechecked. Family reports she was not doing well even before the episode today and they would like her back in the hospital. Consultation : Call Returned at: 16:04 Note: Tried to contact admitting hospitalist team, but they were too busy to talk. Will try again later. Counseled Regarding: Diagnosis, Lab results, Need for admission Discharge & Departure Disposition: ADMITTED TO HOSPITAL Discharge Condition All VS Reviewed: Yes Condition: Stable Referrals: Praveena Saini MD (PCP) Scribe Attestation Portion of this note were transcribed by Leola Kidd. I, Dr. Ellis, personally performed the history, physical exam, and medical decision-making: I reviewed and confirmed the accuracy for the information in the transcribed note. Signed by: anne Murphy, 03/26/16 2030 copies to: Praveena Saini MD, Matthew F MD Mar 26, 2016 15:25 LEOLA KIDD Mar 26, 2016 15:36 14U/L (0-50) Alanine Aminotransferase (ALT/SGPT) 15U/L (0-32) Alkaline Phosphatase 132U/L (25-165) Troponin T 0.014ug/L (0.0-0.011) Pro-B-Type Natriuretic Peptide 5571pg/mL (0-738) Total Protein 5.9g/dL (6.4-8.4) Albumin 3.1g/dL (3.4-5.0) Thyroid Stimulating Hormone (TSH) 7.620uIU/mL (0.450-4.500) Free Thyroxine 2.34ng/dL (0.82-1.77) Lactic Acid Level 1.4mmol/L (0.4-2.0) Lab Results Interpretation: CBC no leukocytosis, anemia stable CMP renal insufficiency, minor change not clinically significant increased from 2.6, mild hyperglycemia with no hypoglycemia Troponin remains marginally elevated, but lower than prior marginally elevated troponins and likely secondary to renal insufficiency, proBNP similarly elevated Lactic acid is normal TSH remains elevated, but free T4 is nondetectable - improved compared to recent values ECG Interpretation ECG Interpretation: sinus bradycardia Q waves in 3 AVF aside from a slower rate, no interval change from 03/03/16 Time: 15:28 Interpreted by: ED physician X-Ray Chest Interpretation Chest Xray Interpretation: IMPRESSION: Diffuse patchy consolidation throughout the right lung. Retrocardiac left basilar opacities. Findings could represent multifocal aspiration or pneumonia. Please correlate clinically. Low lung volumes with probable background bibasilar atelectasis Dictated by: Francisco Wiggins M.D. on 03/26/2016 at 16:50 Approved by: Francisco Wiggins M.D. on 03/26/2016 at 16:51 View: Portable Interpretation / Wet Read by: Interpret - Radiologist Re-Eval/Medical Decision Med Decision/Clinical Course This is a 80-year-old female brought with a complaint of shortness of breath and possibly change and altered mental status. The patient herself is unable provide any history. Patient was just recently discharged following a multi week hospitalization with profound hypo-thyroidism/myxedema. Report of brief hypoxia in the field, briefly the patient required bag valve ventilation by EMS for a minute, and then seemed to recover. When I go to see the patient, she is not demonstrating or complaining of any shortness of breath. She keeps her eyes closed and cannot really describe a history- asked that she is having no pain, described denies any shortness of breath, but appears very fatigued. She also has small pupils-but is breathing without any evidence of respiratory depression to think opiate toxicity. Patient is fatigued and has gross generalized weakness, but she moves her arms and legs and has no focal deficits. Family arrived, they provide the history. That since discharge the patient has not been doing well and that she has had profound generalized weakness, has been unable to get up or ambulate without severe assistance in general he is too weak to manage. She has also had some intermittent diarrhea. Some difficulties with her insulin and report is been some confusion in that before she went to the hospital she was on 50 units of insulin, now coming out she is on 10 units and so been trying to sort out matters-initially where she was hypoglycemic, although her glucose was over 200. They do report this still slightly altered mental status, and a complaint of shortness of breath-the patient had no point had chest pain. In here she has nonspecific findings. Given the initial report of altered mental status a head CT was obtained, this was negative for acute pathology. Chest x-ray revealed nothing acute. An blood work reveals ongoing hypo- thyroidism, but is improved, chronic renal sufficiency which is stable although just marginally worse-it does not explain the patient's presentation, and chronic anemia which is stable for the past few days. Source of Hx: Old records Re-Evaluation/Progress : Time of Eval: 18:15 Patient Status: Condition unchanged Re-Evaluation/Progress Note: Pt rechecked. Family reports she was not doing well even before the episode today and they would like her back in the hospital. Consultation : Call Returned at: 16:04 Note: Tried to contact admitting hospitalist team, but they were too busy to talk. Will try again later. Counseled Regarding: Diagnosis, Lab results, Need for admission Discharge & Departure Disposition: ADMITTED TO HOSPITAL Discharge Condition All VS Reviewed: Yes Condition: Stable Referrals: Praveena Saini MD (PCP) Anne Attestation Portion of this note were transcribed by Leola Kidd. I, Dr. Ellis, personally performed the history, physical exam, and medical decision-making: I reviewed and confirmed the accuracy for the information in the transcribed note. Signed by: anne Murphy, 03/26/16 2030 copies to: Praveena Saini MD, Matthew F MD Mar 26, 2016 15:25 LEOLA KIDD Mar 26, 2016 15:36
[2016-03-26 15:48] LABS: Mean Corpuscular Hemoglobin 27.7 pg (27.0-35.0); Platelet Count 523 bil/L (150-400)
[2016-03-26 15:56] LABS: TROPONIN T 0.014 ug/L (0.0-0.011)
--- NOTE | 2016-03-26 16:53 | DRSVH ---
PROCEDURE: X-RAY CHEST ONE VIEW, PORTABLE ([id number]) INDICATIONS: altered mental status, shortness of breath TECHNIQUE: One view of the chest was acquired. COMPARISON: [facility], CR, XR CHEST 1VW (PORTABLE), 03/03/2016, 16:49. FINDINGS: Surgical changes and devices: None. Lungs and pleura: Diffuse right lung consolidation. Low lung volumes. No pneumothorax. No definite pl eural effusion Mediastinum: Mediastinal contours appear normal. Heart size is normal. Bones and chest wall: No suspicious bony lesions. Overlying soft tissues appear unremarkable. IMPRESSION: Diffuse patchy consolidation throughout the right lung. Retrocardiac left basilar opacities. Findings could represent multifocal aspiration or pneumonia. Please correlate clinically. Low lung volumes with probable background bibasilar atelectasis Dictated by: Francisco Wiggins M.D. on 03/26/2016 at 16:50 Approved by: Francisco Wiggins M.D. on 03/26/2016 at 16:51
--- NOTE | 2016-03-26 16:56 | DRSVH ---
PROCEDURE: CT BRAIN WITHOUT CONTRAST ([id number]) INDICATIONS: Altered LOC TECHNIQUE: Noncontrast 4.5 mm thick angled axial sections acquired from the foramen magnum to the vertex, with c oronal reformats. COMPARISON: [facility], CT, BRAIN W/O CONTRAST, 01/21/2013, 17:31. [facility], CT, CT BRAIN WO CON, 03/03/2016, 18:23. FINDINGS: Image quality: Excellent. CSF spaces: Basal cisterns are patent. No extra-axial fluid collections. The ventricles are symmet sheri in size and shape. Brain: No intracranial bleeds or masses. Posterior left temporal hypodensity is unchanged since 02/08 06/23. There is cerebral volume loss for age, with resultant ventricular and sulcal prominence. There are p eriventricular and deep white matter chronic small vessel ischemic changes. There is intracranial in ternal carotid artery atherosclerosis. Skull and face: Calvarium and visualized facial bones appear intact, without suspicious lesions. Sinuses: Visualized sinuses and mastoids are clear. IMPRESSION: Posterior left temporal hypodensity, likely encephalomalacia or evolutionary changes from prior ische nestor although technically age indeterminate (although appears unchanged since 03/03/16). If there is cl inical concern for acute ischemia, further assessment with MRI could be performed. Elsewhere, no acute intracranial process. Dictated by: Francisco Wiggins M.D. on 03/26/2016 at 16:43 Approved by: Francisco Wiggins M.D. on 03/26/2016 at 16:54
[2016-03-26 17:00] LABS: NEUTROPHILS % (AUTO) 75.1 % (40-74)
[2016-03-26 17:01] LABS: BASOPHILS % (AUTO) 0.8 % (0-3); EOSINOPHILS % (AUTO) 2.2 % (0-5); MONOCYTES % (AUTO) 10.7 % (4-12)
[2016-03-26 17:24] VITALS: BP 117/51; PULSE 54; RESP 18; O2SAT 95
[2016-03-26 17:42] VITALS: BP 110/65; PULSE 55; RESP 24; O2SAT 96
[2016-03-26] MEDS ORDERED: Ondansetron 2 mg/mL 2 mL Inj IVPUSH PRN (19:25)
[2016-03-26] MEDS ORDERED: Alum-Mag Hydrox-Simeth 30 mL Suspension PO PRN (19:25)
[2016-03-26 19:37] VITALS: BP 118/58; PULSE 59; RESP 14; O2SAT 93
[2016-03-26 19:53] VITALS: BP 126/51; PULSE 59; RESP 20; O2SAT 93
[2016-03-26] MEDS ORDERED: levoFLOXacin Inj 500 MG in IV Premix 1 EACH IV ONE (20:10)
[2016-03-26] MEDS: Vancomycin Dose per Pharmacist XX SCH (20:10)
[2016-03-26] MEDS ORDERED: Aztreonam Inj 2,000 MG in Dextrose 5% Minibag Plus 100 ML IV ONE (20:10)
[2016-03-26] MEDS ORDERED: Albuterol-Ipratropium 3 mL Inhalation Solution NEB ONE (20:20)
[2016-03-26] MEDS ORDERED: Glucose 40% Oral Gel 15 Gm Tube PO PRN (20:45)
--- NOTE | 2016-03-26 20:51 | PCM.HPMED ---
Subjective Date of Service Mar 26, 2016 Primary Provider: Admitting Physician: Sandy Ballard MD Primary Care Physician: Praveena Saini MD Attending Physician: Sandy Ballard MD Chief Complaint: SOB HISTORY was OBTAINED FROM PATIENT / MEDITECH NOTES History of present illness 80 y f presented with loss of consciousness, niece called EMS. She was noted to be somnolent in the ER unable to answer questions but able to nod and shake her head and follow commands. Last hospitalization for severe hypo-thyroidism March 03 - 03/23/2016, ongoing weakness incontinence diarrhea since then. This morning patient walked to doctor's appointment, returned home short of breath despite inhaler then lost consciousness foaming at the mouth per niece per ER notes. Pt is unsure but indicates no choking on food and no sick contacts. coughing had been dry, unclear when it started. Review of Systems - unable to answer without fatigue and phrases/one word answers ongoing leg edema FAMILY HX No thyroid problems no DM SOCIAL HX former smoker MEDICATIONS Scheduled ([Thiamine]) 100 MG TABLET 100 MG PO DAILY Alendronate (Alendronate) 35 Mg Tablet 70 MG PO WEEKLY Amlodipine (Amlodipine) 10 Mg Tablet 10 MG PO DAILY Atorvastatin (Lipitor) 80 Mg Tablet 40 MG PO DAILY Cholecalciferol (Vitamin D3) (Vitamin D3) 1,000 Unit Tab.chew 1,000 UNIT PO DAILY Donepezil (Donepezil) 5 Mg Tablet 5 MG PO HS Ferrous Sulfate (Ferrous Sulfate) 325 Mg Tablet 325 MG PO DAILY Labetalol (Labetalol) 300 Mg Tablet 300 MG PO BID Levothyroxine (Levothyroxine) 200 Mcg Tablet 200 MCG PO DAILY Loratadine (Claritin) 10 Mg Capsule 10 MG PO DAILY Magnesium Oxide (Magnesium Oxide) 400 Mg Tablet 400 MG PO DAILY Omeprazole (Omeprazole) 20 Mg Capsule.dr 40 MG PO DAILY Ropinirole (Requip) 1 Mg Tablet 1 MG PO HS Scheduled PRN Polyethylene Glycol 3350 (Miralax) 17 Gm Powd.pack 17 GM PO DAILY PRN PRN For Constipation Sennosides (Senna) 8.6 Mg Tablet 17.2 MG PO BID PRN PRN For Constipation Past Medical/Surgical HX Dementia CKD -4/Nephrosclerosis /AK I due to NSAID/Bactrim/lisinopril February 2016, minoxidil stopped 03/20 Anemia under production likely due to hypothyroidism and renal diseaseamlo Insulin-dependent diabetes mellitus/nephropathy Hypertension Hypothyroidism/myxedema Hyperlipidemia Lower extremity edema GERD noncompliance Diastolic dysfunction osteoporosis s/p bisphosphonates Total hysterectomy Cholecystectomy Bilateral cataract Low vitamin D Allergies Coded Allergies: Penicillins (Verified Allergy, Unknown, 03/26/16) PMH Social History Hx Alcohol Use: No Hx Substance Use: No Hx Tobacco Use: Yes Smoking Status: Former Smoker Exam Vital Signs Vital Sign - Last Date Time Temp Pulse Resp B/P Pulse Ox O2 Delivery O2 Flow Rate FiO2 03/26/16 19:53 36.6 59 20 126/51 93 Nasal Cannula 2.00 Exam Exam on admission 2L NC NAD easily awakened NC/AT no icterus no injected eyes EOMI PERRL /no pharyngeal lesions/ no oral lesions / hearing intact Supple neck ACTUALLY CTAB equal chest rise / no accessory muscle use / speaks in full sentences / no rrw RRR S1 S2 / no mrg / 2+ radial pulses Soft nt nd + BS no hepatosplenomegaly No edema no cyanosis no ecchymosis of lower extremities No rash / no jaundice SHE[place] symmetrical facies EKG SR51 no significant ST changes Qtc 485 Trop 0.014 improved from previously BNP 5571 (baseline is 264) TSH 7.6 (improved from February 2016 TSH 154) procalcitonin pending lactic acid normal UA pending LFT albumin 3.1 Imaging PROCEDURE: CT BRAIN WITHOUT CONTRAST ([id number]) INDICATIONS: Altered LOC TECHNIQUE: Noncontrast 4.5 mm thick angled axial sections acquired from the foramen magnum to the vertex, with coronal reformats. COMPARISON: [facility], CT, BRAIN W/O CONTRAST, 01/21/2013, 17:31. [facility], CT, CT BRAIN WO CON, 03/03/2016, 18:23. FINDINGS: Image quality: Excellent. CSF spaces: Basal cisterns are patent. No extra-axial fluid collections. The ventricles are symmetric in size and shape. Brain: No intracranial bleeds or masses. Posterior left temporal hypodensity is unchanged since 03/03/16. There is cerebral volume loss for age, with resultant ventricular and sulcal prominence. There are periventricular and deep white matter chronic small vessel ischemic changes. There is intracranial internal carotid artery atherosclerosis. Skull and face: Calvarium and visualized facial bones appear intact, without suspicious lesions. Sinuses: Visualized sinuses and mastoids are clear. IMPRESSION: Posterior left temporal hypodensity, likely encephalomalacia or evolutionary changes from prior ischemia although technically age indeterminate (although appears unchanged since 03/03/16). If there is clinical concern for acute ischemia, further assessment with MRI could be performed. Elsewhere, no acute intracranial process. PROCEDURE: X-RAY CHEST ONE VIEW, PORTABLE ([id number]) INDICATIONS: altered mental status, shortness of breath TECHNIQUE: One view of the chest was acquired. COMPARISON: [facility], CR, XR CHEST 1VW (PORTABLE), 03/03/2016, 16: 49. FINDINGS: Surgical changes and devices: None. Lungs and pleura: Diffuse right lung consolidation. Low lung volumes. No pneumothorax. No definite pleural effusion Mediastinum: Mediastinal contours appear normal. Heart size is normal. Bones and chest wall: No suspicious bony lesions. Overlying soft tissues appear unremarkable. IMPRESSION: Diffuse patchy consolidation throughout the right lung. Retrocardiac left basilar opacities. Findings could represent multifocal aspiration or pneumonia. Please correlate clinically. Low lung volumes with probable background bibasilar atelectasis 02/2016Interpretation Summary The left ventricle is normal in size. Left ventricular wall thickness is mildly increased. The ejection fraction is estimated to be 60-65%. There are no focal wall motion abnormalities. The right ventricle is normal in size and function. Pulmonary artery pressures cannot be estimated because of the lack of a measurable TR jet velocity. The left atrium is mildly dilated. Right atrial size is normal. There is no significant valvular heart disease. The ascending aorta is mild-moderately enlarged. There is a small pericardial effusion noted. There are no echocardiographic indications of cardiac tamponade. Compared to the prior echo report on 02/14/2014, there is no significant change. Lab and Diagnostics Result Diagram: 03/26/16 1522 03/26/16 1522 Assessment & Plan Active issues and reason for admission Loss of consciousness due to diffuse right-sided pneumonia treating as HCAP, ongoing hypoxia, resolved hypotension, left shift and reactive thrombocytosis -- Vanco aztreonam and Levaquin DuoNeb's wean O2 chest percussion on the right -- Sputum culture/respiratory viral PCR/urine strep/pro calcitonin/blood culture pending Diarrhea -- Pending stool culture elevated BNP --consider diuresis if ongoing SOB despite abx --small pericardial effusion was noted on 02/2016 admission Chronic issues known prior to admission, present on admission Dementia CKD -4/Nephrosclerosis /AK I due to NSAID/Bactrim/lisinopril February 2016, minoxidil stopped 03/20 Anemia 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
[2016-03-26] MEDS ORDERED: Vancomycin Inj 1,000 MG in IV Premix 1 EACH IV ONE (21:30)
[2016-03-26] MEDS: 0.9% Sodium Chloride 500 ML IV SCH (21:35)
[2016-03-26 21:37] LABS: TROPONIN T 0.01 ug/L (0.0-0.011)
[2016-03-26] MEDS: Albuterol-Ipratropium 3 mL Inhalation Solution NEB SCH (21:40)
[2016-03-26 21:42] VITALS: PULSE 62; RESP 18; O2SAT 92
[2016-03-26] MEDS: Insulin LISPRO 300 Unit/3 mL Inj SUBQ SCH (22:00)
--- NOTE | 2016-03-26 23:10 | NUR ---
Admit Patient admitted to room 3009 at 1940 from ED, accompanied by family. Patient was and has been drowsy, but awakens to voice and answers questions and follows commands. Admit assessment done by admit RN in ED and med list looks updated by admit RN. Telemetry connected, antibiotics infusing per MD order. On enteric/droplet precautions for pending samples. PUP initiated for open sore on left buttock and non-blanchable sacral area. Heels are boggy. P500 bed in use, will turn Q2 hours, and float heels. Patient was oriented to room, call light, plan of care. Bed alarm on for safety and frequent rounding in place.
[2016-03-27] VITALS (17 sets, daily range): BP systolic 136–175; BP diastolic 49–73; PULSE 60–81; RESP 17–26; O2SAT 91–95
[2016-03-27] MEDS: Albuterol-Ipratropium 3 mL Inhalation Solution NEB SCH ×5 (00:24→20:24)
[2016-03-27] MEDS: Heparin 5,000 Unit/mL Inj SUBQ SCH ×3 (00:36→16:55)
[2016-03-27] MEDS: 0.9% Sodium Chloride 500 ML IV SCH (03:20)
[2016-03-27 03:58] LABS: APPEARANCE,URINE CLOUDY (CLEAR,HAZY); COLOR,URINE YELLOW (YELLOW)
[2016-03-27 03:59] LABS: OCCULT BLOOD,URINE LARGE (NEGATIVE); UROBILINOGEN,URINE NORMAL (NORMAL)
[2016-03-27] MEDS ORDERED: Furosemide 10 mg/mL 2 mL Inj IVPUSH ONE (04:40)
--- NOTE | 2016-03-27 05:02 | NUR ---
Dyspnea Patient became short of breath around 0400 when getting up to commode with 2PA. Audible wheezes. Was 91% on 2L cannula. RT in to assess, administered nebulizer. Patient had crackles in both bases. BNP with admit labs 5571. Patient had received about 1L fluids since arriving to hospital. Patient has requested to stand up twice since she became short of breath and reports the change in position is effective. Vital signs stable, patient is oriented. MD paged, new order for OT Lasix, 20mg and to call MD if patient does not void within an hour. Patient updated on intervention. Will continue to monitor. Bed and Kayley alarm on for safety- patient is not using call light, despite education. Addendum: 03/27/16 at 0548 by RAY FOWLER RN No urination after an hour, paged. Patient is still short of breath, but reports slight increase in comfort. MD returned call, no new orders received, except to continue to monitor closely.
[2016-03-27] MEDS: Pantoprazole 20 mg ER24 Tablet PO SCH (07:46)
[2016-03-27] MEDS: Insulin LISPRO 300 Unit/3 mL Inj SUBQ SCH ×4 (07:47→21:30)
[2016-03-27] MEDS: Vancomycin Dose per Pharmacist XX SCH (07:48)
[2016-03-27 10:40] LABS: BASOPHILS % (AUTO) 0.9 % (0-3); MONOCYTES % (AUTO) 12.8 % (4-12); Mean Corpuscular Hemoglobin 27.6 pg (27.0-35.0); Mean Corpuscular Volume 88.3 fL (81-100); NEUTROPHILS % (AUTO) 73.2 % (40-74); Platelet Count 517 bil/L (150-400)
--- NOTE | 2016-03-27 11:23 | NUR ---
Dyspnea Pt c/o being SOB. RR 24. on 2L via NC. Using accessory muscles. States to be fatigued. messaged. ABG ordered. RT called. RT at bedside now. VS taken, see separate documentation.
--- NOTE | 2016-03-27 11:43 | ABG ---
DateTimeAnalyzed 11:32:00 -_ pH ____7.303 - 7.350 7.450 pCO2 ___44.0__ -mmHg 35.0 45.0 pO2 ___64.5__ -mmHg 69.0 116 HCO3- ___21.2__ -mmol/L 22.0 26.0 ABE ___-4.4__ -mmol/L -2.0 2.0 tHb ____8.8__ -g/dL O2Hb ___90.2__ -% COHb ____1.1__ -% MetHb ____1.1__ -% sO2 ___92.2__ -% FIO2 ___28.0__ -% Drawn By lw - Date/Time Notified____ 11:43:00 -_ Liter_Flow ____2.0__ -L/min Oxygen Device 1 nasal cannula - Notified By lw - Notified Whom ___Dr. Tena - B 743 -mmHg tO2 ___11.2__ -Vol% Twan test _Positive -
--- NOTE | 2016-03-27 12:08 | PCM.PNMED ---
Subjective Date of Service Mar 27, 2016 Subjective Patient was seen and examined at bedside today, continues to demonstrate significant labored breathing. Actually states she is feeling better and asked the bedside and this is confirmed by her daughter is present and recounted a history since her previous discharge and leading up to this hospitalization. Nonetheless she appears lethargic, slow to answer questions and minimal spontaneous speech, was arousable by verbal stimuli alone and is responding appropriately. Denies any acute pains at this time however. Does note some swelling lower extremities with this has been more of a chronic problem. Denies fever chills at this time, so denies chest pains. He had diarrhea prior to presenting to hospital following call to EMS, this has not recurred since her hospitalization. Exam Vital Signs Vital Sign - Last Date Time Temp Pulse Resp B/P Pulse Ox O2 Delivery O2 Flow Rate FiO2 03/27/16 10:59 37.1 72 22 148/72 94 Nasal Cannula 2.00 Intake and Output 03/26/16 03/26/16 03/27/16 Cumulative From/Thru 15:00 23:00 07:00 03/26/16 19:53 - 03/27/16 04:39 Intake Total 642 ml 642 ml Balance 642 ml 642 ml IV Total 642 ml 642 ml General: Other (an obese female lying in bed she is alert and oriented in moderate distress with increased work of breathing. ) Eyes: EOMI Mouth: Mucous Membr Moist/[place] Chest & Lungs: Coarse breath sounds, Other (coarse breath sounds diffusely without adventitious lung sounds noted, some diminished airflow lung bases to tactile. No wheezing) Cardiovascular: Regular Rate/Rhythm Abdomen: Other (obese but nontender to palpation, nondistended. ) Extremities: Other (trace to +1 edema bilaterally noted in ankles and extending up to mid calf. Tremors are normal as well perfused.) Neurological: Other (patient appears to have some impairment of mentation/ lethargy but is otherwise neurologically intact. Exam is nonfocal.) IVs and Medications Medications Reviewed: Medications were reviewed in detail Lab and Diagnostics Result Diagram: 03/26/16 1522 03/27/16 1005 Assessment & Plan This 80-year-old female multiple comorbidities presenting with declining mental status and increased work of breathing, worsening respiratory function admitted through the ER following presentation via EMS: #. Acute respiratory failure - Condition could be multifactorial, there is concern for hospital-acquired pneumonia given recent hospitalization, certainly may be the case. - Patient additionally is now noted to be hyperthyroid following previous hospitalization which noted her to be hypothyroid, unclear what role this is playing respiratory failure but certainly being pain in her mentation as well. - Hydration status is unclear patient is in acute renal failure on top of a chronic dysfunction, but additionally demonstrate some evidence of volume overload as evidenced by possible pulmonary edema and lower extremity edema. - ABG does not demonstrate significant respiratory acidosis, so despite increased respiratory effort, he is at least effectively clearing carbon dioxide. - Continue to monitor provide supplemental oxygen as needed. Address underlying conditions as detailed below #. Hospital-acquired pneumonia - We will continue broad-spectrum Vioxx as initiated on admission - All cultures are ordered and pending - Pro calcitonin is elevated we will continue to trend - Patient's vital signs are stable at this time she has been more profoundly hypertensive in the past so blood pressure is still mildly elevated, this in conjunction with evidence for volume overload will be asked to hold intravenous hydration. #Acute on chronic renal failure - Renal functions have worsened since hospital discharge, definitely so since initial hospital admission less than 3 weeks prior. - Aggressive hydration will need to be deferred given possible volume overload and acute respiratory failure detailed above. - Initial diuresis however demonstrated little improvement in breathing function. - We will continue to consider best possible interventions, thirdly also blood pressure control is of paramount importance of this may have contributed to initial renal decline. - Consider reconsult nephrology who have been involved with this case during patient's previous hospitalization. #Hypothyroidism, currently supratherapeutic due to overtreatment - Elevated free T4 supportive of overtreatment with thyroid medication at this time - This could certainly be contributing to impaired mentation - Will decrease levothyroxine dose is 150mg, continue to monitor patient's mentation, bowel function, and further evidence of improving thyroid function. - Consider recheck in a couple of days specifically T4 values. 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
--- NOTE | 2016-03-27 12:28 | DRSVH ---
PROCEDURE: CT CHEST WITHOUT CONTRAST ([id number]) INDICATIONS: questionable pneumonia/chf? TECHNIQUE: Noncontrast 5 mm thick sections acquired from the pulmonary apices to the posterior costophrenic angl es. 7 mm thick coronal and sagittal MIP reformats were then acquired. For radiation dose reduction, the following was used: automated exposure control, adjustment of mA and/or kV according to patient size. COMPARISON: [facility], CT, PE STUDY (CTA CHEST), 09/26/2008, 16:40. [facility], CR , XR CHEST 1VW (PORTABLE), 03/26/2016, 15:54. FINDINGS: Image quality: Motion is present throughout the examination, limiting areas of fine detail evaluation . Lungs and pleura: Minimal mild bilateral pleural effusions, right greater than left and superimposed consolidations are present. There is an overall appearance of increased pulmonary vascularity. Mediastinum: Heart size is normal. No pericardial effusion. There is a 56 mm AP by 47 mm transverse low attenuation focus with Hounsfield units suggestive of fluid along the right anterior pericardial border. 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 No mediastinal adenopathy by size criteria. Thoracic aorta and central pulmonary arteries are normal in size. Esophagus is n ormal in caliber. No hiatal hernia. Bones and chest wall: No suspicious bony lesions. No vertebral body compression fractures. No axil norris or supraclavicular adenopathy by size criteria. Thyroid gland is not well-visualized. Abdomen: Visualized upper abdominal solid organs and bowel loops appear normal in the absence of con trast. IMPRESSION: 1. Minimal to mild bilateral pleural effusions with small superimposed consolidations. The consolidat ions could be operations support representative of atelectasis. However, developing areas of underlying airspace disease such as pneumonia cannot be excluded. In addition, there is an appearance of increased pulmonary vas cularity suggestive of edema. Dictated by: Nazia Mueller M.D. on 03/27/2016 at 12:23 Approved by: Nazia Mueller M.D. on 03/27/2016 at 12:26
--- NOTE | 2016-03-27 12:30 | NUR ---
Labetalol PO labetalol this AM d/t borderline BP. Continued with monitoring. See separate results for VS. Just now administered AM dose. Pt sitting upright in chair, eating lunch. Call light in reach. Will continue to monitor.
--- NOTE | 2016-03-27 14:48 | DRSVH ---
[facility] [address] [place] [address] Echocardiogram Report Name: CALY RO te: 03/27/2016 Height: 54 in Hospital Exam Location: [facility] Weight: 162 lb Gender: Female BSA: 1.6 m2 : 1935 Age: 80 yrs BP: 136/70 mm Hg Reason For Study: Hypoxia History: pericardial effusion Ordering Physician: HOSPITALIST [facility] Performed By: Nena Stewart Referring Physician: Praveena Saini Interpretation Summary Left ventricular systolic function is normal without focal wall motion abnormalities. The ejection fraction is estimated to be 55-60%. The right ventricle is normal in size and function. The right ventricular systolic pressure is estimated at 44 mmHg assuming a right atrial pressure of 8 mm Hg. There is no significant valvular heart disease. There is a moderate right-sided pleural effusion. There is no pericardial effusion. Pericardial effusion has resolved. Procedure: A two-dimensional transthoracic echocardiogram with color flow and Doppler was performed in limited views only. The study quality was technically adequate. Comparison is made with the echocardiogram of 03/04/2016. The patient was in normal sinus rhythm during the exam. Left Ventricle: The left ventricle is normal in size. Left ventricular wall thickness is mildly increased. Left ventricular systolic function is normal without focal wall motion abnormalities. The ejection fraction is estimated to be 55-60%. Spectral Doppler of the mitral inflow yields an E/A ratio that is between 0.8 and 1.5. The E/E' ratio is abnormal. Right Ventricle: The right ventricle is normal in size and function. Mitral Valve: There is mild mitral annular calcification. There is no mitral regurgitation noted. Tricuspid Valve: There is mild tricuspid regurgitation. The right ventricular systolic pressure is estimated at 44 mmHg assuming a right atrial pressure of 8 mm Hg. Pulmonic Valve: There is no significant valvular heart disease. Great Vessels: The IVC is of normal diameter and collapses less than 50% with a sniff. This suggests a right atrial pressure of 8 mm Hg. Pericardium/ Pleura There is no pericardial effusion. There is a moderate right-sided pleural effusion. MMode/2D Measurements & Calculations LVIDd IVC diam LV lozano. diameter/BSA LV sys. diameter/BSA : 4.9 cm : 2.1 cm (cm/m^2): 3.1 (cm/m^2): 2.2 LVIDs : 3.5 cm FS: 29.1 % IVSd : 1.cm LVPWd : 1.2 cm TAPSE : 2.1 cm Doppler Measurements & Calculations MV E max bridger MV E/A: 1.0 TR max bridger MV dec time : 127.9 cm/sec Med Peak E' Bridger : 298.5 cm/sec : 0.19 sec MV A max bridger TR max PG : 125.5 cm/sec E/E' med: 15.8 : 35.6 mmHg MV P1/2t: 55.2 msec MV P1/2t max bridger MVA(P1/2t): 4.0 cm2 Reading Physician:PM
--- NOTE | 2016-03-27 15:10 | NUR ---
Social Work: Initial Assessment Data: Pt is a 80 y/o female admitted for AMS, general weakness, short of breath. Pt's PCP is Dr Saini, pt's insurance is Medicare with [employer] [facility]. EMR reviewed. Pt's readmit score not listed. KENO WRITER met with pt and niece at bedside, role explained. Pt states she lives with her nephew in [place] in a single story home where she uses a walker. She states she does not drive, is open with [facility], has no hx at SNF, no LTC or VA benefits, and is not a caregiver. DPOA/AD on pt's chart. KENO WRITER will continue to follow. Assessment: Pt who is independent at baseline, walker. Plan: Pt will d/c home via POV with family with resume Noemi PLATT, RN/PT. KENO WRITER will continue to follow for other possible d/c planning needs. IDALIA Olmstead Addendum: 03/27/16 at 1513 by JENNIFER OVERTON Amended: Links added.
[2016-03-28] VITALS (16 sets, daily range): BP systolic 134–151; BP diastolic 60–69; PULSE 54–69; RESP 16–24; O2SAT 93–98
[2016-03-28] MEDS: Albuterol-Ipratropium 3 mL Inhalation Solution NEB SCH ×6 (00:28→19:33)
[2016-03-28] MEDS: Heparin 5,000 Unit/mL Inj SUBQ SCH ×3 (00:53→16:59)
[2016-03-28 05:42] LABS: BASOPHILS % (AUTO) 0.8 % (0-3); EOSINOPHILS % (AUTO) 4.2 % (0-5); MONOCYTES % (AUTO) 12.8 % (4-12); Mean Corpuscular Hemoglobin 27.7 pg (27.0-35.0); Mean Corpuscular Volume 87.7 fL (81-100); NEUTROPHILS % (AUTO) 67.9 % (40-74); Platelet Count 480 bil/L (150-400)
[2016-03-28] MEDS: Insulin LISPRO 300 Unit/3 mL Inj SUBQ SCH ×4 (08:00→22:00)
[2016-03-28] MEDS: Pantoprazole 20 mg ER24 Tablet PO SCH (08:08)
[2016-03-28] MEDS ORDERED: Levofloxacin 250 mg/50 mL D5W IV SCH (08:30)
--- NOTE | 2016-03-28 08:30 | NUR ---
SISI signed IDALIA Olmstead
--- NOTE | 2016-03-28 09:30 | PCM.PNMED ---
Subjective Date of Service Mar 28, 2016 Subjective Patient notes feeling slightly improved this morning, in regard to her respiratory status and also general condition. Denies any acute discomforts, notes a small amount of swelling of her ankles does not feel her abdominal distention is any worse. Denies any acute chest pains or palpitations at this time. Other complaints. Exam Vital Signs Vital Sign - Last Date Time Temp Pulse Resp B/P Pulse Ox O2 Delivery O2 Flow Rate FiO2 03/28/16 08:30 Supplement Oxygen 03/28/16 07:47 69 18 98 2.00 03/28/16 04:55 36.4 151/61 Intake and Output 03/27/16 03/27/16 03/28/16 Cumulative From/Thru 15:00 23:00 07:00 03/26/16 19:53 - 03/28/16 06:55 Intake Total 100 ml 280 ml 300 ml 1322 ml Output Total 30 ml 250 ml 500 ml 780 ml Balance 70 ml 30 ml -200 ml 542 ml Intake Oral 100 ml 280 ml 300 ml 680 ml IV Total 642 ml Output Urine Total 30 ml 250 ml 500 ml 780 ml # Voids 1 1 2 # Bowel Movements 1 1 3 5 Exam General: An obese female lying in bed she is alert and oriented in moderate distress with increased work of breathing. Eyes: EOMI Mouth: Mucous Membrane Moist/[place] Chest & Lungs: Coarse breath sounds diffusely without adventitious lung sounds noted, some diminished airflow lung bases to tactile. No wheezing Cardiovascular: Regular Rate/Rhythm Abdomen: Obese but nontender to palpation, nondistended, at least not excessively so. Not tympanic normal bowel sounds no ascites notable. Extremities: Trace to +1 edema bilaterally noted in ankles and extending up to mid calf. Extremities are otherwise normal as well perfused. Neurological: Patient appears to have some impairment of mentation/lethargy but is otherwise neurologically intact. Exam is nonfocal. IVs and Medications Medications Reviewed: Medications were reviewed in detail Lab and Diagnostics Result Diagram: 03/28/16 0535 03/28/16 0535 Assessment & Plan This 80-year-old female multiple comorbidities presenting with declining mental status and increased work of breathing, worsening respiratory function admitted through the ER following presentation via EMS: #. Acute respiratory failure - Condition could be multifactorial, there is concern for hospital-acquired pneumonia given recent hospitalization, certainly may be the case, those studies are more supportive of a urinary type infection rather than respiratory. - Patient additionally is now noted to be hyperthyroid following previous hospitalization which noted her to be hypothyroid, unclear what role this is playing respiratory failure but certainly being pain in her mentation as well. - Hydration status is unclear patient is in acute renal failure on top of a chronic dysfunction, but additionally demonstrate some evidence of volume overload as evidenced by possible pulmonary edema and lower extremity edema. - ABG on 03/27 did not demonstrate significant respiratory acidosis, so despite increased respiratory effort, he is at least effectively clearing carbon dioxide. - Continue to monitor provide supplemental oxygen as needed. Address underlying conditions as detailed below #. Hospital-acquired pneumonia vs UTI - It was suspected on admission that an acute infection was accounting for patient's acute decline in status following discharge , source of which is not yet clear . - We will continue broad-spectrum, vancomycin discontinued yesterday due to no evidence of MRSA infection. - All cultures are ordered and pending - Pro calcitonin level was stable overnight, with mild elevation. - Patient's vital signs are stable at this time she has been more profoundly hypertensive in the past so blood pressure is still mildly elevated, this in conjunction with evidence for volume overload will be asked to hold intravenous hydration. #Acute on chronic renal failure - Renal functions have worsened since hospital discharge, definitely so since initial hospital admission less than 3 weeks prior. - Initial diuresis however demonstrated little improvement in breathing function , may have contributed to worsening renal functions. - We will continue to consider best possible interventions, thirdly also blood pressure control is of paramount importance of this may have contributed to initial renal decline. - Dr. Thomas, nephrology has been consulted and will see patient later this morning. #Hypothyroidism, currently supratherapeutic due to overtreatment - Elevated free T4 supportive of overtreatment with thyroid medication at this time - This could certainly be contributing to impaired mentation - Levothyroxine dose has been decreased to 150mcg, continue to monitor patient' s mentation, bowel function, and further evidence of improving thyroid function. - Consider recheck in a couple of days specifically T4 values. #Diabetes mellitus - Pt placed on sliding scale insulin on admission and this will be continued Chronic issues known prior to admission, present on admission Dementia Anemia under production likely due to hypothyroidism and renal disease Insulin-dependent diabetes mellitus/nephropathy Hypertension Hyperlipidemia GERD Bilateral cataract Osteoporosis /Low vitamin D Pain Evaluation: Adequate Pain Control VTE Mechanical Devices: Intermittant Pneumatic CD Resuscitation Status: CPR: Attempt Resuscitation Time spent 30 minutes Jeovanny Cruz DO Mar 28, 2016 09:30
[2016-03-28] MEDS ORDERED: Iron Sucrose Inj 100 MG in 0.9% Sodium Chloride 100 ML IV ONE (11:40)
[2016-03-28] MEDS ORDERED: Darbepoetin Alfa 60 mCg/0.3 mL Inj SUBQ ONE (11:40)
[2016-03-28] MEDS: Furosemide 10 mg/mL 10 mL Inj IVPUSH SCH ×2 (13:06→19:50)
--- NOTE | 2016-03-28 18:43 | NUR ---
Daily update Patient alert and oriented with times of confusion. Patient continues to be slow to respond and slur/mumble words. Patient has denied pain throughout the day. Patient had diarrhea today. Patient remains 1 person assist with FWW to BSC. Patient received IV Lasix today. In bed resting.
--- NOTE | 2016-03-28 19:11 | CONS ---
[address] [address] CONSULTATION REPORT PATIENT: CLAY RO V : 1935 MR#: [id number] ADMIT: 03/26/2016 JOB ID: [id number] DATE OF SERVICE: HISTORY: The patient is a rather unfortunate, 80-year-old, female, who was readmitted to [facility] for decreased level of consciousness and mental status change. She has a history of chronic kidney disease and was recently hospitalized for a number of issues, including severe hypothyroidism and acute kidney injury. Renal consultation is being sought for further evaluation of her renal dysfunction. The patient is an extremely poor historian and has rather significant multi-infarct dementia from longstanding hypertension. She was hospitalized several weeks ago for severe hypothyroidism, and at that time, her TSH was approximately 153. She was treated initially with both IV and oral thyroid replacement with some improvement in some of her symptomatology. She also had evidence of chronic kidney disease, which was most likely due to diabetic renal disease and hypertension with hypertensive heart disease and hypertensive nephrosclerosis. The Nephrology service was consulted approximately a week into her hospitalization for assistance in fluid mobilization and hypertension management. She had considerable variations in her blood pressure readings and her blood pressure control became quite problematic. She developed some mild acute on chronic kidney injury secondary to normalization of her blood pressure. In addition, she had evidence of severe anemia and GI was consulted. She was given several doses of erythropoietin with some mild improvement in her hemoglobin count. She was subsequently discharged over a week ago with instructions to follow up in my office in approximately a month. Approximately 4-5 days ago, our office received a call that the patient was having increased orthopnea, lower extremity edema, and had gained approximately 10-15 pounds. I recommended that the patient start on torsemide twice a day and I am unsure as to whether this was undertaken, as it was not on her medication list. Apparently, she has had some diminished mental status over the last several days. Unfortunately, the patient is unable to give much meaningful history as she has fairly profound dementia. PAST MEDICAL HISTORY: Significant for chronic kidney disease, stage 4, secondary to diabetic nephropathy and hypertensive heart disease and hypertensive nephrosclerosis. Her ejection fraction is approximately 50% to 60% with a resolved pericardial effusion. There is evidence of diastolic dysfunction and bi-atrial enlargement. Otherwise, her past medical history is significant for multi-infarct dementia, hypothyroidism, osteoporosis, hyperlipidemia, GERD. PAST SURGICAL HISTORY: Significant for hysterectomy, cholecystectomy, cataract excision. She is allergic to PENICILLIN. SOCIAL HISTORY: She denies the current use of alcohol or illicit drugs and there is a history in the past of tobacco use. FAMILY HISTORY: Unobtainable. REVIEW OF SYSTEMS: Unable to be determined because of the patient's dementia. MEDICATIONS: At time of admission include thiamine, alendronate, amlodipine, atorvastatin, cholecalciferol, , ferrous sulfate, labetalol, levothyroxine, loratadine, magnesium, omeprazole, and Requip. PHYSICAL EXAMINATION: Revealed an obese, 80-year-old, female, who was awake and only able to answer the simplest of questions. Her blood pressure is 134/66, with a pulse rate of 60. HEENT examination is remarkable for some mild periorbital edema and pale sclerae. Neck is supple without adenopathy or thyromegaly. However, there is moderate jugular venous distention at 60 degrees elevation. Examination of her lungs shows an increase in AP diameter and poor inspiratory effort. However, I was able to ascertain bibasilar rales and diminished breath sounds on the right. Heart was regular and rhythmical though somewhat distant because of the patient's body habitus. Abdomen is soft, but somewhat distended. There was no tenderness, rebound, guarding, masses, or splenomegaly noted. There was some hepatomegaly and the liver is pulsatile to palpation with evidence of hepatojugular reflux. Extremities showed some mild bilateral lower extremity pitting edema which is limited to both distal lower extremities. Skin turgor is good, and there is no evidence of any rashes. LABORATORY EXAMINATION: This morning, her white count is 7.7, her hemoglobin is 8.6, hematocrit 27.2. Red cell indices, platelet count and differential were normal. This morning, her sodium is 134, potassium 5.5, chloride of 100, CO2 19. BUN and creatinine are 49 and 2.86, respectively. Her albumin is 3.1, and her urinalysis shows a specific gravity of 1.030, pH is 5.0. Tests for protein, glucose, occult blood, and leukocyte esterase were positive. There were 3-10 WBCs per high-power field, greater than 50 WBCs per high-power field. Moderate epithelium and many bacteria are noted. IMPRESSION: 1. Acute decompensated congestive heart failure, predominantly right-sided. 2. Hypertension with hypertensive heart disease and hypertensive nephrosclerosis with the presence of congestive heart failure. 3. Acute on chronic kidney injury secondary to acute decompensated heart failure. 4. Cardiorenal syndrome. 5. Diabetic nephropathy. 6. Type 4 renal tubular acidosis. 7. Multi-infarct dementia. 8. Anemia secondary to chronic kidney disease. RECOMMENDATION: I will start her on IV diuresis as it is fairly clear that she is in congestive heart failure. I would like to also re-dose her Aranesp and intravenous iron. I am also concerned about her urine. However, she has moderate epithelial cells, so I will wait for the culture to determine any further antibiotics Once again, I would like to thank you for allowing me to participate in the care of this rather unfortunate patient. I will be following her closely with you. CC: [facility]
[2016-03-29] VITALS (13 sets, daily range): BP systolic 142–161; BP diastolic 61–80; PULSE 60–76; RESP 16–24; O2SAT 93–96
[2016-03-29] MEDS: Heparin 5,000 Unit/mL Inj SUBQ SCH ×3 (00:25→16:02)
[2016-03-29] MEDS: Albuterol-Ipratropium 3 mL Inhalation Solution NEB SCH ×6 (00:29→20:27)
--- NOTE | 2016-03-29 04:15 | NUR ---
NOC shift note Patient denied pain and shortness of breath overnight. On 2L humidified nasal cannula, mid 90's. Neb treatments per RT. Up with 1 person and walker to commode. Two loose bowel movements, good urine output- see I&0 charting. Mild confusion noted, bed alarm on for safety as patient is not using call light. Intentional rounding in place.
[2016-03-29 07:05] LABS: Magnesium 2.5 mg/dL (1.6-2.6)
[2016-03-29 07:53] LABS: BASOPHILS % (AUTO) 0.8 % (0-3)
[2016-03-29 07:59] LABS: EOSINOPHILS % (AUTO) 4.3 % (0-5); MONOCYTES % (AUTO) 15.5 % (4-12); Mean Corpuscular Volume 88.2 fL (81-100); NEUTROPHILS % (AUTO) 65.3 % (40-74); Platelet Count 526 bil/L (150-400)
[2016-03-29] MEDS: Insulin LISPRO 300 Unit/3 mL Inj SUBQ SCH ×4 (08:00→22:00)
[2016-03-29 08:10] LABS: Phosphorus 5.2 mg/dL (2.5-4.9)
[2016-03-29] MEDS: Furosemide 10 mg/mL 10 mL Inj IVPUSH SCH ×2 (09:42→20:48)
--- NOTE | 2016-03-29 11:11 | PCM.PNMED ---
Subjective Date of Service Mar 29, 2016 Subjective stable overnight, no new complaints. stable BP. on IV lasix 60 mg BID. I&O 1080/642 Exam Vital Signs Vital Sign - Last Date Time Temp Pulse Resp B/P Pulse Ox O2 Delivery O2 Flow Rate FiO2 03/29/16 10:29 61 03/29/16 10:14 36.6 20 142/61 93 Nasal Cannula 2.00 Intake and Output 03/28/16 03/28/16 03/29/16 Cumulative From/Thru 15:00 23:00 07:00 03/26/16 19:53 - 03/29/16 06:56 Intake Total 400 ml 0 ml 1722 ml Output Total 400 ml 600 ml 1780 ml Balance 0 ml -600 ml -58 ml Intake Oral 400 ml 0 ml 1080 ml IV Total 642 ml Output Urine Total 400 ml 600 ml 1780 ml # Voids 2 # Bowel Movements 1 2 8 Exam GA: AAOx3, slow response, NAD. HEENT: atraumatic, moist mucous membrane, mild pallor, no icteric sclerae, no JVD, no LAD. Heart: RRR, no M/R/G, normal S1/S2. Lungs: coarse crackles at bases, no wheezes, no rhonchi. Good air entry B/L. Abd: Soft, obese, ND, NT, no HSM, active BS. Ext: trace edema, no cyanosis, no clubbing. Skin: good turgor, no evidence of any rashes. Lab and Diagnostics Result Diagram: 03/29/16 0610 03/29/16 0610 Assessment & Plan 1. CAYDEN on CKD 4 secondary to CRS. 2. Acute on chronic diastolic heart failure. 3. Hypertension with hypertensive heart disease and hypertensive nephrosclerosis with the presence of congestive heart failure. 4. DM-2 with diabetic nephropathy. 5. Hypothyroidism with recent h/o myxedema. 6. Hyperkalemia. 7. Dementia. 8. Anemia secondary to chronic kidney disease. Plan: Continue IV lasix 60 mg BID for now. Monitor UOP and volume status. will give aranesp when euvolemic. Daily BMP. Avoid nephrotoxins. VTE Mechanical Devices: Intermittant Pneumatic CD Resuscitation Status: CPR: Attempt Resuscitation Cheryl Pond MD Mar 29, 2016 11:11
--- NOTE | 2016-03-29 12:33 | NUR ---
Social Work Continued Discharge Planning: Plan remains as home with family support and care and continued HHC services via [facility]. SW spoke to [facility] rep Justin was advised SW that patient active with services. Access provided. Per report in rounds, plan to diurese patient today. SW will continue to follow pending further clinical course. PLAN: Home with family support and continued HHC services via [facility]. Access provided. Estrella FRIEDMAN
--- NOTE | 2016-03-29 15:02 | NUR ---
NUTRITION ASSESSMENT ASSESS: Pt is a 80 yo female admitted w/ altered mental status, weakness, and loss of consciousness d/t pneumonia and ongoing hypoxia. Pt discharged three days ago from previous hospitalization for severe hypo-thyroidism. Per notes, pt has been progressively weak and incontinent w/ diarrhea since d/c. Pt also has CAYDEN on CKD, and is being followed by nephrology. Notes state recent edema. Pt started on IV diuresis. Pt on supplemental oxygen as needed. PMHX: CKD Stage IV, Type II DM, hypothyroid, HTN, HLD, GERD, multi-infarct dementia, osteoporosis, anemia DIET: Diabetic, Consistent Carbohydrate - PO Refused-50% LABS: BUN 50, Psych Social Worker 2.84, Gluc 100, Ca 7.4, Phos 5.2, Alb 3.1, Prealbumin 13, Procalcitonin 0.21 MEDS: Lasix, Synthroid. GI: BMx2 (03/29) loose stools noted. CURRENT WT: 72.4 kg BMI: 38.5 kg/m2 IBW: 31.8 kg ADMIT WT: 73.6 kg EST.NEEDS: CAYDEN, BMI Calories: 8984-7591 kcal/day (22-25 kcal/kg BW) Protein: 40-50 g/day (1.2-1.5 g/kg IBW) NUTRITION DIAGNOSIS: 1) Inadequate oral intake related to acute illness and generalized weakness as evidenced by PO intake refused-50%. INTERVENTION: 1) Add [employer] to L&D trays. MONITOR/EVALUATE: PO intake, GI, wt, labs, nutrition status, POC. Will continue to monitor per moderate nutritional risk guidelines. Addendum: 03/29/16 at [address] Auxiliary student documentation reviewed. I agree with above documentation with the following changes CURRENT WT: 72.4 kg BMI: 38.5 kg/m2 IBW: 40 kg ADMIT WT: 73.6 kg EST.NEEDS: CAYDEN, BMI Calories: 7119-5034 kcal/day (22-25 kcal/kg BW) Protein: 40-75 g/day (1.0-1.5 g/kg IBW) Brittney Kim RDN, CD
--- NOTE | 2016-03-29 15:05 | PCM.PNMED ---
Subjective Date of Service Mar 29, 2016 Subjective Breathing slightly improved. On Lasix 60 mg IV twice a day. Creatinine unchanged Exam Vital Signs Vital Sign - Last Date Time Temp Pulse Resp B/P Pulse Ox O2 Delivery O2 Flow Rate FiO2 03/29/16 13:02 64 20 94 Nasal Cannula 2.00 03/29/16 10:14 36.6 142/61 Intake and Output 03/28/16 03/28/16 03/29/16 Cumulative From/Thru 15:00 23:00 07:00 03/26/16 19:53 - 03/29/16 06:56 Intake Total 400 ml 0 ml 1722 ml Output Total 400 ml 600 ml 1780 ml Balance 0 ml -600 ml -58 ml Intake Oral 400 ml 0 ml 1080 ml IV Total 642 ml Output Urine Total 400 ml 600 ml 1780 ml # Voids 2 # Bowel Movements 1 2 8 Exam General: An obese female lying in bed she is alert and oriented in moderate distress with increased work of breathing. Eyes: EOMI Mouth: Mucous Membrane Moist/[place] Chest & Lungs: Coarse breath sounds diffusely without adventitious lung sounds noted, some diminished airflow lung bases to tactile. No wheezing Cardiovascular: Regular Rate/Rhythm Abdomen: Obese but nontender to palpation, nondistended, at least not excessively so. Not tympanic normal bowel sounds no ascites notable. Extremities: Trace to +1 edema bilaterally noted in ankles and extending up to mid calf. Extremities are otherwise normal as well perfused. Neurological: Patient appears to have some impairment of mentation/lethargy but is otherwise neurologically intact. Exam is nonfocal. IVs and Medications Medications Reviewed: Medications were reviewed in detail Lab and Diagnostics Result Diagram: 03/29/16 0610 03/29/16 0610 X-Rays, CTs and MRIs PROCEDURE: CT CHEST WITHOUT CONTRAST ([id number]) INDICATIONS: questionable pneumonia/chf? TECHNIQUE: Noncontrast 5 mm thick sections acquired from the pulmonary apices to the posterior costophrenic angles. 7 mm thick coronal and sagittal MIP reformats were then acquired. For radiation dose reduction, the following was used: automated exposure control, adjustment of mA and/or kV according to patient size. COMPARISON: [facility], CT, PE STUDY (CTA CHEST), 09/26/2008, 16:40. [facility], CR, XR CHEST 1VW (PORTABLE), 03/26/2016, 15:54. FINDINGS: Image quality: Motion is present throughout the examination, limiting areas of fine detail evaluation. Lungs and pleura: Minimal mild bilateral pleural effusions, right greater than left and superimposed consolidations are present. There is an overall appearance of increased pulmonary vascularity. Mediastinum: Heart size is normal. No pericardial effusion. There is a 56 mm AP by 47 mm transverse low attenuation focus with Hounsfield units suggestive of fluid along the right anterior pericardial border. 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 No mediastinal adenopathy by size criteria. Thoracic aorta and central pulmonary arteries are normal in size. Esophagus is normal in caliber. No hiatal hernia. Bones and chest wall: No suspicious bony lesions. No vertebral body compression fractures. No axillary or supraclavicular adenopathy by size criteria. Thyroid gland is not well-visualized. Abdomen: Visualized upper abdominal solid organs and bowel loops appear normal in the absence of contrast. IMPRESSION: 1. Minimal to mild bilateral pleural effusions with small superimposed consolidations. The consolidations could be new accounts representative of atelectasis. However, developing areas of underlying airspace disease such as pneumonia cannot be excluded. In addition, there is an appearance of increased pulmonary vascularity suggestive of edema. Dictated by: Nazia Mueller M.D. on 03/27/2016 at 12:23 Assessment & Plan This 80-year-old female multiple comorbidities presenting with declining mental status and increased work of breathing, worsening respiratory function admitted through the ER following presentation via EMS: #. Acute hypoxic respiratory failure -initial ABG 7.30/44/64 FIO2 28% - Condition could be multifactorial, there is concern for hospital-acquired pneumonia given recent hospitalization, certainly may be the case, those studies are more supportive of a urinary type infection rather than respiratory. - Hydration status is unclear patient is in acute renal failure on top of a chronic dysfunction, but additionally demonstrate some evidence of volume overload as evidenced by possible pulmonary edema and lower extremity edema. Started on Lasix 60 mg IV.bid - ABG on 03/27 did not demonstrate significant respiratory acidosis, so despite increased respiratory effort, he is at least effectively clearing carbon dioxide. - Continue to monitor provide supplemental oxygen as needed. Address underlying conditions as detailed below #. Hospital-acquired pneumonia vs UTI - It was suspected on admission that an acute infection was accounting for patient's acute decline in status following discharge , source of which is not yet clear . - We will continue broad-spectrum, vancomycin discontinued 03/27 due to no evidence of MRSA infection. - Blood culture negative. Urine culture mixed karen - Pro calcitonin level with mild elevation. #Acute on chronic renal failure - Renal functions have slightly worsened since hospital discharge, definitely so since initial hospital admission less than 3 weeks prior. - Initial diuresis however demonstrated little improvement in breathing function , may have contributed to worsening renal functions. . - Dr. Thomas, nephrology has been consulted -Continue Lasix 60 mg twice a day. -Renal function seems to have stabilized around cr 1.8. I do not see much change from recent admission #Hypothyroidism, currently supratherapeutic due to overtreatment - Elevated free T4 supportive of overtreatment with thyroid medication at this time - This could certainly be contributing to impaired mentation - Levothyroxine dose has been decreased to 150mcg, continue to monitor patient' s mentation, bowel function, and further evidence of improving thyroid function. - Consider recheck in a couple of days specifically T4 values. #Diabetes mellitus - Pt placed on sliding scale insulin on admission and this will be continued Chronic issues known prior to admission, present on admission Dementia Anemia under production likely due to hypothyroidism and renal disease Insulin-dependent diabetes mellitus/nephropathy Hypertension Hyperlipidemia GERD Bilateral cataract Osteoporosis /Low vitamin D Disposition: Pending improvement of respiratory status on IV diuresis VTE Mechanical Devices: Intermittant Pneumatic CD Resuscitation Status: CPR: Attempt Resuscitation Miguelangel Dahl MD Mar 29, 2016 15:04
--- NOTE | 2016-03-29 15:15 | NUR ---
Wound Care [facility] Patient assessed per pressure ulcer protocol. Patient currently using P500 bed. No redness or areas of skin breakdown noted. No non-blanchable redness to sacrum noted today. Patient instructed in importance of keeping heels floated. Patient states she had them floated but took them down because it was uncomfortable. Instructed patient in reason for floating heels to keep pressure off skin to decrease risk of ulceration. Patient agreeable to keep heels floated. Adjusted padding under legs to float heels but increase comfort. Patient instructed in frequent position changes to relieve pressure to skin. Patient agreeable to turning q2 hours. Recommend continued use of P500 bed and turning q2 hours. Please reconsult wound care if additional services needed.
--- NOTE | 2016-03-29 19:17 | NUR ---
Swallowing Pt not eating much of meals, just picking at it with a few bites. Spoke with family/sister, pt does not have teeth and no dentures. Pt does not request any change in diet but can be confused at time. Asked again later and pt was willing to change to a soft diet. paged and diet updated to soft.
[2016-03-30] VITALS (13 sets, daily range): BP systolic 141–173; BP diastolic 67–76; PULSE 61–71; RESP 17–24; O2SAT 91–98
[2016-03-30] MEDS: Albuterol-Ipratropium 3 mL Inhalation Solution NEB SCH ×6 (00:10→20:38)
[2016-03-30] MEDS: Heparin 5,000 Unit/mL Inj SUBQ SCH ×3 (00:52→16:29)
--- NOTE | 2016-03-30 05:53 | NUR ---
Swallowing Pt takes meds in applesauce, alert and cooperative with med administration. Pt slept well through the night. Left room with call light at side of bed.
[2016-03-30] MEDS: Insulin LISPRO 300 Unit/3 mL Inj SUBQ SCH ×4 (07:43→22:14)
[2016-03-30] MEDS: levoFLOXacin 250 mg Tablet PO SCH (07:54)
[2016-03-30 08:37] LABS: BASOPHILS % (AUTO) 0.9 % (0-3); EOSINOPHILS % (AUTO) 4.6 % (0-5); MONOCYTES % (AUTO) 10.4 % (4-12); Mean Corpuscular Hemoglobin 27.3 pg (27.0-35.0); Mean Corpuscular Volume 87.8 fL (81-100); NEUTROPHILS % (AUTO) 71.1 % (40-74); Platelet Count 520 bil/L (150-400)
[2016-03-30 09:32] LABS: Magnesium 2.4 mg/dL (1.6-2.6); Phosphorus 4.9 mg/dL (2.5-4.9)
[2016-03-30] MEDS ORDERED: Ipratropium 0.02% 0.5 mg/2.5 mL Inhalation Solution NEB ONE ×2 (10:07→13:39)
--- NOTE | 2016-03-30 11:20 | PCM.PNMED ---
Subjective Date of Service Mar 30, 2016 Subjective no acute issue overnight. stable BP. lying in bed comfortably. improved oxygenation. Exam Vital Signs Vital Sign - Last Date Time Temp Pulse Resp B/P Pulse Ox O2 Delivery O2 Flow Rate FiO2 03/30/16 10:16 71 24 98 Nasal Cannula 2.00 03/30/16 08:34 36.7 150/69 Intake and Output 03/29/16 03/29/16 03/30/16 Cumulative From/Thru 15:00 23:00 07:00 03/26/16 19:53 - 03/30/16 05:46 Intake Total 750 ml 200 ml 2672 ml Output Total 500 ml 600 ml 2880 ml Balance 250 ml -400 ml -208 ml Intake Oral 750 ml 200 ml 2030 ml IV Total 642 ml Output Urine Total 500 ml 600 ml 2880 ml # Voids 2 # Bowel Movements 1 0 9 Exam GA: AAOx3, slow response, NAD. HEENT: atraumatic, moist mucous membrane, mild pallor, no icteric sclerae, no JVD, no LAD. Heart: RRR, no M/R/G, normal S1/S2. Lungs: coarse crackles at bases, no wheezes, no rhonchi. Good air entry B/L. Abd: Soft, obese, ND, NT, no HSM, active BS. Ext: No edema, no cyanosis, no clubbing. Skin: good turgor, no evidence of any rashes. Lab and Diagnostics Result Diagram: 03/30/16 0740 03/30/16 0740 X-Rays, CTs and MRIs PROCEDURE: CT CHEST WITHOUT CONTRAST ([id number]) INDICATIONS: questionable pneumonia/chf? TECHNIQUE: Noncontrast 5 mm thick sections acquired from the pulmonary apices to the posterior costophrenic angles. 7 mm thick coronal and sagittal MIP reformats were then acquired. For radiation dose reduction, the following was used: automated exposure control, adjustment of mA and/or kV according to patient size. COMPARISON: [facility], CT, PE STUDY (CTA CHEST), 09/26/2008, 16:40. [facility], CR, XR CHEST 1VW (PORTABLE), 03/26/2016, 15:54. FINDINGS: Image quality: Motion is present throughout the examination, limiting areas of fine detail evaluation. Lungs and pleura: Minimal mild bilateral pleural effusions, right greater than left and superimposed consolidations are present. There is an overall appearance of increased pulmonary vascularity. Mediastinum: Heart size is normal. No pericardial effusion. There is a 56 mm AP by 47 mm transverse low attenuation focus with Hounsfield units suggestive of fluid along the right anterior pericardial border. 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 No mediastinal adenopathy by size criteria. Thoracic aorta and central pulmonary arteries are normal in size. Esophagus is normal in caliber. No hiatal hernia. Bones and chest wall: No suspicious bony lesions. No vertebral body compression fractures. No axillary or supraclavicular adenopathy by size criteria. Thyroid gland is not well-visualized. Abdomen: Visualized upper abdominal solid organs and bowel loops appear normal in the absence of contrast. IMPRESSION: 1. Minimal to mild bilateral pleural effusions with small superimposed consolidations. The consolidations could be personnel representative of atelectasis. However, developing areas of underlying airspace disease such as pneumonia cannot be excluded. In addition, there is an appearance of increased pulmonary vascularity suggestive of edema. Dictated by: Nazia Mueller M.D. on 03/27/2016 at 12:23 Assessment & Plan 1. CAYDEN on CKD 4 secondary to CRS. 2. Acute on chronic diastolic heart failure. 3. Hyponatremia. 4. Hypertension with hypertensive heart disease and hypertensive nephrosclerosis with the presence of congestive heart failure. 5. DM-2 with diabetic nephropathy. 6. Hypothyroidism with recent h/o myxedema. 7. Hyperkalemia. 8. Dementia. 9. Anemia secondary to chronic kidney disease. Plan: Repeat sodium level, check serum osm, and urine osm. D/c IV lasix 60 mg BID. start lasix 40 mg PO BID Monitor UOP and volume status. will give aranesp when euvolemic. Daily BMP. Avoid nephrotoxins. VTE Mechanical Devices: Intermittant Pneumatic CD Resuscitation Status: CPR: Attempt Resuscitation Cheryl Pond MD Mar 30, 2016 11:20
--- NOTE | 2016-03-30 16:32 | NUR ---
Pain Pt reports new onset pain in R upper arm, pain on touch, difficult to move. Pt reports it might be muscle related. No observable identification of pain source. Pt given PRN Tylenol. Later reports pain has gone away, no further reports of pain during shift.
--- NOTE | 2016-03-30 16:45 | NUR ---
SISI completed with patient at bedside
--- NOTE | 2016-03-30 17:04 | PCM.PNMED ---
Subjective Date of Service Mar 30, 2016 Subjective Patient denied difficulty breathing, cough, sputum Exam Vital Signs Vital Sign - Last Date Time Temp Pulse Resp B/P Pulse Ox O2 Delivery O2 Flow Rate FiO2 03/30/16 16:49 97 Nasal Cannula 2.00 03/30/16 12:48 36.6 62 17 161/76 Intake and Output 03/29/16 03/29/16 03/30/16 Cumulative From/Thru 15:00 23:00 07:00 03/26/16 19:53 - 03/30/16 05:46 Intake Total 750 ml 200 ml 2672 ml Output Total 500 ml 600 ml 2880 ml Balance 250 ml -400 ml -208 ml Intake Oral 750 ml 200 ml 2030 ml IV Total 642 ml Output Urine Total 500 ml 600 ml 2880 ml # Voids 2 # Bowel Movements 1 0 9 Exam NAD, comfortably laying down on the bed no JVD, MMM, no LAD RRR, nl s1, s2 no mrg decreased BS diffusely, no crackles. S,ND,NT,normoactive BS+ warm, no edema, pulses 2/2 IVs and Medications Medications Reviewed: Medications were reviewed in detail Lab and Diagnostics Result Diagram: 03/30/16 0740 03/30/16 1114 X-Rays, CTs and MRIs PROCEDURE: CT CHEST WITHOUT CONTRAST ([id number]) INDICATIONS: questionable pneumonia/chf? TECHNIQUE: Noncontrast 5 mm thick sections acquired from the pulmonary apices to the posterior costophrenic angles. 7 mm thick coronal and sagittal MIP reformats were then acquired. For radiation dose reduction, the following was used: automated exposure control, adjustment of mA and/or kV according to patient size. COMPARISON: [facility], CT, PE STUDY (CTA CHEST), 09/26/2008, 16:40. [facility], CR, XR CHEST 1VW (PORTABLE), 03/26/2016, 15:54. FINDINGS: Image quality: Motion is present throughout the examination, limiting areas of fine detail evaluation. Lungs and pleura: Minimal mild bilateral pleural effusions, right greater than left and superimposed consolidations are present. There is an overall appearance of increased pulmonary vascularity. Mediastinum: Heart size is normal. No pericardial effusion. There is a 56 mm AP by 47 mm transverse low attenuation focus with Hounsfield units suggestive of fluid along the right anterior pericardial border. 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 No mediastinal adenopathy by size criteria. Thoracic aorta and central pulmonary arteries are normal in size. Esophagus is normal in caliber. No hiatal hernia. Bones and chest wall: No suspicious bony lesions. No vertebral body compression fractures. No axillary or supraclavicular adenopathy by size criteria. Thyroid gland is not well-visualized. Abdomen: Visualized upper abdominal solid organs and bowel loops appear normal in the absence of contrast. IMPRESSION: 1. Minimal to mild bilateral pleural effusions with small superimposed consolidations. The consolidations could be warehouse representative of atelectasis. However, developing areas of underlying airspace disease such as pneumonia cannot be excluded. In addition, there is an appearance of increased pulmonary vascularity suggestive of edema. Dictated by: Nazia Mueller M.D. on 03/27/2016 at 12:23 Assessment & Plan This 80-year-old female multiple comorbidities presenting with declining mental status and increased work of breathing, worsening respiratory function admitted through the ER following presentation via EMS: #Acute hypoxic respiratory failure, initial ABG 7.30/44/64 FIO2 28%, likely fluid overload in the setting of CKD/CHF, possible HCAP - Started on Lasix 60 mg IV.bid, switched to 40mg bid per renal service 03/30 -continue abx as below, low threshold to stop given stable clinical picture, on unimpressive respiratory symptoms #probable Hospital-acquired pneumonia - It was suspected on admission that an acute infection was accounting for patient's acute decline in status following discharge , source of which is not yet clear . - We will continue Levaquin 250mg q48h, vancomycin discontinued 03/27 due to no evidence of MRSA infection. - Blood culture negative. Urine culture mixed karen - Pro calcitonin level with mild elevation. #Acute on CKD4 -greatly appreciate nephrology recs -avoid nephro toxinx, adjust meds renally -i/o, maintained net negative -300 to 400 daily #reported melena from family member, stable h/h ,no signs of bleeding in house -will get FOBT to confirm, monitor h/h, pt is not on AC. chronic, stable #Hypothyroidism, currently supratherapeutic due to overtreatment - Elevated free T4 supportive of overtreatment with thyroid medication at this time - This could certainly be contributing to impaired mentation - Levothyroxine dose has been decreased to 150mcg, continue to monitor patient' s mentation, bowel function, and further evidence of improving thyroid function. - Consider recheck in a couple of days specifically T4 values. #Diabetes mellitus - Pt placed on sliding scale insulin on admission and this will be continued Chronic issues known prior to admission, present on admission Dementia Anemia under production likely due to hypothyroidism and renal disease Insulin-dependent diabetes mellitus/nephropathy Hypertension Hyperlipidemia GERD Bilateral cataract Osteoporosis /Low vitamin D Disposition: Pending improvement of respiratory status on IV diuresis, anticipate 2-3more days VTE Mechanical Devices: Intermittant Pneumatic CD Resuscitation Status: CPR: Attempt Resuscitation Time spent 35 minutes Ally Beard MD Mar 30, 2016 17:04
--- NOTE | 2016-03-30 22:25 | NUR ---
Skin Inspected pt skin on sacrum, buttocks. Darkened from baseline santos skin. Blanchable to touch. Continue Q2H Turns, frequent checks as pt can be incontinent at times.
[2016-03-31] VITALS (13 sets, daily range): BP systolic 116–172; BP diastolic 54–71; PULSE 62–71; RESP 20–24; O2SAT 93–97
[2016-03-31] MEDS: Albuterol-Ipratropium 3 mL Inhalation Solution NEB SCH ×6 (00:30→20:51)
[2016-03-31] MEDS: Heparin 5,000 Unit/mL Inj SUBQ SCH ×3 (00:48→17:54)
[2016-03-31 06:23] LABS: BASOPHILS % (AUTO) 0.7 % (0-3); EOSINOPHILS % (AUTO) 4.8 % (0-5); MONOCYTES % (AUTO) 12.7 % (4-12); Mean Corpuscular Volume 87.6 fL (81-100); NEUTROPHILS % (AUTO) 70.3 % (40-74); Platelet Count 494 bil/L (150-400)
[2016-03-31 06:32] LABS: Magnesium 2.4 mg/dL (1.6-2.6); Phosphorus 4.8 mg/dL (2.5-4.9)
[2016-03-31] MEDS: Insulin LISPRO 300 Unit/3 mL Inj SUBQ SCH ×4 (08:00→21:26)
--- NOTE | 2016-03-31 11:35 | PCM.PNMED ---
Subjective Date of Service Mar 31, 2016 Subjective no acute issue, BP on the high side. Family at the bedside. No CP/SOB/LE edema. Exam Vital Signs Vital Sign - Last Date Time Temp Pulse Resp B/P Pulse Ox O2 Delivery O2 Flow Rate FiO2 03/31/16 10:21 67 03/31/16 09:46 36.8 22 172/63 97 Nasal Cannula 3.00 Intake and Output 03/30/16 03/30/16 03/31/16 Cumulative From/Thru 15:00 23:00 07:00 03/26/16 19:53 - 03/31/16 01:47 Intake Total 420 ml 3092 ml Output Total 350 ml 3230 ml Balance 70 ml -138 ml Intake Oral 420 ml 2450 ml IV Total 642 ml Output Urine Total 350 ml 3230 ml # Voids 2 # Bowel Movements 1 10 Exam GA: AAOx3, NAD, lying in bed comfortably. HEENT: atraumatic, moist mucous membrane, mild pallor, no icteric sclerae, puffy face, fine hair, no JVD, no LAD. Heart: RRR, no M/R/G, normal S1/S2. Lungs: coarse crackles at bases, no wheezes, no rhonchi. Good air entry B/L. Abd: Soft, obese, ND, NT, no HSM, active BS. Ext: No edema, no cyanosis, no clubbing. Skin: good turgor, no evidence of any rashes. Lab and Diagnostics Result Diagram: 03/31/16 0550 03/31/16 0550 X-Rays, CTs and MRIs PROCEDURE: CT CHEST WITHOUT CONTRAST ([id number]) INDICATIONS: questionable pneumonia/chf? TECHNIQUE: Noncontrast 5 mm thick sections acquired from the pulmonary apices to the posterior costophrenic angles. 7 mm thick coronal and sagittal MIP reformats were then acquired. For radiation dose reduction, the following was used: automated exposure control, adjustment of mA and/or kV according to patient size. COMPARISON: [facility], CT, PE STUDY (CTA CHEST), 09/26/2008, 16:40. [facility], CR, XR CHEST 1VW (PORTABLE), 03/26/2016, 15:54. FINDINGS: Image quality: Motion is present throughout the examination, limiting areas of fine detail evaluation. Lungs and pleura: Minimal mild bilateral pleural effusions, right greater than left and superimposed consolidations are present. There is an overall appearance of increased pulmonary vascularity. Mediastinum: Heart size is normal. No pericardial effusion. There is a 56 mm AP by 47 mm transverse low attenuation focus with Hounsfield units suggestive of fluid along the right anterior pericardial border. 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 No mediastinal adenopathy by size criteria. Thoracic aorta and central pulmonary arteries are normal in size. Esophagus is normal in caliber. No hiatal hernia. Bones and chest wall: No suspicious bony lesions. No vertebral body compression fractures. No axillary or supraclavicular adenopathy by size criteria. Thyroid gland is not well-visualized. Abdomen: Visualized upper abdominal solid organs and bowel loops appear normal in the absence of contrast. IMPRESSION: 1. Minimal to mild bilateral pleural effusions with small superimposed consolidations. The consolidations could be branch customer service representative of atelectasis. However, developing areas of underlying airspace disease such as pneumonia cannot be excluded. In addition, there is an appearance of increased pulmonary vascularity suggestive of edema. Dictated by: Nazia Mueller M.D. on 03/27/2016 at 12:23 Assessment & Plan 1. CAYDEN on CKD 4 secondary to CRS. 2. Acute on chronic diastolic heart failure. 3. Hyperkalemia. 4. Hypertension with hypertensive heart disease and hypertensive nephrosclerosis with the presence of congestive heart failure. 5. DM-2 with diabetic nephropathy. 6. Hypothyroidism with recent h/o myxedema. 7. Dementia. 8. Anemia secondary to chronic kidney disease. Plan: kayexalate 15 gm PO x1. continue lasix 40 mg PO BID. Add hydralazine 50 mg Q 8hr. Daily BMP. Avoid nephrotoxins. VTE Mechanical Devices: Intermittant Pneumatic CD Resuscitation Status: CPR: Attempt Resuscitation Cheryl oPnd MD Mar 31, 2016 11:35
--- NOTE | 2016-03-31 12:19 | PCM.PNMED ---
Subjective Date of Service Mar 31, 2016 Subjective Patient denied any symptoms tolerated lasix po 40 bid per renal i/o almost even in last 12hrs answer slowly but alerted and oriented. Exam Vital Signs Vital Sign - Last Date Time Temp Pulse Resp B/P Pulse Ox O2 Delivery O2 Flow Rate FiO2 03/31/16 10:21 67 03/31/16 09:46 36.8 22 172/63 97 Nasal Cannula 3.00 Intake and Output 03/30/16 03/30/16 03/31/16 Cumulative From/Thru 15:00 23:00 07:00 03/26/16 19:53 - 03/31/16 01:47 Intake Total 420 ml 3092 ml Output Total 350 ml 3230 ml Balance 70 ml -138 ml Intake Oral 420 ml 2450 ml IV Total 642 ml Output Urine Total 350 ml 3230 ml # Voids 2 # Bowel Movements 1 10 Exam NAD, comfortably laying down on the bed no JVD, MMM, no LAD RRR, nl s1, s2 no mrg decreased BS diffusely, fine inspiratory crackles BLF S,ND,NT,normoactive BS+ warm, 2+pitting edema, pulses 2/2 IVs and Medications Medications Reviewed: Medications were reviewed in detail Lab and Diagnostics Result Diagram: 03/31/16 0550 03/31/16 0550 X-Rays, CTs and MRIs PROCEDURE: CT CHEST WITHOUT CONTRAST ([id number]) INDICATIONS: questionable pneumonia/chf? TECHNIQUE: Noncontrast 5 mm thick sections acquired from the pulmonary apices to the posterior costophrenic angles. 7 mm thick coronal and sagittal MIP reformats were then acquired. For radiation dose reduction, the following was used: automated exposure control, adjustment of mA and/or kV according to patient size. COMPARISON: [facility], CT, PE STUDY (CTA CHEST), 09/26/2008, 16:40. [facility], CR, XR CHEST 1VW (PORTABLE), 03/26/2016, 15:54. FINDINGS: Image quality: Motion is present throughout the examination, limiting areas of fine detail evaluation. Lungs and pleura: Minimal mild bilateral pleural effusions, right greater than left and superimposed consolidations are present. There is an overall appearance of increased pulmonary vascularity. Mediastinum: Heart size is normal. No pericardial effusion. There is a 56 mm AP by 47 mm transverse low attenuation focus with Hounsfield units suggestive of fluid along the right anterior pericardial border. 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 No mediastinal adenopathy by size criteria. Thoracic aorta and central pulmonary arteries are normal in size. Esophagus is normal in caliber. No hiatal hernia. Bones and chest wall: No suspicious bony lesions. No vertebral body compression fractures. No axillary or supraclavicular adenopathy by size criteria. Thyroid gland is not well-visualized. Abdomen: Visualized upper abdominal solid organs and bowel loops appear normal in the absence of contrast. IMPRESSION: 1. Minimal to mild bilateral pleural effusions with small superimposed consolidations. The consolidations could be dealer compliance representative of atelectasis. However, developing areas of underlying airspace disease such as pneumonia cannot be excluded. In addition, there is an appearance of increased pulmonary vascularity suggestive of edema. Dictated by: Nazia Mueller M.D. on 03/27/2016 at 12:23 Assessment & Plan This 80-year-old female multiple comorbidities presenting with declining mental status and increased work of breathing, worsening respiratory function admitted through the ER following presentation via EMS: #Acute hypoxic respiratory failure, initial ABG 7.30/44/64 FIO2 28%, likely fluid overload in the setting of CKD/CHF, possible HCAP - Started on Lasix 60 mg IV.bid, switched to 40mg bid per renal service 03/30 -continue abx as below, low threshold to stop given stable clinical picture, on unimpressive respiratory symptoms #probable Hospital-acquired pneumonia - It was suspected on admission that an acute infection was accounting for patient's acute decline in status following discharge , source of which is not yet clear . - We will continue Levaquin 250mg q48h, vancomycin discontinued 03/27 due to no evidence of MRSA infection. - Blood culture negative. Urine culture mixed karen - Pro calcitonin level with mild elevation. #Acute on CKD4 -greatly appreciate nephrology recs -avoid nephro toxinx, adjust meds renally -i/o, maintained net negative -300 to 400 daily #reported melena from family member, stable h/h ,no signs of bleeding in house -will get FOBT to confirm, monitor h/h, pt is not on AC. #HTN, uncontrolled, added norvasc 10mg this AM, added hydralazine per renal chronic, stable #Hypothyroidism, currently supratherapeutic due to overtreatment - Elevated free T4 supportive of overtreatment with thyroid medication at this time - This could certainly be contributing to impaired mentation - Levothyroxine dose has been decreased to 150mcg, continue to monitor patient' s mentation, bowel function, and further evidence of improving thyroid function. - Consider recheck in a couple of days specifically T4 values. #Diabetes mellitus - Pt placed on sliding scale insulin on admission and this will be continued Chronic issues known prior to admission, present on admission Dementia Anemia under production likely due to hypothyroidism and renal disease Insulin-dependent diabetes mellitus/nephropathy Hypertension Hyperlipidemia GERD Bilateral cataract Osteoporosis /Low vitamin D Disposition: based on volume status, improvement of respiratory status on IV diuresis, anticipate 2-3more days, high risks of readmission, have to form better plan at home with family. VTE Mechanical Devices: Intermittant Pneumatic CD Resuscitation Status: CPR: Attempt Resuscitation Time spent 35min Ally Beard MD Mar 31, 2016 12:12
--- NOTE | 2016-03-31 23:15 | NUR ---
[place] [facility] [place]500 [place] with all belongings found in the room. Gave report to Nisha Macdonald.
[2016-04-01] VITALS (13 sets, daily range): BP systolic 128–151; BP diastolic 52–68; PULSE 58–70; RESP 16–24; O2SAT 92–97
[2016-04-01] MEDS: Albuterol-Ipratropium 3 mL Inhalation Solution NEB SCH ×6 (00:30→20:30)
[2016-04-01] MEDS: Heparin 5,000 Unit/mL Inj SUBQ SCH ×3 (00:55→16:40)
--- NOTE | 2016-04-01 06:16 | NUR ---
Satbrennon Sats have been in mid-90's on 3 liters nasal cannula. Denies pain and has slept much of the night.
[2016-04-01] MEDS: Insulin LISPRO 300 Unit/3 mL Inj SUBQ SCH ×4 (08:00→22:00)
[2016-04-01 08:05] LABS: Mean Corpuscular Hemoglobin 26.9 pg (27.0-35.0); Mean Corpuscular Volume 88.4 fL (81-100); Platelet Count 473 bil/L (150-400)
[2016-04-01] MEDS: levoFLOXacin 250 mg Tablet PO SCH (08:06)
[2016-04-01 08:26] LABS: Magnesium 2.5 mg/dL (1.6-2.6); Phosphorus 4.6 mg/dL (2.5-4.9)
[2016-04-01 08:37] LABS: BASOPHILS % (AUTO) 2 % (0-3); EOSINOPHILS % (AUTO) 2 % (0-5); MONOCYTES % (AUTO) 10 % (4-12); NEUTROPHILS % (AUTO) 76 % (40-74)
[2016-04-01] MEDS ORDERED: Furosemide 10 mg/mL 10 mL Inj IVPUSH STA (10:43)
[2016-04-01] MEDS ORDERED: Furosemide 10 mg/mL 4 mL Inj IVPUSH STA (10:50)
--- NOTE | 2016-04-01 11:41 | PCM.PNMED ---
Subjective Date of Service Apr 01, 2016 Subjective pt still looked tachypneic, mildly labored, HOB>30 denied SOB, pain throughout Exam Vital Signs Vital Sign - Last Date Time Temp Pulse Resp B/P Pulse Ox O2 Delivery O2 Flow Rate FiO2 04/01/16 09:50 63 20 96 Nasal Cannula 3.00 04/01/16 08:09 151/64 04/01/16 05:47 36.5 Intake and Output 03/31/16 03/31/16 04/01/16 Cumulative From/Thru 15:00 23:00 07:00 03/26/16 19:53 - 04/01/16 05:47 Intake Total 400 ml 533 ml 600 ml 4625 ml Output Total 350 ml 300 ml 3880 ml Balance 50 ml 233 ml 600 ml 745 ml Intake Oral 400 ml 533 ml 600 ml 3983 ml IV Total 642 ml Output Urine Total 300 ml 3530 ml Stool Total 200 ml 200 ml Urine/Stool Mix 150 ml 150 ml # Voids 2 # Bowel Movements 4 1 1 16 Exam NAD, comfortably laying down on the bed no JVD, MMM, no LAD RRR, nl s1, s2 no mrg decreased BS diffusely, fine inspiratory crackles BLF S,ND,NT,normoactive BS+ warm, 2+pitting edema, pulses 2/2 IVs and Medications Medications Reviewed: Medications were reviewed in detail Lab and Diagnostics Result Diagram: 04/01/16 0740 04/01/16 0740 X-Rays, CTs and MRIs PROCEDURE: CT CHEST WITHOUT CONTRAST ([id number]) INDICATIONS: questionable pneumonia/chf? TECHNIQUE: Noncontrast 5 mm thick sections acquired from the pulmonary apices to the posterior costophrenic angles. 7 mm thick coronal and sagittal MIP reformats were then acquired. For radiation dose reduction, the following was used: automated exposure control, adjustment of mA and/or kV according to patient size. COMPARISON: [facility], CT, PE STUDY (CTA CHEST), 09/26/2008, 16:40. [facility], CR, XR CHEST 1VW (PORTABLE), 03/26/2016, 15:54. FINDINGS: Image quality: Motion is present throughout the examination, limiting areas of fine detail evaluation. Lungs and pleura: Minimal mild bilateral pleural effusions, right greater than left and superimposed consolidations are present. There is an overall appearance of increased pulmonary vascularity. Mediastinum: Heart size is normal. No pericardial effusion. There is a 56 mm AP by 47 mm transverse low attenuation focus with Hounsfield units suggestive of fluid along the right anterior pericardial border. 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 No mediastinal adenopathy by size criteria. Thoracic aorta and central pulmonary arteries are normal in size. Esophagus is normal in caliber. No hiatal hernia. Bones and chest wall: No suspicious bony lesions. No vertebral body compression fractures. No axillary or supraclavicular adenopathy by size criteria. Thyroid gland is not well-visualized. Abdomen: Visualized upper abdominal solid organs and bowel loops appear normal in the absence of contrast. IMPRESSION: 1. Minimal to mild bilateral pleural effusions with small superimposed consolidations. The consolidations could be tax representative of atelectasis. However, developing areas of underlying airspace disease such as pneumonia cannot be excluded. In addition, there is an appearance of increased pulmonary vascularity suggestive of edema. Dictated by: Nazia Mueller M.D. on 03/27/2016 at 12:23 Assessment & Plan This 80-year-old female multiple comorbidities presenting with declining mental status and increased work of breathing, worsening respiratory function admitted through the ER following presentation via EMS: #Acute hypoxic respiratory failure, initial ABG 7.30/44/64 FIO2 28%, likely fluid overload in the setting of CKD/CHF, possible HCAP - Started on Lasix 60 mg IV.bid, switched to 40mg bid per renal service 03/30, maintained positive balance for past2D, defer lasix dosage per renal -continue abx as below, low threshold to stop given stable clinical picture, on unimpressive respiratory symptoms #probable Hospital-acquired pneumonia - It was suspected on admission that an acute infection was accounting for patient's acute decline in status following discharge , source of which is not yet clear . - We will continue Levaquin 250mg q48h, vancomycin discontinued 03/27 due to no evidence of MRSA infection. - Blood culture negative. Urine culture mixed karen - Pro calcitonin level with mild elevation. #Acute on CKD4 -greatly appreciate nephrology recs -avoid nephro toxinx, adjust meds renally -i/o, #reported melena from family member, stable h/h ,no signs of bleeding in house, FOBT neg #HTN, controlled, added norvasc 10mg, hydralazine per renal 03/31 chronic, stable #Hypothyroidism, currently supratherapeutic due to overtreatment - Elevated free T4 supportive of overtreatment with thyroid medication at this time - This could certainly be contributing to impaired mentation - Levothyroxine dose has been decreased to 150mcg, continue to monitor patient' s mentation, bowel function, and further evidence of improving thyroid function. - Consider recheck in a couple of days specifically T4 values. #Diabetes mellitus - Pt placed on sliding scale insulin on admission and this will be continued Chronic issues known prior to admission, present on admission Dementia Anemia under production likely due to hypothyroidism and renal disease Insulin-dependent diabetes mellitus/nephropathy Hypertension Hyperlipidemia GERD Bilateral cataract Osteoporosis /Low vitamin D Disposition: based on volume status, anticipate 2-3more days, high risks of readmission, given newly developed ulcer, pt may not be good candidate for d/c to home, will get PT today, possible SNF VTE Mechanical Devices: Intermittant Pneumatic CD Resuscitation Status: CPR: Attempt Resuscitation Time spent 35min Ally Beard MD Apr 01, 2016 11:41
--- NOTE | 2016-04-01 11:46 | PCM.PNMED ---
Subjective Date of Service Apr 01, 2016 Subjective no complaints but tachypneic today. Exam Vital Signs Vital Sign - Last Date Time Temp Pulse Resp B/P Pulse Ox O2 Delivery O2 Flow Rate FiO2 04/01/16 09:50 63 20 96 Nasal Cannula 3.00 04/01/16 08:09 151/64 04/01/16 05:47 36.5 Intake and Output 03/31/16 03/31/16 04/01/16 Cumulative From/Thru 15:00 23:00 07:00 03/26/16 19:53 - 04/01/16 05:47 Intake Total 400 ml 533 ml 600 ml 4625 ml Output Total 350 ml 300 ml 3880 ml Balance 50 ml 233 ml 600 ml 745 ml Intake Oral 400 ml 533 ml 600 ml 3983 ml IV Total 642 ml Output Urine Total 300 ml 3530 ml Stool Total 200 ml 200 ml Urine/Stool Mix 150 ml 150 ml # Voids 2 # Bowel Movements 4 1 1 16 Exam GA: AAOx3, tachypneic. HEENT: atraumatic, moist mucous membrane, mild pallor, no icteric sclerae, puffy face, fine hair, no JVD, no LAD. Heart: RRR, no M/R/G, normal S1/S2. Lungs: coarse crackles at bases, no wheezes, no rhonchi. Good air entry B/L. Abd: Soft, obese, ND, NT, no HSM, active BS. Ext: No edema, no cyanosis, no clubbing. Skin: good turgor, no evidence of any rashes. Lab and Diagnostics Result Diagram: 04/01/16 0740 04/01/16 0740 X-Rays, CTs and MRIs PROCEDURE: CT CHEST WITHOUT CONTRAST ([id number]) INDICATIONS: questionable pneumonia/chf? TECHNIQUE: Noncontrast 5 mm thick sections acquired from the pulmonary apices to the posterior costophrenic angles. 7 mm thick coronal and sagittal MIP reformats were then acquired. For radiation dose reduction, the following was used: automated exposure control, adjustment of mA and/or kV according to patient size. COMPARISON: [facility], CT, PE STUDY (CTA CHEST), 09/26/2008, 16:40. [facility], CR, XR CHEST 1VW (PORTABLE), 03/26/2016, 15:54. FINDINGS: Image quality: Motion is present throughout the examination, limiting areas of fine detail evaluation. Lungs and pleura: Minimal mild bilateral pleural effusions, right greater than left and superimposed consolidations are present. There is an overall appearance of increased pulmonary vascularity. Mediastinum: Heart size is normal. No pericardial effusion. There is a 56 mm AP by 47 mm transverse low attenuation focus with Hounsfield units suggestive of fluid along the right anterior pericardial border. 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 No mediastinal adenopathy by size criteria. Thoracic aorta and central pulmonary arteries are normal in size. Esophagus is normal in caliber. No hiatal hernia. Bones and chest wall: No suspicious bony lesions. No vertebral body compression fractures. No axillary or supraclavicular adenopathy by size criteria. Thyroid gland is not well-visualized. Abdomen: Visualized upper abdominal solid organs and bowel loops appear normal in the absence of contrast. IMPRESSION: 1. Minimal to mild bilateral pleural effusions with small superimposed consolidations. The consolidations could be logistics service representative of atelectasis. However, developing areas of underlying airspace disease such as pneumonia cannot be excluded. In addition, there is an appearance of increased pulmonary vascularity suggestive of edema. Dictated by: Nazia Mueller M.D. on 03/27/2016 at 12:23 Assessment & Plan 1. CAYDEN on CKD 4 secondary to CRS. - more fluid overload today. 2. Acute on chronic diastolic heart failure. 3. Hyperkalemia. 4. Hypertension with hypertensive heart disease and hypertensive nephrosclerosis with the presence of congestive heart failure. 5. DM-2 with diabetic nephropathy. 6. Hypothyroidism with recent h/o myxedema. 7. Dementia. 8. Anemia secondary to chronic kidney disease. Plan: IV lasix 80 mg x1. Add metolazone 5 mg PO x1 then 2.5 mg daily. increase lasix 80 mg PO BID. Metolazone 2.5 mg daily. Daily BMP. Avoid nephrotoxins. VTE Mechanical Devices: Intermittant Pneumatic CD Resuscitation Status: CPR: Attempt Resuscitation Cheryl Pond MD Apr 01, 2016 11:46
--- NOTE | 2016-04-01 14:23 | DRSVH ---
PROCEDURE: X-RAY CHEST ONE VIEW, PORTABLE ([id number]) INDICATIONS: CHF TECHNIQUE: One view of the chest was acquired. COMPARISON: [facility], CR, XR CHEST 1VW (PORTABLE), 03/26/2016, 15:54. [facility], CT, CT CHEST WO CON, 03/27/2016, 12:14. FINDINGS: Surgical changes and devices: None. Lungs and pleura: No pleural effusions or pneumothorax. Interstitium is prominent and perihilar/bas ilar opacities are present suspicious for developing pulmonary edema versus pneumonia. Mediastinum: Mediastinal contours appear normal. Heart size is normal. Bones and chest wall: No suspicious bony lesions. Overlying soft tissues appear unremarkable. IMPRESSION: Developing pulmonary edema versus perihilar pneumonia. Correlate clinically. Dictated by: Meet PEREZ Interpreted: Nazia Mueller MD on 04/01/2016 at 14:21 Transcribed by: ERMA on 04/01/2016 at 14:23 Approved by: Nazia Mueller M.D. on 04/01/2016 at 17:07
--- NOTE | 2016-04-01 16:10 | NUR ---
resp/skin Weaned O2 to 2 liters, sats 95%. Wesley care done, area red, especially right thigh/wesley area. No openings noted. Turn Q2hr, pt able to assist Incont bowel/bladder. Pt has been sleepy most of the shift, arouses easily
--- NOTE | 2016-04-01 16:17 | NUR ---
Evaluation completed. Please go to "Notes" then click on "Assessments and Notes" (bottom left corner of screen). Then select appropriate discipline tab on top of screen.
[2016-04-01] MEDS ORDERED: Furosemide 10 mg/mL 10 mL Inj IVPUSH SCH (18:00)
[2016-04-01] MEDS: Furosemide 10 mg/mL 4 mL Inj IVPUSH SCH (18:16)
[2016-04-02] VITALS (14 sets, daily range): BP systolic 131–161; BP diastolic 54–70; PULSE 62–82; RESP 18–24; O2SAT 91–96
[2016-04-02] MEDS: Albuterol-Ipratropium 3 mL Inhalation Solution NEB SCH ×4 (00:11→12:30)
[2016-04-02] MEDS: Heparin 5,000 Unit/mL Inj SUBQ SCH ×3 (00:27→17:00)
[2016-04-02] MEDS: Furosemide 10 mg/mL 4 mL Inj IVPUSH SCH ×2 (05:54→18:42)
--- NOTE | 2016-04-02 06:01 | NUR ---
NOC- PT denies any pain this shift. She answers most mentation questions appropriately, but was unsure or year. Her b/p was in the 160's early in shift, but labetolol was held mid morning per order parameter. PT had one episode of diarrhea and after this Pharmacy ordered a stool sample to be sent. Unable to obtain yet. PT is quite edematous with 2+ pitting edema noted in UE and BLE. Weak DP palpable. Lungs are diminished t/o with faint crackles at bases noted. Pt received large dose of lasix this am so we will wait and see how much she diuresis. Calmaseptine applied to buttocks and R groin for barrier. PT is occasionally incontinent. Bed alarm on as pt is fall risk and does not always use the call light. WIll CTM care.
[2016-04-02 07:37] LABS: Mean Corpuscular Hemoglobin 27.3 pg (27.0-35.0); Mean Corpuscular Volume 89.1 fL (81-100); Platelet Count 446 bil/L (150-400)
[2016-04-02] MEDS: Insulin LISPRO 300 Unit/3 mL Inj SUBQ SCH ×4 (07:50→22:00)
[2016-04-02 08:01] LABS: BASOPHILS % (AUTO) 0 % (0-3); EOSINOPHILS % (AUTO) 2 % (0-5); MONOCYTES % (AUTO) 7 % (4-12); NEUTROPHILS % (AUTO) 83 % (40-74)
[2016-04-02 08:13] LABS: Magnesium 2.3 mg/dL (1.6-2.6); Phosphorus 4.4 mg/dL (2.5-4.9)
--- NOTE | 2016-04-02 09:48 | NUR ---
Social Work note - Continued d/c plan AIRPLANE RIGGER completed EMR review: Physical therapy worked with pt yesterday - recommending SNF for rehab. AIRPLANE RIGGER met with pt - identified that pt has been in the hospital for 7 days, has been weak and is a readmit. AIRPLANE RIGGER explored SNF for rehab prior to going home. Pt states that she has not been to SNF in the past, does not want to go. She states that she has a walker and commode at home and has family who will care for her. She gave SW verbal permission to talk with her family. AIRPLANE RIGGER spoke with Pt's nephew Golden and his girlfriend Cora. They state that they are willing to take pt home but worry that she is weak and will need more help than they can give. They however want to honor her wishes. They will talk with their extended family - Pt's sister and niece Shanda and will call AIRPLANE RIGGER back. Assessment: Pt who would benefit from SNF for rehab prior to going home. Plan: AIRPLANE RIGGER will continue to explore d/c planning - SNF vs Home with Thao PLATT RN PT OT AIRPLANE RIGGER ADRIAN. BRODY Mora
--- NOTE | 2016-04-02 11:38 | PCM.PNMED ---
Subjective Date of Service Apr 02, 2016 Subjective pt still denied any symptoms but looked frail, tachypneic yesterday CXR showed pulmonary edema, increased lasix per renal dispo plan pending SNF vs Home with HH, Exam Vital Signs Vital Sign - Last Date Time Temp Pulse Resp B/P Pulse Ox O2 Delivery O2 Flow Rate FiO2 04/02/16 11:10 36.7 64 22 131/56 96 Nasal Cannula 3.00 Intake and Output 04/01/16 04/01/16 04/02/16 Cumulative From/Thru 15:00 23:00 07:00 03/26/16 19:53 - 04/02/16 04:42 Intake Total 360 ml 120 ml 5105 ml Output Total 200 ml 400 ml 4480 ml Balance 160 ml -280 ml 625 ml Intake Oral 360 ml 120 ml 4463 ml IV Total 0 ml 642 ml Output Urine Total 400 ml 3930 ml Stool Total 200 ml Urine/Stool Mix 200 ml 350 ml # Voids 1 3 # Bowel Movements 1 17 Exam NAD, comfortably laying down on the bed no JVD, MMM, no LAD RRR, nl s1, s2 no mrg decreased BS diffusely, fine inspiratory crackles BLF S,ND,NT,normoactive BS+ warm, 2+pitting edema, pulses 2/2 IVs and Medications Medications Reviewed: Medications were reviewed in detail Lab and Diagnostics Result Diagram: 04/02/1670404/02/16704 X-Rays, CTs and MRIs PROCEDURE: CT CHEST WITHOUT CONTRAST ([id number]) INDICATIONS: questionable pneumonia/chf? TECHNIQUE: Noncontrast 5 mm thick sections acquired from the pulmonary apices to the posterior costophrenic angles. 7 mm thick coronal and sagittal MIP reformats were then acquired. For radiation dose reduction, the following was used: automated exposure control, adjustment of mA and/or kV according to patient size. COMPARISON: [facility], CT, PE STUDY (CTA CHEST), 09/26/2008, 16:40. [facility], CR, XR CHEST 1VW (PORTABLE), 03/26/2016, 15:54. FINDINGS: Image quality: Motion is present throughout the examination, limiting areas of fine detail evaluation. Lungs and pleura: Minimal mild bilateral pleural effusions, right greater than left and superimposed consolidations are present. There is an overall appearance of increased pulmonary vascularity. Mediastinum: Heart size is normal. No pericardial effusion. There is a 56 mm AP by 47 mm transverse low attenuation focus with Hounsfield units suggestive of fluid along the right anterior pericardial border. 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 No mediastinal adenopathy by size criteria. Thoracic aorta and central pulmonary arteries are normal in size. Esophagus is normal in caliber. No hiatal hernia. Bones and chest wall: No suspicious bony lesions. No vertebral body compression fractures. No axillary or supraclavicular adenopathy by size criteria. Thyroid gland is not well-visualized. Abdomen: Visualized upper abdominal solid organs and bowel loops appear normal in the absence of contrast. IMPRESSION: 1. Minimal to mild bilateral pleural effusions with small superimposed consolidations. The consolidations could be claim service representative of atelectasis. However, developing areas of underlying airspace disease such as pneumonia cannot be excluded. In addition, there is an appearance of increased pulmonary vascularity suggestive of edema. Dictated by: Nazia Mueller M.D. on 03/27/2016 at 12:23 Assessment & Plan This 80-year-old female multiple comorbidities presenting with declining mental status and increased work of breathing, worsening respiratory function admitted through the ER following presentation via EMS: #Acute hypoxic respiratory failure, initial ABG 7.30/44/64 FIO2 28%, likely fluid overload in the setting of CKD/CHF, possible HCAP - Started on Lasix 60 mg IV.bid, switched to 40mg bid per renal service 03/30, maintained positive balance for past2D, increased lasix, added metalazone 04/01 -continue abx as below, low threshold to stop given stable clinical picture, on unimpressive respiratory symptoms #probable Hospital-acquired pneumonia - It was suspected on admission that an acute infection was accounting for patient's acute decline in status following discharge , source of which is not yet clear . - We will continue Levaquin 250mg q48h, vancomycin discontinued 03/27 due to no evidence of MRSA infection. - Blood culture negative. Urine culture mixed karen - Pro calcitonin level with mild elevation. #Acute on CKD4 -greatly appreciate nephrology recs -avoid nephro toxinx, adjust meds renally -i/o, #reported melena from family member, stable h/h ,no signs of bleeding in house, FOBT neg #HTN, controlled, added norvasc 10mg, hydralazine per renal 03/31 chronic, stable #Hypothyroidism, currently supratherapeutic due to overtreatment - Elevated free T4 supportive of overtreatment with thyroid medication at this time - This could certainly be contributing to impaired mentation - Levothyroxine dose has been decreased to 150mcg, continue to monitor patient' s mentation, bowel function, and further evidence of improving thyroid function. - Consider recheck in a couple of days specifically T4 values. #Diabetes mellitus - Pt placed on sliding scale insulin on admission and this will be continued Chronic issues known prior to admission, present on admission Dementia Anemia under production likely due to hypothyroidism and renal disease Insulin-dependent diabetes mellitus/nephropathy Hypertension Hyperlipidemia GERD Bilateral cataract Osteoporosis /Low vitamin D Disposition: based on volume status, anticipate 2-3more days, high risks of readmission, given newly developed ulcer, home vs SNF VTE Mechanical Devices: Intermittant Pneumatic CD Resuscitation Status: CPR: Attempt Resuscitation Time spent 35min Ally Beard MD Apr 02, 2016 11:32
--- NOTE | 2016-04-02 11:47 | NUR ---
NUTRITION FOLLOW-UP ASSESS: Pt is a 80 yo female re-admitted w/ altered mental status, weakness, and loss of consciousness d/t pneumonia and ongoing hypoxia. Pt w/ CAYDEN, nephrology following and recommending diuresis for fluid overload. Pt w/ somewhat variable PO intake. PMHX: CKD Stage IV, Type II DM, hypothyroid, HTN, HLD, GERD, multi-infarct dementia, osteoporosis, anemia DIET: Diabetic, Consistent Carbohydrate - PO 25-95% LABS: BUN 52, Cr 2.62, Glu 139, Ca 7.9, T-bili 1.8 MEDS: Lasix, Insulin GI: BMx2 (04/01) - diarrhea overnight CURRENT WT: 72.7 kg BMI: 38.6 kg/m2 IBW: 31.8 kg ADMIT WT: 73.6 kg EST.NEEDS: CAYDEN, BMI Calories: 6333-5996 kcal/day (22-25 kcal/kg BW) Protein: 40-75 g/day (1.0-1.5 g/kg IBW) NUTRITION DIAGNOSIS: 1) Inadequate oral intake related to acute illness and generalized weakness as evidenced by PO intake refused-50%. INTERVENTION: 1) Continue SF [employer] to L&D trays. MONITOR/EVALUATE: PO intake, GI, wt, labs, nutrition status, POC. Will continue to monitor per moderate nutritional risk guidelines
--- NOTE | 2016-04-02 12:44 | PCM.PNMED ---
Subjective Date of Service Apr 02, 2016 Subjective She is doing about the same, remains tachypneic, CR showed pulm edema. IV lasix 80 mg BID resumed, K trended down. Stable kidney function. Exam Vital Signs Vital Sign - Last Date Time Temp Pulse Resp B/P Pulse Ox O2 Delivery O2 Flow Rate FiO2 04/02/16 11:10 36.7 64 22 131/56 96 Nasal Cannula 3.00 Intake and Output 04/01/16 04/01/16 04/02/16 Cumulative From/Thru 14:59 22:59 06:59 03/26/16 19:53 - 04/02/16 04:42 Intake Total 360 ml 120 ml 5105 ml Output Total 200 ml 400 ml 4480 ml Balance 160 ml -280 ml 625 ml Intake Oral 360 ml 120 ml 4463 ml IV Total 0 ml 642 ml Output Urine Total 400 ml 3930 ml Stool Total 200 ml Urine/Stool Mix 200 ml 350 ml # Voids 1 3 # Bowel Movements 1 17 Exam GA: AAOx3, tachypneic. HEENT: atraumatic, moist mucous membrane, mild pallor, no icteric sclerae, puffy face, fine hair, no JVD, no LAD. Heart: RRR, no M/R/G, normal S1/S2. Lungs: coarse crackles at bases, no wheezes, no rhonchi. Abd: Soft, obese, ND, NT, no HSM, active BS. Ext: 1+ edema, no cyanosis, no clubbing. Skin: good turgor, no evidence of any rashes. Lab and Diagnostics Result Diagram: 04/02/1670404/02/16 07 X-Rays, CTs and MRIs PROCEDURE: CT CHEST WITHOUT CONTRAST ([id number]) INDICATIONS: questionable pneumonia/chf? TECHNIQUE: Noncontrast 5 mm thick sections acquired from the pulmonary apices to the posterior costophrenic angles. 7 mm thick coronal and sagittal MIP reformats were then acquired. For radiation dose reduction, the following was used: automated exposure control, adjustment of mA and/or kV according to patient size. COMPARISON: [facility], CT, PE STUDY (CTA CHEST), 09/26/2008, 16:40. [facility], CR, XR CHEST 1VW (PORTABLE), 03/26/2016, 15:54. FINDINGS: Image quality: Motion is present throughout the examination, limiting areas of fine detail evaluation. Lungs and pleura: Minimal mild bilateral pleural effusions, right greater than left and superimposed consolidations are present. There is an overall appearance of increased pulmonary vascularity. Mediastinum: Heart size is normal. No pericardial effusion. There is a 56 mm AP by 47 mm transverse low attenuation focus with Hounsfield units suggestive of fluid along the right anterior pericardial border. 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 No mediastinal adenopathy by size criteria. Thoracic aorta and central pulmonary arteries are normal in size. Esophagus is normal in caliber. No hiatal hernia. Bones and chest wall: No suspicious bony lesions. No vertebral body compression fractures. No axillary or supraclavicular adenopathy by size criteria. Thyroid gland is not well-visualized. Abdomen: Visualized upper abdominal solid organs and bowel loops appear normal in the absence of contrast. IMPRESSION: 1. Minimal to mild bilateral pleural effusions with small superimposed consolidations. The consolidations could be employer relations representative of atelectasis. However, developing areas of underlying airspace disease such as pneumonia cannot be excluded. In addition, there is an appearance of increased pulmonary vascularity suggestive of edema. Dictated by: Nazia Mueller M.D. on 03/27/2016 at 12:23 Assessment & Plan 1. CAYDEN on CKD 4 secondary to CRS. back on IV lasix yesterday. metolazone added. 2. Acute on chronic diastolic heart failure. 3. Hyperkalemia, improving. 4. Hypertension with hypertensive heart disease and hypertensive nephrosclerosis with the presence of congestive heart failure. 5. DM-2 with diabetic nephropathy. 6. Hypothyroidism with recent h/o myxedema. 7. Dementia. 8. Anemia secondary to chronic kidney disease. Plan: continue IV lasix 80 mg Q 12hr. continue Metolazone 2.5 mg PO daily. Repeat BMP in am. VTE Mechanical Devices: Intermittant Pneumatic CD Resuscitation Status: CPR: Attempt Resuscitation Cheryl Pond MD Apr 02, 2016 12:44
--- NOTE | 2016-04-02 16:00 | NUR ---
Transfer Pt transferred to [facility]. Pt tapered down to 2L O2 at 96% before transfer and given a bed bath. Denies pain or discomfort. Pass off given to nurse Stephanie Yoo
--- NOTE | 2016-04-02 17:55 | NUR ---
Telemetry episode At 1735, alerted by photographic equipment technician pt's hr decreased in to the 20s and experienced a 6.7 second pause. Pt denies feelings of dizziness, nausea or pain. Pt eating dinner at time of episode, family reported pt coughing on bite of salmon. VS entered in to [employer]. paged and informed. orders for labs obtained. will continue to monitor.
[2016-04-02 18:54] LABS: Magnesium 2.2 mg/dL (1.6-2.6)
[2016-04-03] VITALS (8 sets, daily range): BP systolic 128–164; BP diastolic 50–70; PULSE 63–74; RESP 22–24; O2SAT 94–96
[2016-04-03] MEDS: Heparin 5,000 Unit/mL Inj SUBQ SCH ×3 (02:35→16:15)
--- NOTE | 2016-04-03 05:29 | NUR ---
Tele Patient continues to be in sinus rhythm in the 60s-80s overnight. No further episodes of bradycardia. Patient sleeping between care, easy to arouse. Continue to monitor.
[2016-04-03] MEDS: Furosemide 10 mg/mL 4 mL Inj IVPUSH SCH ×2 (06:47→17:49)
[2016-04-03] MEDS: Insulin LISPRO 300 Unit/3 mL Inj SUBQ SCH ×4 (08:00→22:00)
[2016-04-03] MEDS: levoFLOXacin 250 mg Tablet PO SCH (09:26)
[2016-04-03 09:39] LABS: Mean Corpuscular Hemoglobin 27.5 pg (27.0-35.0); Mean Corpuscular Volume 84.4 fL (81-100); Platelet Count 431 bil/L (150-400)
[2016-04-03 09:52] LABS: Magnesium 2.1 mg/dL (1.6-2.6); Phosphorus 4.4 mg/dL (2.5-4.9)
[2016-04-03 09:55] LABS: BASOPHILS % (AUTO) 1 % (0-3); EOSINOPHILS % (AUTO) 1 % (0-5); MONOCYTES % (AUTO) 10 % (4-12); NEUTROPHILS % (AUTO) 77 % (40-74)
--- NOTE | 2016-04-03 13:12 | CONS ---
[address] [address] CONSULTATION REPORT PATIENT: CLAY RO V : 1935 MR#: [id number] ADMIT: 03/26/2016 JOB ID: [id number] DATE OF SERVICE: 04/03/2016 CARDIOLOGY CONSULTATION: IDENTIFICATION: Dr. Beard has asked that I consult on this 80-year-old with an episode of asystole yesterday afternoon. HISTORY OF PRESENT ILLNESS: The patient has no previous cardiac history with the exception of being evaluated by Dr. Nettles in 2004 for atypical chest discomfort and dyspnea with a normal echocardiogram except for mild LVH and mild diastolic dysfunction documented at that time, with a mildly enlarged aortic. She had a normal exercise perfusion study with the exception of mildly reduced exercise capacity and a hypertensive blood pressure response, but a normal perfusion pattern without evidence of ischemia, and she had normal LV systolic function. She was reevaluated in 2007 for similar symptoms and again had a normal perfusion study that was unchanged. Since then, she apparently has developed significant dementia and was admitted on March 03, 2016 with generalized weakness and was found to have acute renal failure with a creatinine of 2.2 and a TSH of 155. Echocardiography at that time showed normal left and right ventricular size and function with an EF of 60% to 65% with mild left atrial enlargement and again a mildly enlarged ascending aorta with a small pericardial effusion but was otherwise normal and unchanged from her previous. Her thyroxine replacement therapy was increased and her creatinine ultimately improved down to 1.6. However, her course was complicated by persistent hypertension requiring multiple antihypertensives including spironolactone, minoxidil, torsemide, chlorthalidone, high-dose labetalol, lisinopril, amlodipine, and p.r.n. hydralazine. She was ultimately discharged on March 23, 2016, on amlodipine and labetalol 300 mg b.i.d. with a BUN of 45 and a creatinine of 2.4, but was readmitted on March 26, 2016, because of dyspnea with a possible syncopal episode and reduced level of consciousness. In the emergency department her heart rate was 59, with a blood pressure 126/51, and her creatinine was 2.8 with a BUN of 41. She was found to have a right lung pneumonia and a repeat echocardiogram showed a new right pleural effusion but was otherwise essentially unchanged. Her TSH had improved down to 7.6, although her T4 was elevated at 2.34. On the basis of this, her thyroxine dose was reduced. She was felt to be volume overloaded and was diuresed and treated with antibiotic therapy, with her renal function subsequently remaining essentially unchanged, although has required doses of metolazone recently in an attempt to promote diuresis. While the patient is unable to provide any meaningful history because of her dementia, notes suggest that she was eating dinner yesterday afternoon when she had a coughing and choking fit that corresponded to an episode of progressive bradycardia culminating in around a 7-8 second pause with possible underlying complete heart block which then quickly resolved and has not returned since then. On the basis of this, consultation was requested. Currently, the patient states that she feels well and denies any dyspnea and chest discomfort. She has no recollection of the events of yesterday. She thinks that she may have had a passing out spell at some point in the past but cannot provide any details. PAST MEDICAL HISTORY: Notable for her insulin-dependent diabetes with diabetic retinopathy, neuropathy, and possible nephropathy. She has a history of hypertension and hyperlipidemia. She had hypothyroidism and GERD, as well as osteoporosis. She is morbidly obese. She is status post hysterectomy and cholecystectomy. CURRENT MEDICATIONS: 1. Subcutaneous heparin. 2. Levothyroxine 0.15 mg daily. 3. Metolazone 2.5 mg daily. 4. Amlodipine 10 mg daily. 5. Levofloxacin 250 mg q. 48 h. 6. Labetalol 200 mg q. 8 hours. 7. Furosemide 80 mg IV q. 12 hours. 8. Hydralazine 50 mg q. 8 hours. 9. Atorvastatin 80 mg daily. 10. Requip 1 mg daily. 11. Aricept 5 mg daily. 12. Insulin. 13. Albuterol p.r.n. ALLERGIES: PENICILLIN. FAMILY HISTORY: The patient is unable to provide any meaningful history. There is no reported history of any thyroid, cardiac, or diabetic problems. SOCIAL HISTORY: The patient is unable to provide any meaningful history but apparently is a reformed smoker. REVIEW OF SYSTEMS: Unable to obtain because of the patient's cognitive deficits. PHYSICAL EXAMINATION: Pleasant, severely obese, [place] female in no distress, who is relatively slow speaking, with clear cognitive deficits. HR 69, BP 164/70, O2 saturation 96% on 1 L nasal cannula. Her weight is 69.7 kg, down from 73.6 kg on admission. Skin: Warm and dry. HEENT: EOMI with moist mucous membranes. Lungs: Bronchial breath sounds bilaterally, but no appreciable rales or wheeze. CV: Nonpalpable PMI, with a regular rate and rhythm, with a normal S1 and S2, with a 1/6 systolic murmur, but no appreciable gallops or rubs. No obvious JVD but difficult to assess because of her nuchal obesity. Carotid pulses are 1+ bilaterally with a normal upstroke and no bruit. Abdomen: Severely obese but nondistended, nontender, without any obvious hepatosplenomegaly. Normal bowel tones are present. Extremities: Warm, without any clubbing, cyanosis, or edema. Neuro: Grossly moves all four extremities. Psych: Awake and alert, but clearly with some cognitive deficits. LABORATORY: White count this morning was 10.9 with hematocrit 27.6. Sodium was 134, with a potassium of 4.8, with a BUN of 56 and a creatinine of 2.5, and a glucose of 125. Magnesium was 2.1. Telemetry shows heart rates generally in the 60-70 range with the exception of this one isolated episode described above. A 12-lead ECG: Most recent ECG from March 26, 2016 shows sinus bradycardia at 51 BPM with low QRS voltage and some nonspecific ST-segment abnormalities. Chest x-ray from April 01, 2016 showed suggestion of pulmonary edema versus perihilar pneumonia but normal cardiac size. IMPRESSION: 1. Brief pause, likely with transient complete heart block. I suspect this was a vagal reaction due to her choking spell, perhaps exacerbated by her labetalol therapy. I do not think any further evaluation is needed in this regard, particularly since her dementia and comorbidities would make pacemaker placement problematic. You may wish to reduce her labetalol and substitute another antihypertensive therapy, although if she has no further pauses this can be deferred. You may wish to obtain a swallowing evaluation to ensure that she is safe for her current diet. I would also check an ECG to assess her TN interval and if this is prolonged compared to her previous ECG, again reduction in her labetalol would be warranted. 2. Hypothyroidism. Per the hospitalist. 3. Dyspnea, with fluid retention. I suspect this is more to do with her hypothyroidism and renal dysfunction rather than a primary cardiac issue. Her echocardiogram from March 27, 2016 suggested only mild to moderate pulmonary hypertension with relatively normal CVP. I suspect that her pleural effusion is more likely related to her underlying lung issue. 4. Acute on chronic renal failure. Per the hospitalist and the nephrology team. I will leave management of her hypertension and diuretics to these services. RECOMMENDATIONS: 1. Continue to monitor her heart rate and rhythm. 2. Obtain a swallowing eval to hopefully avoid further choking episodes. 3. Consider reducing her labetalol dose, particularly if an ECG shows increased TN interval. 4. I would be very reluctant to pursue pacemaker implantation or an ischemic evaluation in this patient given her dementia and comorbidities. At this point, I will sign off. If he has any further questions or concerns, please do not hesitate to call. TIME: I spent 1 hour and 25 minutes reviewing the patient's past medical history, examining and interviewing the patient, and talking with her other providers.
[2016-04-03] MEDS ORDERED: Darbepoetin Alfa 40 mCg/0.4 mL Inj SUBQ ONE (13:30)
--- NOTE | 2016-04-03 13:31 | PCM.PNMED ---
Subjective Date of Service Apr 03, 2016 Subjective Pt has no complaints as usual. Bradycardia noted, HR 20s, she was transferred to tele floor. Current HR 60-70/min. Exam Vital Signs Vital Sign - Last Date Time Temp Pulse Resp B/P Pulse Ox O2 Delivery O2 Flow Rate FiO2 04/03/16 12:50 36.3 66 22 133/54 96 Nasal Cannula 1.00 Intake and Output 04/02/16 04/02/16 04/03/16 Cumulative From/Thru 15:00 23:00 07:00 03/26/16 19:53 - 04/03/16 06:54 Intake Total 450 ml 308 ml 5863 ml Output Total 350 ml 500 ml 5330 ml Balance 100 ml -192 ml 533 ml Intake Oral 450 ml 250 ml 5163 ml IV Total 58 ml 700 ml Output Urine Total 350 ml 300 ml 4580 ml Stool Total 200 ml Urine/Stool Mix 200 ml 550 ml # Voids 1 4 # Bowel Movements 1 18 Exam GA: AAOx3, NAD, lying in bed comfortably. HEENT: atraumatic, moist mucous membrane, mild pallor, no icteric sclerae, puffy face, fine hair, no JVD, no LAD. Heart: RRR, no M/R/G, normal S1/S2. Lungs: decreased BS at bases, no wheezes, no rhonchi. Abd: Soft, obese, ND, NT, no HSM, active BS. Ext: trace+ edema, no cyanosis, no clubbing. Skin: good turgor, no evidence of any rashes. Lab and Diagnostics Result Diagram: 04/03/1692404/03/16924 X-Rays, CTs and MRIs PROCEDURE: CT CHEST WITHOUT CONTRAST ([id number]) INDICATIONS: questionable pneumonia/chf? TECHNIQUE: Noncontrast 5 mm thick sections acquired from the pulmonary apices to the posterior costophrenic angles. 7 mm thick coronal and sagittal MIP reformats were then acquired. For radiation dose reduction, the following was used: automated exposure control, adjustment of mA and/or kV according to patient size. COMPARISON: [facility], CT, PE STUDY (CTA CHEST), 09/26/2008, 16:40. [facility], CR, XR CHEST 1VW (PORTABLE), 03/26/2016, 15:54. FINDINGS: Image quality: Motion is present throughout the examination, limiting areas of fine detail evaluation. Lungs and pleura: Minimal mild bilateral pleural effusions, right greater than left and superimposed consolidations are present. There is an overall appearance of increased pulmonary vascularity. Mediastinum: Heart size is normal. No pericardial effusion. There is a 56 mm AP by 47 mm transverse low attenuation focus with Hounsfield units suggestive of fluid along the right anterior pericardial border. 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 No mediastinal adenopathy by size criteria. Thoracic aorta and central pulmonary arteries are normal in size. Esophagus is normal in caliber. No hiatal hernia. Bones and chest wall: No suspicious bony lesions. No vertebral body compression fractures. No axillary or supraclavicular adenopathy by size criteria. Thyroid gland is not well-visualized. Abdomen: Visualized upper abdominal solid organs and bowel loops appear normal in the absence of contrast. IMPRESSION: 1. Minimal to mild bilateral pleural effusions with small superimposed consolidations. The consolidations could be front desk representative of atelectasis. However, developing areas of underlying airspace disease such as pneumonia cannot be excluded. In addition, there is an appearance of increased pulmonary vascularity suggestive of edema. Dictated by: Nazia Mueller M.D. on 03/27/2016 at 12:23 Assessment & Plan 1. CAYDEN on CKD 4 secondary to CRS. 2. Acute on chronic diastolic heart failure. 3. Hyperkalemia, improving. 4. Transient bradycardia, resolved. 5. Hypertension with hypertensive heart disease and hypertensive nephrosclerosis with the presence of congestive heart failure. 6. DM-2 with diabetic nephropathy. 7. Hypothyroidism with recent h/o myxedema. 8. Dementia. 9. Anemia secondary to chronic kidney disease. Plan: continue IV lasix 80 mg Q 12hr. continue Metolazone 2.5 mg PO daily. repeat BMP in am. add aranesp 40 mcg subQ x 1 today. VTE Mechanical Devices: Intermittant Pneumatic CD Resuscitation Status: CPR: Attempt Resuscitation Cheryl Pond MD Apr 03, 2016 13:30
--- NOTE | 2016-04-03 14:35 | NUR ---
SISI signed. [employer]
--- NOTE | 2016-04-03 15:09 | PCM.PNMED ---
Subjective Date of Service Apr 03, 2016 Subjective pt had episode of pause, 6sec, HR20s. pt was eating and coughing on salmon. stat CMP showed stable electrolytes, episode resolved spontaneously then remained sinus throughout. Cardiology consulted, Exam Vital Signs Vital Sign - Last Date Time Temp Pulse Resp B/P Pulse Ox O2 Delivery O2 Flow Rate FiO2 04/03/16 13:51 Nasal Cannula 1.00 04/03/16 12:50 36.3 66 22 133/54 96 Intake and Output 04/02/16 04/02/16 04/03/16 Cumulative From/Thru 15:00 23:00 07:00 03/26/16 19:53 - 04/03/16 06:54 Intake Total 450 ml 308 ml 5863 ml Output Total 350 ml 500 ml 5330 ml Balance 100 ml -192 ml 533 ml Intake Oral 450 ml 250 ml 5163 ml IV Total 58 ml 700 ml Output Urine Total 350 ml 300 ml 4580 ml Stool Total 200 ml Urine/Stool Mix 200 ml 550 ml # Voids 1 4 # Bowel Movements 1 18 Exam NAD, comfortably laying down on the bed no JVD, MMM, no LAD RRR, nl s1, s2 no mrg decreased BS diffusely, fine inspiratory crackles BLF S,ND,NT,normoactive BS+ warm, 1+pitting edema, pulses 2/2 IVs and Medications Medications Reviewed: Medications were reviewed in detail Lab and Diagnostics Result Diagram: 04/03/1692404/03/16924 X-Rays, CTs and MRIs PROCEDURE: CT CHEST WITHOUT CONTRAST ([id number]) INDICATIONS: questionable pneumonia/chf? TECHNIQUE: Noncontrast 5 mm thick sections acquired from the pulmonary apices to the posterior costophrenic angles. 7 mm thick coronal and sagittal MIP reformats were then acquired. For radiation dose reduction, the following was used: automated exposure control, adjustment of mA and/or kV according to patient size. COMPARISON: [facility], CT, PE STUDY (CTA CHEST), 09/26/2008, 16:40. [facility], CR, XR CHEST 1VW (PORTABLE), 03/26/2016, 15:54. FINDINGS: Image quality: Motion is present throughout the examination, limiting areas of fine detail evaluation. Lungs and pleura: Minimal mild bilateral pleural effusions, right greater than left and superimposed consolidations are present. There is an overall appearance of increased pulmonary vascularity. Mediastinum: Heart size is normal. No pericardial effusion. There is a 56 mm AP by 47 mm transverse low attenuation focus with Hounsfield units suggestive of fluid along the right anterior pericardial border. 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 No mediastinal adenopathy by size criteria. Thoracic aorta and central pulmonary arteries are normal in size. Esophagus is normal in caliber. No hiatal hernia. Bones and chest wall: No suspicious bony lesions. No vertebral body compression fractures. No axillary or supraclavicular adenopathy by size criteria. Thyroid gland is not well-visualized. Abdomen: Visualized upper abdominal solid organs and bowel loops appear normal in the absence of contrast. IMPRESSION: 1. Minimal to mild bilateral pleural effusions with small superimposed consolidations. The consolidations could be territory sales representative of atelectasis. However, developing areas of underlying airspace disease such as pneumonia cannot be excluded. In addition, there is an appearance of increased pulmonary vascularity suggestive of edema. Dictated by: Nazia Mueller M.D. on 03/27/2016 at 12:23 Assessment & Plan This 80-year-old female multiple comorbidities presenting with declining mental status and increased work of breathing, worsening respiratory function admitted through the ER following presentation via EMS: #Acute hypoxic respiratory failure, initial ABG 7.30/44/64 FIO2 28%, likely fluid overload in the setting of CKD/CHF, possible HCAP - Started on Lasix 60 mg IV.bid, switched to 40mg bid per renal service 03/30, maintained positive balance for past2D, increased lasix, added metalazone 04/01 -continue abx as below, low threshold to stop given stable clinical picture, on unimpressive respiratory symptoms #probable Hospital-acquired pneumonia - It was suspected on admission that an acute infection was accounting for patient's acute decline in status following discharge , source of which is not yet clear . - We will continue Levaquin 250mg q48h, vancomycin discontinued 03/27 due to no evidence of MRSA infection. - Blood culture negative. Urine culture mixed karen - Pro calcitonin level with mild elevation. #Acute on CKD4 -greatly appreciate nephrology recs -avoid nephro toxinx, adjust meds renally -i/o, #reported melena from family member, stable h/h ,no signs of bleeding in house, FOBT neg #HTN, controlled, added norvasc 10mg, hydralazine per renal 03/31 #episode of pause, developed in 04/02, likely thought to be vasovagal response, no further if TN not prolonged on repeat EKG per chronic, stable #Hypothyroidism, currently supratherapeutic due to overtreatment - Elevated free T4 supportive of overtreatment with thyroid medication at this time - This could certainly be contributing to impaired mentation - Levothyroxine dose has been decreased to 150mcg, continue to monitor patient' s mentation, bowel function, and further evidence of improving thyroid function. - Consider recheck in a couple of days specifically T4 values. #Diabetes mellitus - Pt placed on sliding scale insulin on admission and this will be continued Chronic issues known prior to admission, present on admission Dementia Anemia under production likely due to hypothyroidism and renal disease Insulin-dependent diabetes mellitus/nephropathy Hypertension Hyperlipidemia GERD Bilateral cataract Osteoporosis /Low vitamin D Disposition: based on volume status, anticipate 1-2more days, high risks of readmission, given newly developed ulcer, home vs SNF VTE Mechanical Devices: Intermittant Pneumatic CD Resuscitation Status: CPR: Attempt Resuscitation Time spent 35min Ally Beard MD Apr 03, 2016 15:09
--- NOTE | 2016-04-03 15:17 | DRSVH ---
PROCEDURE: X-RAY CHEST ONE VIEW, PORTABLE ([id number]) INDICATIONS: Congestive heart failure, follow up after treatment TECHNIQUE: One view of the chest was acquired. COMPARISON: [facility], CT, CT CHEST WO CON, 03/27/2016, 12:14. [facility], CR, XR CHEST 1VW (PORTABLE), 03/03/2016, 16:49. [facility], CR, XR CHEST 1VW (PORTABLE), 04/01/2016, 12:52. FINDINGS: Surgical changes and devices: None. Lungs and pleura: Suspect small posterior layering bilateral pleural effusions possibly greater on t he right than the left, but no pneumothorax. Lungs are edematous, worsened from the comparison study from 04/01/16. Mediastinum: Mediastinal contours appear normal. Heart size is globally enlarged. Bones and chest wall: No suspicious bony lesions. Overlying soft tissues appear unremarkable. IMPRESSION: Worsening CHF pattern, with global cardiomegaly. Dictated by: Kunal Vlaladares M.D. on 04/03/2016 at 15:13 Approved by: Kunal Valladares M.D. on 04/03/2016 at 15:15
--- NOTE | 2016-04-03 15:47 | NUR ---
Social Work-continued d/c planning: Data:EMR Reviewed. Pt is on day 8 of hospitalization for AMS per H&P. Pt is not medically stable anticipate several more days. PT continues to recommend SNF, pt able to ambulate 16ft x2 today. SW followed up with pt at bedside to discuss, SW role explained. Pt continues to deny SNF stating she will return home with her family to assist and HH. SW placed a call to nephew Golden and attempt to leave message with no voicemail option. Pt is currently open with [facility] for RN,PT,OT, WELDER JOURNEYMAN, and CURRICULUM COUNSELOR. SW will continue to follow. Assessment:SNF vs home with HH. Plan:Pt anticipates to return home with 24/7 care and Resume [facility] RN,PT,OT, WELDER JOURNEYMAN, and CURRICULUM COUNSELOR. PT recommending SNF. SW to follow up again with pt and family regarding recommendations. SW will continue to follow. [employer]
--- NOTE | 2016-04-03 17:33 | NUR ---
Blood pressure Patient's blood pressure was 133/54 with a HR of 66. Patient was given scheduled hydralazine. Patient's blood pressure an hour late was 128/61. Patient's scheduled labetalol was held due to SBP<140. Patient's HR has been in normal sinus rhythm in the 60-70s today.
[2016-04-04] VITALS (9 sets, daily range): BP systolic 130–161; BP diastolic 48–64; PULSE 64–74; RESP 20–22; O2SAT 93–96
[2016-04-04] MEDS: Heparin 5,000 Unit/mL Inj SUBQ SCH ×3 (00:19→17:50)
--- NOTE | 2016-04-04 03:45 | NUR ---
Shortness of Breath Patient experiences increased shortness of breath when out of bed. O2 sats in mid 90s on 1L NC. Patient denies chest tightness or discomfort. Continuing to assess work of breathing and O2 needs.
[2016-04-04 05:59] LABS: BASOPHILS % (AUTO) 0.4 % (0-3); EOSINOPHILS % (AUTO) 1.5 % (0-5); MONOCYTES % (AUTO) 13.1 % (4-12); Mean Corpuscular Hemoglobin 27.4 pg (27.0-35.0); Mean Corpuscular Volume 88.1 fL (81-100); NEUTROPHILS % (AUTO) 76.3 % (40-74); Platelet Count 359 bil/L (150-400)
[2016-04-04] MEDS: Furosemide 10 mg/mL 4 mL Inj IVPUSH SCH ×2 (06:09→17:45)
[2016-04-04 06:20] LABS: Magnesium 2.1 mg/dL (1.6-2.6); Phosphorus 4.2 mg/dL (2.5-4.9)
[2016-04-04] MEDS: Insulin LISPRO 300 Unit/3 mL Inj SUBQ SCH ×4 (07:59→22:00)
--- NOTE | 2016-04-04 10:49 | PCM.PNMED ---
Subjective Date of Service Apr 04, 2016 Subjective No overnight event Patient seems more comfortable, breathing less heavily Denied any difficulty breathing net -700 i/o overnight Exam Vital Signs Vital Sign - Last Date Time Temp Pulse Resp B/P Pulse Ox O2 Delivery O2 Flow Rate FiO2 04/04/16 09:11 67 04/04/16 08:10 Supplement Oxygen 04/04/16 07:50 36.4 22 150/64 96 04/04/16 05:08 1.00 Intake and Output 04/03/16 04/03/16 04/04/16 Cumulative From/Thru 15:00 23:00 07:00 03/26/16 19:53 - 04/04/16 06:45 Intake Total 686 ml 300 ml 6849 ml Output Total 550 ml 1000 ml 6880 ml Balance 136 ml -700 ml -31 ml Intake Oral 686 ml 300 ml 6149 ml IV Total 700 ml Output Urine Total 550 ml 600 ml 5730 ml Stool Total 200 ml Urine/Stool Mix 400 ml 950 ml # Voids 4 # Bowel Movements 3 21 Exam NAD, comfortably laying down on the bed no JVD, MMM, no LAD RRR, nl s1, s2 no mrg decreased BS diffusely, fine inspiratory crackles BLF S,ND,NT,normoactive BS+ warm, trace edema, pulses 2/2 IVs and Medications Medications Reviewed: Medications were reviewed in detail Lab and Diagnostics Result Diagram: 04/04/1643 04/04/16 0543 X-Rays, CTs and MRIs PROCEDURE: CT CHEST WITHOUT CONTRAST ([id number]) INDICATIONS: questionable pneumonia/chf? TECHNIQUE: Noncontrast 5 mm thick sections acquired from the pulmonary apices to the posterior costophrenic angles. 7 mm thick coronal and sagittal MIP reformats were then acquired. For radiation dose reduction, the following was used: automated exposure control, adjustment of mA and/or kV according to patient size. COMPARISON: [facility], CT, PE STUDY (CTA CHEST), 09/26/2008, 16:40. [facility], CR, XR CHEST 1VW (PORTABLE), 03/26/2016, 15:54. FINDINGS: Image quality: Motion is present throughout the examination, limiting areas of fine detail evaluation. Lungs and pleura: Minimal mild bilateral pleural effusions, right greater than left and superimposed consolidations are present. There is an overall appearance of increased pulmonary vascularity. Mediastinum: Heart size is normal. No pericardial effusion. There is a 56 mm AP by 47 mm transverse low attenuation focus with Hounsfield units suggestive of fluid along the right anterior pericardial border. 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 No mediastinal adenopathy by size criteria. Thoracic aorta and central pulmonary arteries are normal in size. Esophagus is normal in caliber. No hiatal hernia. Bones and chest wall: No suspicious bony lesions. No vertebral body compression fractures. No axillary or supraclavicular adenopathy by size criteria. Thyroid gland is not well-visualized. Abdomen: Visualized upper abdominal solid organs and bowel loops appear normal in the absence of contrast. IMPRESSION: 1. Minimal to mild bilateral pleural effusions with small superimposed consolidations. The consolidations could be senior outside sales representative of atelectasis. However, developing areas of underlying airspace disease such as pneumonia cannot be excluded. In addition, there is an appearance of increased pulmonary vascularity suggestive of edema. Dictated by: Nazia Mueller M.D. on 03/27/2016 at 12:23 Assessment & Plan This 80-year-old female multiple comorbidities presenting with declining mental status and increased work of breathing, worsening respiratory function admitted through the ER following presentation via EMS: #Acute hypoxic respiratory failure, initial ABG 7.30/44/64 FIO2 28%, likely fluid overload in the setting of CKD/CHF, possible HCAP - Started on Lasix 60 mg IV.bid, switched to 40mg bid per renal service 03/30, maintained positive balance for past2D, increased lasix, added metalazone 04/01 -pt responded well to lasix, clinically more stable, further diuretics course, expects 1-2more days in house then d/c - finished tx for probable HCAP #Acute on CKD4 -greatly appreciate nephrology recs, continue lasix, switch to oral upon d/c -avoid nephro toxinx, adjust meds renally -i/o strict, #reported melena from family member, stable h/h ,no signs of bleeding in house, FOBT neg #HTN, controlled, added norvasc 10mg, hydralazine per renal 03/31 #episode of pause, developed in 04/02, likely thought to be vasovagal response, no further if OR not prolonged on repeat EKG per chronic, stable #probable Hospital-acquired pneumonia - It was suspected on admission that an acute infection was accounting for patient's acute decline in status following discharge , source of which is not yet clear . - Levaquin 250mg q48h for 9days, stop it today, last dose today given, vancomycin discontinued 03/27 due to no evidence of MRSA infection. - Blood culture negative. Urine culture mixed karen - Pro calcitonin level with mild elevation. #Hypothyroidism, currently supratherapeutic due to overtreatment - Elevated free T4 supportive of overtreatment with thyroid medication at this time - This could certainly be contributing to impaired mentation - Levothyroxine dose has been decreased to 150mcg, continue to monitor patient' s mentation, bowel function, and further evidence of improving thyroid function. - Consider recheck in a couple of days specifically T4 values. #Diabetes mellitus - Pt placed on sliding scale insulin on admission and this will be continued Chronic issues known prior to admission, present on admission Dementia Anemia under production likely due to hypothyroidism and renal disease Insulin-dependent diabetes mellitus/nephropathy Hypertension Hyperlipidemia GERD Bilateral cataract Osteoporosis /Low vitamin D Disposition: based on volume status, anticipate 1-2more days, high risks of readmission, given newly developed ulcer, home vs SNF VTE Mechanical Devices: Intermittant Pneumatic CD Resuscitation Status: CPR: Attempt Resuscitation Time spent 35min Ally Beard MD Apr 04, 2016 10:49
--- NOTE | 2016-04-04 13:33 | PCM.PNMED ---
Subjective Date of Service Apr 04, 2016 Subjective well rested today, family is at the bedside. no CP/SOB. Exam Vital Signs Vital Sign - Last Date Time Temp Pulse Resp B/P Pulse Ox O2 Delivery O2 Flow Rate FiO2 04/04/16 09:11 67 04/04/16 08:10 Supplement Oxygen 04/04/16 07:50 36.4 22 150/64 96 04/04/16 05:08 1.00 Intake and Output 04/03/16 04/03/16 04/04/16 Cumulative From/Thru 15:00 23:00 07:00 03/26/16 19:53 - 04/04/16 06:45 Intake Total 686 ml 300 ml 6849 ml Output Total 550 ml 1000 ml 6880 ml Balance 136 ml -700 ml -31 ml Intake Oral 686 ml 300 ml 6149 ml IV Total 700 ml Output Urine Total 550 ml 600 ml 5730 ml Stool Total 200 ml Urine/Stool Mix 400 ml 950 ml # Voids 4 # Bowel Movements 3 21 Exam GA: AAOx3, NAD, lying in bed comfortably. HEENT: atraumatic, moist mucous membrane, mild pallor, no icteric sclerae, puffy face, fine hair, no JVD, no LAD. Heart: RRR, no M/R/G, normal S1/S2. Lungs: decreased BS at bases, no wheezes, no rhonchi. Abd: Soft, obese, ND, NT, no HSM, active BS. Ext: trace+ edema, no cyanosis, no clubbing. Skin: good turgor, no evidence of any rashes. Lab and Diagnostics Result Diagram: 04/04/1643 04/04/16 0543 X-Rays, CTs and MRIs PROCEDURE: CT CHEST WITHOUT CONTRAST ([id number]) INDICATIONS: questionable pneumonia/chf? TECHNIQUE: Noncontrast 5 mm thick sections acquired from the pulmonary apices to the posterior costophrenic angles. 7 mm thick coronal and sagittal MIP reformats were then acquired. For radiation dose reduction, the following was used: automated exposure control, adjustment of mA and/or kV according to patient size. COMPARISON: [facility], CT, PE STUDY (CTA CHEST), 09/26/2008, 16:40. [facility], CR, XR CHEST 1VW (PORTABLE), 03/26/2016, 15:54. FINDINGS: Image quality: Motion is present throughout the examination, limiting areas of fine detail evaluation. Lungs and pleura: Minimal mild bilateral pleural effusions, right greater than left and superimposed consolidations are present. There is an overall appearance of increased pulmonary vascularity. Mediastinum: Heart size is normal. No pericardial effusion. There is a 56 mm AP by 47 mm transverse low attenuation focus with Hounsfield units suggestive of fluid along the right anterior pericardial border. 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 No mediastinal adenopathy by size criteria. Thoracic aorta and central pulmonary arteries are normal in size. Esophagus is normal in caliber. No hiatal hernia. Bones and chest wall: No suspicious bony lesions. No vertebral body compression fractures. No axillary or supraclavicular adenopathy by size criteria. Thyroid gland is not well-visualized. Abdomen: Visualized upper abdominal solid organs and bowel loops appear normal in the absence of contrast. IMPRESSION: 1. Minimal to mild bilateral pleural effusions with small superimposed consolidations. The consolidations could be appliance service representative of atelectasis. However, developing areas of underlying airspace disease such as pneumonia cannot be excluded. In addition, there is an appearance of increased pulmonary vascularity suggestive of edema. Dictated by: Nazia Mueller M.D. on 03/27/2016 at 12:23 Assessment & Plan 1. CAYDEN on CKD 4 secondary to CRS. 2. Acute on chronic diastolic heart failure. 3. Hyperkalemia, improving. 4. Transient bradycardia, resolved. 5. Hypertension with hypertensive heart disease and hypertensive nephrosclerosis with the presence of congestive heart failure. 6. DM-2 with diabetic nephropathy. 7. Hypothyroidism with recent h/o myxedema. 8. Dementia. 9. Anemia secondary to chronic kidney disease s/p aranesp subQ on 04/03. Plan: continue IV lasix 80 mg Q 12hr. continue Metolazone 2.5 mg PO daily. repeat BMP in am. VTE Mechanical Devices: Intermittant Pneumatic CD Resuscitation Status: CPR: Attempt Resuscitation Cheryl Pond MD Apr 04, 2016 13:33
--- NOTE | 2016-04-04 18:29 | NUR ---
Appetite: Patient has a poor appetite. She ate 30% of breakfast with much coaching and less than 50% of her other meals. She is able to drink all of her milk and her mighty vitamin shake and her ensure. Without issues. 1:1 feed assist was provided for patient with better results for patients eating than if she is just left with her tray alone .
[2016-04-05] VITALS (9 sets, daily range): BP systolic 133–156; BP diastolic 52–81; PULSE 62–76; RESP 18–20; O2SAT 92–97
[2016-04-05] MEDS: Heparin 5,000 Unit/mL Inj SUBQ SCH ×3 (01:01→16:58)
--- NOTE | 2016-04-05 04:52 | NUR ---
Using call light Pt alert to self and place all shift, but unsure of year, month, or why she is in the hospital. Pt has been compliant with call light use all shift, bed alarm on for Pt safety.
[2016-04-05 06:15] LABS: BASOPHILS % (AUTO) 0.4 % (0-3); EOSINOPHILS % (AUTO) 2.3 % (0-5); MONOCYTES % (AUTO) 14.9 % (4-12); Mean Corpuscular Hemoglobin 26.9 pg (27.0-35.0); Mean Corpuscular Volume 87.9 fL (81-100); Platelet Count 351 bil/L (150-400)
[2016-04-05 06:23] LABS: Phosphorus 3.9 mg/dL (2.5-4.9)
[2016-04-05] MEDS: Furosemide 10 mg/mL 4 mL Inj IVPUSH SCH (06:35)
[2016-04-05] MEDS: Insulin LISPRO 300 Unit/3 mL Inj SUBQ SCH ×4 (07:35→22:00)
[2016-04-05] MEDS: levoFLOXacin 250 mg Tablet PO SCH (09:28)
--- NOTE | 2016-04-05 12:48 | PCM.PNMED ---
Subjective Date of Service Apr 05, 2016 Subjective Patient is well-known to me from multiple previous evaluations. Patient has a history of chronic kidney disease stage III/4 which has recently worsened. She has developed acute kidney injury probably of multiple etiologies including congestive heart failure. She does have an underlying history of diabetic nephropathy hypertension, hypertension, and anemia secondary to chronic kidney disease. Renal function has improved somewhat during this admission and she is ambulating better with both strength and endurance. She denies any resting dyspnea, cough, or chest pain. Her systolic blood pressures have been averaging in the upper 140-170 range. Intake and output from yesterday was 1606 in 1900 out and 300 out in the last 8 hours. Her sodium is 133, potassium 4.5, chloride 97, bicarbonate 24, BUN and creatinine were 67 and 2.57 respectively. Exam Vital Signs Vital Sign - Last Date Time Temp Pulse Resp B/P Pulse Ox O2 Delivery O2 Flow Rate FiO2 04/05/16 10:39 71 04/05/16 09:32 36.7 18 156/61 95 Nasal Cannula 1.00 Intake and Output 04/04/16 04/04/16 04/05/16 Cumulative From/Thru 15:00 23:00 07:00 03/26/16 19:53 - 04/05/16 05:45 Intake Total 1306 ml 200 ml 8355 ml Output Total 900 ml 300 ml 8080 ml Balance 406 ml -100 ml 275 ml Intake Oral 1306 ml 200 ml 7655 ml IV Total 700 ml Output Urine Total 900 ml 300 ml 6930 ml Stool Total 200 ml Urine/Stool Mix 950 ml # Voids 4 # Bowel Movements 4 25 Exam Sclera are pale. Neck is supple without adenopathy, thyromegaly, and no venous distention was noted 90. Lungs few bibasilar rales. Otherwise clear. Heart is regular and rhythmic with a soft systolic murmur. Abdomen is soft without any tenderness or rebound guarding or masses noted. Extremities showed less edema. Lab and Diagnostics Result Diagram: 04/05/1652904/05/16529 X-Rays, CTs and MRIs PROCEDURE: CT CHEST WITHOUT CONTRAST ([id number]) INDICATIONS: questionable pneumonia/chf? TECHNIQUE: Noncontrast 5 mm thick sections acquired from the pulmonary apices to the posterior costophrenic angles. 7 mm thick coronal and sagittal MIP reformats were then acquired. For radiation dose reduction, the following was used: automated exposure control, adjustment of mA and/or kV according to patient size. COMPARISON: [facility], CT, PE STUDY (CTA CHEST), 09/26/2008, 16:40. [facility], CR, XR CHEST 1VW (PORTABLE), 03/26/2016, 15:54. FINDINGS: Image quality: Motion is present throughout the examination, limiting areas of fine detail evaluation. Lungs and pleura: Minimal mild bilateral pleural effusions, right greater than left and superimposed consolidations are present. There is an overall appearance of increased pulmonary vascularity. Mediastinum: Heart size is normal. No pericardial effusion. There is a 56 mm AP by 47 mm transverse low attenuation focus with Hounsfield units suggestive of fluid along the right anterior pericardial border. 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 No mediastinal adenopathy by size criteria. Thoracic aorta and central pulmonary arteries are normal in size. Esophagus is normal in caliber. No hiatal hernia. Bones and chest wall: No suspicious bony lesions. No vertebral body compression fractures. No axillary or supraclavicular adenopathy by size criteria. Thyroid gland is not well-visualized. Abdomen: Visualized upper abdominal solid organs and bowel loops appear normal in the absence of contrast. IMPRESSION: 1. Minimal to mild bilateral pleural effusions with small superimposed consolidations. The consolidations could be insurance representative of atelectasis. However, developing areas of underlying airspace disease such as pneumonia cannot be excluded. In addition, there is an appearance of increased pulmonary vascularity suggestive of edema. Dictated by: Nazia Mueller M.D. 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 # 5 chronic kidney disease baseline stage III/4. Recommendations #100 to give her an additional dose of Aranesp today and dose intravenous iron in treating her ongoing anemia. I will stop her IV furosemide and switch her to torsemide 40 mg orally in the morning and 20 in the afternoon. I would like to seriously consider giving this patient on amlodipine as this markedly increases her risk of lower extremity edema and will become a fluid management problem. I will go ahead and discontinue this and start her on a low-dose of spironolactone. VTE Mechanical Devices: Intermittant Pneumatic CD Resuscitation Status: CPR: Attempt Resuscitation Bean Thomas DO Apr 05, 2016 12:48
[2016-04-05] MEDS ORDERED: Iron Sucrose Inj 100 MG in 0.9% Sodium Chloride 100 ML IV ONE (12:50)
[2016-04-05] MEDS ORDERED: Darbepoetin Alfa 60 mCg/0.3 mL Inj SUBQ ONE (12:50)
[2016-04-05] MEDS ORDERED: DARBEPOETIN ALFA SUBQ ONE ×2 (13:40)
--- NOTE | 2016-04-05 17:08 | PCM.PNMED ---
Subjective Date of Service Apr 05, 2016 Subjective denies any new issues/complaints Exam Vital Signs Vital Sign - Last Date Time Temp Pulse Resp B/P Pulse Ox O2 Delivery O2 Flow Rate FiO2 04/05/16 14:28 36.6 67 18 138/56 92 Nasal Cannula 1.00 Intake and Output 04/04/16 04/04/16 04/05/16 Cumulative From/Thru 15:00 23:00 07:00 03/26/16 19:53 - 04/05/16 05:45 Intake Total 1306 ml 200 ml 8355 ml Output Total 900 ml 300 ml 8080 ml Balance 406 ml -100 ml 275 ml Intake Oral 1306 ml 200 ml 7655 ml IV Total 700 ml Output Urine Total 900 ml 300 ml 6930 ml Stool Total 200 ml Urine/Stool Mix 950 ml # Voids 4 # Bowel Movements 4 25 General: Alert, Cooperative, No Acute Distress Eyes: Scleral Anicteric Nose: Mucous Membr Moist/[place] Mouth: Mucous Membr Moist/[place] Neck: Supple Chest & Lungs: Chest Wall Normal, Clear to auscultation & percussion Cardiovascular: Regular Rate/Rhythm Abdomen: Non-tender, No hepatosplenomegaly, Soft Extremities: Edema (trace bilat LE edema) Neurological: Grossly Neurologically Intact, Normal Speech IVs and Medications Medications Reviewed: Medications were reviewed in detail Lab and Diagnostics Result Diagram: 04/05/1652904/05/16529 X-Rays, CTs and MRIs PROCEDURE: CT CHEST WITHOUT CONTRAST ([id number]) INDICATIONS: questionable pneumonia/chf? TECHNIQUE: Noncontrast 5 mm thick sections acquired from the pulmonary apices to the posterior costophrenic angles. 7 mm thick coronal and sagittal MIP reformats were then acquired. For radiation dose reduction, the following was used: automated exposure control, adjustment of mA and/or kV according to patient size. COMPARISON: [facility], CT, PE STUDY (CTA CHEST), 09/26/2008, 16:40. [facility], CR, XR CHEST 1VW (PORTABLE), 03/26/2016, 15:54. FINDINGS: Image quality: Motion is present throughout the examination, limiting areas of fine detail evaluation. Lungs and pleura: Minimal mild bilateral pleural effusions, right greater than left and superimposed consolidations are present. There is an overall appearance of increased pulmonary vascularity. Mediastinum: Heart size is normal. No pericardial effusion. There is a 56 mm AP by 47 mm transverse low attenuation focus with Hounsfield units suggestive of fluid along the right anterior pericardial border. 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 No mediastinal adenopathy by size criteria. Thoracic aorta and central pulmonary arteries are normal in size. Esophagus is normal in caliber. No hiatal hernia. Bones and chest wall: No suspicious bony lesions. No vertebral body compression fractures. No axillary or supraclavicular adenopathy by size criteria. Thyroid gland is not well-visualized. Abdomen: Visualized upper abdominal solid organs and bowel loops appear normal in the absence of contrast. IMPRESSION: 1. Minimal to mild bilateral pleural effusions with small superimposed consolidations. The consolidations could be route service representative of atelectasis. However, developing areas of underlying airspace disease such as pneumonia cannot be excluded. In addition, there is an appearance of increased pulmonary vascularity suggestive of edema. Dictated by: Nazia Mueller M.D. on 03/27/2016 at 12:23 Assessment & Plan This 80-year-old female multiple comorbidities presenting with declining mental status and increased work of breathing, worsening respiratory function admitted through the ER following presentation via EMS: # Acute hypoxic respiratory failure, present on admission. improving - initial ABG 7.30/44/64 FIO2 28% - likely fluid overload in the setting of CKD/CHF, possible HCAP - Started on IV Lasix per nephrology recs. - appreciate nephrology consult. will f/u w/ recs - stop IV furosemide on 04/05/16 and switch her to torsemide 40 mg orally in the morning and 20 in the afternoon. - stop Amlodipine as this markedly increases her risk of lower extremity edema and will become a fluid management problem. - start low-dose Spironolactone. # Acute kidney injury on CKD4 - greatly appreciate nephrology recs. treatment as noted above - avoid nephro toxinx, adjust meds renally - f/u i/o closely # reported melena from family member - stable h/h - no signs of bleeding during this hospital - FOBT neg # History of hypertension. HTN, controlled - c/w BP meds as noted above # Episode of acute cardiac pause, developed in 04/02/16, likely thought to be vasovagal response, - per earlier note by Dr. Beard: "no further workup if MN not prolonged on repeat EKG per " # probable Hospital-acquired pneumonia - It was suspected on admission that an acute infection was accounting for patient's acute decline in status following discharge - Vancomycin discontinued 03/27 due to no evidence of MRSA infection. - Last dose Abx on 03/28 - Blood culture negative. Urine culture mixed karen - Pro calcitonin level with mild elevation. # Hypothyroidism, currently supra-therapeutic due to overtreatment - Elevated free T4 supportive of overtreatment with thyroid medication at this time - This could certainly be contributing to impaired mentation - Levothyroxine dose has been decreased to 150 mcg, - continue to monitor patient's mentation, bowel function, and further evidence of improving thyroid function. - Consider recheck in few days specifically T4 values. # Diabetes mellitus - c/w sliding scale insulin on admission and this will be continued # Acute on chronic anemia - under production likely due to hypothyroidism and renal disease - additional dose of Aranesp and dose of IV iron on 04/05 per nephrology # Hyperlipidemia, chronic, presume stable. - c/w Atorvastatin 80 mg daily # GERD, chronic, presume stable. - Continue PPI # Osteoporosis, chronic, presume stable. - Patient takes alendronate 70 mg weekly. # Environmental/seasonal allergies, chronic, presume stable. Dispo: 1-2 days VTE Mechanical Devices: Intermittant Pneumatic CD Resuscitation Status: CPR: Attempt Resuscitation Time spent 37 min Ramirez Jacome Apr 05, 2016 17:08
[2016-04-06] VITALS (8 sets, daily range): BP systolic 127–151; BP diastolic 47–56; PULSE 63–71; RESP 18–22; O2SAT 94–96
[2016-04-06] MEDS: Heparin 5,000 Unit/mL Inj SUBQ SCH ×3 (01:25→16:41)
--- NOTE | 2016-04-06 05:36 | NUR ---
Diarrhea/Urinary Retention Pt is having multiple loose stools throughout the night. Stool sample was sent to the lab for C-diff testing. Pt is also retaining urine and is unable to urinate. Bladder scan shows 440, was notified and ordered in and out cath if post-void residue >400. 382mLs was taken out. Pt denies chest pain, still having mild sob and currently on 2LPM NC and saturating around 96%. Hourly rounding done, q2 turns provided. Will continue to monitor.
[2016-04-06 07:07] LABS: BASOPHILS % (AUTO) 0.5 % (0-3); EOSINOPHILS % (AUTO) 3.1 % (0-5); MONOCYTES % (AUTO) 13.6 % (4-12); Mean Corpuscular Hemoglobin 27.2 pg (27.0-35.0); Mean Corpuscular Volume 88.4 fL (81-100); NEUTROPHILS % (AUTO) 72.7 % (40-74); Platelet Count 336 bil/L (150-400)
[2016-04-06] MEDS: Insulin LISPRO 300 Unit/3 mL Inj SUBQ SCH ×4 (08:37→22:00)
--- NOTE | 2016-04-06 11:30 | PCM.PNMED ---
Subjective Date of Service Apr 06, 2016 Subjective Patient's renal function is continuing to worsen. Her intake and output from yesterday is 618 in and 1100 out. Her hemoglobin is continuing to be low at 8.0. Patient for the patient offers absolutely no complaints and states that she is fine to every question asked. Her hemoglobin this morning is 8.0, sodium is 134, potassium 4.2, chloride 96, bicarbonate 28, BUN and creatinine were 70 and 2.67. Exam Vital Signs Vital Sign - Last Date Time Temp Pulse Resp B/P Pulse Ox O2 Delivery O2 Flow Rate FiO2 04/06/16 10:38 71 04/06/16 03:43 36.5 20 135/47 96 Room Air 2.00 Intake and Output 04/05/16 04/05/16 04/06/16 Cumulative From/Thru 15:00 23:00 07:00 03/26/16 19:53 - 04/06/16 04:14 Intake Total 418 ml 200 ml 8973 ml Output Total 801 ml 8881 ml Balance -383 ml 200 ml 92 ml Intake Oral 418 ml 200 ml 8273 ml IV Total 700 ml Output Urine Total 800 ml 7730 ml Stool Total 1 ml 201 ml Urine/Stool Mix 950 ml # Voids 4 # Bowel Movements 3 28 Exam Neck is supple without adenopathy however there were some mild to moderate venous distention at 90. Lungs continue to show increased AP diameter and there are rales approximately 1 preoperative but more pronounced on the left as compared to the right. Cerumen was removed with a soft systolic murmur. Abdomen soft without any tenderness or rebound guarding masses or hepatosplenomegaly. Extremities show any evidence of any clubbing cyanosis or edema. Her skin turgor is good. Lab and Diagnostics Result Diagram: 04/06/1662204/06/16622 X-Rays, CTs and MRIs PROCEDURE: CT CHEST WITHOUT CONTRAST ([id number]) INDICATIONS: questionable pneumonia/chf? TECHNIQUE: Noncontrast 5 mm thick sections acquired from the pulmonary apices to the posterior costophrenic angles. 7 mm thick coronal and sagittal MIP reformats were then acquired. For radiation dose reduction, the following was used: automated exposure control, adjustment of mA and/or kV according to patient size. COMPARISON: [facility], CT, PE STUDY (CTA CHEST), 09/26/2008, 16:40. [facility], CR, XR CHEST 1VW (PORTABLE), 03/26/2016, 15:54. FINDINGS: Image quality: Motion is present throughout the examination, limiting areas of fine detail evaluation. Lungs and pleura: Minimal mild bilateral pleural effusions, right greater than left and superimposed consolidations are present. There is an overall appearance of increased pulmonary vascularity. Mediastinum: Heart size is normal. No pericardial effusion. There is a 56 mm AP by 47 mm transverse low attenuation focus with Hounsfield units suggestive of fluid along the right anterior pericardial border. 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 No mediastinal adenopathy by size criteria. Thoracic aorta and central pulmonary arteries are normal in size. Esophagus is normal in caliber. No hiatal hernia. Bones and chest wall: No suspicious bony lesions. No vertebral body compression fractures. No axillary or supraclavicular adenopathy by size criteria. Thyroid gland is not well-visualized. Abdomen: Visualized upper abdominal solid organs and bowel loops appear normal in the absence of contrast. IMPRESSION: 1. Minimal to mild bilateral pleural effusions with small superimposed consolidations. The consolidations could be junior sales representative of atelectasis. However, developing areas of underlying airspace disease such as pneumonia cannot be excluded. In addition, there is an appearance of increased pulmonary vascularity suggestive of edema. Dictated by: Nazia Mueller M.D. 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 Recommendations #/ and urine for eosinophils and an anti-histone antibody with the idea that this could possibly be some type of drug reaction which is causing worsening of her renal function. Would like to recheck a chest x-ray on her to see how this compares to several days ago. VTE Mechanical Devices: Intermittant Pneumatic CD Resuscitation Status: CPR: Attempt Resuscitation Bean Thomas DO Apr 06, 2016 11:30
--- NOTE | 2016-04-06 14:30 | PCM.PNMED ---
Subjective Date of Service Apr 06, 2016 Subjective denies any new issues/complaints Exam Vital Signs Vital Sign - Last Date Time Temp Pulse Resp B/P Pulse Ox O2 Delivery O2 Flow Rate FiO2 04/06/16 12:24 Nasal Cannula 2.00 04/06/16 11:27 36.5 65 20 151/49 95 Intake and Output 04/05/16 04/05/16 04/06/16 Cumulative From/Thru 15:00 23:00 07:00 03/26/16 19:53 - 04/06/16 04:14 Intake Total 418 ml 200 ml 8973 ml Output Total 801 ml 8881 ml Balance -383 ml 200 ml 92 ml Intake Oral 418 ml 200 ml 8273 ml IV Total 700 ml Output Urine Total 800 ml 7730 ml Stool Total 1 ml 201 ml Urine/Stool Mix 950 ml # Voids 4 # Bowel Movements 05 04 Exam General: Alert, Cooperative, No Acute Distress Eyes: Scleral Anicteric Nose: Mucous Membr Moist/[place] Mouth: Mucous Membr Moist/[place] Neck: Supple Chest & Lungs: Chest Wall Normal, Clear to auscultation bilat Cardiovascular: Regular Rate/Rhythm Abdomen: Non-tender, No hepatosplenomegaly, Soft Extremities: Edema (trace bilat LE edema) Neurological: Grossly Neurologically Intact, Normal Speech IVs and Medications Medications Reviewed: Medications were reviewed in detail Lab and Diagnostics Result Diagram: 04/06/1662204/06/16622 X-Rays, CTs and MRIs PROCEDURE: CT CHEST WITHOUT CONTRAST ([id number]) INDICATIONS: questionable pneumonia/chf? TECHNIQUE: Noncontrast 5 mm thick sections acquired from the pulmonary apices to the posterior costophrenic angles. 7 mm thick coronal and sagittal MIP reformats were then acquired. For radiation dose reduction, the following was used: automated exposure control, adjustment of mA and/or kV according to patient size. COMPARISON: [facility], CT, PE STUDY (CTA CHEST), 09/26/2008, 16:40. [facility], CR, XR CHEST 1VW (PORTABLE), 03/26/2016, 15:54. FINDINGS: Image quality: Motion is present throughout the examination, limiting areas of fine detail evaluation. Lungs and pleura: Minimal mild bilateral pleural effusions, right greater than left and superimposed consolidations are present. There is an overall appearance of increased pulmonary vascularity. Mediastinum: Heart size is normal. No pericardial effusion. There is a 56 mm AP by 47 mm transverse low attenuation focus with Hounsfield units suggestive of fluid along the right anterior pericardial border. 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 No mediastinal adenopathy by size criteria. Thoracic aorta and central pulmonary arteries are normal in size. Esophagus is normal in caliber. No hiatal hernia. Bones and chest wall: No suspicious bony lesions. No vertebral body compression fractures. No axillary or supraclavicular adenopathy by size criteria. Thyroid gland is not well-visualized. Abdomen: Visualized upper abdominal solid organs and bowel loops appear normal in the absence of contrast. IMPRESSION: 1. Minimal to mild bilateral pleural effusions with small superimposed consolidations. The consolidations could be customer solutions representative of atelectasis. However, developing areas of underlying airspace disease such as pneumonia cannot be excluded. In addition, there is an appearance of increased pulmonary vascularity suggestive of edema. Dictated by: Nazia Mueller M.D. on 03/27/2016 at 12:23 Assessment & Plan This 80-year-old female multiple comorbidities presenting with declining mental status and increased work of breathing, worsening respiratory function admitted through the ER following presentation via EMS: # Acute hypoxic respiratory failure, present on admission. improving - initial ABG 7.30/44/64 FIO2 28% - likely fluid overload in the setting of CKD/CHF, possible HCAP - Started on IV Lasix per nephrology recs. - appreciate nephrology consult. will f/u w/ recs - stop IV furosemide on 04/05/16 and switch her to torsemide 40 mg orally in the morning and 20 in the afternoon. - stop Amlodipine as this markedly increases her risk of lower extremity edema and will become a fluid management problem. - start low-dose Spironolactone on 04/05 # Acute kidney injury on CKD4. ongoing - greatly appreciate nephrology recs. treatment as noted above - avoid nephro toxinx, adjust meds renally - f/u i/o closely - urine for eosinophils and an anti-histone antibody - recheck a chest x-ray on her to see how this compares to several days ago. # reported melena from family member - stable h/h - no signs of bleeding during this hospital - FOBT neg # History of hypertension. HTN, controlled - c/w BP meds as noted above # Episode of acute cardiac pause, developed in 04/02/16, likely thought to be vasovagal response, - per earlier note by Dr. Beard: "no further workup if AL not prolonged on repeat EKG per " # probable Hospital-acquired pneumonia - It was suspected on admission that an acute infection was accounting for patient's acute decline in status following discharge - Vancomycin discontinued 03/27 due to no evidence of MRSA infection. - Last dose Abx on 03/28 - Blood culture negative. Urine culture mixed karen - Pro calcitonin level with mild elevation. # Hypothyroidism, currently supra-therapeutic due to overtreatment - Elevated free T4 supportive of overtreatment with thyroid medication at this time - This could certainly be contributing to impaired mentation - Levothyroxine dose has been decreased to 150 mcg, - continue to monitor patient's mentation, bowel function, and further evidence of improving thyroid function. - Consider recheck in few days specifically T4 values. # Diabetes mellitus - c/w sliding scale insulin on admission and this will be continued # Acute on chronic anemia - under production likely due to hypothyroidism and renal disease - additional dose of Aranesp and dose of IV iron on 04/05 per nephrology # Hyperlipidemia, chronic, presume stable. - c/w Atorvastatin 80 mg daily # GERD, chronic, presume stable. - Continue PPI # Osteoporosis, chronic, presume stable. - Patient takes alendronate 70 mg weekly. # Environmental/seasonal allergies, chronic, presume stable. Dispo: 1-2 days pending nephrology workup and clearance VTE Mechanical Devices: Intermittant Pneumatic CD Resuscitation Status: CPR: Attempt Resuscitation Time spent 30 min Ramirez Jacome Apr 06, 2016 14:30
--- NOTE | 2016-04-06 15:57 | DRSVH ---
PROCEDURE: X-RAY CHEST, TWO VIEWS ([id number]) INDICATIONS: CONGESTIVE HEART FAILURE; ACUTE KIDNEY INJURY TECHNIQUE: 2 views of the chest were acquired. COMPARISON: [facility], CR, XR CHEST 1VW (PORTABLE), 04/03/2016, 13:42. Merged with [facility], CR, XR CHEST 2VW, 02/22/2015, 8:25. FINDINGS: Surgical changes and devices: None. Lungs and pleura: Mild edema is present and medial bibasilar airspace opacities. Trace effusions. Mediastinum: Mediastinal contours are normal. Heart size is normal. Bones and chest wall: No suspicious bony abnormalities. Soft tissues appear unremarkable. IMPRESSION: 1. Decreasing pulmonary edema and residual air space opacities within the lung bases likely related t o residual patchy edema but pneumonia cannot be excluded. Dictated by: Meet Ybarra [facility] Interpreted: Nazia Mueller MD on 04/06/2016 at 15:54 Transcribed by: ERMA on 04/06/2016 at 15:56 Approved by: Nazia Mueller M.D. on 04/06/2016 at 17:32
--- NOTE | 2016-04-06 17:56 | NUR ---
Diarrhea Liquid stools x2 this shift. Cdiff culture negative.
--- NOTE | 2016-04-06 23:02 | NUR ---
More Diarrhea Pt has had several episodes of diarrhea just in the 4 hours hussain been on shift. Pt has been incontinent with a few episodes as well.
[2016-04-07] VITALS (8 sets, daily range): BP systolic 122–164; BP diastolic 53–68; PULSE 58–70; RESP 18–28; O2SAT 91–97
[2016-04-07] MEDS: Heparin 5,000 Unit/mL Inj SUBQ SCH ×3 (00:19→17:21)
[2016-04-07] MEDS: levoFLOXacin 250 mg Tablet PO SCH (09:05)
[2016-04-07] MEDS: Insulin LISPRO 300 Unit/3 mL Inj SUBQ SCH ×4 (09:10→22:10)
[2016-04-07] MEDS: Albuterol 2.5 mg/3 mL Inhalation Solution NEB PRN (10:48)
--- NOTE | 2016-04-07 12:37 | NUR ---
Social Work: Continued discharge planning: Simulation Engineer spoke with patient and she stated that she is in agreement with discharging to a SNF, but requested that her family be called for the choice. Simulation Engineer spoke with patient's sister at [phone] and she requested that patient be referred to facilities in [facility]. SW referred patient to [facility] and [facility]. [facility] are able to accept the patient. SW will notify patient and patient's family. SW will continue to follow. Plan: Patient will likely discharge to SNF. SW will continue to follow. Yasmine Espinoza LMSW, AIDEN Addendum: 04/07/16 at 1324 by YASMINE ESPINOZA Patient's sister is Larissa Espinoza. Simulation Engineer spoke with patient's niece, Shanda Peres [phone], and notified her that the patient was accepted to [facility]. She voiced understanding and requested that the patient discharge to [facility]. Plan: Patient will discharge to [facility] when medically stable and the physician will be Dr. Davalos. Yasmine Espinoza LMSW, AC
--- NOTE | 2016-04-07 13:21 | PCM.PNMED ---
Subjective Date of Service Apr 07, 2016 Subjective Patient continues to have some waxing and waning of her mental status. The time of my evaluation of the patient was complaining of severe nausea and vomiting. Her blood pressure is better and her urine for eosinophils came back positive. Patient also last 24-675 in and 450 out. This morning her sodium is 135, potassium 4.5, chloride 99, bicarbonate 25, BUN and creatinine were 72 and 2.59 respectively her creatinine is slightly improved. Exam Vital Signs Vital Sign - Last Date Time Temp Pulse Resp B/P Pulse Ox O2 Delivery O2 Flow Rate FiO2 04/07/16 12:45 36.4 63 18 135/53 97 OxyMask 2.00 Intake and Output 04/06/16 04/06/16 04/07/16 Cumulative From/Thru 15:00 23:00 07:00 03/26/16 19:53 - 04/07/16 05:30 Intake Total 475 ml 450 ml 9898 ml Output Total 1250 ml 725 ml 98699 ml Balance -775 ml -275 ml -958 ml Intake Oral 475 ml 450 ml 9198 ml IV Total 700 ml Output Urine Total 600 ml 200 ml 8530 ml Stool Total 650 ml 525 ml 1376 ml Urine/Stool Mix 950 ml # Voids 4 # Bowel Movements 2 30 Exam Neck is supple without adenopathy, thyromegaly, or venous distention. Lungs a few body grasper. Much clearer than previous examinations. Heart was regular and rhythmical with a soft systolic murmur. Abdomen is soft without any tenderness or rebound guarding masses or hepatosplenomegaly. Extremities without any evidence of any clubbing cyanosis or edema. Lab and Diagnostics Result Diagram: 04/06/1623 04/07/16 0635 X-Rays, CTs and MRIs PROCEDURE: CT CHEST WITHOUT CONTRAST ([id number]) INDICATIONS: questionable pneumonia/chf? TECHNIQUE: Noncontrast 5 mm thick sections acquired from the pulmonary apices to the posterior costophrenic angles. 7 mm thick coronal and sagittal MIP reformats were then acquired. For radiation dose reduction, the following was used: automated exposure control, adjustment of mA and/or kV according to patient size. COMPARISON: [facility], CT, PE STUDY (CTA CHEST), 09/26/2008, 16:40. [facility], CR, XR CHEST 1VW (PORTABLE), 03/26/2016, 15:54. FINDINGS: Image quality: Motion is present throughout the examination, limiting areas of fine detail evaluation. Lungs and pleura: Minimal mild bilateral pleural effusions, right greater than left and superimposed consolidations are present. There is an overall appearance of increased pulmonary vascularity. Mediastinum: Heart size is normal. No pericardial effusion. There is a 56 mm AP by 47 mm transverse low attenuation focus with Hounsfield units suggestive of fluid along the right anterior pericardial border. 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 No mediastinal adenopathy by size criteria. Thoracic aorta and central pulmonary arteries are normal in size. Esophagus is normal in caliber. No hiatal hernia. Bones and chest wall: No suspicious bony lesions. No vertebral body compression fractures. No axillary or supraclavicular adenopathy by size criteria. Thyroid gland is not well-visualized. Abdomen: Visualized upper abdominal solid organs and bowel loops appear normal in the absence of contrast. IMPRESSION: 1. Minimal to mild bilateral pleural effusions with small superimposed consolidations. The consolidations could be physician relations representative of atelectasis. However, developing areas of underlying airspace disease such as pneumonia cannot be excluded. In addition, there is an appearance of increased pulmonary vascularity suggestive of edema. Dictated by: Nazia Mueller M.D. on 03/27/2016 at 12:23 Assessment & Plan Impression #1 acute kidney injury secondary to acute interstitial nephritis most likely secondary to levofloxacin No. 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 In addition of this "cut back on her diuretics. VTE Mechanical Devices: Intermittant Pneumatic CD Resuscitation Status: CPR: Attempt Resuscitation Bean Thomas DO Apr 07, 2016 13:21
[2016-04-07] MEDS: MethylprednisoLONE Sodium Succinate 62.5 mg/mL 2 mL Inj IVPUSH SCH ×2 (14:13→22:01)
--- NOTE | 2016-04-07 15:05 | PCM.PNMED ---
Subjective Date of Service Apr 07, 2016 Subjective complains of SOB and not feeling well today. Exam Vital Signs Vital Sign - Last Date Time Temp Pulse Resp B/P Pulse Ox O2 Delivery O2 Flow Rate FiO2 04/07/16 12:45 36.4 63 18 135/53 97 OxyMask 2.00 Intake and Output 04/06/16 04/06/16 04/07/16 Cumulative From/Thru 15:00 23:00 07:00 03/26/16 19:53 - 04/07/16 05:30 Intake Total 475 ml 450 ml 9898 ml Output Total 1250 ml 725 ml 80697 ml Balance -775 ml -275 ml -958 ml Intake Oral 475 ml 450 ml 9198 ml IV Total 700 ml Output Urine Total 600 ml 200 ml 8530 ml Stool Total 650 ml 525 ml 1376 ml Urine/Stool Mix 950 ml # Voids 4 # Bowel Movements 2 30 Exam General: Alert, Cooperative, No Acute Distress Eyes: Scleral Anicteric Nose: Mucous Membr Moist/[place] Mouth: Mucous Membr Moist/[place] Neck: Supple Chest & Lungs: Chest Wall Normal, mild expiratory [place]ez bilat Cardiovascular: Regular Rate/Rhythm Abdomen: Non-tender, No hepatosplenomegaly, Soft Extremities: Edema (trace bilat LE edema) Neurological: Grossly Neurologically Intact, Normal Speech IVs and Medications Medications Reviewed: Medications were reviewed in detail Lab and Diagnostics Result Diagram: 04/06/16 0623 04/07/16 0635 X-Rays, CTs and MRIs PROCEDURE: CT CHEST WITHOUT CONTRAST ([id number]) INDICATIONS: questionable pneumonia/chf? TECHNIQUE: Noncontrast 5 mm thick sections acquired from the pulmonary apices to the posterior costophrenic angles. 7 mm thick coronal and sagittal MIP reformats were then acquired. For radiation dose reduction, the following was used: automated exposure control, adjustment of mA and/or kV according to patient size. COMPARISON: [facility], CT, PE STUDY (CTA CHEST), 09/26/2008, 16:40. [facility], CR, XR CHEST 1VW (PORTABLE), 03/26/2016, 15:54. FINDINGS: Image quality: Motion is present throughout the examination, limiting areas of fine detail evaluation. Lungs and pleura: Minimal mild bilateral pleural effusions, right greater than left and superimposed consolidations are present. There is an overall appearance of increased pulmonary vascularity. Mediastinum: Heart size is normal. No pericardial effusion. There is a 56 mm AP by 47 mm transverse low attenuation focus with Hounsfield units suggestive of fluid along the right anterior pericardial border. 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 No mediastinal adenopathy by size criteria. Thoracic aorta and central pulmonary arteries are normal in size. Esophagus is normal in caliber. No hiatal hernia. Bones and chest wall: No suspicious bony lesions. No vertebral body compression fractures. No axillary or supraclavicular adenopathy by size criteria. Thyroid gland is not well-visualized. Abdomen: Visualized upper abdominal solid organs and bowel loops appear normal in the absence of contrast. IMPRESSION: 1. Minimal to mild bilateral pleural effusions with small superimposed consolidations. The consolidations could be senior outside sales representative of atelectasis. However, developing areas of underlying airspace disease such as pneumonia cannot be excluded. In addition, there is an appearance of increased pulmonary vascularity suggestive of edema. Dictated by: Nazia Mueller M.D. on 03/27/2016 at 12:23 Assessment & Plan This 80-year-old female multiple comorbidities presenting with declining mental status and increased work of breathing, worsening respiratory function admitted through the ER following presentation via EMS: # Acute hypoxic respiratory failure, present on admission. improving - initial ABG 7.30/44/64 FIO2 28% - likely fluid overload in the setting of CKD/CHF, possible HCAP - Started on IV Lasix per nephrology recs. - appreciate nephrology consult. will f/u w/ recs - stop IV furosemide on 04/05/16 and switch her to torsemide 40 mg orally in the morning and 20 in the afternoon. - stop Amlodipine as this markedly increases her risk of lower extremity edema and will become a fluid management problem. - start low-dose Spironolactone on 04/05 # Acute kidney injury on CKD4. ongoing - per nephrology suspect " secondary to acute interstitial nephritis most likely secondary to levofloxacin" - greatly appreciate nephrology recs. treatment as noted above - avoid nephro toxinx, adjust meds renally - stop Levofloxacin - methylprednisolone IV x 2 # reported melena from family member - stable h/h - no signs of bleeding during this hospital - FOBT neg # History of hypertension. HTN, controlled - c/w BP meds as noted above # Episode of acute cardiac pause, developed in 04/02/16, likely thought to be vasovagal response, - per earlier note by Dr. Beard: "no further workup if [place] not prolonged on repeat EKG per " # probable Hospital-acquired pneumonia - It was suspected on admission that an acute infection was accounting for patient's acute decline in status following discharge - Vancomycin discontinued 03/27 due to no evidence of MRSA infection. - Blood culture negative. Urine culture mixed karen - Pro calcitonin level with mild elevation. - stop Levofloxacin 04/07 # Hypothyroidism, currently supra-therapeutic due to overtreatment - Elevated free T4 supportive of overtreatment with thyroid medication at this time - This could certainly be contributing to impaired mentation - Levothyroxine dose has been decreased to 150 mcg, - continue to monitor patient's mentation, bowel function, and further evidence of improving thyroid function. - Consider recheck in few days specifically T4 values. # Diabetes mellitus - c/w sliding scale insulin on admission and this will be continued # Acute on chronic anemia - under production likely due to hypothyroidism and renal disease - additional dose of Aranesp and dose of IV iron on 04/05 per nephrology # Hyperlipidemia, chronic, presume stable. - c/w Atorvastatin 80 mg daily # GERD, chronic, presume stable. - Continue PPI # Osteoporosis, chronic, presume stable. - Patient takes alendronate 70 mg weekly. # Environmental/seasonal allergies, chronic, presume stable. Dispo: 2-3 days pending nephrology workup and clearance VTE Mechanical Devices: Intermittant Pneumatic CD Resuscitation Status: CPR: Attempt Resuscitation Time spent 35 min Ramirez Jacome Apr 07, 2016 15:05
--- NOTE | 2016-04-07 16:55 | NUR ---
NUTRITION FOLLOW-UP ASSESS: Pt is a 80 yo female re-admitted w/ altered mental status, weakness, and loss of consciousness d/t pneumonia and ongoing hypoxia. Nephrology continues to follow. Pt continues with variable po intake but has been refusing po x past 3 days. PMHX: CKD Stage IV, Type II DM, hypothyroid, HTN, HLD, GERD, multi-infarct dementia, osteoporosis, anemia DIET: Pureed. Diabetic, Consistent Carbohydrate - Refusing meals x 3 days. LABS: BUN 72, Cr 2.59, Glu 140, Ca 7.3, Alb 3.2. MEDS: Reviewed. GI: BM x 2 today. CURRENT WT: 67.1 kg BMI: 38.6 kg/m2 IBW: 31.8 kg ADMIT WT: 73.6 kg Wt: wt loss of 8.8% x 2 weeks, some likely due to fluids but pt also not meeting est. needs through po intake at this time. EST.NEEDS: CAYDEN, BMI Calories: 7626-1763 kcal/day (22-25 kcal/kg BW) Protein: 40-75 g/day (1.0-1.5 g/kg IBW) NUTRITION DIAGNOSIS: 1) Inadequate oral intake related to acute illness and generalized weakness as evidenced by PO intake refused-50%, and wt loss of 8.8% since admit.. INTERVENTION: 1) Continue to send SF Cindiy Shakes to L&D trays. MONITOR/EVALUATE: PO intake, weight, labs, nutrition status. Will continue to monitor per moderate nutritional risk guidelines
--- NOTE | 2016-04-07 18:34 | NUR ---
SOB Pt has has shortness of breath and labored breathing Switched from nasal canula to oximask and 02 at 1L RT administered breathing treatment Pt breathing improved after treatment Addendum: 04/07/16 at 3 by SCOTT CHINO RN I have reviewed and agree with SN charting and note.
--- NOTE | 2016-04-07 22:33 | NUR ---
Respiratory Patient has shortness of breath at rest and with exertion. Showing the use of excessary muscles and slightly breathing about 26 BPM. 2L via oxymask with sats at 97%. No complaints of chest discomfort or pain. patient shows some relief after IV solu-medrol. Continuing to monitor O2 requirements, breathe sounds, and work of breathing.
[2016-04-08] VITALS (13 sets, daily range): BP systolic 120–147; BP diastolic 48–60; PULSE 65–72; RESP 18–28; O2SAT 85–97
[2016-04-08] MEDS: Heparin 5,000 Unit/mL Inj SUBQ SCH ×3 (00:21→16:29)
[2016-04-08] MEDS: Albuterol 2.5 mg/3 mL Inhalation Solution NEB PRN (01:02)
[2016-04-08 06:43] LABS: BASOPHILS % (AUTO) 0.1 % (0-3); EOSINOPHILS % (AUTO) 0 % (0-5); MONOCYTES % (AUTO) 0.9 % (4-12); Mean Corpuscular Hemoglobin 26.9 pg (27.0-35.0); Mean Corpuscular Volume 89.5 fL (81-100); NEUTROPHILS % (AUTO) 92.3 % (40-74); Platelet Count 337 bil/L (150-400)
[2016-04-08] MEDS: Insulin LISPRO 300 Unit/3 mL Inj SUBQ SCH ×4 (07:43→22:00)
--- NOTE | 2016-04-08 10:28 | NUR ---
Skin Rash/burn on anterior/posterior/medial perineal area. Pt had had several BMs consisting if diarrhea over last 3 days. Observed rash while changing brief today Cleaned Pt, used barrier wipes and put calmoseptine on affected areas. Placed brief under Pt so air can get to skin
--- NOTE | 2016-04-08 11:46 | PCM.PNMED ---
Subjective Date of Service Apr 08, 2016 Subjective The patient's condition is unchanged. She is unable to give any meaningful uses and answers yes to all questions. Her intake and output for the last 24 hours shows 570 N9 75. Her sodium is 131 potassium 5.2 chloride 92 bicarbonate 22 BUN and creatinine were 77 and 2.86 respectively. This is a bit higher than yesterday. Exam Vital Signs Vital Sign - Last Date Time Temp Pulse Resp B/P Pulse Ox O2 Delivery O2 Flow Rate FiO2 04/08/16 09:25 36.2 68 20 140/60 96 OxyMask 3.00 Intake and Output 04/07/16 04/07/16 04/08/16 Cumulative From/Thru 15:00 23:00 07:00 03/26/16 19:53 - 04/08/16 06:05 Intake Total 120 ml 200 ml 50021 ml Output Total 250 ml 300 ml 26285 ml Balance -130 ml -100 ml -1188 ml Intake Oral 120 ml 200 ml 9518 ml IV Total 700 ml Output Urine Total 250 ml 300 ml 9080 ml Stool Total 1376 ml Urine/Stool Mix 950 ml # Voids 4 # Bowel Movements 2 0 32 Lab and Diagnostics Result Diagram: 04/08/16 0610 04/08/16 0610 X-Rays, CTs and MRIs PROCEDURE: CT CHEST WITHOUT CONTRAST ([id number]) INDICATIONS: questionable pneumonia/chf? TECHNIQUE: Noncontrast 5 mm thick sections acquired from the pulmonary apices to the posterior costophrenic angles. 7 mm thick coronal and sagittal MIP reformats were then acquired. For radiation dose reduction, the following was used: automated exposure control, adjustment of mA and/or kV according to patient size. COMPARISON: [facility], CT, PE STUDY (CTA CHEST), 09/26/2008, 16:40. [facility], CR, XR CHEST 1VW (PORTABLE), 03/26/2016, 15:54. FINDINGS: Image quality: Motion is present throughout the examination, limiting areas of fine detail evaluation. Lungs and pleura: Minimal mild bilateral pleural effusions, right greater than left and superimposed consolidations are present. There is an overall appearance of increased pulmonary vascularity. Mediastinum: Heart size is normal. No pericardial effusion. There is a 56 mm AP by 47 mm transverse low attenuation focus with Hounsfield units suggestive of fluid along the right anterior pericardial border. 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 No mediastinal adenopathy by size criteria. Thoracic aorta and central pulmonary arteries are normal in size. Esophagus is normal in caliber. No hiatal hernia. Bones and chest wall: No suspicious bony lesions. No vertebral body compression fractures. No axillary or supraclavicular adenopathy by size criteria. Thyroid gland is not well-visualized. Abdomen: Visualized upper abdominal solid organs and bowel loops appear normal in the absence of contrast. IMPRESSION: 1. Minimal to mild bilateral pleural effusions with small superimposed consolidations. The consolidations could be insurance representative of atelectasis. However, developing areas of underlying airspace disease such as pneumonia cannot be excluded. In addition, there is an appearance of increased pulmonary vascularity suggestive of edema. Dictated by: Nazia Mueller M.D. on 03/27/2016 at 12:23 Assessment & Plan Impression #1 acute kidney injury secondary to acute interstitial nephritis #2 diabetic nephropathy #3 hypertension with hypertensive heart disease and hypertensive nephrosclerosis Recommendations #1 she has had several doses of Solu-Medrol and I would like to hold off and see how her lab response to this in the next day or 2. VTE Mechanical Devices: Intermittant Pneumatic CD Resuscitation Status: CPR: Attempt Resuscitation Bean Thomas DO Apr 08, 2016 11:46
--- NOTE | 2016-04-08 12:40 | NUR ---
Red wesley-area Patient has been having incontinent diarrhea. Patient wesley-area is red, swollen, and painful. Nurse and student cleaned and wiped with barrier wipes then applied Calmoseptine to affected area. Brief was placed open under patient so air could continue to reach the skin. MD was notified and Zinc ointment was ordered and applied when arrived from pharmacy.
[2016-04-08 15:24] LABS: OSMOLALITY, URINE 321 mOs/kH2O (250-1200)
--- NOTE | 2016-04-08 15:27 | PCM.PNMED ---
Subjective Date of Service Apr 08, 2016 Subjective denies any new issues/complaints but per nursing patient has been having more diarrhea. Exam Vital Signs Vital Sign - Last Date Time Temp Pulse Resp B/P Pulse Ox O2 Delivery O2 Flow Rate FiO2 04/08/16 13:39 36.3 71 22 139/57 96 OxyMask 2.00 Intake and Output 04/07/16 04/07/16 04/08/16 Cumulative From/Thru 15:00 23:00 07:00 03/26/16 19:53 - 04/08/16 06:05 Intake Total 120 ml 200 ml 50987 ml Output Total 250 ml 300 ml 23178 ml Balance -130 ml -100 ml -1188 ml Intake Oral 120 ml 200 ml 9518 ml IV Total 700 ml Output Urine Total 250 ml 300 ml 9080 ml Stool Total 1376 ml Urine/Stool Mix 950 ml # Voids 4 # Bowel Movements 2 0 32 Exam General: Alert, Cooperative, No Acute Distress Eyes: Scleral Anicteric Nose: Mucous Membr Moist/[place] Mouth: Mucous Membr Moist/[place] Neck: Supple Chest & Lungs: Chest Wall Normal, clear to auscultation bilat Cardiovascular: Regular Rate/Rhythm Abdomen: Non-tender, No hepatosplenomegaly, Soft Extremities: Edema (trace bilat LE edema) Neurological: Grossly Neurologically Intact, Normal Speech IVs and Medications Medications Reviewed: Medications were reviewed in detail Lab and Diagnostics Result Diagram: 04/08/16 0610 04/08/16 0610 X-Rays, CTs and MRIs PROCEDURE: CT CHEST WITHOUT CONTRAST ([id number]) INDICATIONS: questionable pneumonia/chf? TECHNIQUE: Noncontrast 5 mm thick sections acquired from the pulmonary apices to the posterior costophrenic angles. 7 mm thick coronal and sagittal MIP reformats were then acquired. For radiation dose reduction, the following was used: automated exposure control, adjustment of mA and/or kV according to patient size. COMPARISON: [facility], CT, PE STUDY (CTA CHEST), 09/26/2008, 16:40. [facility], CR, XR CHEST 1VW (PORTABLE), 03/26/2016, 15:54. FINDINGS: Image quality: Motion is present throughout the examination, limiting areas of fine detail evaluation. Lungs and pleura: Minimal mild bilateral pleural effusions, right greater than left and superimposed consolidations are present. There is an overall appearance of increased pulmonary vascularity. Mediastinum: Heart size is normal. No pericardial effusion. There is a 56 mm AP by 47 mm transverse low attenuation focus with Hounsfield units suggestive of fluid along the right anterior pericardial border. 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 No mediastinal adenopathy by size criteria. Thoracic aorta and central pulmonary arteries are normal in size. Esophagus is normal in caliber. No hiatal hernia. Bones and chest wall: No suspicious bony lesions. No vertebral body compression fractures. No axillary or supraclavicular adenopathy by size criteria. Thyroid gland is not well-visualized. Abdomen: Visualized upper abdominal solid organs and bowel loops appear normal in the absence of contrast. IMPRESSION: 1. Minimal to mild bilateral pleural effusions with small superimposed consolidations. The consolidations could be door to door sales representative of atelectasis. However, developing areas of underlying airspace disease such as pneumonia cannot be excluded. In addition, there is an appearance of increased pulmonary vascularity suggestive of edema. Dictated by: Nazia Mueller M.D. on 03/27/2016 at 12:23 Assessment & Plan This 80-year-old female multiple comorbidities presenting with declining mental status and increased work of breathing, worsening respiratory function admitted through the ER following presentation via EMS: # Acute hypoxic respiratory failure, present on admission. improving - initial ABG 7.30/44/64 FIO2 28% - likely fluid overload in the setting of CKD/CHF, possible HCAP - Started on IV Lasix per nephrology recs. - appreciate nephrology consult. will f/u w/ recs - stopped IV furosemide on 04/05/16 and switch her to torsemide 40 mg orally in the morning and 20 in the afternoon. - stopped Amlodipine as this markedly increases her risk of lower extremity edema and will become a fluid management problem. - started low-dose Spironolactone on 04/05 # Acute kidney injury on CKD4. ongoing - per nephrology suspect " secondary to acute interstitial nephritis most likely secondary to levofloxacin" - greatly appreciate nephrology recs. treatment as noted above - avoid nephro toxinx, adjust meds renally - stopped Levofloxacin - methylprednisolone IV x 2 - f/u # reported melena from family member - stable h/h - no signs of bleeding during this hospital - FOBT neg # History of hypertension. HTN, controlled - c/w BP meds as noted above # Episode of acute cardiac pause, developed in 04/02/16, likely thought to be vasovagal response, - per earlier note by Dr. Beard: "no further workup if [place] not prolonged on repeat EKG per " # probable Hospital-acquired pneumonia - It was suspected on admission that an acute infection was accounting for patient's acute decline in status following discharge - Vancomycin discontinued 03/27 due to no evidence of MRSA infection. - Blood culture negative. Urine culture mixed karen - Pro calcitonin level with mild elevation. - stopped Levofloxacin 04/07 # Hypothyroidism, currently supra-therapeutic due to overtreatment - Elevated free T4 supportive of overtreatment with thyroid medication at this time - This could certainly be contributing to impaired mentation - Levothyroxine dose has been decreased to 150 mcg, - continue to monitor patient's mentation, bowel function, and further evidence of improving thyroid function. - Consider recheck in few days specifically T4 values. # Diabetes mellitus - c/w sliding scale insulin on admission and this will be continued # Acute on chronic anemia - under production likely due to hypothyroidism and renal disease - additional dose of Aranesp and dose of IV iron on 04/05 per nephrology # Hyperlipidemia, chronic, presume stable. - c/w Atorvastatin 80 mg daily # GERD, chronic, presume stable. - Continue PPI # Osteoporosis, chronic, presume stable. - Patient takes alendronate 70 mg weekly. # Environmental/seasonal allergies, chronic, presume stable. Dispo: 2-3 days pending nephrology workup and clearance VTE Mechanical Devices: Intermittant Pneumatic CD Resuscitation Status: CPR: Attempt Resuscitation Time spent 30 min Ramirez Jacome Apr 08, 2016 15:27
[2016-04-09] VITALS (8 sets, daily range): BP systolic 131–165; BP diastolic 53–69; PULSE 62–72; RESP 20–24; O2SAT 92–95
[2016-04-09] MEDS: Heparin 5,000 Unit/mL Inj SUBQ SCH ×3 (00:21→17:19)
--- NOTE | 2016-04-09 04:43 | NUR ---
Even More Diarrhea Pt has had multiple episodes of diarrhea incontinence. Pt full bed change twice, and becoming very week and reports not feeling good. Pts wesley area continues to be red and excoriated. Using barrier cream as well as calmoseptine.
--- NOTE | 2016-04-09 05:51 | NUR ---
Fecal Management System Md notified of pts copious amounts of diarrhea and declining skin condition. Md ordered placement of FMS. Procedure done using clean technique and Pt tolerated well. System secured using 40cc of air.
[2016-04-09] MEDS: Insulin LISPRO 300 Unit/3 mL Inj SUBQ SCH ×4 (09:02→21:38)
--- NOTE | 2016-04-09 10:41 | NUR ---
NUTRITION FOLLOW-UP ASSESS: Pt is a 80 yo female re-admitted w/ altered mental status, weakness, and loss of consciousness d/t pneumonia and ongoing hypoxia. Nephrology continues to follow. Pt continues to have poor PO intake at refused-25% of most meals. Pt does like the mighty shakes. She has been experiencing persistent diarrhea and had to have FMS placed. Pt's wt has decreased 8kg since admit likely in combination with fluid loss and decreased PO intake. PMHX: CKD Stage IV, Type II DM, hypothyroid, HTN, HLD, GERD, multi-infarct dementia, osteoporosis, anemia DIET: Pureed. Diabetic. PO refused-25% LABS: Reviewed. Na 132, Cl, Bun 84, Staffing Analyst 3.33, Glu 163, Ca 7.0, Alb 3.2 MEDS: Reviewed. GI: Diarrhea. FMS in place CURRENT WT: 65.8 kg BMI: 34.7 kg/m2 IBW: 31.8 kg ADMIT WT: 73.6 kg Wt: wt loss of 8.8% x 2 weeks, some likely due to fluids but pt also not meeting est. needs through po intake at this time. EST.NEEDS: CAYDEN, BMI Calories: 0386-4171 kcal/day (22-25 kcal/kg BW) Protein: 40-75 g/day (1.0-1.5 g/kg IBW) NUTRITION DIAGNOSIS: 1) Inadequate oral intake related to acute illness and generalized weakness as evidenced by PO intake refused-50%, and wt loss of 8.8% since admit.--PERSISTS INTERVENTION: 1) Will increase supplements of SF Mighty Shakes to TID MONITOR/EVALUATE: PO intake, weight, labs, nutrition status. Will continue to monitor per high nutritional risk guidelines
--- NOTE | 2016-04-09 14:54 | PCM.PNMED ---
Subjective Date of Service Apr 09, 2016 Subjective denies any new issues/complaints Exam Vital Signs Vital Sign - Last Date Time Temp Pulse Resp B/P Pulse Ox O2 Delivery O2 Flow Rate FiO2 04/09/16 08:55 37.0 67 140/60 92 Nasal Cannula 2.00 04/09/16 04:35 20 Intake and Output 04/08/16 04/08/16 04/09/16 Cumulative From/Thru 15:00 23:00 07:00 03/26/16 19:53 - 04/08/16 20:00 Intake Total 480 ml 02355 ml Output Total 250 ml 74318 ml Balance 230 ml -958 ml Intake Oral 470 ml 9988 ml IV Total 10 ml 710 ml Output Urine Total 250 ml 9330 ml Stool Total 1376 ml Urine/Stool Mix 950 ml # Voids 2 6 # Bowel Movements 32 Exam General: Alert, Cooperative, No Acute Distress Eyes: Scleral Anicteric Nose: Mucous Membr Moist/[place] Mouth: Mucous Membr Moist/[place] Neck: Supple Chest & Lungs: Chest Wall Normal, clear to auscultation bilat Cardiovascular: Regular Rate/Rhythm Abdomen: Non-tender, No hepatosplenomegaly, Soft. rectal tube in place Extremities: Edema (trace bilat LE edema) Neurological: Grossly Neurologically Intact, Normal Speech IVs and Medications Medications Reviewed: Medications were reviewed in detail Lab and Diagnostics Result Diagram: 04/08/16 0610 04/09/16 0750 X-Rays, CTs and MRIs PROCEDURE: CT CHEST WITHOUT CONTRAST ([id number]) INDICATIONS: questionable pneumonia/chf? TECHNIQUE: Noncontrast 5 mm thick sections acquired from the pulmonary apices to the posterior costophrenic angles. 7 mm thick coronal and sagittal MIP reformats were then acquired. For radiation dose reduction, the following was used: automated exposure control, adjustment of mA and/or kV according to patient size. COMPARISON: [facility], CT, PE STUDY (CTA CHEST), 09/26/2008, 16:40. [facility], CR, XR CHEST 1VW (PORTABLE), 03/26/2016, 15:54. FINDINGS: Image quality: Motion is present throughout the examination, limiting areas of fine detail evaluation. Lungs and pleura: Minimal mild bilateral pleural effusions, right greater than left and superimposed consolidations are present. There is an overall appearance of increased pulmonary vascularity. Mediastinum: Heart size is normal. No pericardial effusion. There is a 56 mm AP by 47 mm transverse low attenuation focus with Hounsfield units suggestive of fluid along the right anterior pericardial border. 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 No mediastinal adenopathy by size criteria. Thoracic aorta and central pulmonary arteries are normal in size. Esophagus is normal in caliber. No hiatal hernia. Bones and chest wall: No suspicious bony lesions. No vertebral body compression fractures. No axillary or supraclavicular adenopathy by size criteria. Thyroid gland is not well-visualized. Abdomen: Visualized upper abdominal solid organs and bowel loops appear normal in the absence of contrast. IMPRESSION: 1. Minimal to mild bilateral pleural effusions with small superimposed consolidations. The consolidations could be sales representative sales manager of atelectasis. However, developing areas of underlying airspace disease such as pneumonia cannot be excluded. In addition, there is an appearance of increased pulmonary vascularity suggestive of edema. Dictated by: Nazia Mueller M.D. on 03/27/2016 at 12:23 Assessment & Plan 80-year-old female multiple comorbidities presenting with declining mental status and increased work of breathing, worsening respiratory function admitted through the ER following presentation via EMS: # Acute hypoxic respiratory failure, present on admission. improved - initial ABG 7.30/44/64 FIO2 28% - likely fluid overload in the setting of CKD/CHF, possible HCAP - Started on IV Lasix per nephrology recs. - appreciate nephrology consult. will f/u w/ recs - stopped IV furosemide on 04/05/16 and switch her to torsemide 40 mg orally in the morning and 20 in the afternoon. - stopped Amlodipine as this markedly increases her risk of lower extremity edema and will become a fluid management problem. 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 ongoing and worsening renal fxn - per nephrology suspect " secondary to acute interstitial nephritis most likely secondary to levofloxacin" - greatly appreciate nephrology recs. treatment as noted above - avoid nephro toxins, adjust meds renally - stopped Levofloxacin - methylprednisolone IV x 2 - f/u # Acute on chronic anemia - r/o C. Diff even though ruled out earlier during this hospital given further Abx treatment after last stool study # reported melena from family member - stable h/h - no signs of bleeding during this hospital - FOBT neg # History of hypertension. HTN, controlled - c/w BP meds as noted above # Episode of acute cardiac pause, developed in 04/02/16, likely thought to be vasovagal response, - per earlier note by Dr. Beard: "no further workup if [place] not prolonged on repeat EKG per " # probable Hospital-acquired pneumonia - It was suspected on admission that an acute infection was accounting for patient's acute decline in status following discharge - Vancomycin discontinued 03/27 due to no evidence of MRSA infection. - Blood culture negative. Urine culture mixed karen - Pro calcitonin level with mild elevation. - stopped Levofloxacin 04/07 # Hypothyroidism, currently supra-therapeutic due to overtreatment - Elevated free T4 supportive of overtreatment with thyroid medication at this time - This could certainly be contributing to impaired mentation - Levothyroxine dose has been decreased to 150 mcg, - continue to monitor patient's mentation, bowel function, and further evidence of improving thyroid function. - Consider recheck in few days specifically T4 values. # Diabetes mellitus - c/w sliding scale insulin on admission and this will be continued # Acute on chronic anemia - under production likely due to hypothyroidism and renal disease - additional dose of Aranesp and dose of IV iron on 04/05 per nephrology # Hyperlipidemia, chronic, presume stable. - c/w Atorvastatin 80 mg daily # GERD, chronic, presume stable. - Continue PPI # Osteoporosis, chronic, presume stable. - Patient takes alendronate 70 mg weekly. # Environmental/seasonal allergies, chronic, presume stable. Dispo: 2-3 days pending nephrology workup and clearance VTE Mechanical Devices: Intermittant Pneumatic CD Resuscitation Status: CPR: Attempt Resuscitation Time spent 35 min Ramirez Jacome Apr 09, 2016 14:54
--- NOTE | 2016-04-09 15:44 | PCM.PNMED ---
Subjective Date of Service Apr 09, 2016 Subjective Overall the patient's about the same. Note her anti-histone antibody came back positive which makes sense as she was on hydralazine for a while. No new lab is pending obtained and the patient offers no new complaints. Exam Vital Signs Vital Sign - Last Date Time Temp Pulse Resp B/P Pulse Ox O2 Delivery O2 Flow Rate FiO2 04/09/16 15:16 36.6 69 22 149/69 95 Nasal Cannula 2.00 Intake and Output 04/08/16 04/08/16 04/09/16 Cumulative From/Thru 14:59 22:59 06:59 03/26/16 19:53 - 04/08/16 20:00 Intake Total 480 ml 15156 ml Output Total 250 ml 08567 ml Balance 230 ml -958 ml Intake Oral 470 ml 9988 ml IV Total 10 ml 710 ml Output Urine Total 250 ml 9330 ml Stool Total 1376 ml Urine/Stool Mix 950 ml # Voids 2 6 # Bowel Movements 32 Exam Neck is supple without adenopathy thyromegaly or jugular venous distention. Lungs are clear to auscultation. Heart is regular and rhythmical with a soft systolic murmur. Abdomen was soft without tenderness rebound guarding masses or hepatosplenomegaly. She is not showing any evidence of any clubbing cyanosis or edema. Lab and Diagnostics Result Diagram: 04/08/16 0610 04/09/16 0750 X-Rays, CTs and MRIs PROCEDURE: CT CHEST WITHOUT CONTRAST ([id number]) INDICATIONS: questionable pneumonia/chf? TECHNIQUE: Noncontrast 5 mm thick sections acquired from the pulmonary apices to the posterior costophrenic angles. 7 mm thick coronal and sagittal MIP reformats were then acquired. For radiation dose reduction, the following was used: automated exposure control, adjustment of mA and/or kV according to patient size. COMPARISON: [facility], CT, PE STUDY (CTA CHEST), 09/26/2008, 16:40. [facility], CR, XR CHEST 1VW (PORTABLE), 03/26/2016, 15:54. FINDINGS: Image quality: Motion is present throughout the examination, limiting areas of fine detail evaluation. Lungs and pleura: Minimal mild bilateral pleural effusions, right greater than left and superimposed consolidations are present. There is an overall appearance of increased pulmonary vascularity. Mediastinum: Heart size is normal. No pericardial effusion. There is a 56 mm AP by 47 mm transverse low attenuation focus with Hounsfield units suggestive of fluid along the right anterior pericardial border. 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 No mediastinal adenopathy by size criteria. Thoracic aorta and central pulmonary arteries are normal in size. Esophagus is normal in caliber. No hiatal hernia. Bones and chest wall: No suspicious bony lesions. No vertebral body compression fractures. No axillary or supraclavicular adenopathy by size criteria. Thyroid gland is not well-visualized. Abdomen: Visualized upper abdominal solid organs and bowel loops appear normal in the absence of contrast. IMPRESSION: 1. Minimal to mild bilateral pleural effusions with small superimposed consolidations. The consolidations could be manufacturers representative of atelectasis. However, developing areas of underlying airspace disease such as pneumonia cannot be excluded. In addition, there is an appearance of increased pulmonary vascularity suggestive of edema. Dictated by: Nazia Mueller M.D. 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 Recommendations #1 started back on corticosteroids and try to adjust her diuretics. Overall I would like to attempt to control her renal function around as if you should be a very poor candidate for dialysis. VTE Mechanical Devices: Intermittant Pneumatic CD Resuscitation Status: CPR: Attempt Resuscitation Bean Thomas DO Apr 09, 2016 15:44
--- NOTE | 2016-04-09 15:48 | ED.REPORT ---
HPI-Abd Pain F 2 and Over Date of Service Apr 09, 2016 ED Provider: Jorgito Ellis MD Nursing Notes Stated Complaint: AMS,GENERAL WEAKNESS,SHORT OF BREATH Chief Complaint: Respiratory Complaints Allergies: Coded Allergies: Penicillins (Verified Allergy, Unknown, 03/26/16) Scheduled ([Thiamine]) 100 MG TABLET 100 MG PO DAILY Alendronate (Alendronate) 35 Mg Tablet 70 MG PO WEEKLY Amlodipine (Amlodipine) 10 Mg Tablet 10 MG PO DAILY Atorvastatin (Lipitor) 80 Mg Tablet 40 MG PO DAILY Cholecalciferol (Vitamin D3) (Vitamin D3) 1,000 Unit Tab.chew 1,000 UNIT PO DAILY Donepezil (Donepezil) 5 Mg Tablet 5 MG PO HS Ferrous Sulfate (Ferrous Sulfate) 325 Mg Tablet 325 MG PO DAILY Labetalol (Labetalol) 300 Mg Tablet 300 MG PO BID Levothyroxine (Levothyroxine) 200 Mcg Tablet 200 MCG PO DAILY Loratadine (Claritin) 10 Mg Capsule 10 MG PO DAILY Magnesium Oxide (Magnesium Oxide) 400 Mg Tablet 400 MG PO DAILY Omeprazole (Omeprazole) 20 Mg Capsule.dr 40 MG PO DAILY Ropinirole (Requip) 1 Mg Tablet 1 MG PO HS Scheduled PRN Polyethylene Glycol 3350 (Miralax) 17 Gm Powd.pack 17 GM PO DAILY PRN PRN For Constipation Sennosides (Senna) 8.6 Mg Tablet 17.2 MG PO BID PRN PRN For Constipation Past Medical History Past Medical History Hypertension Reports: Diabetes mellitus Past Surgical History None reported Smoking History Former Smoker Interpretation & Diagnostics Lab Results Interpretation Result Diagram: 04/08/16 0610 04/09/16 0750 Test 03/26/16 15:19 03/26/16 15:22 Hold Purple Top Tube Received (Received) Hold Blue Top Tube Received (Received) Hold Red Top Tube Received (Received) Hold [place] Top Tube Received (Received) Thyroid Stimulating Hormone (TSH) 7.620uIU/mL (0.450-4.500) Free Thyroxine 2.34ng/dL (0.82-1.77) Discharge & Departure Disposition: ADMITTED TO HOSPITAL Discharge Condition Condition: Stable Referrals: Praveena Saini MD (PCP) Bean Thomas DO Apr 09, 2016 15:47
--- NOTE | 2016-04-09 18:29 | NUR ---
PO intake Pt has declined eating her lunch and dinner meal, sts "I'm just not hungry". Pt reports is really tired and would really like to sleep. This RN advised pt on the importance of food and the healing process. Encouraged to try small amounts of food often to optimize oral intake. Family at bedside, encouraging pt to eat. Frequent rounding in place, will continue to monitor.
[2016-04-10] VITALS (8 sets, daily range): BP systolic 157–181; BP diastolic 58–84; PULSE 67–75; RESP 20; O2SAT 94–98
[2016-04-10] MEDS: Heparin 5,000 Unit/mL Inj SUBQ SCH ×3 (00:21→16:45)
--- NOTE | 2016-04-10 05:45 | NUR ---
NOC/Activity Pt denies chest pain, still having mild sob upon exertion and currently on 2lpm nc. No n/v. Having frequent loose BM and is on FMS. Hourly rounding done and pt has slept most of the night.
[2016-04-10] MEDS: Insulin LISPRO 300 Unit/3 mL Inj SUBQ SCH ×4 (08:00→20:46)
--- NOTE | 2016-04-10 10:43 | PCM.PNMED ---
Subjective Date of Service Apr 10, 2016 Subjective Patient's renal function has showed a significant improvement. She appears to be more alert and interactive today and once again offers no new complaints. Her blood pressure is good and her intake and output for the last 24-hour for 75 in and 500 out. This morning her sodium is 137, potassium 4.1, chloride 99, bicarbonate of 20, BUN and creatinine were 83 and 2.8 respectively. Exam Vital Signs Vital Sign - Last Date Time Temp Pulse Resp B/P Pulse Ox O2 Delivery O2 Flow Rate FiO2 04/10/16 10:09 75 04/10/16 09:37 Supplement Oxygen 04/10/16 09:27 36.6 20 157/58 94 2.00 Intake and Output 04/09/16 04/09/16 04/10/16 Cumulative From/Thru 15:00 23:00 07:00 03/26/16 19:53 - 04/10/16 00:30 Intake Total 250 ml 225 ml 37560 ml Output Total 350 ml 675 ml 14298 ml Balance -100 ml -450 ml -1508 ml Intake Oral 250 ml 225 ml 73453 ml IV Total 710 ml Output Urine Total 500 ml 9830 ml Stool Total 175 ml 1551 ml Urine/Stool Mix 350 ml 1300 ml # Voids 7 13 # Bowel Movements 7 39 Exam Neck is supple without adenopathy thyromegaly or jugular venous distention. Lungs are clear to auscultation. Heart is regular with medical soft systolic murmur. Abdomen is distended but soft. She is not showing any evidence of any clubbing cyanosis or edema. There is no evidence of any skin rashes. Lab and Diagnostics Result Diagram: 04/10/16 0800 04/10/16 0800 X-Rays, CTs and MRIs PROCEDURE: CT CHEST WITHOUT CONTRAST ([id number]) INDICATIONS: questionable pneumonia/chf? TECHNIQUE: Noncontrast 5 mm thick sections acquired from the pulmonary apices to the posterior costophrenic angles. 7 mm thick coronal and sagittal MIP reformats were then acquired. For radiation dose reduction, the following was used: automated exposure control, adjustment of mA and/or kV according to patient size. COMPARISON: , CT, PE STUDY (CTA CHEST), 09/26/2008, 16:40. [facility], CR, XR CHEST 1VW (PORTABLE), 03/26/2016, 15:54. FINDINGS: Image quality: Motion is present throughout the examination, limiting areas of fine detail evaluation. Lungs and pleura: Minimal mild bilateral pleural effusions, right greater than left and superimposed consolidations are present. There is an overall appearance of increased pulmonary vascularity. Mediastinum: Heart size is normal. No pericardial effusion. There is a 56 mm AP by 47 mm transverse low attenuation focus with Hounsfield units suggestive of fluid along the right anterior pericardial border. 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 No mediastinal adenopathy by size criteria. Thoracic aorta and central pulmonary arteries are normal in size. Esophagus is normal in caliber. No hiatal hernia. Bones and chest wall: No suspicious bony lesions. No vertebral body compression fractures. No axillary or supraclavicular adenopathy by size criteria. Thyroid gland is not well-visualized. Abdomen: Visualized upper abdominal solid organs and bowel loops appear normal in the absence of contrast. IMPRESSION: 1. Minimal to mild bilateral pleural effusions with small superimposed consolidations. The consolidations could be help desk representative of atelectasis. However, developing areas of underlying airspace disease such as pneumonia cannot be excluded. In addition, there is an appearance of increased pulmonary vascularity suggestive of edema. Dictated by: Nazia Mueller M.D. 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 Recommendations #1 . History of hepatic good response to corticosteroids and I will continue these. I will also continue to monitor her fluid status and her lab. VTE Mechanical Devices: Intermittant Pneumatic CD Resuscitation Status: CPR: Attempt Resuscitation Bean Thomas DO Apr 10, 2016 10:43
[2016-04-10 11:08] LABS: Unsaturated Iron Binding 271.2 ug/dL
--- NOTE | 2016-04-10 15:15 | NUR ---
Activity/FMS: Patient OOB to [facility] 2PA for toileting. Weak and unsteady. FMS in place draining watery stool. Leaking around anal area. C-Diff negative.
--- NOTE | 2016-04-10 17:15 | PCM.PNMED ---
Subjective Date of Service Apr 10, 2016 Subjective denies any new issues/complaints Exam Vital Signs Vital Sign - Last Date Time Temp Pulse Resp B/P Pulse Ox O2 Delivery O2 Flow Rate FiO2 04/10/16 15:06 Supplement Oxygen 04/10/16 14:40 36.5 72 20 181/73 97 2.00 Intake and Output 04/09/16 04/09/16 04/10/16 Cumulative From/Thru 15:00 23:00 07:00 03/26/16 19:53 - 04/10/16 00:30 Intake Total 250 ml 225 ml 04774 ml Output Total 350 ml 675 ml 98385 ml Balance -100 ml -450 ml -1508 ml Intake Oral 250 ml 225 ml 48544 ml IV Total 710 ml Output Urine Total 500 ml 9830 ml Stool Total 175 ml 1551 ml Urine/Stool Mix 350 ml 1300 ml # Voids 7 13 # Bowel Movements 7 39 Exam General: Alert, Cooperative, No Acute Distress Eyes: Scleral Anicteric Nose: Mucous Membr Moist/[place] Mouth: Mucous Membr Moist/[place] Neck: Supple Chest & Lungs: Chest Wall Normal, clear to auscultation bilat Cardiovascular: Regular Rate/Rhythm Abdomen: Non-tender, No hepatosplenomegaly, Soft. rectal tube in place Extremities: Edema (trace bilat LE edema) Neurological: Grossly Neurologically Intact, Normal Speech IVs and Medications Medications Reviewed: Medications were reviewed in detail Lab and Diagnostics Result Diagram: 04/10/16 0800 04/10/16 0800 X-Rays, CTs and MRIs PROCEDURE: CT CHEST WITHOUT CONTRAST ([id number]) INDICATIONS: questionable pneumonia/chf? TECHNIQUE: Noncontrast 5 mm thick sections acquired from the pulmonary apices to the posterior costophrenic angles. 7 mm thick coronal and sagittal MIP reformats were then acquired. For radiation dose reduction, the following was used: automated exposure control, adjustment of mA and/or kV according to patient size. COMPARISON: [facility], CT, PE STUDY (CTA CHEST), 09/26/2008, 16:40. [facility], CR, XR CHEST 1VW (PORTABLE), 03/26/2016, 15:54. FINDINGS: Image quality: Motion is present throughout the examination, limiting areas of fine detail evaluation. Lungs and pleura: Minimal mild bilateral pleural effusions, right greater than left and superimposed consolidations are present. There is an overall appearance of increased pulmonary vascularity. Mediastinum: Heart size is normal. No pericardial effusion. There is a 56 mm AP by 47 mm transverse low attenuation focus with Hounsfield units suggestive of fluid along the right anterior pericardial border. 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 No mediastinal adenopathy by size criteria. Thoracic aorta and central pulmonary arteries are normal in size. Esophagus is normal in caliber. No hiatal hernia. Bones and chest wall: No suspicious bony lesions. No vertebral body compression fractures. No axillary or supraclavicular adenopathy by size criteria. Thyroid gland is not well-visualized. Abdomen: Visualized upper abdominal solid organs and bowel loops appear normal in the absence of contrast. IMPRESSION: 1. Minimal to mild bilateral pleural effusions with small superimposed consolidations. The consolidations could be sales representative consultant of atelectasis. However, developing areas of underlying airspace disease such as pneumonia cannot be excluded. In addition, there is an appearance of increased pulmonary vascularity suggestive of edema. Dictated by: Nazia Mueller M.D. on 03/27/2016 at 12:23 Assessment & Plan 80-year-old female multiple comorbidities presenting with declining mental status and increased work of breathing, worsening respiratory function admitted through the ER following presentation via EMS: # Acute hypoxic respiratory failure, present on admission. improved - initial ABG 7.30/44/64 FIO2 28% - likely fluid overload in the setting of CKD/CHF, possible HCAP - Started on IV Lasix per nephrology recs. - appreciate nephrology consult. will f/u w/ recs - stopped IV furosemide on 04/05/16 and switch her to torsemide 40 mg orally in the morning and 20 in the afternoon. - stopped Amlodipine as this markedly increases her risk of lower extremity edema and will become a fluid management problem. 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 ongoing and worsening renal fxn - per nephrology suspect " secondary to acute interstitial nephritis most likely secondary to levofloxacin" - greatly appreciate nephrology recs. treatment as noted above - avoid nephro toxins, adjust meds renally - stopped Levofloxacin - further corticosteroid per nephrology # Acute on chronic diarrhea. ongoing - rectal tube in place - C. Diff ruled out again - start Lomotil prn # reported melena from family member - stable h/h - no signs of bleeding during this hospital - FOBT neg # History of hypertension. HTN, controlled - c/w BP meds as noted above # Episode of acute cardiac pause, developed in 04/02/16, likely thought to be vasovagal response, - per earlier note by Dr. Beard: "no further workup if [place] not prolonged on repeat EKG per " # probable Hospital-acquired pneumonia - It was suspected on admission that an acute infection was accounting for patient's acute decline in status following discharge - Vancomycin discontinued 03/27 due to no evidence of MRSA infection. - Blood culture negative. Urine culture mixed karen - Pro calcitonin level with mild elevation. - stopped Levofloxacin 04/07 # Hypothyroidism, currently supra-therapeutic due to overtreatment - Elevated free T4 supportive of overtreatment with thyroid medication at this time - This could certainly be contributing to impaired mentation - Levothyroxine dose has been decreased to 150 mcg, - continue to monitor patient's mentation, bowel function, and further evidence of improving thyroid function. - Consider recheck in few days specifically T4 values. # Diabetes mellitus - c/w sliding scale insulin on admission and this will be continued # Acute on chronic anemia - under production likely due to hypothyroidism and renal disease - additional dose of Aranesp and dose of IV iron on 04/05 per nephrology # Hyperlipidemia, chronic, presume stable. - c/w Atorvastatin 80 mg daily # GERD, chronic, presume stable. - Continue PPI # Osteoporosis, chronic, presume stable. - Patient takes alendronate 70 mg weekly. # Environmental/seasonal allergies, chronic, presume stable. Dispo: 2-3 days pending nephrology workup and clearance VTE Mechanical Devices: Intermittant Pneumatic CD Resuscitation Status: CPR: Attempt Resuscitation Ramirez Jacome Apr 10, 2016 17:15
[2016-04-10] MEDS: DiphenOXYlate-Atropine 2.5 mg-0.025 mg Tablet PO PRN (20:45)
[2016-04-11] VITALS (9 sets, daily range): BP systolic 156–184; BP diastolic 64–82; PULSE 64–74; RESP 18–22; O2SAT 85–98
[2016-04-11] MEDS: Heparin 5,000 Unit/mL Inj SUBQ SCH ×3 (00:07→16:32)
--- NOTE | 2016-04-11 06:48 | NUR ---
FMS came out Pt was leaking high quantities from FMS until it came out still fully inflated. Did not reinstert. No diarrhea since about 2200 last night.
[2016-04-11 07:23] LABS: Mean Corpuscular Hemoglobin 26.9 pg (27.0-35.0); Mean Corpuscular Volume 89.7 fL (81-100)
[2016-04-11] MEDS: Insulin LISPRO 300 Unit/3 mL Inj SUBQ SCH ×4 (08:10→21:09)
--- NOTE | 2016-04-11 09:05 | NUR ---
SISI signed IDALIA Olmstead
[2016-04-11] MEDS ORDERED: Darbepoetin Alfa 60 mCg/0.3 mL Inj SUBQ ONE (10:45)
[2016-04-11] MEDS ORDERED: Iron Sucrose Inj 200 MG in 0.9% Sodium Chloride 100 ML IV ONE (10:45)
--- NOTE | 2016-04-11 10:47 | PCM.PNMED ---
Subjective Date of Service Apr 11, 2016 Subjective Overall the patient's condition continues to improve. I feel this is probably in part due to corticosteroids for her drug induced acute interstitial nephritis and positive antihistone antibody. Patient is a bit more alert and interactive today and is getting up without any difficulties. Her blood pressure continues to be somewhat fluctuating. Her intake and output for the last 24 hours for 1272 in and 2429 out. Her sodium is 136, potassium 3.8, chloride 100, bicarbonate 20, BUN and creatinine were 72 and 1.98 respectively. Her hemoglobin is 8.4 and iron saturation is 15%. Exam Vital Signs Vital Sign - Last Date Time Temp Pulse Resp B/P Pulse Ox O2 Delivery O2 Flow Rate FiO2 04/11/16 10:23 68 04/11/16 09:37 36.4 18 156/64 94 Nasal Cannula 1.00 Intake and Output 04/10/16 04/10/16 04/11/16 Cumulative From/Thru 15:00 23:00 07:00 03/26/16 19:53 - 04/11/16 04:59 Intake Total 200 ml 1072 ml 87343 ml Output Total 1125 ml 1304 ml 79741 ml Balance -925 ml -232 ml -2665 ml Intake Oral 200 ml 1072 ml 79727 ml IV Total 710 ml Output Urine Total 575 ml 300 ml 67535 ml Stool Total 550 ml 1000 ml 3101 ml Urine/Stool Mix 4 ml 1304 ml # Voids 13 # Bowel Movements 2 1 42 Exam HEENT examination is remarkable for pale sclera. Neck is supple without adenopathy thyromegaly or jugular venous distention. Lungs are clear. Heart was regular and rhythmical with a soft systolic murmur. Abdomen is soft without any tenderness or rebound guarding masses or hepatosplenomegaly. Extremities not show any evidence of any clubbing, cyanosis, or edema. Skin turgor is good and there is no evidence of any rashes. Lab and Diagnostics Result Diagram: 04/11/1664404/11/16644 X-Rays, CTs and MRIs PROCEDURE: CT CHEST WITHOUT CONTRAST ([id number]) INDICATIONS: questionable pneumonia/chf? TECHNIQUE: Noncontrast 5 mm thick sections acquired from the pulmonary apices to the posterior costophrenic angles. 7 mm thick coronal and sagittal MIP reformats were then acquired. For radiation dose reduction, the following was used: automated exposure control, adjustment of mA and/or kV according to patient size. COMPARISON: [facility], CT, PE STUDY (CTA CHEST), 09/26/2008, 16:40. [facility], CR, XR CHEST 1VW (PORTABLE), 03/26/2016, 15:54. FINDINGS: Image quality: Motion is present throughout the examination, limiting areas of fine detail evaluation. Lungs and pleura: Minimal mild bilateral pleural effusions, right greater than left and superimposed consolidations are present. There is an overall appearance of increased pulmonary vascularity. Mediastinum: Heart size is normal. No pericardial effusion. There is a 56 mm AP by 47 mm transverse low attenuation focus with Hounsfield units suggestive of fluid along the right anterior pericardial border. 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 No mediastinal adenopathy by size criteria. Thoracic aorta and central pulmonary arteries are normal in size. Esophagus is normal in caliber. No hiatal hernia. Bones and chest wall: No suspicious bony lesions. No vertebral body compression fractures. No axillary or supraclavicular adenopathy by size criteria. Thyroid gland is not well-visualized. Abdomen: Visualized upper abdominal solid organs and bowel loops appear normal in the absence of contrast. IMPRESSION: 1. Minimal to mild bilateral pleural effusions with small superimposed consolidations. The consolidations could be digital sales representative of atelectasis. However, developing areas of underlying airspace disease such as pneumonia cannot be excluded. In addition, there is an appearance of increased pulmonary vascularity suggestive of edema. Dictated by: Nazia Mueller M.D. on 03/27/2016 at 12:23 Assessment & Plan Impression #1 acute on chronic kidney injury with acute tubular necrosis/acute interstitial nephritis which is resolving number to diabetic nephropathy #3 hypertension with hypertensive heart disease hypertensive nephrosclerosis #4 anemia secondary to chronic kidney disease Recommendations #1 I would like to add 25 mg of spironolactone at bedtime. In addition I would give her another dose of Aranesp at a dose of intravenous iron for her anemia. We also need to continue her corticosteroids and follow her blood work. Most likely she can probably be discharged next several days. VTE Mechanical Devices: Intermittant Pneumatic CD Resuscitation Status: CPR: Attempt Resuscitation Bean Thomas DO Apr 11, 2016 10:47
[2016-04-11] MEDS ORDERED: 0.9% Sodium Chloride 100 ML ONE (11:21)
--- NOTE | 2016-04-11 15:26 | PCM.PNMED ---
Subjective Date of Service Apr 11, 2016 Subjective denies any new issues/complaints Exam Vital Signs Vital Sign - Last Date Time Temp Pulse Resp B/P Pulse Ox O2 Delivery O2 Flow Rate FiO2 04/11/16 13:57 Nasal Cannula 1.00 04/11/16 12:35 36.7 64 18 179/71 97 Intake and Output 04/10/16 04/10/16 04/11/16 Cumulative From/Thru 15:00 23:00 07:00 03/26/16 19:53 - 04/11/16 04:59 Intake Total 200 ml 1072 ml 86551 ml Output Total 1125 ml 1304 ml 57966 ml Balance -925 ml -232 ml -2665 ml Intake Oral 200 ml 1072 ml 83085 ml IV Total 710 ml Output Urine Total 575 ml 300 ml 20150 ml Stool Total 550 ml 1000 ml 3101 ml Urine/Stool Mix 4 ml 1304 ml # Voids 13 # Bowel Movements 2 1 42 Exam General: Alert, Cooperative, No Acute Distress Eyes: Scleral Anicteric Nose: Mucous Membr Moist/[place] Mouth: Mucous Membr Moist/[place] Neck: Supple Chest & Lungs: Chest Wall Normal, clear to auscultation bilat Cardiovascular: Regular Rate/Rhythm Abdomen: Non-tender, No hepatosplenomegaly, Soft. rectal tube is now out Extremities: no c/c/e Neurological: Grossly Neurologically Intact, Normal Speech IVs and Medications Medications Reviewed: Medications were reviewed in detail Lab and Diagnostics Result Diagram: 04/11/16 0645 04/11/16 0645 X-Rays, CTs and MRIs PROCEDURE: CT CHEST WITHOUT CONTRAST ([id number]) INDICATIONS: questionable pneumonia/chf? TECHNIQUE: Noncontrast 5 mm thick sections acquired from the pulmonary apices to the posterior costophrenic angles. 7 mm thick coronal and sagittal MIP reformats were then acquired. For radiation dose reduction, the following was used: automated exposure control, adjustment of mA and/or kV according to patient size. COMPARISON: [facility], CT, PE STUDY (CTA CHEST), 09/26/2008, 16:40. [facility], CR, XR CHEST 1VW (PORTABLE), 03/26/2016, 15:54. FINDINGS: Image quality: Motion is present throughout the examination, limiting areas of fine detail evaluation. Lungs and pleura: Minimal mild bilateral pleural effusions, right greater than left and superimposed consolidations are present. There is an overall appearance of increased pulmonary vascularity. Mediastinum: Heart size is normal. No pericardial effusion. There is a 56 mm AP by 47 mm transverse low attenuation focus with Hounsfield units suggestive of fluid along the right anterior pericardial border. 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 No mediastinal adenopathy by size criteria. Thoracic aorta and central pulmonary arteries are normal in size. Esophagus is normal in caliber. No hiatal hernia. Bones and chest wall: No suspicious bony lesions. No vertebral body compression fractures. No axillary or supraclavicular adenopathy by size criteria. Thyroid gland is not well-visualized. Abdomen: Visualized upper abdominal solid organs and bowel loops appear normal in the absence of contrast. IMPRESSION: 1. Minimal to mild bilateral pleural effusions with small superimposed consolidations. The consolidations could be claims service representative of atelectasis. However, developing areas of underlying airspace disease such as pneumonia cannot be excluded. In addition, there is an appearance of increased pulmonary vascularity suggestive of edema. Dictated by: Nazia Mueller M.D. on 03/27/2016 at 12:23 Assessment & Plan 80-year-old female multiple comorbidities presenting with declining mental status and increased work of breathing, worsening respiratory function admitted through the ER following presentation via EMS: # Acute hypoxic respiratory failure, present on admission. improved - initial ABG 7.30/44/64 FIO2 28% - likely fluid overload in the setting of CKD/CHF, possible HCAP - appreciate nephrology consult. will f/u w/ recs - initially treated with IV Lasix and stopped on 04/05/16 and switched her to torsemide 40 mg orally in the morning and 20 in the afternoon. - stopped Amlodipine as this markedly increases her risk of lower extremity edema and will become a fluid management problem. - started Spironolactone daily on 04/05. 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 improving - per nephrology suspect " secondary to acute interstitial nephritis most likely secondary to levofloxacin" - greatly appreciate nephrology recs. treatment as noted above - avoid nephro toxins, adjust meds renally - stopped Levofloxacin - further corticosteroid per nephrology # Acute on chronic diarrhea. improving - rectal tube removed 04/11 - C. Diff ruled out again - c/w Lomotil prn # reported melena from family member - stable h/h - no signs of bleeding during this hospital - FOBT neg # History of hypertension. HTN, controlled - c/w BP meds as noted above # Episode of acute cardiac pause, developed in 04/02/16, likely thought to be vasovagal response, - per earlier note by Dr. Beard: "no further workup if GA not prolonged on repeat EKG per " # probable Hospital-acquired pneumonia - It was suspected on admission that an acute infection was accounting for patient's acute decline in status following discharge - Vancomycin discontinued 03/27 due to no evidence of MRSA infection. - Blood culture negative. Urine culture mixed karen - Pro calcitonin level with mild elevation. - stopped Levofloxacin 04/07 # Hypothyroidism, currently supra-therapeutic due to overtreatment - Elevated free T4 supportive of overtreatment with thyroid medication at this time - This could certainly be contributing to impaired mentation - Levothyroxine dose has been decreased to 150 mcg, - continue to monitor patient's mentation, bowel function, and further evidence of improving thyroid function. - Consider recheck in few days specifically T4 values. # Diabetes mellitus - c/w sliding scale insulin on admission and this will be continued # Acute on chronic anemia - under production likely due to hypothyroidism and renal disease - additional dose of Aranesp and dose of IV iron on 04/05 per nephrology # Hyperlipidemia, chronic, presume stable. - c/w Atorvastatin 80 mg daily # GERD, chronic, presume stable. - Continue PPI # Osteoporosis, chronic, presume stable. - Patient takes alendronate 70 mg weekly. # Environmental/seasonal allergies, chronic, presume stable. Dispo: 2-3 days pending nephrology workup and clearance VTE Mechanical Devices: Intermittant Pneumatic CD Resuscitation Status: CPR: Attempt Resuscitation Ramirez Jacome Apr 11, 2016 15:26
--- NOTE | 2016-04-11 16:28 | NUR ---
Social Work: Continued d/c planning Data: Pt is on day 16 of hospitalization. EMR reviewed. MUSIC SOUND LIGHT TECHNICIAN met with pt at bedside. MUSIC SOUND LIGHT TECHNICIAN discussed d/c plan with her. Pt states she wants to go home. MUSIC SOUND LIGHT TECHNICIAN explained the risks of that and that SNF is being recommended by MD, PT and her family agrees. Pt continues to decline SNF. MUSIC SOUND LIGHT TECHNICIAN will follow up with pt on 04/12 to see if this opinion remains and will discuss back up options with family for d/c. Assessment: Pt who is independent at baseline. Plan: Pt will either d/c to SNF if pt agreeable ([facility] and [facility] both have accepted pt) or home with family with HH and possibly private pay caregiving. MUSIC SOUND LIGHT TECHNICIAN will follow up with pt on 04/12 to see if this opinion remains and will discuss back up options with family for d/c. IDALIA Olmstead
--- NOTE | 2016-04-11 19:07 | NUR ---
Meds Cooperative pt, able to make needs known. Pt tolerated IV Fe well. Meds given late d/t not being available from pharmacy.
[2016-04-12] MEDS: DiphenOXYlate-Atropine 2.5 mg-0.025 mg Tablet PO PRN (01:42)
[2016-04-12] MEDS: Heparin 5,000 Unit/mL Inj SUBQ SCH ×3 (01:42→16:37)
--- NOTE | 2016-04-12 01:58 | NUR ---
Liquid Stool: Pt has had 3 liquid bowel movements thus far this shift, incontinent at times. Lomotil administered x1. Pt seems to be moaning softly once in a while, when asked if she is having pain and/or needs any Tylenol, pt declines med and pain.
[2016-04-12 06:46] VITALS: BP 171/77; PULSE 67; RESP 20; O2SAT 94
[2016-04-12] MEDS: Insulin LISPRO 300 Unit/3 mL Inj SUBQ SCH ×4 (07:36→20:57)
[2016-04-12 09:20] VITALS: PULSE 67; RESP 20; O2SAT 98
--- NOTE | 2016-04-12 10:46 | NUR ---
Social Work-continued d/c planning: Data:EMR reviewed. Pt is on day 17 of hospitalization for AMS per H&P. Pt is several days out from discharge. PT saw pt today and recommend home with , pt ambulating 100ft. SW followed up with pt and family at bedside, SW role explained. SW explained PT recommendation of home with . Sister Sharon in agreement and SW explained pt had been open with [facility] prior for RN,PT,OT, SENIOR COBOL DEVELOPER, and FIELD RING ASSEMBLER and resume orders from the doctor would be obtained. SW provided her with [facility] contact information. Sister to work on family support at home as well. SW updated Justin Navas at [facility]. SW will continue to follow. Assessment:Pt who would benefit from . Plan:Pt to discharge home with family support and [facility] RN,PT,OT, SENIOR COBOL DEVELOPER, and FIELD RING ASSEMBLER when medically stable. SW will continue to follow. IDALIA Gaming
--- NOTE | 2016-04-12 11:51 | PCM.PNMED ---
Subjective Date of Service Apr 12, 2016 Subjective Serum creatinine starts to normalize. The value today is 1.6. Patient stated that she is feeling great. She no longer has lower extremity swelling. She received IV methylprednisone and on April 07. Hydralazine was stopped on April 09. Exam Vital Signs Vital Sign - Last Date Time Temp Pulse Resp B/P Pulse Ox O2 Delivery O2 Flow Rate FiO2 04/12/16 09:20 67 20 98 Nasal Cannula 1.50 04/12/16 06:46 36.6 171/77 Intake and Output 04/11/16 04/11/16 04/12/16 Cumulative From/Thru 15:00 23:00 07:00 03/26/16 19:53 - 04/12/16 06:55 Intake Total 443 ml 370 ml 100 ml 67480 ml Output Total 650 ml 124 ml 1050 ml 96250 ml Balance -207 ml 246 ml -950 ml -3576 ml Intake Oral 300 ml 370 ml 100 ml 69204 ml IV Total 143 ml 853 ml Output Urine Total 650 ml 120 ml 700 ml 92936 ml Stool Total 3101 ml Urine/Stool Mix 4 ml 350 ml 1658 ml # Voids 13 # Bowel Movements 1 1 3 47 Exam GA: AAOx3, NAD, lying in bed comfortably. Family is at the bedside. HEENT: atraumatic, moist mucous membrane, mild pallor, no icteric sclerae, puffy face, fine hair, no JVD, no LAD. Heart: RRR, no M/R/G, normal S1/S2. Lungs: Clear to auscultation bilaterally, no wheezes, no rhonchi. Abd: Soft, obese, ND, NT, no HSM, active BS. Ext: No edema, no cyanosis, no clubbing. Skin: good turgor, no evidence of any rashes. Lab and Diagnostics Result Diagram: 04/11/16 0645 04/12/16 0620 X-Rays, CTs and MRIs PROCEDURE: CT CHEST WITHOUT CONTRAST ([id number]) INDICATIONS: questionable pneumonia/chf? TECHNIQUE: Noncontrast 5 mm thick sections acquired from the pulmonary apices to the posterior costophrenic angles. 7 mm thick coronal and sagittal MIP reformats were then acquired. For radiation dose reduction, the following was used: automated exposure control, adjustment of mA and/or kV according to patient size. COMPARISON: [facility], CT, PE STUDY (CTA CHEST), 09/26/2008, 16:40. [facility], CR, XR CHEST 1VW (PORTABLE), 03/26/2016, 15:54. FINDINGS: Image quality: Motion is present throughout the examination, limiting areas of fine detail evaluation. Lungs and pleura: Minimal mild bilateral pleural effusions, right greater than left and superimposed consolidations are present. There is an overall appearance of increased pulmonary vascularity. Mediastinum: Heart size is normal. No pericardial effusion. There is a 56 mm AP by 47 mm transverse low attenuation focus with Hounsfield units suggestive of fluid along the right anterior pericardial border. 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 No mediastinal adenopathy by size criteria. Thoracic aorta and central pulmonary arteries are normal in size. Esophagus is normal in caliber. No hiatal hernia. Bones and chest wall: No suspicious bony lesions. No vertebral body compression fractures. No axillary or supraclavicular adenopathy by size criteria. Thyroid gland is not well-visualized. Abdomen: Visualized upper abdominal solid organs and bowel loops appear normal in the absence of contrast. IMPRESSION: 1. Minimal to mild bilateral pleural effusions with small superimposed consolidations. The consolidations could be construction sales representative of atelectasis. However, developing areas of underlying airspace disease such as pneumonia cannot be excluded. In addition, there is an appearance of increased pulmonary vascularity suggestive of edema. Dictated by: Nazia Mueller M.D. on 03/27/2016 at 12:23 Assessment & Plan 1. CAYDEN on CKD secondary to acute interstitial nephritis, improving. IV methylprednisone was given on April 07. Will add prednisone 20 mg daily, monitor her kidney function. There is no clear evidence whether how long we should keep her on the corticosteroids depending on patient's response. 2. 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 Acute on chronic diastolic heart failure. 4. Transient bradycardia, resolved. 5. Hypertension with hypertensive heart disease and hypertensive nephrosclerosis with the presence of congestive heart failure. 6. DM-2 with diabetic nephropathy. 7. Hypothyroidism with recent h/o myxedema. 8. Dementia. 9. Anemia secondary to chronic kidney disease. Plan: Will add prednisone 20 mg daily, monitor her kidney function. Continue torsemide and Aldactone. We will stopped metolazone. Patient likely to be discharged home/SNF within 24-48 hours. VTE Mechanical Devices: Intermittant Pneumatic CD Resuscitation Status: CPR: Attempt Resuscitation Cheryl Pond MD Apr 12, 2016 11:51
--- NOTE | 2016-04-12 12:15 | NUR ---
Discharge PT; Ambulate w/Nsg PT goals have been met and therefore pt is discharged from further PT at this time. Rec ambulation w/nsg w/FWW 2-3x/day as pt tolerates.
[2016-04-12] MEDS: predniSONE 20 mg Tablet PO SCH (12:56)
--- NOTE | 2016-04-12 15:08 | NUR ---
Family concern of discharge Patient family was informed patient no longer qualified for SNF and would more than likely discharge home with home health. Family was concerned about finding a school child care attendant and was unclear about what services home health provided. Nurse reported this to case management. Case management came in and talked with family. Family was satisfied with explanation of services.
[2016-04-12 15:38] VITALS: BP 191/83; PULSE 72; RESP 20; O2SAT 94
--- NOTE | 2016-04-12 15:48 | PCM.PNMED ---
Subjective Date of Service Apr 12, 2016 Subjective denies any new issues/complaints Exam Vital Signs Vital Sign - Last Date Time Temp Pulse Resp B/P Pulse Ox O2 Delivery O2 Flow Rate FiO2 04/12/16 12:06 Room Air 04/12/16 09:20 67 20 98 1.50 04/12/16 06:46 36.6 171/77 Intake and Output 04/11/16 04/11/16 04/12/16 Cumulative From/Thru 15:00 23:00 07:00 03/26/16 19:53 - 04/12/16 06:55 Intake Total 443 ml 370 ml 100 ml 23424 ml Output Total 650 ml 124 ml 1050 ml 17120 ml Balance -207 ml 246 ml -950 ml -3576 ml Intake Oral 300 ml 370 ml 100 ml 26363 ml IV Total 143 ml 853 ml Output Urine Total 650 ml 120 ml 700 ml 50035 ml Stool Total 3101 ml Urine/Stool Mix 4 ml 350 ml 1658 ml # Voids 13 # Bowel Movements 1 1 3 47 Exam General: Alert, Cooperative, No Acute Distress Eyes: Scleral Anicteric Nose: Mucous Membr Moist/[place] Mouth: Mucous Membr Moist/[place] Neck: Supple Chest & Lungs: Chest Wall Normal, clear to auscultation bilat Cardiovascular: Regular Rate/Rhythm Abdomen: Non-tender, No hepatosplenomegaly, Soft. rectal tube is now out Extremities: no c/c/e Neurological: Grossly Neurologically Intact, Normal Speech IVs and Medications Medications Reviewed: Medications were reviewed in detail Lab and Diagnostics Result Diagram: 04/11/16 0645 04/12/16 0620 X-Rays, CTs and MRIs PROCEDURE: CT CHEST WITHOUT CONTRAST ([id number]) INDICATIONS: questionable pneumonia/chf? TECHNIQUE: Noncontrast 5 mm thick sections acquired from the pulmonary apices to the posterior costophrenic angles. 7 mm thick coronal and sagittal MIP reformats were then acquired. For radiation dose reduction, the following was used: automated exposure control, adjustment of mA and/or kV according to patient size. COMPARISON: [facility], CT, PE STUDY (CTA CHEST), 09/26/2008, 16:40. [facility], CR, XR CHEST 1VW (PORTABLE), 03/26/2016, 15:54. FINDINGS: Image quality: Motion is present throughout the examination, limiting areas of fine detail evaluation. Lungs and pleura: Minimal mild bilateral pleural effusions, right greater than left and superimposed consolidations are present. There is an overall appearance of increased pulmonary vascularity. Mediastinum: Heart size is normal. No pericardial effusion. There is a 56 mm AP by 47 mm transverse low attenuation focus with Hounsfield units suggestive of fluid along the right anterior pericardial border. 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 No mediastinal adenopathy by size criteria. Thoracic aorta and central pulmonary arteries are normal in size. Esophagus is normal in caliber. No hiatal hernia. Bones and chest wall: No suspicious bony lesions. No vertebral body compression fractures. No axillary or supraclavicular adenopathy by size criteria. Thyroid gland is not well-visualized. Abdomen: Visualized upper abdominal solid organs and bowel loops appear normal in the absence of contrast. IMPRESSION: 1. Minimal to mild bilateral pleural effusions with small superimposed consolidations. The consolidations could be underwriting account representative of atelectasis. However, developing areas of underlying airspace disease such as pneumonia cannot be excluded. In addition, there is an appearance of increased pulmonary vascularity suggestive of edema. Dictated by: Nazia Mueller M.D. on 03/27/2016 at 12:23 Assessment & Plan 80-year-old female multiple comorbidities presenting with declining mental status and increased work of breathing, worsening respiratory function admitted through the ER following presentation via EMS: # Acute hypoxic respiratory failure, present on admission. improved - initial ABG 7.30/44/64 FIO2 28% - likely fluid overload in the setting of CKD/CHF, possible HCAP - appreciate nephrology consult. will f/u w/ recs - initially treated with IV Lasix and stopped on 04/05/16 and switched her to torsemide 40 mg orally in the morning and 20 in the afternoon. - stopped Amlodipine as this markedly increases her risk of lower extremity edema and will become a fluid management problem. - started Spironolactone daily on 04/05. add 25 mg of spironolactone at bedtime - c/w Torsemide and Aldactone. 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 improving - per nephrology suspect " secondary to acute interstitial nephritis most likely secondary to levofloxacin" - greatly appreciate nephrology recs. treatment as noted above - avoid nephro toxins, adjust meds renally - stopped Levofloxacin - prednisone 20 mg daily per nephrology - metolazone stopped # Acute on chronic diarrhea. improving - rectal tube removed 04/11 - C. Diff ruled out again - c/w Lomotil prn # reported melena from family member - stable h/h - no signs of bleeding during this hospital - FOBT neg # History of hypertension. HTN, controlled - c/w BP meds as noted above # Episode of acute cardiac pause, developed in 04/02/16, likely thought to be vasovagal response, - per earlier note by Dr. Beard: "no further workup if NH not prolonged on repeat EKG per " # probable Hospital-acquired pneumonia - It was suspected on admission that an acute infection was accounting for patient's acute decline in status following discharge - Vancomycin discontinued 03/27 due to no evidence of MRSA infection. - Blood culture negative. Urine culture mixed karen - Pro calcitonin level with mild elevation. - stopped Levofloxacin 04/07 # Hypothyroidism, currently supra-therapeutic due to overtreatment - Elevated free T4 supportive of overtreatment with thyroid medication at this time - This could certainly be contributing to impaired mentation - Levothyroxine dose has been decreased to 150 mcg, - continue to monitor patient's mentation, bowel function, and further evidence of improving thyroid function. - f/u recheck as outpatient # Diabetes mellitus - c/w sliding scale insulin on admission and this will be continued # Acute on chronic anemia - under production likely due to hypothyroidism and renal disease - additional dose of Aranesp and dose of IV iron on 04/05 per nephrology # Hyperlipidemia, chronic, presume stable. - c/w Atorvastatin 80 mg daily # GERD, chronic, presume stable. - Continue PPI # Osteoporosis, chronic, presume stable. - Patient takes alendronate 70 mg weekly. # Environmental/seasonal allergies, chronic, presume stable. Dispo: 1-2 days VTE Mechanical Devices: Intermittant Pneumatic CD Resuscitation Status: CPR: Attempt Resuscitation Ramirez Jacome Apr 12, 2016 15:48
--- NOTE | 2016-04-12 16:01 | NUR ---
NUTRITION FOLLOW-UP ASSESS: 80 yo female re-admitted w/ altered mental status, weakness, and loss of consciousness d/t pneumonia and ongoing hypoxia. Nephrology continues to follow. Pt po intake has improved a little over the past 48 hours with pt eating 25-100% of meals and pt is receiving supplements. PMHX: CKD Stage IV, Type II DM, hypothyroid, HTN, HLD, GERD, multi-infarct dementia, osteoporosis, anemia DIET: Pureed. Diabetic. mighty shakes 3 times per day. PO 25-100% LABS: Reviewed. BUN 59, Cr 1.61, Glu 135, Ca 7.7. MEDS: Reviewed. GI: BM x 3 (04/12) CURRENT WT: 58.6 kg unclear if wt is accurate IBW: 31.8 kg ADMIT WT: 73.6 kg Wt: pt continues to lose wt with wt loss of 20% x 2.5 weeks (if current wt is accurate), some likely due to fluids (diarrhea) but pt also not meeting est. needs through po intake at this time. EST.NEEDS: CAYDEN, BMI Calories: 9919-4318 kcal/day (22-25 kcal/kg BW) Protein: 40-75 g/day (1.0-1.5 g/kg IBW) NUTRITION DIAGNOSIS: 1) Inadequate oral intake related to acute illness and generalized weakness as evidenced by PO intake refused-50%, and wt loss of 20% since admit.--PERSISTS INTERVENTION: 1) Continue to send SF mighty shakes TID. 2) Will add Glucerna TID between meals. MONITOR/EVALUATE: PO intake, weight, labs, nutrition status. Will continue to monitor per high nutritional risk guidelines.
[2016-04-12 20:15] VITALS: BP 205/78; PULSE 83; RESP 21; O2SAT 93
[2016-04-12 20:38] VITALS: PULSE 82; RESP 16; O2SAT 91
[2016-04-13 01:33] VITALS: BP 166/67; PULSE 74; O2SAT 96
[2016-04-13] MEDS: Heparin 5,000 Unit/mL Inj SUBQ SCH ×2 (01:35→07:58)
[2016-04-13 06:05] VITALS: BP 184/73; PULSE 73; RESP 20; O2SAT 94
--- NOTE | 2016-04-13 06:19 | NUR ---
BM: Pt only had one loose bowel movement last night. Ambulating to the bathroom with assist and FWW. Bed alarm activated, pt does not call for assistance. Alert and oriented to self and occasionally place.
[2016-04-13 06:57] LABS: Mean Corpuscular Hemoglobin 26.9 pg (27.0-35.0); Mean Corpuscular Volume 87.3 fL (81-100)
[2016-04-13] MEDS: predniSONE 20 mg Tablet PO SCH (07:57)
[2016-04-13] MEDS: Insulin LISPRO 300 Unit/3 mL Inj SUBQ SCH (07:59)
[2016-04-13 08:04] VITALS: PULSE 73; RESP 18; O2SAT 93
[2016-04-13] MEDS ORDERED: LABE100T4 PO (10:58)
[2016-04-13] MEDS ORDERED: TORS20TA PO ×2 (10:58)
[2016-04-13] MEDS ORDERED: PRD5T PO (10:58)
[2016-04-13] MEDS ORDERED: SPIR25TA PO (10:58)
[2016-04-13] MEDS ORDERED: LEVO150T5 PO (10:58)
--- NOTE | 2016-04-13 11:10 | PCM.DIMED ---
Discharge Instructions Date of Service Apr 13, 2016 Dates of Hospitalization Mar 26, 2016 at 18:41 Discharge Diagnosis Discharge Diagnosis # Acute hypoxic respiratory failure, present on admission. Resolved. - likely due to fluid overload # Acute kidney injury on top of chronic kidney disease, stage 4. improving - suspect secondary to acute interstitial nephritis most likely secondary to levofloxacin # Acute on chronic diarrhea. Resolved - C. Difficile infection ruled out again # Reported melena on admission. - stable H/H - no signs of bleeding during this hospital # History of hypertension. currently poorly controlled # Episode of acute cardiac pause, developed on 04/02/16, likely thought to be vasovagal response, # Possible acute hospital-acquired pneumonia. present on admission. post antibiotic treatment # Hypothyroidism, currently supra-therapeutic due to overtreatment - Elevated free T4 supportive of overtreatment with thyroid medication at this time - Levothyroxine dose has been decreased from 200 to 150 mcg daily during this hospital # Diabetes mellitus, chronic. # Acute on chronic anemia - under production likely due to hypothyroidism and renal disease - post treatment with Aranesp and dose of IV iron # Hyperlipidemia, chronic, presume stable. # GERD, chronic, presume stable. # Osteoporosis, chronic, presume stable. # Environmental/seasonal allergies, chronic, stable. Diet Low fat, Low Sodium, Heart Healthy, Diabetic Activity Home Health Phyical Therapy Call your provider Fever or Chills, Shortness of breath, Bleeding, Chest pain, Vomitting, Excessive diarrhea Patient Instructions Seek immediate medical attention if any new or worsening signs or symptoms occur. Follow-up plan 1. Followup with primary care provider (Dr. Saini) on 04/20/16 at 2:00 PM 2. Followup with nephrology (Dr. Allen) in one week. Call to setup appointment [address] [phone] Follow-up Provider: Praveena Saini MD Follow-up with PCP in: Other (04/20/16 at 2:00 PM) Provider: Cheryl Pond MD Follow-up in: 1 week Ramirez Jacome Apr 13, 2016 11:09
--- NOTE | 2016-04-13 11:21 | PCM.PNMED ---
Subjective Date of Service Apr 13, 2016 Subjective Blood pressure remains elevated. There was no acute issues overnight. She has no new complaints as usual. Serum creatinine today is 1.64. Exam Vital Signs Vital Sign - Last Date Time Temp Pulse Resp B/P Pulse Ox O2 Delivery O2 Flow Rate FiO2 04/13/16 08:04 73 18 93 Room Air 04/13/16 06:05 36.6 184/73 04/13/16 01:33 1.00 Intake and Output 04/12/16 04/12/16 04/13/16 Cumulative From/Thru 15:00 23:00 07:00 03/26/16 19:53 - 04/13/16 06:29 Intake Total 1145 ml 200 ml 12777 ml Output Total 1350 ml 800 ml 83684 ml Balance -205 ml -600 ml -4381 ml Intake Oral 1135 ml 200 ml 89481 ml IV Total 10 ml 863 ml Output Urine Total 1350 ml 800 ml 36876 ml Stool Total 3101 ml Urine/Stool Mix 1658 ml # Voids 1 14 # Bowel Movements 2 1 50 Exam GA: AAOx3, NAD, lying in bed comfortably. Family is at the bedside. HEENT: atraumatic, moist mucous membrane, mild pallor, no icteric sclerae, puffy face, fine hair, no JVD, no LAD. Heart: RRR, no M/R/G, normal S1/S2. Lungs: Clear to auscultation bilaterally, no wheezes, no rhonchi. Abd: Soft, obese, ND, NT, no HSM, active BS. Ext: No edema, no cyanosis, no clubbing. Skin: good turgor, no evidence of any rashes. Lab and Diagnostics Result Diagram: 04/13/1662604/13/16626 X-Rays, CTs and MRIs PROCEDURE: CT CHEST WITHOUT CONTRAST ([id number]) INDICATIONS: questionable pneumonia/chf? TECHNIQUE: Noncontrast 5 mm thick sections acquired from the pulmonary apices to the posterior costophrenic angles. 7 mm thick coronal and sagittal MIP reformats were then acquired. For radiation dose reduction, the following was used: automated exposure control, adjustment of mA and/or kV according to patient size. COMPARISON: [facility], CT, PE STUDY (CTA CHEST), 09/26/2008, 16:40. [facility], CR, XR CHEST 1VW (PORTABLE), 03/26/2016, 15:54. FINDINGS: Image quality: Motion is present throughout the examination, limiting areas of fine detail evaluation. Lungs and pleura: Minimal mild bilateral pleural effusions, right greater than left and superimposed consolidations are present. There is an overall appearance of increased pulmonary vascularity. Mediastinum: Heart size is normal. No pericardial effusion. There is a 56 mm AP by 47 mm transverse low attenuation focus with Hounsfield units suggestive of fluid along the right anterior pericardial border. 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 No mediastinal adenopathy by size criteria. Thoracic aorta and central pulmonary arteries are normal in size. Esophagus is normal in caliber. No hiatal hernia. Bones and chest wall: No suspicious bony lesions. No vertebral body compression fractures. No axillary or supraclavicular adenopathy by size criteria. Thyroid gland is not well-visualized. Abdomen: Visualized upper abdominal solid organs and bowel loops appear normal in the absence of contrast. IMPRESSION: 1. Minimal to mild bilateral pleural effusions with small superimposed consolidations. The consolidations could be plastic products sales representative of atelectasis. However, developing areas of underlying airspace disease such as pneumonia cannot be excluded. In addition, there is an appearance of increased pulmonary vascularity suggestive of edema. Dictated by: Nazia Mueller M.D. on 03/27/2016 at 12:23 Assessment & Plan 1. CAYDEN on CKD secondary to acute interstitial nephritis, improving. IV methylprednisone was given on April 07. Will add prednisone 20 mg daily, monitor her kidney function. There is no clear evidence whether how long we should keep her on the corticosteroids depending on patient's response. 2. 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 Acute on chronic diastolic heart failure. 4. Transient bradycardia, resolved. 5. Hypertension with hypertensive heart disease and hypertensive nephrosclerosis with the presence of congestive heart failure. 6. DM-2 with diabetic nephropathy. 7. Hypothyroidism with recent h/o myxedema. 8. Dementia. 9. Anemia secondary to chronic kidney disease. Plan: prednisone 20 mg daily x 1 week then taper down by 5 mg each week. Continue torsemide and aldactone. increase labetalol 200 mg BID. f/u with renal in 1 week. VTE Mechanical Devices: Intermittant Pneumatic CD Resuscitation Status: CPR: Attempt Resuscitation Cheryl Pond MD Apr 13, 2016 11:21
[2016-04-13] MEDS ORDERED: LABE200T PO (11:42)
--- NOTE | 2016-04-13 12:27 | NUR ---
Social Work-discharge: Data:EMR Reviewed. Pt is on day 18 of hospitalization for AMS per H&P. Pt is medically stable for discharge home today. PT has cleared pt for home with HH services. GONZÁLEZ confirmed plan with pt and family, all agreeable. GONZÁLEZ informed Justin Vila Gerald [phone] with Noemi for discharge and provided him with orders and F2F for RN,PT,OT,BUSINESS CONTINUITY MANAGER, and WINDOW INSTALLATION SUBCONTRACTOR. Pt's family to provide transport home today. All updated and agreeable to plan. Assessment:pt who would benefit from HH. Plan:Pt to discharge home today via POV. F2F and orders given to Noemi for RN,PT,OT, and ST. F2F in folder. All updated and agreeable to plan. [employer]IA [employer]
--- NOTE | 2016-04-13 12:38 | NUR ---
Discharge Patient given discharge orders. Patient given medication list and when next dose is due. Patient IV removed fully intact and asymptomatic. Patient given informational packets. Patient given hard copies of prescriptions. Patient belongings packed. Patient family/POA/caregiver in room at time of discharge.
--- NOTE | 2016-04-13 15:51 | PCM.DC.MED ---
Discharge Summary Date of Service Apr 13, 2016 Dates of Hospitalization Date of Hospital Admission Mar 26, 2016 at 18:41 Date of Discharge: Apr 13, 2016 Providers: Admitting Physician: Sandy Ballard MD Primary Care Physician: Praveena Saini MD Attending Physician: Sandy Ballard MD Diagnosis at Time of Discharge Diagnosis at Time of Discharge # Acute hypoxic respiratory failure, present on admission. Resolved. - likely due to fluid overload # Acute kidney injury on top of chronic kidney disease, stage 4. improving - suspect secondary to acute interstitial nephritis most likely secondary to levofloxacin # Acute on chronic diarrhea. Resolved - C. Difficile infection ruled out again # Reported melena on admission. - stable H/H - no signs of bleeding during this hospital # History of hypertension. currently poorly controlled # Episode of acute cardiac pause, developed on 04/02/16, likely thought to be vasovagal response, # Possible acute hospital-acquired pneumonia. present on admission. post antibiotic treatment # Hypothyroidism, currently supra-therapeutic due to overtreatment - Elevated free T4 supportive of overtreatment with thyroid medication at this time - Levothyroxine dose has been decreased from 200 to 150 mcg daily during this hospital # Diabetes mellitus, chronic. # Acute on chronic anemia - under production likely due to hypothyroidism and renal disease - post treatment with Aranesp and dose of IV iron # Hyperlipidemia, chronic, presume stable. # GERD, chronic, presume stable. # Osteoporosis, chronic, presume stable. # Environmental/seasonal allergies, chronic, stable. Consultations 1. Nephrology Procedures XRay, CTs & MRIs Date of Service: 03/26/16 0018 PROCEDURE: CT BRAIN WITHOUT CONTRAST ([id number]) IMPRESSION: Posterior left temporal hypodensity, likely encephalomalacia or evolutionary changes from prior ischemia although technically age indeterminate (although appears unchanged since 03/03/16). If there is clinical concern for acute ischemia, further assessment with MRI could be performed. Elsewhere, no acute intracranial process. Dictated by: Francisco Wiggins M.D. on 03/26/2016 at 16:43 Approved by: Francisco Wiggins M.D. on 03/26/2016 at 16:54 Date of Service: 03/27/16 1152 PROCEDURE: CT CHEST WITHOUT CONTRAST ([id number]) IMPRESSION: 1. Minimal to mild bilateral pleural effusions with small superimposed consolidations. The consolidations could be graphic art sales representative of atelectasis. However, developing areas of underlying airspace disease such as pneumonia cannot be excluded. In addition, there is an appearance of increased pulmonary vascularity suggestive of edema. Dictated by: Nazia Mueller M.D. on 03/27/2016 at 12:23 Approved by: Nazia Mueller M.D. on 03/27/2016 at 12:26 Date of Service: 04/06/16 1128 PROCEDURE: X-RAY CHEST, TWO VIEWS ([id number]) IMPRESSION: 1. Decreasing pulmonary edema and residual air space opacities within the lung bases likely related to residual patchy edema but pneumonia cannot be excluded. Dictated by: Meet Ybarra [facility] Interpreted: Nazia Mueller MD on 04/06/2016 at 15: 54 Transcribed by: ERMA on 04/06/2016 at 15:56 Approved by: Nazia Mueller M.D. on 04/06/2016 at 17:32 Cardiac Echo Impression Date of Service: 03/27/16 0928 Echocardiogram Report Interpretation Summary Left ventricular systolic function is normal without focal wall motion abnormalities. The ejection fraction is estimated to be 55-60%. The right ventricle is normal in size and function. The right ventricular systolic pressure is estimated at 44 mmHg assuming a right atrial pressure of 8 mm Hg. There is no significant valvular heart disease. There is a moderate right-sided pleural effusion. There is no pericardial effusion. Pericardial effusion has resolved. Reading Physician:PM Brief History As noted in H&P by Dr. Ballard: History of present illness 80 y f presented with loss of consciousness, niece called EMS. She was noted to be somnolent in the ER unable to answer questions but able to nod and shake her head and follow commands. Last hospitalization for severe hypo-thyroidism March 03 - 03/23/2016, ongoing weakness incontinence diarrhea since then. This morning patient walked to doctor's appointment, returned home short of breath despite inhaler then lost consciousness foaming at the mouth per niece per ER notes. Pt is unsure but indicates no choking on food and no sick contacts. coughing had been dry, unclear when it started. Hospital Course # Acute hypoxic respiratory failure, present on admission. improved - initial ABG 7.30/44/64 FIO2 28% - likely fluid overload in the setting of CKD/CHF, possible HCAP - appreciate nephrology consult. will f/u w/ recs - initially treated with IV Lasix and stopped on 04/05/16 and switched her to torsemide 40 mg orally in the morning and 20 in the afternoon. - stopped Amlodipine as this markedly increases her risk of lower extremity edema and will become a fluid management problem. - started Spironolactone daily on 04/05. add 25 mg of spironolactone at bedtime - c/w Torsemide and Aldactone. 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 improving - per nephrology suspect " secondary to acute interstitial nephritis most likely secondary to levofloxacin" - greatly appreciate nephrology recs. 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 Resolved - rectal tube removed 04/11 - C. Diff ruled out again # reported melena from family member - stable h/h - no signs of bleeding during this hospital - FOBT neg # History of hypertension. HTN, controlled - c/w BP meds as noted above # Episode of acute cardiac pause, developed in 04/02/16, likely thought to be vasovagal response, - per earlier note by Dr. Beard: "no further workup if [place] not prolonged on repeat EKG per " # probable Hospital-acquired pneumonia - It was suspected on admission that an acute infection was accounting for patient's acute decline in status following discharge - Vancomycin discontinued 03/27 due to no evidence of MRSA infection. - Blood culture negative. Urine culture mixed karen - Pro calcitonin level with mild elevation. - stopped Levofloxacin 04/07/16 # Hypothyroidism, currently supra-therapeutic due to overtreatment - Elevated free T4 supportive of overtreatment with thyroid medication at this time - This could certainly be contributing to impaired mentation - Levothyroxine dose has been decreased to 150 mcg, - f/u recheck as outpatient # Diabetes mellitus - c/w sliding scale insulin on admission and this will be continued # Acute on chronic anemia - under production likely due to hypothyroidism and renal disease - additional dose of Aranesp and dose of IV iron on 04/05 per nephrology # Hyperlipidemia, chronic, presume stable. - c/w Atorvastatin 80 mg daily # GERD, chronic, presume stable. - Continue PPI # Osteoporosis, chronic, presume stable. - Patient takes alendronate 70 mg weekly. # Environmental/seasonal allergies, chronic, presume stable. by day of d/c lungs CTA bilat. patient awake, alert, Ox3 and insists on discharging home. discussed with nephrology and cleared for d/c Exam Vital Signs (Last) Date Time Temp Pulse Resp B/P Pulse Ox O2 Delivery O2 Flow Rate FiO2 04/13/16 08:04 73 18 93 Room Air 04/13/16 06:05 36.6 184/73 04/13/16 01:33 1.00 Test 03/26/16 15:19 03/26/16 15:22 03/26/16 20:45 03/27/16 03:30 Hold Purple Top Tube Received (Received) Hold Blue Top Tube Received (Received) Hold Red Top Tube Received (Received) Hold [place] Top Tube Received (Received) Thyroid Stimulating Hormone (TSH) 7.620uIU/mL (0.450-4.500) Free Thyroxine 2.34ng/dL (0.82-1.77) Troponin T 0.010ug/L (0.0-0.011) Urine Color Yellow (YELLOW) Urine Appearance Cloudy (CLEAR,HAZY) Urine pH 5.0 (5.0-8.0) Urine Specific [place] 1.030 (1.003-1.035) Urine Protein >300mg/dL (NEG,TRACE) Urine Glucose (UA) 100mg/dL (NEGATIVE) Urine Ketones Tracemg/dL (NEGATIVE) Urine Occult Blood Large (NEGATIVE) Urine Nitrite Negative (NEGATIVE) Urine Bilirubin Negative (NEGATIVE) Urine Urobilinogen Normalmg/dL (NORMAL) Urine Leukocyte Esterase Moderate (NEGATIVE) Urine RBC 3-10/hpf (0-2) Urine WBC >50/hpf (0-5) Urine Epithelial Cells Moderate/hpf (NONE-MOD) Urine Crystals None seen (NONE SEEN) Urine Bacteria Many/hpf (NONE-FEW) Urine Hyaline Casts Occasional/lpf (NONE) Urine Granular Casts None seen (NONE SEEN) Urine Waxy Casts None seen (NONE SEEN) Urine Red Blood Cell Casts None seen (NONE SEEN) Urine White Blood Cell Casts None seen (NONE SEEN) Urine Mucus Present (None Seen) Urine Trichomonas None seen (NONE SEEN) Urine Yeast None (NONE SEEN) Urinalysis Comment None Urine Culture Reflexed Indicated Test 03/28/16 05:35 03/29/16 06:10 03/30/16 11:14 04/01/16 07:40 Lactic Acid Level 0.4mmol/L (0.4-2.0) Procalcitonin 0.21ng/mL (0.00-0.08) Prealbumin 13mg/dL (20-40) Osmolality 304 (275-300) Pro-B-Type Natriuretic Peptide 8005pg/mL (0-738) Test 04/02/16 07:05 04/03/16 09:25 04/05/16 05:30 04/06/16 11:55 Metamyelocytes % 2% (0-0) Band Neutrophils % 4% (1-5) Phosphorus Level 3.9mg/dL (2.5-4.9) Magnesium Level 2.0mg/dL (1.6-2.6) Histone Antibodies 1.0Units (0.0-0.9) Test 04/08/16 06:10 04/08/16 14:07 04/10/16 08:00 04/13/16 06:27 Neutrophils (%) (Auto) 92.3% (40-74) Lymphocytes (%) (Auto) 4.5% (14-46) Monocytes (%) (Auto) 0.9% (4-12) Eosinophils (%) (Auto) 0% (0-5) Basophils (%) (Auto) 0.1% (0-3) Urine Osmolality 321mOs/kH2O (250-1200) Urine Random Sodium 37mEq/L Iron Level 47ug/dL (35-150) Total Iron Binding Capacity 318ug/dL (250-450) Percent Iron Saturation 15%sat (15-50) Unsaturated Iron Binding 271.2ug/dL Total Bilirubin 0.6mg/dL (0.0-1.2) Aspartate Amino Transf (AST/SGOT) 18U/L (0-50) Alanine Aminotransferase (ALT/SGPT) 16U/L (0-32) Alkaline Phosphatase 103U/L (25-165) Total Protein 6.0g/dL (6.4-8.4) Albumin 3.5g/dL (3.4-5.0) White Blood Count 12.7th/mm3 (3.8-10.1) Red Blood Count 3.38mil/mm3 (3.90-5.20) Hemoglobin 9.1g/dL (12.0-15.6) Hematocrit 29.5% (35.0-46.0) Mean Corpuscular Volume 87.3fL (81-100) Mean Corpuscular Hemoglobin 26.9pg (27.0-35.0) Mean Corpuscular Hemoglobin Concent 30.8% (32.0-37.0) Red Cell Distribution Width 15.0% (12.3-15.4) Platelet Count 364bil/L (150-400) Sodium Level 135mEq/L (134-144) Potassium Level 4.0mEq/L (3.5-5.2) Chloride Level 95mEq/L (97-108) Carbon Dioxide Level 27mmol/L (18-29) Blood Urea Nitrogen 58mg/dL (8-27) Creatinine 1.64mg/dL (0.57-1.00) Estimat Glomerular Filtration Rate 43mL/min (>59) Glucose Level 252mg/dL (60-99) Calcium Level 7.7mg/dL (8.5-10.1) Discharge Medications Discharge Medications ([Thiamine]) 100 MG TABLET 100 MG PO DAILY Prescribed by: MARTINA KLEIN MD Alendronate (Alendronate) 35 Mg Tablet 70 MG PO WEEKLY (Reported) Atorvastatin (Lipitor) 80 Mg Tablet 40 MG PO DAILY Prescribed by: MARTINA KLEIN MD Cholecalciferol (Vitamin D3) (Vitamin D3) 1,000 Unit Tab.chew 1,000 UNIT PO DAILY (Reported) Donepezil (Donepezil) 5 Mg Tablet 5 MG PO HS (Reported) Ferrous Sulfate (Ferrous Sulfate) 325 Mg Tablet 325 MG PO DAILY Prescribed by: MARTINA KLEIN MD Labetalol (Labetalol) 200 Mg Tablet 200 MG PO BID Prescribed by: PATSY CAPPS MD Levothyroxine (Levothyroxine) 150 Mcg Tablet 150 MCG PO DAILY Prescribed by: PATSY CAPPS MD Loratadine (Claritin) 10 Mg Capsule 10 MG PO DAILY (Reported) Magnesium Oxide (Magnesium Oxide) 400 Mg Tablet 400 MG PO DAILY Prescribed by: RAMEZ STRONG MD Omeprazole (Omeprazole) 20 Mg Capsule.dr 40 MG PO DAILY Prescribed by: MARTINA KLEIN MD Prednisone (PredniSONE) 5 Mg Tab 5-20 MG PO DAILY TAKE 4 TABS (20 MG) PO DAILY X 7 DAYS THEN, TAKE 2 TABS (10 MG) PO DAILY X 7 DAYS THEN, TAKE 1 TAB (5 MG) PO DAILY X 7 DAYS THEN, STOP. Prescribed by: PATSY CAPPS MD Ropinirole (Requip) 1 Mg Tablet 1 MG PO HS Prescribed by: RAMEZ STRONG MD Spironolactone (Aldactone) 25 Mg Tablet 25 MG PO BID Prescribed by: PATSY CAPPS MD Torsemide (Demadex) 20 Mg Tablet 40 MG PO DAILY Prescribed by: PATSY CAPPS MD Torsemide (Demadex) 20 Mg Tablet 20 MG PO DAILY@16 Prescribed by: PATSY CAPPS MD As needed Polyethylene Glycol 3350 (Miralax) 17 Gm Powd.pack 17 GM PO DAILY PRN PRN For Constipation Prescribed by: MARTINA KLEIN MD Sennosides (Senna) 8.6 Mg Tablet 17.2 MG PO BID PRN PRN For Constipation Prescribed by: MARTINA KLEIN MD Followup Plan Follow-up plan 1. Followup with primary care provider (Dr. Saini) on 04/20/16 at 2:00 PM 2. Followup with nephrology (Dr. Allen) in one week. Call to setup appointment [address] [id number] Discharge Diet: Low fat, Low Sodium, Heart Healthy, Diabetic Discharge Activity: Home Health Phyical Therapy Patient Instructions Seek immediate medical attention if any new or worsening signs or symptoms occur. Follow-up Provider: Praveena Saini MD Follow-up with PCP in: Other (04/20/16 at 2:00 PM) Provider: Cheryl Pond MD Follow-up in: 1 week Time spent 35 min copies to: Cheryl Pond MD; Praveena Saini MD, Masoud Apr 13, 2016 15:51
== END 2016-04-13 12:16 | disposition home health service (06) | DRG 189 ==
LOC: EDUNIT# 15:09 → SED 15:09 → EDBD 15:09 → MPC 18:41 → MOC 03-31 22:30 → MPC 04-02 15:40 → UNDODISIN 04-08 15:28
PROVIDERS: ADMIT Urology; ATTEND Urology
PROC: 4A033R1 Measurement of Arterial Saturation, Peripheral, Percutaneous Approach (ICD-10-PCS; principal; 2016-03-27)
DX: J96.01 Acute respiratory failure with hypoxia (principal); J18.9 Pneumonia, unspecified organism; I50.33 Acute on chronic diastolic (congestive) heart failure; G92 Toxic encephalopathy; I13.0 Hypertensive heart and chronic kidney disease with heart failure and stage 1 through stage 4 chronic kidney disease, or unspecified chronic kidney disease; N17.9 Acute kidney failure, unspecified; N18.4 Chronic kidney disease, stage 4 (severe); E87.0 Hyperosmolality and hypernatremia; E87.2 Acidosis; M94.9 Disorder of cartilage, unspecified; Z79.4 Long term (current) use of insulin; E78.5 Hyperlipidemia, unspecified; E03.9 Hypothyroidism, unspecified; Z87.891 Personal history of nicotine dependence; E11.21 Type 2 diabetes mellitus with diabetic nephropathy; R19.7 Diarrhea, unspecified; E05.90 Thyrotoxicosis, unspecified without thyrotoxic crisis or storm; Y95 Nosocomial condition; F01.50 Vascular dementia, unspecified severity, without behavioral disturbance, psychotic disturbance, mood disturbance, and anxiety; D63.1 Anemia in chronic kidney disease; R09.89 Other specified symptoms and signs involving the circulatory and respiratory systems; M32.0 Drug-induced systemic lupus erythematosus; T36.8X5A Adverse effect of other systemic antibiotics, initial encounter